=== PATIENT | female | born 1945 | race Caucasian/White ===

== ENCOUNTER 2016-12-01 12:35 | Emergency (ER) | payer MEDICARE, OTHER ==
[~2016-12-01] VITALS: Ht 152.4 cm; Wt 66.8 kg
[~2016-12-01 12:35] MED LIST: BENA20TA48 PO; HYDR-762 PO; OLAN5TAB5 PO; TRAZ50TA18 PO
[2016-12-01 12:39] VITALS: Ht 152.4 cm; Wt 66.8 kg
[2016-12-01] MEDS ORDERED: morphine 4 MG/ML VIAL IV STA (16:21)
[2016-12-01] MEDS ORDERED: SOD CHLORIDE 0.9% 1,000 ML IV STA (16:21)
--- NOTE | 2016-12-01 16:48 | RADRPT ---
PROCEDURE: XR Chest. CLINICAL INDICATION: Abdominal pain. TECHNIQUE: Single frontal view of the chest was obtained COMPARISON: Chest x-ray 02/13/2015. FINDINGS: There are atherosclerotic calcifications in the aortic arch. There are degenerative osteophytes in the thoracic spine. The soft tissues are generous. The heart, pulmonary vasculature, lung hooper an d pleural spaces are normal. Calcifications are noted in the bilateral augmentation mammary implants . No changes noted compared to the prior study. IMPRESSION: 1. Stable chest x-ray with no evidence of active cardiopulmonary disease. RPTAT:AAJJ Physician Boris Date Time Electronically viewed and signed by Physician Boris on 12/01/2016 16:48 SARAHI/
[2016-12-01 17:17] LABS: ADD UMIC YES; URINE BILIRUBIN (Dip) 1+ (NEGATIVE); URINE BLOOD (Dip) 1+ (NEGATIVE); URINE GLUCOSE (Dip) NEGATIVE (NEGATIVE); URINE KETONES (Dip) 40 (NEGATIVE); URINE LEUKOCYTE ESTERASE (Dip) 2+ (NEGATIVE); URINE NITRITE (Dip) NEGATIVE (NEGATIVE); URINE TOTAL PROTEIN (Dip) TRACE (NEGATIVE); URINE UROBILINOGEN (Dip) 1.0 E.U./dL (0.1-1.0)
[2016-12-01 17:19] LABS: BASOPHIL # 0.1 10^3/ul (0.0-0.1); BASOPHILS % 0.6 % (0.0-2.0); EOSINOPHILS % 0.4 % (0.0-7.0); HEMATOCRIT 43.9 % (37.0-47.0); HEMOGLOBIN 14.5 g/dl (12.0-16.0); LYMPHOCYTES # 2.8 10^3/ul (0.8-2.9); LYMPHOCYTES % 24.4 % (15.0-51.0); MEAN CORPUSCULAR HGB CONC 33.1 g/dl (32.0-37.0); MEAN CORPUSCULAR VOLUME 93.7 fl (82.0-101.0); MEAN PLATELET VOLUME 10.8 fl (7.4-10.4); MONOCYTE # 0.7 10^3/ul (0.3-0.9); NEUTROPHIL # 7.7 10^3/ul (1.6-7.5); NEUTROPHILS % 68.6 % (39.0-77.0); PLATELET COUNT 161 10^3/UL (140-440); RED BLOOD COUNT 4.69 10^6/ul (4.20-5.40); RED CELL DISTRIBUTION WIDTH 14.5 % (11.5-14.5); UNCORRECTED WBC 11.3 10^3/ul (4.8-10.8); WHITE BLOOD COUNT 11.3 10^3/ul (4.8-10.8)
[2016-12-01 17:21] LABS: CONDITION 1
[2016-12-01 17:22] LABS: ALBUMIN 4.1 g/dl (3.3-4.9)
[2016-12-01 17:25] LABS: ALBUMIN/GLOBULIN RATIO 1.32; BILIRUBIN,INDIRECT 0.5 mg/dl (0-1.1); BILIRUBIN,TOTAL 0.5 mg/dl (0.2-1.3); CREATININE 0.72 mg/dl (0.44-1.00); TOTAL PROTEIN 7.2 g/dl (6.1-8.1)
[2016-12-01 17:26] LABS: CALCIUM 9.6 mg/dl (8.4-10.2)
[2016-12-01 17:37] LABS: POTASSIUM 4.5 mmol/L (3.5-5.1)
[2016-12-01 17:41] LABS: URINE COLOR YELLOW (YELLOW)
[2016-12-01 17:43] LABS: BACTERIA,URINE MODERATE; SQUAMOUS EPITHELIAL CELL,UR MANY
[2016-12-01 17:45] LABS: ICTOTEST NEGATIVE (NEGATIVE)
--- NOTE | 2016-12-01 18:03 | RADRPT ---
PROCEDURE: CT abdomen and pelvis without contrast. CLINICAL INDICATION: Abdominal pain TECHNIQUE: CT scan of the abdomen and pelvis without contrast was performed. Sagittal and coronal reformatted images were obtained from the axial source images. CTDI = 9.03 mGy; DLP = 412.02 mGy-cm COMPARISON: None. FINDINGS: Visualized lower thorax: The lung bases are clear. There is no evidence for pleural effusion. Prom inent pericardial fat is noted. Liver, gallbladder, pancreas and spleen: The liver is normal and size, contour and attenuation. Th ere is no evidence for a liver mass or ductal dilatation. The gallbladder is unremarkable. No comm on bile duct abnormality is demonstrated. The pancreas is unremarkable. The spleen is normal in si ze. Adrenal glands and genitourinary system: The adrenal glands are normal bilaterally. Some curvilinea r calcifications along the right lateral renal cortex may be vascular or the sequela of prior infect ion with cortical scarring. There is no evidence of renal calculus, mass or hydronephrosis, the lef t kidney is unremarkable. The ureters are unremarkable. The urinary bladder is contracted and diffi cult to evaluate, there is artifact from left hip arthroplasty changes in limits fine evaluation of the pelvis. The uterus is not visualized presumably surgically removed. Gastrointestinal system: The stomach is normal in caliber with no abnormality of significance. The small bowel is normal in caliber with no ileus, obstruction or wall thickening. There is no evidenc e of appendicitis. Moderate diverticular disease of the descending and sigmoid colon is present. T here is no evidence for colitis or diverticulitis. Peritoneum, retroperitoneum, lymph nodes and vessels: The abdominal aorta is normal in caliber. The re is moderate to severe aortic and iliac atherosclerotic calcification. The inferior vena cava is unremarkable. There is no evidence for adenopathy or mass. There is no ascites. Osseous structures and musculoskeletal findings: Left hip arthroplasty changes are present satisfac tory alignment. Generalized demineralization is noted with mild chronic-appearing superior L1 compr ession deformity. There is no acute osseous abnormality, lytic or blastic lesion. No muscular abno rmality or soft tissue pathology is present. RPTAT:HJJR IMPRESSION: 1. Diverticulosis of the distal colon without evidence of diverticulitis or acute intra-abdominal pa thology. 2. Linear calcifications along the lateral cortex of the right kidney may reflect atypical atherosc lerotic disease with the sequela of previous infection with cortical scarring. Postoperative change s are a consideration. No acute genitourinary system abnormality is present. 3. Changes of prior hysterectomy and left hip arthroplasty. 4. Slightly prominent pericardial fat. 5. Aortic atherosclerosis is present. Physician Reggie Date Time Electronically viewed and signed by Adin Ndiaye Physician on 12/01/2016 18:03 JR/
--- NOTE | 2016-12-01 18:22 | ERD ---
ER Documentation Chief Complaint Date/Time DATE: 12/01/16 TIME: 18:21 Chief Complaint diarrhea x 1 week HPI Patient is a 71-year-old female asked medical history of COPD, who presents to emergency department with diarrhea 1 week. Patient states that her stools are green to brown in color. Patient reports 4-5 episodes of loose stools per day. Patient denies any blood in her stools. Patient also states that she has diffuse abdominal cramping and pain. Patient states that her pain is 8/10. She denies any radiation of pain to her back. Patient denies any fever, chills, nausea, vomiting, chest pain, shortness of breath, decreased appetite, pain with urination, hematuria or malodorous urine. Patient denies any cough, rhinorrhea, pain or throat pain. Patient states she does smoke daily. Note, patient states that she was recently hospitalized for a UTI in [place] x 2 days. Patient states that she left AMA because "her home is in [place]. " Patient is not taking PO antibiotics. ROS All systems reviewed and are negative except as per history of present illness. Medications Home Meds Active Scripts Acetaminophen* (Tylophen*) 500 Mg Capsule, 1 CAP PO Q6H Y for PAIN AND OR ELEVATED TEMP, #20 CAP Prov:MANN AU PA-C 12/01/16 Ciprofloxacin Hcl* (Ciprofloxacin Hcl*) 500 Mg Tablet, 500 MG PO BID for 7 Days , TAB Prov:MANN AU PA-C 12/01/16 Reported Medications Hydrocodone Bit-Acetaminophen* ([place]*) 10-325 Mg Tablet, 1 TAB PO Q4H Y for PAIN, TAB 07/28/14 Benazepril Hcl* (Benazepril Hcl*) 20 Mg Tablet, 20 MG PO DAILY, TAB 07/28/14 Olanzapine* (Zyprexa*) 5 Mg Tablet, 5 MG PO HS, TAB 07/28/14 Trazodone Hcl* (Trazodone Hcl*) 50 Mg Tablet, 50 MG PO HS, TAB 07/28/14 Allergies Allergies: Coded Allergies: ibuprofen (Verified Allergy, Unknown, 07/28/14) PMhx/Soc History of Surgery: Yes (hip replacement, appendectomy, hysterectomy) Anesthesia Reaction: No Hx 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 Disorder: No Hx Respiratory Disorders: No (copd) Hx Cardiac Disorders: Yes (HTN) Hx Psychiatric Problems: Yes (BIPOLAR) Hx Miscellaneous Medical Probl: Yes (HTN, bipolar disorder, ) Hx Alcohol Use: No Hx Substance Use: No Hx Tobacco Use: Yes Smoking Status: Current every day smoker FmHx Family History: No diabetes Physical Exam Vitals Vital Signs Date Time Temp Pulse Resp B/P Pulse Ox O2 Delivery O2 Flow Rate FiO2 12/01/16 12:39 100.0 91 18 153/89 99 Physical Exam GENERAL: Well-developed, well-nourished female. Appears in no acute distress. Speaking in full sentences HEAD: Normocephalic, atraumatic. No deformities or ecchymosis. EYE: Pupils equal, round, and reactive to light. EOMs intact. No conjunctival erythema. No scleral icterus. No eye discharge. ENT: External ear without any masses or tenderness. Auditory canals clear bilaterally. TM visualized bilaterally, non-erythematous, non-bulging. Nasal mucosa pink with no discharge. Oropharynx is pink without any tonsillar erythema or exudates. No uvula deviation. No kissing tonsils. NECK: Supple. No meningismus. LUNG: Clear to auscultation bilaterally. No rhonchi, wheezing, rales or coarse breath sounds. HEART: Regular rate and rhythm. No murmurs, rubs or gallops. ABDOMEN: Soft and nondistended. Tender to palpation in the epigastric region and lower left abdominal quadrant. Positive bowel sounds in all four quadrants. No rebound tenderness, no guarding. (-) McBurney's point tenderness. No CVA tenderness. BACK: No midline tenderness. EXTREMITES: Equal pulses bilaterally. No peripheral clubbing, cyanosis or edema. No unilateral leg swelling. NEUROLOGIC: Alert and oriented to person, place and time. Moving all four extremities. 5/5 strength in all extremities. Normal speech. Steady gait. SKIN: Normal color. Warm and dry. No rashes or lesions. Result Diagram: 12/01/16 1658 12/01/16 1658 Results 24 hrs Laboratory Tests Test 12/01/16 16:55 12/01/16 16:58 Urine Bacteria MODERATE Urine Bilirubin 1+ Urine Clarity CLOUDY Urine Color YELLOW Urine Glucose NEGATIVE% Urine Hemoglobin 1+ Urine Ictotest NEGATIVE Urine Ketones 40 Urine Leukocyte Esterase 2+ Urine Microscopic RBC 5-10/HPF Urine Microscopic WBC 10-25/HPF Urine Nitrite NEGATIVE Urine Specific [place] 1.025 Urine Squamous Epithelial Cells MANY Urine Total Protein TRACE Urine Urobilinogen 1.0 E.U./dL Urine pH 6.5 Alanine Aminotransferase (ALT/SGPT) 24IU/L Albumin 4.1g/dl Albumin/Globulin Ratio 1.32 Alkaline Phosphatase 104IU/L Anion Gap 16 Aspartate Amino Transf (AST/SGOT) 20IU/L Basophils # 0.110^3/ul Basophils % 0.6% Blood Morphology Comment Blood Urea Nitrogen 13mg/dl Calcium Level 9.6mg/dl Carbon Dioxide Level 29mmol/L Chloride Level 105mmol/L Creatinine 0.72mg/dl Direct Bilirubin 0.00mg/dl Eosinophils # 0.010^3/ul Eosinophils % 0.4% Globulin 3.10g/dl Glucose Level 88mg/dl Hematocrit 43.9% Hemoglobin 14.5g/dl Indirect Bilirubin 0.5mg/dl Lipase 19U/L Lymphocytes # 2.810^3/ul Lymphocytes % 24.4% Mean Corpuscular Hemoglobin 31.0pg Mean Corpuscular Hemoglobin Concent 33.1g/dl Mean Corpuscular Volume 93.7fl Mean Platelet Volume 10.8fl Monocytes # 0.710^3/ul Monocytes % 6.0% Neutrophils # 7.710^3/ul Neutrophils % 68.6% Nucleated Red Blood Cells # 0.010^3/ul Nucleated Red Blood Cells % 0.0/100WBC Platelet Count 05699^3/UL Potassium Level 4.5mmol/L Red Blood Count 4.6910^6/ul Red Cell Distribution Width 14.5% Sodium Level 145mmol/L Total Bilirubin 0.5mg/dl Total Protein 7.2g/dl White Blood Count 11.310^3/ul Current Medications Medications (Trade) Dose Ordered Sig/Micha Route PRN Reason Start Time Stop Time Status Last Admin Dose Admin Sodium Chloride (NS) 1,000 ml @ 1,000 mls/hr Q1H STAT IV 12/01/16 16:21 12/01/16 17:20 DC 12/01/16 16:52 Morphine Sulfate (morphine) 4 mg ONCE STAT IV 12/01/16 16:21 12/01/16 16:23 DC 12/01/16 16:53 Procedures/MDM ED COURSE: The patient was stable throughout ED course. I kept the patient and/or family informed of laboratory and diagnostic imaging results throughout the ED course. DIAGNOSTIC IMAGING: Read by radiologist. DIAGNOSTIC IMAGING REPORT Patient: TULIO PERALTA : 1945 Age: 71 Sex: F MR #: [id number] DOS: 12/01/16 1621 Ordering MD: MANN AU PA-C Location: [facility] Room/Bed: PROCEDURE: XR Chest. CLINICAL INDICATION: Abdominal pain. TECHNIQUE: Single frontal view of the chest was obtained COMPARISON: Chest x-ray 02/13/2015. FINDINGS: There are atherosclerotic calcifications in the aortic arch. There are degenerative osteophytes in the thoracic spine. The soft tissues are generous. The heart, pulmonary vasculature, lung hooper and pleural spaces are normal. Calcifications are noted in the bilateral augmentation mammary implants. No changes noted compared to the prior study. IMPRESSION: 1. Stable chest x-ray with no evidence of active cardiopulmonary disease. RPTAT:AAJJ Physician Boris Date Time Electronically viewed and signed by Physician Boris on 12/01/2016 16:48 JM/ CC: MANN AU PA-C DIAGNOSTIC IMAGING REPORT Patient: TULIO PERALTA : 1945 Age: 71 Sex: F MR #: [id number] DOS: 12/01/16 1621 Ordering MD: MANN AU PA-C Location: [facility] Room/Bed: PROCEDURE: CT abdomen and pelvis without contrast. CLINICAL INDICATION: Abdominal pain TECHNIQUE: CT scan of the abdomen and pelvis without contrast was performed. Sagittal and coronal reformatted images were obtained from the axial source images. CTDI = 9.03 mGy; DLP = 412.02 mGy-cm COMPARISON: None. FINDINGS: Visualized lower thorax: The lung bases are clear. There is no evidence for pleural effusion. Prominent pericardial fat is noted. Liver, gallbladder, pancreas and spleen: The liver is normal and size, contour and attenuation. There is no evidence for a liver mass or ductal dilatation. The gallbladder is unremarkable. No common bile duct abnormality is demonstrated. The pancreas is unremarkable. The spleen is normal in size. Adrenal glands and genitourinary system: The adrenal glands are normal bilaterally. Some curvilinear calcifications along the right lateral renal cortex may be vascular or the sequela of prior infection with cortical scarring. There is no evidence of renal calculus, mass or hydronephrosis, the left kidney is unremarkable. The ureters are unremarkable. The urinary bladder is contracted and difficult to evaluate, there is artifact from left hip arthroplasty changes in limits fine evaluation of the pelvis. The uterus is not visualized presumably surgically removed. Gastrointestinal system: The stomach is normal in caliber with no abnormality of significance. The small bowel is normal in caliber with no ileus, obstruction or wall thickening. There is no evidence of appendicitis. Moderate diverticular disease of the descending and sigmoid colon is present. There is no evidence for colitis or diverticulitis. Peritoneum, retroperitoneum, lymph nodes and vessels: The abdominal aorta is normal in caliber. There is moderate to severe aortic and iliac atherosclerotic calcification. The inferior vena cava is unremarkable. There is no evidence for adenopathy or mass. There is no ascites. Osseous structures and musculoskeletal findings: Left hip arthroplasty changes are present satisfactory alignment. Generalized demineralization is noted with mild chronic-appearing superior L1 compression deformity. There is no acute osseous abnormality, lytic or blastic lesion. No muscular abnormality or soft tissue pathology is present. RPTAT:HJJR IMPRESSION: 1. Diverticulosis of the distal colon without evidence of diverticulitis or acute intra-abdominal pathology. 2. Linear calcifications along the lateral cortex of the right kidney may reflect atypical atherosclerotic disease with the sequela of previous infection with cortical scarring. Postoperative changes are a consideration. No acute genitourinary system abnormality is present. 3. Changes of prior hysterectomy and left hip arthroplasty. 4. Slightly prominent pericardial fat. 5. Aortic atherosclerosis is present. Physician Reggie Date Time Electronically viewed and signed by Physician Reggie on 12/01/2016 18:03 JR/ CC: MANN AU PA-C MEDICATIONS GIVEN: Morphine, IV fluids Patient tolerated medication well with no adverse reactions. Patient reported improvement in pain. MEDICAL DECISION MAKING: This is a 71-year-old female who presents with diffuse abdominal pain, cramping and diarrhea 1 week. Vital signs were reviewed. Patient is afebrile. CBC showed no evidence of severe anemia. Patient was noted to have WBC count of 11.3. CMP showed no evidence of severe electrolyte abnormalities, severe acidosis, alkalosis, renal failure, or liver disease. Lipase showed no evidence of acute pancreatitis. UA showed 2+ leukocyte esterase, 10-25 WBC, many epithelium squamous cells. Urine may be contaminated sample. CXR was unremarkable. CT abd and pelvis showed Diverticulosis of the distal colon without evidence of diverticulitis or acute intra-abdominal pathology. Linear calcifications along the lateral cortex of the right kidney may reflect atypical atherosclerotic disease with the sequela of previous infection with cortical scarring. Postoperative changes are a consideration. No acute genitourinary system abnormality is present. Changes of prior hysterectomy and left hip arthroplasty. Slightly prominent pericardial fat.. Aortic atherosclerosis is present. At this time, patient's presentation is most consistent with diverticulosis and possible UTI. I have a much lower clinical concern for acute coronary syndrome, COPD exacerbation, DKA, bowel obstruction, bowel perforation, cholecystitis, hepatic abscess, pancreatitis, splenic rupture, diverticulitis, pyelonephritis, nephrolithiasis, appendicitis, constipation, PID, ovarian torsion or tubo- ovarian abscess. Given that patient has had diarrhea for greater than 1 week and is requesting antibiotics, I will prophylactically treatment with antibiotics. This may also help treat possible UTI. I discussed prescribing the patient antibiotics with my supervising physician, Dr. Ortiz, who is in agreement with this treatment plan. PRESCRIPTIONS: Ciprofloxacin, Tylenol DISCHARGE: At this time, patient is stable for discharge and outpatient management. Patient advised to increase fiber intake and drink plenty of foods. I have instructed the patient to follow-up with his/her primary care physician in 1-2 days. I have instructed the patient to promptly return to the ER at any time for any new or worsening symptoms including increased pain, nausea, vomiting, diarrhea, fever, weakness or LOC. The patient and/or family expressed understanding of and agreement with this plan. All questions were answered. Home care instructions were provided. Departure Diagnosis: Primary Impression: Diverticulosis Diverticulosis site: unspecified location Diverticulosis bleeding: diverticulosis without bleeding Qualified Code: K57.90 - Diverticulosis of intestine without bleeding, unspecified intestinal tract location Additional Impressions: UTI (urinary tract infection) Urinary tract infection type: site unspecified Hematuria presence: without hematuria Qualified Code: N39.0 - Urinary tract infection without hematuria, site unspecified Diarrhea Diarrhea type: unspecified type Qualified Code: R19.7 - Diarrhea, unspecified type Condition: Stable Patient Instructions: Diverticulosis Referrals: [facility] Additional Instructions: Hydrate well. Drink plenty of fluids. Increase fiber intake. Patient will need to see a GI specialist for further management of her symptoms. MANN AU PA-C Dec 01, 2016 18:22
[2016-12-01] MEDS ORDERED: CIPR500T4 PO (18:45)
[2016-12-01] MEDS ORDERED: ACET500C5 PO (18:45)
== END 2016-12-01 19:23 | disposition home or self-care (01) ==
LOC: FTE 12:35
DX: K57.90 Diverticulosis of intestine, part unspecified, without perforation or abscess without bleeding (principal); N39.0 Urinary tract infection, site not specified; J44.9 Chronic obstructive pulmonary disease, unspecified; I10 Essential (primary) hypertension; F17.210 Nicotine dependence, cigarettes, uncomplicated; Z96.649 Presence of unspecified artificial hip joint
CPT/HCPCS: 36415; 71010; 74176; 80053; 81001; 83690; 85025; 96374; 99285; J2270; J7030; 81003

== ENCOUNTER 2016-12-04 14:52 | Inpatient (IN) | payer MEDICARE, OTHER ==
[~2016-12-04] VITALS: Ht 157.5 cm; Wt 63.5 kg
[~2016-12-04 14:52] MED LIST changes: +ACET500C5 PO; +CIPR500T4 PO
[2016-12-04 19:35] VITALS: TEMP 98.4
[2016-12-04] MEDS ORDERED: SOD CHLORIDE 0.9% 1,000 ML IV STA (20:14)
[2016-12-04] MEDS ORDERED: ONDANSETRON 4 MG INJ IV STA (20:14)
[2016-12-04] MEDS ORDERED: morphine 4 MG/ML VIAL IV STA (20:14)
[2016-12-04] MEDS ORDERED: SOD CHLORIDE 0.9% 100 ML ONE (20:16)
[2016-12-04] MEDS ORDERED: IOHEXOL 300MG/ML 150 ML BTL ONE (20:16)
[2016-12-04] MEDS ORDERED: OLAN5TAB5 PO (20:23)
[2016-12-04] MEDS ORDERED: CLON-412 PO (20:24)
[2016-12-04] MEDS ORDERED: LOSA50TA6 PO (20:24)
[2016-12-04] MEDS ORDERED: AMLO5TAB4 PO (20:25)
[2016-12-04] MEDS ORDERED: ATOR10TA65 PO (20:25)
[2016-12-04] MEDS ORDERED: GABA300C16 PO (20:28)
[2016-12-04 20:43] LABS: BASOPHILS % 0.2 % (0.0-2.0); EOSINOPHILS # 0.1 10^3/ul (0.0-0.5); EOSINOPHILS % 0.8 % (0.0-7.0); HEMATOCRIT 45.4 % (37.0-47.0); HEMOGLOBIN 14.9 g/dl (12.0-16.0); LYMPHOCYTES # 3.4 10^3/ul (0.8-2.9); LYMPHOCYTES % 27.2 % (15.0-51.0); MEAN CORPUSCULAR HGB CONC 32.9 g/dl (32.0-37.0); MEAN CORPUSCULAR VOLUME 94.3 fl (82.0-101.0); MEAN PLATELET VOLUME 11.3 fl (7.4-10.4); MONOCYTE # 0.8 10^3/ul (0.3-0.9); MONOCYTES % 6.2 % (0.0-11.0); NEUTROPHIL # 8.2 10^3/ul (1.6-7.5); NEUTROPHILS % 65.6 % (39.0-77.0); PLATELET COUNT 168 10^3/UL (140-440); RED BLOOD COUNT 4.82 10^6/ul (4.20-5.40); RED CELL DISTRIBUTION WIDTH 14.6 % (11.5-14.5); UNCORRECTED WBC 12.6 10^3/ul (4.8-10.8); WHITE BLOOD COUNT 12.6 10^3/ul (4.8-10.8)
[2016-12-04 20:51] LABS: ALBUMIN 4.4 g/dl (3.3-4.9); POTASSIUM 3.9 mmol/L (3.5-5.1)
[2016-12-04 20:53] LABS: CREATININE 0.81 mg/dl (0.44-1.00)
[2016-12-04 20:54] LABS: ALBUMIN/GLOBULIN RATIO 1.46; BILIRUBIN,INDIRECT 0.3 mg/dl (0-1.1); BILIRUBIN,TOTAL 0.3 mg/dl (0.2-1.3); CALCIUM 9.5 mg/dl (8.4-10.2); TOTAL PROTEIN 7.4 g/dl (6.1-8.1)
[2016-12-04 21:03] LABS: CONDITION 1; LH ANALYZER COMMENTS 1
--- NOTE | 2016-12-04 21:17 | RADRPT ---
PROCEDURE: CT Abdomen and Pelvis with Contrast CLINICAL INDICATION: Left-sided abdominal pain TECHNIQUE: Transaxial images were obtained through the abdomen and pelvis on a multi-slice scanner following the intravenous administration of iodinated contrast. No oral contrast had previously be en given. Sagittal and coronal re-formations were subsequently reconstructed. One or more of the following dose reduction techniques were used: - Automated exposure control. - Adjustment of the mA and/or kV according to patient size. - Use of iterative reconstruction technique. Radiation dose: CTDIvol = 7.38 mGy; DLP = 380.43 mGy-cm. COMPARISON: 12/01/2016 FINDINGS: Lung bases: The visualized lung bases appear unremarkable. Bilateral breast implants are evident wit h calcific capsulitis. Liver: The liver is normal in size. Several hypodensities on the order of 34 millimeters are eviden t that likely represent cysts but are too small to accurately characterize. The hepatic and portal veins are patent. Gallbladder: The wall is not thickened. No radiopaque stones are identified. Bile ducts: The intra and extrahepatic bile ducts are normal in caliber. Pancreas: Appears normal with no mass or inflammation evident. Spleen: Normal in size with no focal lesion. Adrenals: Normal with no mass identified. Kidneys, ureters and bladder: There is cortical scarring involving the mid pole of the right kidney posterolaterally. There is a hypodense nodule seen at the lateral superior pole of the left kidney. There is no hydronephrosis. The ureters are not dilated and no ureterolith is evident. The bladd er is suboptimally distended giving the wall is slightly thickened appearance. Reproductive organs: The uterus is absent and no adnexal mass is evident. Stomach, bowel, and mesentery: There is diverticulosis of the colon but there is no evidence of glendy l obstruction or inflammation. The stomach appears unremarkable. Appendix: The vermiform appendix is not identified. Peritoneum: No free intraperitoneal fluid or air is identified. Aorta: There is atherosclerotic vascular calcification but no abdominal aortic aneurysm is evident. IVC: Unremarkable. Lymph nodes: No pathologically enlarged nodes are identified. Osseous structures: There is a total left hip replacement resulting in considerable metal artifact d egrading adjacent images. Moderate degenerative spine changes are noted. IMPRESSION: 1. The liver is normal in size with several 3-4 mm hypodensities which likely represent cysts but a re too small to accurately characterize. 2. Cortical scarring involving the posterolateral mid pole right kidney, unchanged. There is an 8 mm hypodense lesion at the lateral superior pole right kidney which could be cystic or solid. Corre lation with sonography may be useful. There is no hydronephrosis or ureterolithiasis. The bladder is suboptimally distended giving the wall is slightly thickened appearance. 3. Diverticulosis of the colon is again evident without evidence of bowel obstruction or inflammati on. The appendix is not visualized. 4. Status post hysterectomy. 5. Atherosclerotic vascular calcification. 6. There is again a total left hip replacement and moderate degenerative spine changes are noted. Physician Bethanie Date Time Electronically viewed and signed by Physician Bethanie on 12/04/2016 21:16 /
[2016-12-04] MEDS ORDERED: SOD CHLORIDE 0.9% 1,000 ML IV SCH (21:37)
[2016-12-04] MEDS ORDERED: ONDANSETRON 4 MG INJ IV PRN (22:00)
[2016-12-04] MEDS ORDERED: ACETAMINOPHEN 325 MG TAB PO PRN (22:00)
[2016-12-04 22:20] VITALS: BP 177/91; PULSE 63; RESP 20; Ht 157.5 cm; Wt 63.5 kg
--- NOTE | 2016-12-04 22:22 | ERA ---
ER Documentation Chief Complaint Date/Time DATE: 12/04/16 TIME: 22:17 Chief Complaint LEFT UPPER QUADRANT PAIN,VOMITING,DIARRHEA,SENT BY PMD HPI 71-year-old female with a history of hypertension and bipolar disorder presenting with left-sided abdominal pain for about 4 days. She has associated nausea, vomiting, and diarrhea. Her vomitus is nonbloody and nonbilious. Her diarrhea is watery, about 3-4 times a day. Her abdominal pain is stabbing, constant, without any associated alleviating or exacerbating factors. She was here 3 days ago and evaluated in the emergency room. She had labs drawn which were unremarkable. She also had a CT scan of her abdomen and pelvis without contrast which showed diverticulosis without evidence of diverticulitis and no other acute intra-abdominal abnormalities. She was diagnosed with a possible UTI and placed on antibiotics. She followed up with her primary care doctor today, , who sent the patient back to the ER today as she is not improving at all and is unable to tolerate anything by mouth. ROS All systems reviewed and are negative except as per history of present illness. Medications Home Meds Reported Medications Gabapentin* (Gabapentin*) 300 Mg Capsule, 300 MG PO QHS, #60 CAP 12/04/16 Amlodipine Besylate* (Norvasc*) 5 Mg Tablet, 5 MG PO QHS, TAB 12/04/16 Atorvastatin Calcium (Atorvastatin Calcium) 10 Mg Tablet, 10 MG PO DAILY, #30 TAB 12/04/16 Losartan Potassium* (Losartan Potassium*) 50 Mg Tablet, 50 MG PO BID, TAB 12/04/16 Clonazepam* (Klonopin*) 1 Mg Tablet, 1 MG PO BID, TAB 12/04/16 Olanzapine* (Zyprexa*) 5 Mg Tablet, 5 MG PO DAILY, #30 TAB 12/04/16 Hydrocodone Bit-Acetaminophen* ([place]*) 10-325 Mg Tablet, 1 TAB PO Q4H Y for PAIN, TAB 07/28/14 Discontinued Reported Medications Benazepril Hcl* (Benazepril Hcl*) 20 Mg Tablet, 20 MG PO DAILY, TAB 07/28/14 Olanzapine* (Zyprexa*) 5 Mg Tablet, 5 MG PO HS, TAB 07/28/14 Trazodone Hcl* (Trazodone Hcl*) 50 Mg Tablet, 50 MG PO HS, TAB 07/28/14 Discontinued Scripts Acetaminophen* (Tylophen*) 500 Mg Capsule, 1 CAP PO Q6H Y for PAIN AND OR ELEVATED TEMP, #20 CAP Prov:ANGELYMANN PA-C 12/01/16 Ciprofloxacin Hcl* (Ciprofloxacin Hcl*) 500 Mg Tablet, 500 MG PO BID for 7 Days , TAB Prov:SHAHID AUCHERELLE SOLIS 12/01/16 Allergies Allergies: Coded Allergies: ibuprofen (Verified Allergy, Unknown, 12/04/16) PMhx/Soc History of Surgery: Yes (hip replacement, appendectomy, hysterectomy) Anesthesia Reaction: No Hx 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 Disorder: No Hx Respiratory Disorders: No (copd) Hx Cardiac Disorders: Yes (HTN) Hx Psychiatric Problems: Yes (BIPOLAR) Hx Miscellaneous Medical Probl: Yes (HTN, bipolar disorder, ) Hx Alcohol Use: No Hx Substance Use: No Hx Tobacco Use: Yes Smoking Status: Current every day smoker FmHx Family History: No diabetes Physical Exam Vitals Vital Signs Date Time Temp Pulse Resp B/P Pulse Ox O2 Delivery O2 Flow Rate FiO2 12/04/16 21:33 67 18 176/96 99 Room Air 12/04/16 19:35 98.4 63 18 183/107 99 Room Air 12/04/16 15:45 98.4 84 18 167/106 98 Physical Exam Const: Mild distress secondary to pain, nontoxic Head: Atraumatic Eyes: Normal Conjunctiva ENT: Normal External Ears, Nose and Mouth. Neck: Full range of motion..~ No meningismus. Resp: Clear to auscultation bilaterally Cardio: Regular rate and rhythm, no murmurs Abd: Soft, tenderness to palpation throughout the left side of the abdomen with voluntary guarding, no rebound, non distended. Hypoactive bowel sounds Skin: No petechiae or rashes Back: No midline or flank tenderness Ext: No cyanosis, or edema Neur: Awake and alert and oriented, moving all extremities Psych: Normal Mood and Affect Result Diagram: 12/04/16 1950 12/04/161949 Results 24 hrs Laboratory Tests Test 12/04/16 19:50 Alanine Aminotransferase (ALT/SGPT) 25IU/L Albumin 4.4g/dl Albumin/Globulin Ratio 1.46 Alkaline Phosphatase 102IU/L Anion Gap 18 Aspartate Amino Transf (AST/SGOT) 22IU/L Basophils # 0.010^3/ul Basophils % 0.2% Blood Morphology Comment Blood Urea Nitrogen 8mg/dl Calcium Level 9.5mg/dl Carbon Dioxide Level 28mmol/L Chloride Level 104mmol/L Creatinine 0.81mg/dl Direct Bilirubin 0.00mg/dl Eosinophils # 0.110^3/ul Eosinophils % 0.8% Globulin 3.00g/dl Glucose Level 147mg/dl Hematocrit 45.4% Hemoglobin 14.9g/dl Indirect Bilirubin 0.3mg/dl Lipase 23U/L Lymphocytes # 3.410^3/ul Lymphocytes % 27.2% Mean Corpuscular Hemoglobin 31.0pg Mean Corpuscular Hemoglobin Concent 32.9g/dl Mean Corpuscular Volume 94.3fl Mean Platelet Volume 11.3fl Monocytes # 0.810^3/ul Monocytes % 6.2% Neutrophils # 8.210^3/ul Neutrophils % 65.6% Nucleated Red Blood Cells # 0.010^3/ul Nucleated Red Blood Cells % 0.0/100WBC Platelet Count 99500^3/UL Potassium Level 3.9mmol/L Red Blood Count 4.8210^6/ul Red Cell Distribution Width 14.6% Sodium Level 146mmol/L Total Bilirubin 0.3mg/dl Total Protein 7.4g/dl White Blood Count 12.610^3/ul Current Medications Medications (Trade) Dose Ordered Sig/Micha Route PRN Reason Start Time Stop Time Status Last Admin Dose Admin Sodium Chloride (NS) 1,000 ml @ 1,000 mls/hr Q1H STAT IV 12/04/16 20:14 12/04/16 21:13 DC 12/04/16 20:56 Morphine Sulfate (morphine) 4 mg ONCE STAT IV 12/04/16 20:14 12/04/16 20:15 DC 12/04/16 20:57 Ondansetron HCl (Zofran Inj) 4 mg ONCE STAT IV 12/04/16 20:14 12/04/16 20:15 DC 12/04/16 20:56 IV Flush 10 ml 10 ml STK-MED ONCE .ROUTE 12/04/16 20:16 12/04/16 20:17 DC 12/04/16 20:42 Sodium Chloride (NS) 100 ml @ ud STK-MED ONCE .ROUTE 2/8/17 20:16 12/04/16 20:17 DC 12/04/16 20:42 Iohexol 150 ml 150 ml STK-MED ONCE .ROUTE 12/04/16 20:16 12/04/16 20:17 DC 12/04/16 20:43 Sodium Chloride (NS) 1,000 ml @ 80 mls/hr [id number] IV 12/04/16 21:37 12/05/16 10:06 Ondansetron HCl (Zofran Inj) 4 mg BRIDGE ORDER PRN IV NAUSEA AND/OR VOMITING 12/04/16 22:00 12/05/16 21:59 Acetaminophen (Tylenol Tab) 650 mg ER BRIDGE PRN PO MILD PAIN/FEVER 12/04/16 22:00 12/05/16 21:59 Procedures/MDM Patient is presenting with intractable abdominal pain with associated vomiting and diarrhea. She is afebrile with stable vital signs other than uncontrolled hypertension. Patient's blood pressure was elevated (>120/80) but appears stable without evidence of hypertension emergency or urgency. IV fluids were started. Pain medications were given. Her urine culture from 2 days ago did not show any infection. A CT scan with IV contrast was done of her abdomen and pelvis to evaluate for any acute infectious or surgical etiology for her pain. CT did not show any acute abnormalities. Her labs were notable for mild leukocytosis. Given the patient is worsening and not improving and unable to tolerate anything by mouth, I believe the patient will need admission for further observation and IV hydration. I will defer any further workup to the inpatient team. Departure Diagnosis: Primary Impression: Left sided abdominal pain of unknown cause Additional Impression: Vomiting and diarrhea Condition: BRIGHT Ruvalcaba MD Dec 04, 2016 22:22
[2016-12-04] MEDS: morphine 4 MG/ML VIAL IV PRN (23:51)
[2016-12-04] MEDS: ATORVASTATIN 10 MG TAB PO SCH (23:54)
[2016-12-04] MEDS: DEXTROSE 5%-0.45% NACL 1,000 ML IV SCH (23:54)
[2016-12-04] MEDS: LOSARTAN 50 MG TAB PO SCH (23:56)
[2016-12-04] MEDS: AMLODIPINE 5 MG TAB PO SCH (23:56)
[2016-12-05 01:48] LABS: ADD UMIC YES; URINE BILIRUBIN (Dip) NEGATIVE (NEGATIVE); URINE BLOOD (Dip) 1+ (NEGATIVE); URINE COLOR LT. YELLOW (YELLOW); URINE GLUCOSE (Dip) NEGATIVE (NEGATIVE); URINE KETONES (Dip) TRACE (NEGATIVE); URINE LEUKOCYTE ESTERASE (Dip) TRACE (NEGATIVE); URINE NITRITE (Dip) NEGATIVE (NEGATIVE); URINE TOTAL PROTEIN (Dip) NEGATIVE (NEGATIVE); URINE UROBILINOGEN (Dip) 0.2 E.U./dL (0.1-1.0)
[2016-12-05 01:59] LABS: BACTERIA,URINE FEW; SQUAMOUS EPITHELIAL CELL,UR FEW
[2016-12-05 02:30] VITALS: BP 164/91; PULSE 61
[2016-12-05] MEDS: morphine 4 MG/ML VIAL IV PRN ×4 (04:31→20:58)
[2016-12-05 05:31] VITALS: BP 149/77; PULSE 64; RESP 18
[2016-12-05 06:24] LABS: ALBUMIN 3.9 g/dl (3.3-4.9)
[2016-12-05 06:25] LABS: POTASSIUM 3.9 mmol/L (3.5-5.1)
[2016-12-05 06:26] LABS: CREATININE 0.75 mg/dl (0.44-1.00)
[2016-12-05 06:27] LABS: ALBUMIN/GLOBULIN RATIO 1.39; BILIRUBIN,INDIRECT 0.4 mg/dl (0-1.1); BILIRUBIN,TOTAL 0.4 mg/dl (0.2-1.3); CALCIUM 8.7 mg/dl (8.4-10.2); PHOSPHORUS 3.6 mg/dl (2.5-4.9); TOTAL PROTEIN 6.7 g/dl (6.1-8.1)
[2016-12-05 06:28] LABS: MAGNESIUM 1.9 mg/dl (1.7-2.5)
[2016-12-05 07:19] LABS: BASOPHIL # 0.1 10^3/ul (0.0-0.1); BASOPHILS % 0.5 % (0.0-2.0); EOSINOPHILS # 0.2 10^3/ul (0.0-0.5); EOSINOPHILS % 1.3 % (0.0-7.0); HEMATOCRIT 41.6 % (37.0-47.0); HEMOGLOBIN 13.9 g/dl (12.0-16.0); LYMPHOCYTES # 3.2 10^3/ul (0.8-2.9); LYMPHOCYTES % 26.8 % (15.0-51.0); MEAN CORPUSCULAR HEMOGLOBIN 31.4 pg (29.0-33.0); MEAN CORPUSCULAR HGB CONC 33.5 g/dl (32.0-37.0); MEAN CORPUSCULAR VOLUME 93.7 fl (82.0-101.0); MEAN PLATELET VOLUME 11.8 fl (7.4-10.4); MONOCYTE # 0.8 10^3/ul (0.3-0.9); MONOCYTES % 6.9 % (0.0-11.0); NEUTROPHIL # 7.8 10^3/ul (1.6-7.5); NEUTROPHILS % 64.5 % (39.0-77.0); RED BLOOD COUNT 4.44 10^6/ul (4.20-5.40); RED CELL DISTRIBUTION WIDTH 14.4 % (11.5-14.5); UNCORRECTED WBC 12.1 10^3/ul (4.8-10.8); WHITE BLOOD COUNT 12.1 10^3/ul (4.8-10.8)
[2016-12-05] MEDS: ONDANSETRON 4 MG INJ IV PRN (07:42)
[2016-12-05 08:00] LABS: CONDITION 1; LH ANALYZER COMMENTS 1; SUSPECT 1
[2016-12-05 08:09] VITALS: BP 172/79; RESP 16
--- NOTE | 2016-12-05 08:15 | HP ---
DATE OF ADMISSION: 12/04/2016 TIME SEEN: 2300. CHIEF COMPLAINT: Abdominal pain. 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 The pain is mainly localized in the left upper quadran t area and is associated with nausea, nonbilious, nonbloody vomiting, as well as diarrhea. The symp toms have been going on for about 4 days. The diarrhea is described as watery. The patient was her e in the ER 3 days ago for diarrhea as well as diffuse abdominal pain. At that time, CT abdomen and pelvis showed diverticulosis, without evidence of diverticulitis. She was diagnosed with diverticu losis as well as a possible UTI, and was discharged with antibiotics. She followed up with her [facility] doctor, who instructed the patient to come to the ER because of ongoing symptoms, as well a s inability to tolerate p.o. because of her vomiting. The patient denied any chest pain, shortness of breath, fever or chills. When she presented to the ER this time blood pressure was 167/106, heart rate 84, respiratory rate 1 8, temperature 98.4, oxygen saturation 98% on room air. Laboratory values show a WBC of 12.6, from 11.3 three days ago. Otherwise CBC and CMP were within normal limits. Her lipase is also not eleva ravi. CT abdomen and pelvis was done with contrast, which showed several hypodensities in the liver, likely representing cysts. Also an 8-mm hypodense lesion in the right kidney was noted, which coul d be cystic or solid. No hydronephrosis or ureterolithiasis. Also noted was diverticulosis, withou t diverticulitis. The patient was given pain medication, IV fluid, and antiemetics and admitted for further management. Of note, urinalysis only shows trace leukocyte esterase. REVIEW OF SYSTEMS: A 12-point review of systems was performed and negative except as mentioned in th e HPI. PAST MEDICAL HISTORY: As per HPI. PAST SURGICAL HISTORY: As per HPI. SOCIAL HISTORY: Denied a history of smoking, alcohol use or illicit drug use. ALLERGIES: IBUPROFEN. HOME MEDICATION: 1. Lipitor. 2. Norvasc. 3. Clonidine. 4. Losartan. 5. Gabapentin. 6. [place]. 7. Olanzapine. PHYSICAL EXAMINATION: VITAL SIGNS: Blood pressure 177/91, heart rate 63, respiratory rate 20, temperature 98.5, oxygen sa turation 98% on room air. GENERAL: Patient in mild distress due to pain. She is, however, answering questions appropriately, able to speak in full sentences. HEENT: No obvious head deformity. Pupils are reactive to light. Extraocular muscles are intact. CARDIOVASCULAR: Regular rate and rhythm. No extra sounds. LUNGS: Clear. ABDOMEN: Soft. There is tenderness diffusely, mainly in the left side of her abdomen. No rigidity . There are positive bowel sounds. EXTREMITIES: No edema. NEUROLOGIC: No focal deficits. LABORATORY DATA: Pertinent positives as mentioned in the HPI. IMPRESSION: 1. Abdominal pain with diarrhea and vomiting, likely gastroenteritis. 2. Leukocytosis, secondary to above. 3. Hypertension, blood pressure not at goal. 4. History of chronic obstructive pulmonary disease. 5. History of bipolar disorder. 6. Diverticulosis. 7. Cystic versus solid left kidney hypodense lesion. PLAN: The patient's symptom is likely secondary to gastroenteritis. We will make n.p.o., with IV f luid. Will send stool for C. difficile and culture. Given symptoms, especially the diarrhea that h as been going on for over a week now, will place her on antibiotics. Will provide pain medication a nd antiemetics as needed. She will be continued with her home medications, with adjustment as neede d, including her antihypertensive for better blood pressure control. Given that the CT scan finding of the left kidney hypodense lesion, which could be cystic or solid, will follow this up with sonog becca and will go from there. Further workup and management will be per clinical course. Dictated By: DORIS PATEL/CHELITA Conf#: [id number] DID#: [id number]
[2016-12-05] MEDS: HEPARIN 5,000 UNIT/0.5 ML SYG SC SCH ×2 (08:18→20:55)
[2016-12-05] MEDS: metroNIDAZOLE 500 MG/NS (PMX) 100 ML IVPB SCH ×3 (08:20→22:25)
[2016-12-05] MEDS: LOSARTAN 50 MG TAB PO SCH ×2 (08:21→20:46)
[2016-12-05] MEDS: clonAZEPAM 0.5 MG TAB PO SCH ×2 (08:21→20:46)
[2016-12-05] MEDS: OLANZAPINE 5 MG TAB PO SCH (08:21)
[2016-12-05] MEDS: DEXTROSE 5%-0.45% NACL 1,000 ML IV SCH ×2 (09:16→19:30)
[2016-12-05] MEDS: CIPROFLOXACIN 400MG/D5W 200 ML IVPB SCH ×2 (09:57→20:47)
[2016-12-05 10:15] LABS: PLATELETS CLUMPS FEW
[2016-12-05 10:17] LABS: PLATELET COUNT 139 10^3/UL (140-440)
[2016-12-05 10:30] VITALS: BP 140/81; PULSE 65
--- NOTE | 2016-12-05 14:38 | RADRPT ---
PROCEDURE: US KIDNEYS AND BLADDER CLINICAL INDICATION: Renal mass TECHNIQUE: Sonographic evaluation of the kidneys and bladder was performed using a curved array tr ansducer. COMPARISON: None. FINDINGS: Right kidney measures 7.7 cm in length. Left kidney measures 10.0 cm in length. Normal cortical thickness and echogenicity. No hydronephrosis bilaterally. The recently demonstrated low density lesions seen on the prior CT i s not obviously visualized on the ultrasound. The incompletely distended bladder is grossly unremarkable. Bilateral ureteral jets are seen. IMPRESSION: Unremarkable renal ultrasound. No hydronephrosis. The recently demonstrated low density lesions seen on the prior CT is not obviously visualized on th e ultrasound. Consider follow up with CT and 6 months. RPTAT:PP .Ankur Holbrook MD, Date Time Electronically viewed and signed by .Ankur Holbrook MD, on 12/05/2016 14:38 .V/
--- NOTE | 2016-12-05 14:47 | PN ---
Date/Time of Note Date/Time of Note DATE: 12/05/16 TIME: 14:28 Assessment/Plan VTE Prophylaxis VTE Prophylaxis Intervention: heparin Lines/Catheters IV Catheter Type (from Nrs): Saline Lock Assessment/Plan Assessment/Plan 1. Acute gastroenteritis, bacterial, on cipro/flagyl, IVF 2. Liver and kidney lesions, ? cyst, ultrasound 3. Hypertension, stable 4. History of chronic obstructive pulmonary disease. stable 5. History of bipolar disorder. stable 6. Diverticulosis. Subjective 24 Hr Interval Summary Free Text/Dictation still nausea with abdominal pain but no vomiting or diarrhea Exam/Review of Systems Vital Signs Vitals Vital Signs Date Time Temp Pulse Resp B/P Pulse Ox O2 Delivery O2 Flow Rate FiO2 12/05/16 10:30 65 140/81 12/05/16 08:09 98.4 16 96 12/05/16 05:31 Room Air Intake and Output 12/04/16 12/04/16 12/05/16 15:00 23:00 07:00 Intake Total 500 ml Output Total 950 ml Balance -450 ml Exam Constitutional: alert, oriented, well developed Psych: nl mood/affect, no complaints Head: atraumatic, normocephalic Eyes: EOMI, PERRL, nl conjunctiva, nl lids ENMT: mucosa pink and moist, nl external ears & nose, nl lips & teeth, nl nasal mucosa & septum Neck: supple Respiratory: clear to auscultation, normal air movement, No congested cough, No crackles/rales, No diminished breath sounds, No intercostal retraction, No labored breathing, No other, No respirations, No tactile fremitus, No wheezing Cardiovascular: nl pulses, regular rate and rhythm, No S3, No S4, No bruits, No diastolic murmur, No edema, No gallop, No irregular rhythm, No jugular venous distention (JVD), No murmurs/extra sounds, No other, No rub, No systolic murmur Gastrointestinal: soft, tender (diffuse) Musculoskeletal: nl extremities to inspection 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, nl mental status, nl speech, nl strength Skin: nl turgor, rash or lesions Lymph: nl lymph nodes Results Result Diagram: 12/05/16 0545 12/05/16 0545 Results 24 hrs Laboratory Tests Test 12/04/16 19:50 12/05/16 01:30 2/9/17 05:45 Alanine Aminotransferase (ALT/SGPT) 25 27 Albumin 4.4 3.9 Albumin/Globulin Ratio 1.46 1.39 Alkaline Phosphatase 102 95 Anion Gap 18 H 16 Aspartate Amino Transf (AST/SGOT) 22 22 Basophils # 0.0 0.1 Basophils % 0.2 0.5 Blood Morphology Comment Blood Urea Nitrogen 8 6 L Calcium Level 9.5 8.7 Carbon Dioxide Level 28 29 Chloride Level 104 102 Creatinine 0.81 0.75 Direct Bilirubin 0.00 0.00 Eosinophils # 0.1 0.2 Eosinophils % 0.8 1.3 Globulin 3.00 2.80 Glucose Level 147 121 Hematocrit 45.4 41.6 Hemoglobin 14.9 13.9 Indirect Bilirubin 0.3 0.4 Lipase 23 11 L Lymphocytes # 3.4 H 3.2 H Lymphocytes % 27.2 26.8 Mean Corpuscular Hemoglobin 31.0 31.4 Mean Corpuscular Hemoglobin Concent 32.9 33.5 Mean Corpuscular Volume 94.3 93.7 Mean Platelet Volume 11.3 H 11.8 H Monocytes # 0.8 0.8 Monocytes % 6.2 6.9 Neutrophils # 8.2 H 7.8 H Neutrophils % 65.6 64.5 Nucleated Red Blood Cells # 0.0 0.0 Nucleated Red Blood Cells % 0.0 0.0 Platelet Count 168 139 L Potassium Level 3.9 3.9 Red Blood Count 4.82 4.44 Red Cell Distribution Width 14.6 H 14.4 Sodium Level 146 H 143 Total Bilirubin 0.3 0.4 Total Protein 7.4 6.7 White Blood Count 12.6 H 12.1 H Urine Bacteria FEW Urine Bilirubin NEGATIVE Urine Clarity CLEAR Urine Color LT. YELLOW Urine Glucose NEGATIVE Urine Hemoglobin 1+ H Urine Ketones TRACE H Urine Leukocyte Esterase TRACE H Urine Microscopic RBC 5-10 Urine Microscopic WBC 2-5 Urine Nitrite NEGATIVE Urine Specific [place] 1.010 Urine Squamous Epithelial Cells FEW Urine Total Protein NEGATIVE Urine Urobilinogen 0.2 E.U./dL Urine pH 6.5 Amylase Level 51 Clumped Platelets FEW Magnesium Level 1.9 Phosphorus Level 3.6 Medications Medications Current Medications Atorvastatin Calcium (Lipitor) 10 mg DAILY@21 PO Last administered on 12/04/16t 23:54; Admin Dose 10 MG; Start 12/04/16 at 23:30 Clonazepam (Klonopin) 1 mg BID PO Last administered on 12/05/16 08:21; Admin Dose 1 MG; Start 12/05/16 at 09:00 Gabapentin (Neurontin) 300 mg QHS PO ; Start 12/05/16 at 21:00 Losartan Potassium (Cozaar) 50 mg BID PO Last administered on 12/05/16 08:21; Admin Dose 50 MG; Start 12/04/16 at 23:30 Olanzapine (Zyprexa) 5 mg DAILY PO Last administered on 12/05/16 08:21; Admin Dose 5 MG; Start 12/05/16 at 09:00 Amlodipine Besylate (Norvasc) 5 mg QHS PO Last administered on 12/04/16 23:56; Admin Dose 5 MG; Start 12/04/16 at 23:30 Acetaminophen/ Hydrocodone Bitart 1 tab 1 tab Q6H PRN PO PAIN; Start 12/04/16 at 23:30 Dextrose/Sodium Chloride (D5-1/2ns) 1,000 ml @ 100 mls/hr Q10H IV Last administered on 12/05/16 09:16; Admin Dose 100 MLS/HR; Start 12/04/16 at 23:30 Morphine Sulfate (morphine) 4 mg Q4H PRN IV PAIN Last administered on 12/05/16 08:17; Admin Dose 4 MG; Start 12/04/16 at 23:30 Ondansetron HCl (Zofran Inj) 4 mg Q6H PRN IV NAUSEA AND/OR VOMITING Last administered on 12/05/16 07:42; Admin Dose 4 MG; Start 12/05/16 at 00:00 Heparin Sodium (Porcine) 5000 unit 5,000 unit BID SC Last administered on 08:18; Admin Dose 5,000 UNIT; Start 12/05/16 at 09:00 Ciprofloxacin/ Dextrose 200 ml @ 200 mls/hr Q12 IVPB Last administered on 09:57; Admin Dose 200 MLS/HR; Start 12/05/16 at 09:00 Metronidazole (Flagyl 500 Mg (Pmx)) 100 ml @ 100 mls/hr Q8 IVPB Last administered on 12/05/16 13:15; Admin Dose 100 MLS/HR; Start 12/05/16 at 07:00 RADHA BROWN MD Dec 05, 2016 14:47
[2016-12-05 19:48] VITALS: BP 133/82; RESP 18
[2016-12-05] MEDS: ATORVASTATIN 10 MG TAB PO SCH (20:46)
[2016-12-05] MEDS: GABAPENTIN 300 MG CAP PO SCH (20:46)
[2016-12-05] MEDS: AMLODIPINE 5 MG TAB PO SCH (20:47)
[2016-12-05] MEDS ORDERED: AMLODIPINE 5 MG TAB PO SCH (21:00)
[2016-12-06] MEDS: DEXTROSE 5%-0.45% NACL 1,000 ML IV SCH ×3 (02:12→14:30)
[2016-12-06] MEDS: metroNIDAZOLE 500 MG/NS (PMX) 100 ML IVPB SCH ×3 (05:10→22:12)
[2016-12-06] MEDS: morphine 4 MG/ML VIAL IV PRN ×5 (05:39→23:09)
[2016-12-06 06:17] LABS: ADD SCAN DIFF NO; BASOPHILS % 0.4 % (0.0-2.0); EOSINOPHILS # 0.1 10^3/ul (0.0-0.5); EOSINOPHILS % 1.4 % (0.0-7.0); HEMATOCRIT 41.3 % (37.0-47.0); HEMOGLOBIN 13.1 g/dl (12.0-16.0); LYMPHOCYTES # 2.8 10^3/ul (0.8-2.9); LYMPHOCYTES % 33.5 % (15.0-51.0); MEAN CORPUSCULAR HEMOGLOBIN 30.8 pg (29.0-33.0); MEAN CORPUSCULAR HGB CONC 31.7 g/dl (32.0-37.0); MEAN CORPUSCULAR VOLUME 96.9 fl (82.0-101.0); MEAN PLATELET VOLUME 12.2 fl (7.4-10.4); MONOCYTE # 0.9 10^3/ul (0.3-0.9); MONOCYTES % 10.2 % (0.0-11.0); NEUTROPHIL # 4.5 10^3/ul (1.6-7.5); NEUTROPHILS % 54.1 % (39.0-77.0); PLATELET COUNT 158 10^3/UL (140-415); RED BLOOD COUNT 4.26 10^6/ul (4.20-5.40); RED CELL DISTRIBUTION WIDTH 13.6 % (11.5-14.5); WHITE BLOOD COUNT 8.4 10^3/ul (4.8-10.8)
[2016-12-06 06:33] LABS: POTASSIUM 3.2 mmol/L (3.5-5.1)
[2016-12-06 06:36] LABS: CREATININE 1.15 mg/dl (0.44-1.00)
[2016-12-06 06:37] LABS: CALCIUM 8.3 mg/dl (8.4-10.2)
[2016-12-06 08:00] VITALS: BP 115/62; PULSE 73; RESP 18
[2016-12-06] MEDS: CIPROFLOXACIN 400MG/D5W 200 ML IVPB SCH ×2 (09:10→20:57)
[2016-12-06] MEDS: OLANZAPINE 5 MG TAB PO SCH (09:17)
[2016-12-06] MEDS: LOSARTAN 50 MG TAB PO SCH ×2 (09:17→20:57)
[2016-12-06] MEDS: clonAZEPAM 0.5 MG TAB PO SCH ×2 (09:17→20:57)
[2016-12-06] MEDS: HEPARIN 5,000 UNIT/0.5 ML SYG SC SCH ×2 (09:30→21:11)
[2016-12-06] MEDS ORDERED: POTASSIUM CHLORIDE (SR) 20 MEQ TAB PO STA (10:10)
--- NOTE | 2016-12-06 14:55 | PN ---
Date/Time of Note Date/Time of Note DATE: 12/06/16 TIME: 14:50 Assessment/Plan VTE Prophylaxis VTE Prophylaxis Intervention: heparin Lines/Catheters IV Catheter Type (from Nrs): Peripheral IV Assessment/Plan Assessment/Plan 1. Acute gastroenteritis, bacterial, on cipro/flagyl, improving 2. Liver and kidney lesions, ? cyst, ultrasound 3. Hypertension, stable 4. History of chronic obstructive pulmonary disease. stable 5. History of bipolar disorder. stable 6. Diverticulosis. Subjective 24 Hr Interval Summary Free Text/Dictation still with abdominal pain, but no nausea or vomiting, no BM. No fever or chills Exam/Review of Systems Vital Signs Vitals Vital Signs Date Time Temp Pulse Resp B/P Pulse Ox O2 Delivery O2 Flow Rate FiO2 12/06/16 08:00 98.1 73 18 115/62 92 Room Air Intake and Output 12/05/16 12/05/16 12/06/16 15:00 23:00 07:00 Intake Total 1300 ml 800 ml 1215 ml Output Total 1000 ml 550 ml Balance 1300 ml -200 ml 665 ml Exam Constitutional: alert, oriented, well developed Psych: nl mood/affect, no complaints Head: atraumatic, normocephalic Eyes: EOMI, PERRL, nl conjunctiva, nl lids ENMT: mucosa pink and moist, nl external ears & nose, nl lips & teeth, nl nasal mucosa & septum Neck: non-tender, supple Respiratory: clear to auscultation, normal air movement, No congested cough, No crackles/rales, No diminished breath sounds, No intercostal retraction, No labored breathing, No other, No respirations, No tactile fremitus, No wheezing Cardiovascular: nl pulses, regular rate and rhythm, No S3, No S4, No bruits, No diastolic murmur, No edema, No gallop, No irregular rhythm, No jugular venous distention (JVD), No murmurs/extra sounds, No other, No rub, No systolic murmur Gastrointestinal: bowel sounds, nl liver, spleen, soft, tender (left side tenderness), No ascites, No distended, No firm, No hepatomegaly, No mass, No other, No rebound or guarding, No splenomegaly, No surgical scars Musculoskeletal: nl extremities to inspection Extremities: normal pulses, No calf tenderness, No clubbing, No cyanosis, No edema, No other, No palpable cord, No pitting pedal edema, No tenderness 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, nl mental status, nl speech, nl strength Skin: nl turgor, rash or lesions Lymph: nl lymph nodes Results Result Diagram: 12/06/16 0520 12/06/16 0522 Results 24 hrs Laboratory Tests Test 12/06/16 05:20 12/06/16 05:22 Basophils # 0.0 Basophils % 0.4 Eosinophils # 0.1 Eosinophils % 1.4 Hematocrit 41.3 Hemoglobin 13.1 Lymphocytes # 2.8 Lymphocytes % 33.5 Mean Corpuscular Hemoglobin 30.8 Mean Corpuscular Hemoglobin Concent 31.7 L Mean Corpuscular Volume 96.9 Mean Platelet Volume 12.2 H Monocytes # 0.9 Monocytes % 10.2 Neutrophils # 4.5 Neutrophils % 54.1 Nucleated Red Blood Cells # 0.0 Nucleated Red Blood Cells % 0.0 Platelet Count 158 Red Blood Count 4.26 Red Cell Distribution Width 13.6 White Blood Count 8.4 # Anion Gap 12 Blood Urea Nitrogen 5 L Calcium Level 8.3 L Carbon Dioxide Level 28 Chloride Level 105 Creatinine 1.15 H Glucose Level 110 Potassium Level 3.2 L Sodium Level 142 Medications Medications Current Medications Atorvastatin Calcium (Lipitor) 10 mg DAILY@21 PO Last administered on 12/05/16 20:46; Admin Dose 10 MG; Start 12/04/16 at 23:30 Clonazepam (Klonopin) 1 mg BID PO Last administered on 12/06/16 09:17; Admin Dose 1 MG; Start 12/05/16 at 09:00 Gabapentin (Neurontin) 300 mg QHS PO Last administered on 12/05/16 20:46; Admin Dose 300 MG; Start 12/05/16 at 21:00 Losartan Potassium (Cozaar) 50 mg BID PO Last administered on 12/06/16 09:17; Admin Dose 50 MG; Start 12/04/16 at 23:30 Olanzapine (Zyprexa) 5 mg DAILY PO Last administered on 12/06/16 09:17; Admin Dose 5 MG; Start 12/05/16 at 09:00 Amlodipine Besylate (Norvasc) 5 mg QHS PO Last administered on 12/05/16 20:47; Admin Dose 5 MG; Start 12/04/16 at 23:30 Acetaminophen/ Hydrocodone Bitart 1 tab 1 tab Q6H PRN PO PAIN; Start 12/04/16 at 23:30 Dextrose/Sodium Chloride (D5-1/2ns) 1,000 ml @ 100 mls/hr Q10H IV Last administered on 12/06/16 14:30; Admin Dose 100 MLS/HR; Start 12/04/16 at 23:30 Morphine Sulfate (morphine) 4 mg Q4H PRN IV PAIN Last administered on 14:27; Admin Dose 4 MG; Start 12/04/16 at 23:30 Ondansetron HCl (Zofran Inj) 4 mg Q6H PRN IV NAUSEA AND/OR VOMITING Last administered on 12/05/16 07:42; Admin Dose 4 MG; Start 12/05/16 at 00:00 Heparin Sodium (Porcine) 5000 unit 5,000 unit BID SC Last administered on 09:30; Admin Dose 5,000 UNIT; Start 12/05/16 at 09:00 Ciprofloxacin/ Dextrose 200 ml @ 200 mls/hr Q12 IVPB Last administered on 12/06 09:10; Admin Dose 200 MLS/HR; Start 12/05/16 at 09:00 Metronidazole (Flagyl 500 Mg (Pmx)) 100 ml @ 100 mls/hr Q8 IVPB Last administered on 12/06/16 14:26; Admin Dose 100 MLS/HR; Start 12/05/16 at 07:00 RADHA BROWN MD Dec 06, 2016 14:55
[2016-12-06 19:36] VITALS: BP 117/67; RESP 20
[2016-12-06] MEDS: GABAPENTIN 300 MG CAP PO SCH (20:57)
[2016-12-06] MEDS: ATORVASTATIN 10 MG TAB PO SCH (20:57)
[2016-12-06] MEDS: HYDROCODONE/APAP (10/325) TAB PO PRN (20:58)
[2016-12-06] MEDS: AMLODIPINE 5 MG TAB PO SCH (20:58)
--- NOTE | 2016-12-06 21:09 | RADRPT ---
PROCEDURE: Right upper quadrant abdominal ultrasound. CLINICAL INDICATION: Abdominal pain, abnormal CT scan of the liver. TECHNIQUE: Lau scale and color doppler ultrasound images of the right upper quadrant. COMPARISON: CT abdomen pelvis 12/04/2016 FINDINGS: Pancreas: Visualized portions appear of normal echogenicity, no focal lesions. Liver: Morphology: Normal in size and contour. Echogenicity: Normal. Focal lesions: None. Main portal vein: Patent with hepatopetal flow. Biliary System: Normal appearing gallbladder wall. No gallstones seen. No intrahepatic biliary dilatation. Common bile duct measures 4.7 mm in maximal dimension. Kidneys: Right 8.6 cm in length. Mid cortical defect appears postoperative. Normal echogenicity. No hydronephrosis. No renal calculi. Echogenic foci correspond to areas of postoperative change. No focal lesions. No free fluid identified. IMPRESSION: Normal sonographic appearance of the liver. Previously identified abnormality within the right kidney on the prior CT scan is not visualized son ographically. Renal MRI may be useful for further evaluation. RPTAT: AADD .Yuri Hardy MD, MD Date Time Electronically viewed and signed by .Yuri Hardy MD, MD on 12/06/2016 21:09 .B/
[2016-12-07] MEDS: DEXTROSE 5%-0.45% NACL 1,000 ML IV SCH ×4 (01:30→18:28)
[2016-12-07] MEDS: morphine 4 MG/ML VIAL IV PRN ×4 (04:26→22:15)
[2016-12-07] MEDS: metroNIDAZOLE 500 MG/NS (PMX) 100 ML IVPB SCH ×3 (05:41→22:15)
[2016-12-07 06:07] LABS: ADD SCAN DIFF NO; BASOPHILS % 0.5 % (0.0-2.0); EOSINOPHILS # 0.1 10^3/ul (0.0-0.5); EOSINOPHILS % 1.8 % (0.0-7.0); HEMATOCRIT 43.6 % (37.0-47.0); HEMOGLOBIN 13.4 g/dl (12.0-16.0); LYMPHOCYTES # 2.3 10^3/ul (0.8-2.9); LYMPHOCYTES % 34.3 % (15.0-51.0); MEAN CORPUSCULAR HEMOGLOBIN 30.4 pg (29.0-33.0); MEAN CORPUSCULAR HGB CONC 30.7 g/dl (32.0-37.0); MEAN CORPUSCULAR VOLUME 98.9 fl (82.0-101.0); MEAN PLATELET VOLUME 12.4 fl (7.4-10.4); MONOCYTE # 0.8 10^3/ul (0.3-0.9); MONOCYTES % 11.4 % (0.0-11.0); NEUTROPHIL # 3.4 10^3/ul (1.6-7.5); NEUTROPHILS % 51.7 % (39.0-77.0); PLATELET COUNT 159 10^3/UL (140-415); RED BLOOD COUNT 4.41 10^6/ul (4.20-5.40); RED CELL DISTRIBUTION WIDTH 13.7 % (11.5-14.5); WHITE BLOOD COUNT 6.7 10^3/ul (4.8-10.8)
[2016-12-07 06:18] LABS: POTASSIUM 3.9 mmol/L (3.5-5.1)
[2016-12-07 06:20] LABS: CREATININE 0.95 mg/dl (0.44-1.00)
[2016-12-07 06:21] LABS: CALCIUM 8.6 mg/dl (8.4-10.2)
[2016-12-07] MEDS: HYDROCODONE/APAP (10/325) TAB PO PRN ×2 (06:38→19:52)
[2016-12-07 08:01] VITALS: BP 133/63; RESP 18
[2016-12-07] MEDS: clonAZEPAM 0.5 MG TAB PO SCH ×2 (08:51→20:39)
[2016-12-07] MEDS: LOSARTAN 50 MG TAB PO SCH ×2 (08:52→20:26)
[2016-12-07] MEDS: OLANZAPINE 5 MG TAB PO SCH (08:53)
[2016-12-07] MEDS: HEPARIN 5,000 UNIT/0.5 ML SYG SC SCH ×2 (08:56→20:33)
[2016-12-07] MEDS: CIPROFLOXACIN 400MG/D5W 200 ML IVPB SCH ×2 (09:02→20:39)
[2016-12-07 19:41] VITALS: BP 130/78; RESP 20
[2016-12-07 20:23] VITALS: BP 136/75; PULSE 113
[2016-12-07] MEDS: GABAPENTIN 300 MG CAP PO SCH (20:25)
[2016-12-07] MEDS: ATORVASTATIN 10 MG TAB PO SCH (20:25)
[2016-12-07] MEDS: AMLODIPINE 5 MG TAB PO SCH (20:26)
[2016-12-07] MEDS ORDERED: ACETAMINOPHEN 325 MG TAB PO PRN (20:30)
[2016-12-07] MEDS: ZOLPIDEM 5 MG TAB PO PRN (23:12)
--- NOTE | 2016-12-08 03:59 | PN ---
DATE: 12/07/2016 INTERNAL MEDICINE FOLLOWUP SUBJECTIVE: Chart reviewed. Events noted. The patient did not have any diarrhea today. Still com plains of mild nausea although did not vomit today. She is feeling thirsty and denies any other spe cific complaints. OBJECTIVE: VITAL SIGNS: Blood pressure 133/63, pulse 93, respiration 18, temperature 98.7. She is on room air saturating 94%. HEENT: Pupils are equal and reactive to light. Dry oral mucosa. NECK: Supple, no JVD noted, no cervical adenopathy noted, no carotid bruits heard. LUNGS: Fair breath sounds bilaterally. CARDIOVASCULAR: S1, S2 normal. ABDOMEN: Soft and nontender, no megaly or masses noted. EXTREMITIES: No clubbing, cyanosis, or edema noted. NEUROLOGICAL: Nonfocal. LABORATORY DATA: Sodium 146, potassium 3.9, chloride 108, CO2 29, BUN 4, creatinine 0.95, glucose 9 2. WBC 6.7, hemoglobin 13.4, hematocrit 43.6, and platelets 159. Abdominal ultrasound did not show any obstruction. Ultrasound of the kidney did not show low density lesion seen on the prior CT. IMPRESSION: 1. Acute gastroenteritis, slowly improving. 2. Hypertension, stable. 3. History of chronic obstructive pulmonary disease, stable. 4. History of bipolar disorder. 5. History of diverticulosis. RECOMMENDATIONS: 1. Continue antibiotics. 2. Start clear liquid diet and advance as tolerated. 3. Continue other meds. 4. Discussed with staff. Dictated By: ANNETTE LUGO MD, MA/CHELITA Conf#: [id number] DID#: [id number]
[2016-12-08] MEDS: metroNIDAZOLE 500 MG/NS (PMX) 100 ML IVPB SCH ×3 (05:30→21:32)
[2016-12-08] MEDS: morphine 4 MG/ML VIAL IV PRN ×4 (05:30→21:34)
[2016-12-08] MEDS: DEXTROSE 5%-0.45% NACL 1,000 ML IV SCH ×3 (07:38→20:52)
[2016-12-08 08:25] VITALS: BP 118/73; PULSE 91; RESP 18
[2016-12-08] MEDS: OLANZAPINE 5 MG TAB PO SCH (08:26)
[2016-12-08] MEDS: CIPROFLOXACIN 400MG/D5W 200 ML IVPB SCH ×2 (08:26→20:49)
[2016-12-08] MEDS: clonAZEPAM 0.5 MG TAB PO SCH ×2 (08:27→20:48)
[2016-12-08] MEDS: LOSARTAN 50 MG TAB PO SCH ×2 (08:27→20:49)
[2016-12-08] MEDS: HEPARIN 5,000 UNIT/0.5 ML SYG SC SCH ×2 (09:08→21:01)
--- NOTE | 2016-12-08 11:10 | PN ---
DATE: 12/08/2016 INTERNAL MEDICINE FOLLOWUP SUBJECTIVE: Chart reviewed. The patient feels better. Last night, however, had a temperature of 9 9.6. Today, there is no diarrhea or vomiting noted. OBJECTIVE: VITAL SIGNS: Blood pressure 118/73, pulse 91, respiration 18, temperature 98.2. Currently on room air saturating 93%. HEENT: Pupils are equal and reactive to light. NECK: Supple, no JVD noted, no cervical adenopathy, no carotid bruits heard. LUNGS: Fair breath sounds bilaterally. CARDIOVASCULAR: S1, S2 normal. ABDOMEN: Soft, nontender. No organomegaly or masses noted. EXTREMITIES: No clubbing, cyanosis, or edema noted. NEUROLOGICAL: Awake and alert. IMPRESSION: 1. Acute gastroenteritis, improving. 2. Hypertension. 3. History of chronic obstructive pulmonary disease, stable. 4. History of bipolar disorder. 5. History of diverticulosis. RECOMMENDATIONS: 1. Continue current antibiotics. 2. Advance diet as tolerated. 3. Follow up labs. 4. Most likely discharge home tomorrow. Dictated By: ANNETTE LUGO MD, MA/CHELITA Conf#: [id number] DID#: [id number]
[2016-12-08] MEDS: HYDROCODONE/APAP (10/325) TAB PO PRN (13:54)
[2016-12-08 20:31] VITALS: BP 131/75; RESP 20
[2016-12-08] MEDS: ATORVASTATIN 10 MG TAB PO SCH (20:48)
[2016-12-08] MEDS: GABAPENTIN 300 MG CAP PO SCH (20:49)
[2016-12-08] MEDS: AMLODIPINE 5 MG TAB PO SCH (20:49)
[2016-12-08] MEDS: ZOLPIDEM 5 MG TAB PO PRN (20:55)
[2016-12-09] MEDS: morphine 4 MG/ML VIAL IV PRN ×3 (01:38→11:15)
[2016-12-09] MEDS: ONDANSETRON 4 MG INJ IV PRN (01:38)
[2016-12-09] MEDS: HYDROCODONE/APAP (10/325) TAB PO PRN ×4 (03:23→20:19)
[2016-12-09] MEDS: DEXTROSE 5%-0.45% NACL 1,000 ML IV SCH ×5 (03:30→23:30)
[2016-12-09] MEDS: metroNIDAZOLE 500 MG/NS (PMX) 100 ML IVPB SCH (05:33)
[2016-12-09 05:54] LABS: ALBUMIN 2.7 g/dl (3.3-4.9); POTASSIUM 3.8 mmol/L (3.5-5.1)
[2016-12-09 05:56] LABS: CREATININE 0.84 mg/dl (0.44-1.00)
[2016-12-09 05:57] LABS: ALBUMIN/GLOBULIN RATIO 1.22; TOTAL PROTEIN 4.9 g/dl (6.1-8.1)
[2016-12-09 05:58] LABS: CALCIUM 8.3 mg/dl (8.4-10.2)
[2016-12-09 06:03] LABS: BASOPHILS % 0.5 % (0.0-2.0); EOSINOPHILS # 0.2 10^3/ul (0.0-0.5); EOSINOPHILS % 2.5 % (0.0-7.0); HEMATOCRIT 35.7 % (37.0-47.0); HEMOGLOBIN 11.9 g/dl (12.0-16.0); LYMPHOCYTES # 1.9 10^3/ul (0.8-2.9); LYMPHOCYTES % 29.2 % (15.0-51.0); MEAN CORPUSCULAR HEMOGLOBIN 31.3 pg (29.0-33.0); MEAN CORPUSCULAR HGB CONC 33.2 g/dl (32.0-37.0); MEAN CORPUSCULAR VOLUME 94.5 fl (82.0-101.0); MEAN PLATELET VOLUME 10.7 fl (7.4-10.4); MONOCYTE # 0.8 10^3/ul (0.3-0.9); MONOCYTES % 11.4 % (0.0-11.0); NEUTROPHIL # 3.8 10^3/ul (1.6-7.5); NEUTROPHILS % 56.4 % (39.0-77.0); PLATELET COUNT 135 10^3/UL (140-440); RED BLOOD COUNT 3.78 10^6/ul (4.20-5.40); RED CELL DISTRIBUTION WIDTH 14.5 % (11.5-14.5); UNCORRECTED WBC 6.7 10^3/ul (4.8-10.8); WHITE BLOOD COUNT 6.7 10^3/ul (4.8-10.8)
[2016-12-09 06:16] LABS: CONDITION 1; LH ANALYZER COMMENTS 1
[2016-12-09 07:36] VITALS: BP 115/64; RESP 16
[2016-12-09] MEDS: LOSARTAN 50 MG TAB PO SCH ×2 (07:56→20:18)
[2016-12-09] MEDS: clonAZEPAM 0.5 MG TAB PO SCH ×2 (07:56→21:47)
[2016-12-09] MEDS: CIPROFLOXACIN 400MG/D5W 200 ML IVPB SCH (07:57)
[2016-12-09] MEDS: OLANZAPINE 5 MG TAB PO SCH (07:57)
[2016-12-09] MEDS: HEPARIN 5,000 UNIT/0.5 ML SYG SC SCH ×2 (08:33→20:21)
--- NOTE | 2016-12-09 11:04 | PN ---
Date/Time of Note Date/Time of Note DATE: 12/09/16 TIME: 11:02 Assessment/Plan VTE Prophylaxis VTE Prophylaxis Intervention: heparin Lines/Catheters IV [facility]from [facility] Peripheral IV Urinary Cath still in place: No Assessment/Plan Chief Complaint/Hosp Course Hospitalist coverage: Subjective: Objective: Vital signs stable. Fever resolved. PE: No pallor adenopathy icterus Regular CTAB Bs +, mild tenderness, nd, no r r g. No CVAT No edema A/P 1. Acute gastroenteritis, bacterial, stable, continue cipro/flagyl 2. Liver and kidney cysts 3. Htn 4. Ho copd 5. Chr bipolar disorder 6. Diverticulosis. Problems: Exam/Review of Systems Vital Signs Vitals Vital Signs Date Time Temp Pulse Resp B/P Pulse Ox O2 Delivery O2 Flow Rate FiO2 12/09/16 07:36 98.3 79 16 115/64 92 12/08/16 08:25 Room Air Intake and Output 12/08/16 12/08/16 12/09/16 15:00 23:00 07:00 Intake Total 450 ml 2740 ml 1100 ml Output Total 1200 ml 1900 ml Balance 450 ml 1540 ml -800 ml Results Result Diagram: 12/09/16 0510 12/09/16 0510 Results 24 hrs Laboratory Tests Test 12/09/16 05:10 Alanine Aminotransferase (ALT/SGPT) 38 Albumin 2.7 L Albumin/Globulin Ratio 1.22 Alkaline Phosphatase 61 Anion Gap 12 Aspartate Amino Transf (AST/SGOT) 35 Basophils # 0.0 Basophils % 0.5 Blood Morphology Comment Blood Urea Nitrogen 6 L Calcium Level 8.3 L Carbon Dioxide Level 27 Chloride Level 109 Creatinine 0.84 Direct Bilirubin 0.00 Eosinophils # 0.2 Eosinophils % 2.5 Globulin 2.20 Glucose Level 117 Hematocrit 35.7 L Hemoglobin 11.9 L Indirect Bilirubin 0.0 Lymphocytes # 1.9 Lymphocytes % 29.2 Mean Corpuscular Hemoglobin 31.3 Mean Corpuscular Hemoglobin Concent 33.2 Mean Corpuscular Volume 94.5 Mean Platelet Volume 10.7 H Monocytes # 0.8 Monocytes % 11.4 H Neutrophils # 3.8 Neutrophils % 56.4 Nucleated Red Blood Cells # 0.0 Nucleated Red Blood Cells % 0.0 Platelet Count 135 L Potassium Level 3.8 Red Blood Count 3.78 L Red Cell Distribution Width 14.5 Sodium Level 144 Total Bilirubin 0.0 L Total Protein 4.9 L White Blood Count 6.7 Medications Medications Current Medications Atorvastatin Calcium (Lipitor) 10 mg DAILY@21 PO Last administered on 20:48; Admin Dose 10 MG; Start 12/04/16 at 23:30 Clonazepam (Klonopin) 1 mg BID PO Last administered on 12/09/16 07:56; Admin Dose 1 MG; Start 12/05/16 at 09:00 Gabapentin (Neurontin) 300 mg QHS PO Last administered on 12/08/16 20:49; Admin Dose 300 MG; Start 12/05/16 at 21:00 Losartan Potassium (Cozaar) 50 mg BID PO Last administered on 12/09/16 07:56; Admin Dose 50 MG; Start 12/04/16 at 23:30 Olanzapine (Zyprexa) 5 mg DAILY PO Last administered on 12/09/16 07:57; Admin Dose 5 MG; Start 12/05/16 at 09:00 Amlodipine Besylate (Norvasc) 5 mg QHS PO Last administered on 12/08/16 20:49 ; Admin Dose 5 MG; Start 12/04/16 at 23:30 Acetaminophen/ Hydrocodone Bitart 1 tab 1 tab Q6H PRN PO PAIN Last administered on 12/09/16 07:56; Admin Dose 1 TAB; Start 12/04/16 at 23:30 Dextrose/Sodium Chloride (D5-1/2ns) 1,000 ml @ 100 mls/hr Q10H IV Last administered on 12/08/16 20:52; Admin Dose 100 MLS/HR; Start 12/04/16 at 23:30 Morphine Sulfate (morphine) 4 mg Q4H PRN IV PAIN Last administered on 05:43; Admin Dose 4 MG; Start 12/04/16 at 23:30 Ondansetron HCl (Zofran Inj) 4 mg Q6H PRN IV NAUSEA AND/OR VOMITING Last administered on 12/09/16 01:38; Admin Dose 4 MG; Start 12/05/16 at 00:00 Heparin Sodium (Porcine) 5000 unit 5,000 unit BID SC Last administered on 08:33; Admin Dose 5,000 UNIT; Start 2/9/17 at 09:00 Ciprofloxacin/ Dextrose 200 ml @ 200 mls/hr Q12 IVPB Last administered on 12/09 07:57; Admin Dose 200 MLS/HR; Start 12/05/16 at 09:00 Metronidazole (Flagyl 500 Mg (Pmx)) 100 ml @ 100 mls/hr Q8 IVPB Last administered on 12/09/16 05:33; Admin Dose 100 MLS/HR; Start 12/05/16 at 07:00 Zolpidem Tartrate (Ambien) 5 mg HS PRN PO INSOMNIA Last administered on 20:55; Admin Dose 5 MG; Start 12/06/16 at 15:00 Acetaminophen (Tylenol Tab) 650 mg Q6H PRN PO PAIN AND TEMP ABOVE 102; Start at 20:30 RAMON KEYES MD Dec 09, 2016 11:04
[2016-12-09] MEDS: FAMOTIDINE 20 MG INJ IV SCH (11:13)
[2016-12-09] MEDS: metroNIDAZOLE 500 MG TAB PO SCH ×2 (14:06→22:03)
--- NOTE | 2016-12-09 14:28 | RADRPT ---
PROCEDURE: XR Chest. CLINICAL INDICATION: Fever. TECHNIQUE: Single frontal view of the chest was obtained COMPARISON: Chest x-ray 12/01/2016 04:30 p.m. FINDINGS: There are atherosclerotic calcifications in the aortic arch. There are degenerative osteophytes in the thoracic spine. The soft tissues are generous. The heart, pulmonary vasculature, lung hooper an d pleural spaces are normal. There are calcifications surrounding bilateral augmentation mammary imp lants. No change is noted compared to 12/01/2016. IMPRESSION: 1. There is no evidence of active cardiopulmonary disease. 2. Calcification of bilateral augmentation mammary implants. 3. Atherosclerosis with ectasia of the thoracic aorta. 4. Stable chest compared to 12/01/2016. RPTAT:AAJJ Physician Boris Date Time Electronically viewed and signed by Delio Jacob Physician on 12/09/2016 14:27 /
[2016-12-09] MEDS: CIPROFLOXACIN 500 MG TAB PO SCH (18:11)
[2016-12-09 19:36] VITALS: BP 110/63; RESP 18
--- NOTE | 2016-12-09 20:08 | CONS ---
Date/Time of Note Date/Time of Note DATE: 12/09/16 TIME: 19:59 Assessment/Plan Assessment/Plan Additional Assessment/Plan Assessment: * Persistent epigastric abdominal pain/nausea and vomiting * Rule out peptic ulcer disease/GERD/gastritis * History of diverticulosis * Bipolar illness * History of hypertension * History of COPD Plan: * EGD tomorrow. Patient informed of procedure, indications, potential risks benefits and alternatives. Agreeable to proceed Consultation Date/Type/Reason Admit Date/Time Dec 05, 2016 at 15:38 Date of Consultation: Dec 09, 2016 Hx of Present Illness 71-year-old female, previous history of hypertension, COPD, bipolar disorder. The patient presented to the emergency room complaining of severe epigastric abdominal pain. The patient is extremely poor historian and is unable to elaborate on her symptoms beyond simple answers. She also complains of nausea and multiple episodes of non-bloody emesis. She also has had episodic diarrhea. She was evaluated with CT of the abdomen that showed diverticulosis but no diverticulitis, there are several hypodense lesions in the liver consistent with cysts. No other significant pathology has been identified. The patient has been receiving IV fluids and continues to complain of severe epigastric and generalized abdominal pain as well as nausea. The patient will be evaluated this point with EGD to address the possibility of upper GI pathology that may account for the patient's symptoms. The procedure was explained to the patient in simple terms including risks, benefits and alternatives, she appears to understand and is agreeable Poor historian Constitutional: improved, no complaints Eyes: no complaints ENT: no complaints Respiratory: no complaints Cardiovascular: no complaints Gastrointestinal: diarrhea (Episodic), nausea, pain (Upper abdominal pain), vomiting, No constipation, No decreased appetite, No passing stool Genitourinary: no complaints Musculoskeletal: no complaints Skin: no complaints Neurologic: no complaints Endocrine: no complaints Lymphatic: no complaints Psychological: nl mood/affect, no complaints Immunologic: no complaints Past Medical History * Hypertension * COPD * Bipolar illness Past Surgical History * Hysterectomy * Appendectomy Family History Significant Family History: no pertinent family hx Social History Alcohol Use: rarely Smoking Status: Current every day smoker Drug Use: none Exam/Review of Systems Vital Signs Vitals Vital Signs Date Time Temp Pulse Resp B/P Pulse Ox O2 Delivery O2 Flow Rate FiO2 12/09/16 19:36 98.3 84 18 110/63 98 12/08/16 08:25 Room Air Intake and Output 12/08/16 12/08/16 12/09/16 15:00 23:00 07:00 Intake Total 450 ml 2740 ml 1100 ml Output Total 1200 ml 1900 ml Balance 450 ml 1540 ml -800 ml Exam Constitutional: alert, oriented, well developed Psych: anxiety Head: atraumatic, normocephalic Eyes: EOMI, PERRL, nl conjunctiva, nl lids, nl sclera ENMT: nl external ears & nose, nl lips & teeth, nl nasal mucosa & septum Neck: non-tender, supple Respiratory: clear to auscultation, normal air movement Cardiovascular: nl pulses, regular rate and rhythm Gastrointestinal: bowel sounds, distended, soft, tender (Upper abdominal area, moderate degree), No ascites, No firm, No hepatomegaly, No mass, No rebound or guarding, No splenomegaly Musculoskeletal: nl extremities to inspection, nl gait and stance Extremities: normal pulses 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: 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, nl mental status, nl speech, nl strength Skin: nl turgor, No rash or lesions Lymph: nl lymph nodes Results Result Diagram: 12/09/16 0510 12/09/16 0510 Results 24 hrs Laboratory Tests Test 12/09/16 05:10 Alanine Aminotransferase (ALT/SGPT) 38 Albumin 2.7 L Albumin/Globulin Ratio 1.22 Alkaline Phosphatase 61 Anion Gap 12 Aspartate Amino Transf (AST/SGOT) 35 Basophils # 0.0 Basophils % 0.5 Blood Morphology Comment Blood Urea Nitrogen 6 L Calcium Level 8.3 L Carbon Dioxide Level 27 Chloride Level 109 Creatinine 0.84 Direct Bilirubin 0.00 Eosinophils # 0.2 Eosinophils % 2.5 Globulin 2.20 Glucose Level 117 Hematocrit 35.7 L Hemoglobin 11.9 L Indirect Bilirubin 0.0 Lymphocytes # 1.9 Lymphocytes % 29.2 Mean Corpuscular Hemoglobin 31.3 Mean Corpuscular Hemoglobin Concent 33.2 Mean Corpuscular Volume 94.5 Mean Platelet Volume 10.7 H Monocytes # 0.8 Monocytes % 11.4 H Neutrophils # 3.8 Neutrophils % 56.4 Nucleated Red Blood Cells # 0.0 Nucleated Red Blood Cells % 0.0 Platelet Count 135 L Potassium Level 3.8 Red Blood Count 3.78 L Red Cell Distribution Width 14.5 Sodium Level 144 Total Bilirubin 0.0 L Total Protein 4.9 L White Blood Count 6.7 Medications Medications Current Medications Atorvastatin Calcium (Lipitor) 10 mg DAILY@21 PO Last administered on 20:48; Admin Dose 10 MG; Start 12/04/16 at 23:30 Clonazepam (Klonopin) 1 mg BID PO Last administered on 12/09/16 07:56; Admin Dose 1 MG; Start 12/05/16 at 09:00 Gabapentin (Neurontin) 300 mg QHS PO Last administered on 12/08/16 20:49; Admin Dose 300 MG; Start 12/05/16 at 21:00 Losartan Potassium (Cozaar) 50 mg BID PO Last administered on 12/09/16 07:56; Admin Dose 50 MG; Start 12/04/16 at 23:30 Olanzapine (Zyprexa) 5 mg DAILY PO Last administered on 12/09/16 07:57; Admin Dose 5 MG; Start 12/05/16 at 09:00 Amlodipine Besylate (Norvasc) 5 mg QHS PO Last administered on 12/08/16 20:49 ; Admin Dose 5 MG; Start 12/04/16 at 23:30 Acetaminophen/ Hydrocodone Bitart 1 tab 1 tab Q6H PRN PO PAIN Last administered on 12/09/16 14:06; Admin Dose 1 TAB; Start 12/04/16 at 23:30 Dextrose/Sodium Chloride (D5-1/2ns) 1,000 ml @ 100 mls/hr Q10H IV Last administered on 12/09/16 11:15; Admin Dose 100 MLS/HR; Start 12/04/16 at 23:30 Morphine Sulfate (morphine) 4 mg Q4H PRN IV PAIN Last administered on 11:15; Admin Dose 4 MG; Start 12/04/16 at 23:30 Ondansetron HCl (Zofran Inj) 4 mg Q6H PRN IV NAUSEA AND/OR VOMITING Last administered on 12/09/16 01:38; Admin Dose 4 MG; Start 12/05/16 at 00:00 Heparin Sodium (Porcine) (Heparin (5000 Units/0.5 ml)) 5,000 unit BID SC Last administered on 12/09/16 08:33; Admin Dose 5,000 UNIT; Start 12/05/16 at 09:00 Zolpidem Tartrate (Ambien) 5 mg HS PRN PO INSOMNIA Last administered on 20:55; Admin Dose 5 MG; Start 12/06/16 at 15:00 Acetaminophen (Tylenol Tab) 650 mg Q6H PRN PO PAIN AND TEMP ABOVE 102; Start at 20:30 Famotidine (Pepcid Iv) 20 mg DAILY IV Last administered on 12/09/16 11:13; Admin Dose 20 MG; Start 12/09/16 at 11:00 Ciprofloxacin (Cipro) 500 mg BID@06,18 PO Last administered on 12/09/16 18:11 ; Admin Dose 500 MG; Start 12/09/16 at 18:00 Metronidazole (Flagyl) 500 mg Q8 PO Last administered on 12/09/16 14:06; Admin Dose 500 MG; Start 12/09/16 at 14:00 VALENTE BALDERAS MD Dec 09, 2016 20:08
[2016-12-09] MEDS: ATORVASTATIN 10 MG TAB PO SCH (20:18)
[2016-12-09] MEDS: GABAPENTIN 300 MG CAP PO SCH (20:18)
[2016-12-09] MEDS: AMLODIPINE 5 MG TAB PO SCH (21:47)
[2016-12-09] MEDS: ZOLPIDEM 5 MG TAB PO PRN (22:51)
[2016-12-10] VITALS (9 sets, daily range): BP systolic 111–135; BP diastolic 59–80; PULSE 77–89; RESP 11–20
[2016-12-10 06:48] LABS: BASOPHILS % 0.6 % (0.0-2.0); EOSINOPHILS # 0.2 10^3/ul (0.0-0.5); HEMATOCRIT 36.3 % (37.0-47.0); HEMOGLOBIN 11.9 g/dl (12.0-16.0); LYMPHOCYTES # 1.5 10^3/ul (0.8-2.9); LYMPHOCYTES % 23.8 % (15.0-51.0); MEAN CORPUSCULAR HEMOGLOBIN 31.3 pg (29.0-33.0); MEAN CORPUSCULAR HGB CONC 32.8 g/dl (32.0-37.0); MEAN CORPUSCULAR VOLUME 95.3 fl (82.0-101.0); MEAN PLATELET VOLUME 11.1 fl (7.4-10.4); MONOCYTE # 0.7 10^3/ul (0.3-0.9); MONOCYTES % 11.7 % (0.0-11.0); NEUTROPHIL # 3.8 10^3/ul (1.6-7.5); NEUTROPHILS % 60.9 % (39.0-77.0); PLATELET COUNT 139 10^3/UL (140-440); RED CELL DISTRIBUTION WIDTH 14.8 % (11.5-14.5); UNCORRECTED WBC 6.3 10^3/ul (4.8-10.8); WHITE BLOOD COUNT 6.3 10^3/ul (4.8-10.8)
[2016-12-10 06:53] LABS: INR 1.09; PROTIME 14.1 Sec (12.2-14.2); PT RATIO 1.1
[2016-12-10] MEDS: metroNIDAZOLE 500 MG TAB PO SCH ×3 (06:53→22:15)
[2016-12-10] MEDS: CIPROFLOXACIN 500 MG TAB PO SCH ×2 (06:53→17:58)
[2016-12-10] MEDS: HYDROCODONE/APAP (10/325) TAB PO PRN ×3 (07:00→23:48)
[2016-12-10 07:13] LABS: CONDITION 1; LH ANALYZER COMMENTS 1
[2016-12-10 07:35] LABS: CHLORIDE 107 mmol/L (97-110)
[2016-12-10 07:36] LABS: ALBUMIN 2.7 g/dl (3.3-4.9); SODIUM 142 mmol/L (135-144)
[2016-12-10 07:38] LABS: ANION GAP 11 (8-16); ASPARTATE AMINO TRANSFERASE 37 IU/L (15-46); CARBON DIOXIDE 28 mmol/L (21-31); CREATININE 0.83 mg/dl (0.44-1.00)
[2016-12-10 07:39] LABS: ALANINE AMINOTRANSFERASE 39 IU/L (13-69); ALBUMIN/GLOBULIN RATIO 1.12; ALKALINE PHOSPHATASE 60 IU/L (42-121); BLOOD UREA NITROGEN 7 mg/dl (7-20); CALCIUM 8.2 mg/dl (8.4-10.2); GLUCOSE 117 mg/dl (70-220); MAGNESIUM 1.7 mg/dl (1.7-2.5); PHOSPHORUS 3.1 mg/dl (2.5-4.9); TOTAL PROTEIN 5.1 g/dl (6.1-8.1)
[2016-12-10 07:52] LABS: TROPONIN-I < 0.012 ng/ml (0.00-0.12)
[2016-12-10] MEDS: DEXTROSE 5%-0.45% NACL 1,000 ML IV SCH ×3 (08:18→20:29)
[2016-12-10] MEDS: clonAZEPAM 0.5 MG TAB PO SCH ×2 (08:54→20:32)
[2016-12-10] MEDS: OLANZAPINE 5 MG TAB PO SCH (08:54)
[2016-12-10] MEDS: FAMOTIDINE 20 MG INJ IV SCH (08:55)
[2016-12-10] MEDS: LOSARTAN 50 MG TAB PO SCH ×2 (08:55→20:32)
[2016-12-10] MEDS: HEPARIN 5,000 UNIT/0.5 ML SYG SC SCH ×2 (09:00→20:35)
--- NOTE | 2016-12-10 14:19 | PN ---
Date/Time of Note Date/Time of Note DATE: 12/10/16 TIME: 14:17 Assessment/Plan VTE Prophylaxis VTE Prophylaxis Intervention: contraindicated (Bleeding risk) Lines/Catheters IV Catheter Type (from Nrs): Peripheral IV Urinary Cath still in place: No Assessment/Plan Chief Complaint/Hosp Course Hospitalist coverage: Subjective: 12/10: Less vomiting. Pain remains. Objective: Vss.. PE: No pallor adenopathy icterus Reg CTAB Bs +, mild tenderness, nd, no r r g. No CVAT No edema A/P 1. Ac gastroenteritis, bacterial, stable, cont cipro/flagyl 2. Liver and kidney cysts 3. Htn 4. Ho copd 5. Chr bipolar disorder 6. Diverticulosis. 7. Peptic ulcer disease? For EGD later today. Problems: Exam/Review of Systems Vital Signs Vitals Vital Signs Date Time Temp Pulse Resp B/P Pulse Ox O2 Delivery O2 Flow Rate FiO2 12/10/16 07:48 98.5 88 20 115/69 96 12/08/16 08:25 Room Air Intake and Output 12/09/16 12/09/16 12/10/16 15:00 23:00 07:00 Intake Total 200 ml 2200 ml 1180 ml Output Total 1100 ml 800 ml Balance 200 ml 1100 ml 380 ml Results Result Diagram: 12/10/1625 12/10/16 0525 Results 24 hrs Laboratory Tests Test 12/10/16 05:25 Alanine Aminotransferase (ALT/SGPT) 39 Albumin 2.7 L Albumin/Globulin Ratio 1.12 Alkaline Phosphatase 60 Anion Gap 11 Aspartate Amino Transf (AST/SGOT) 37 Basophils # 0.0 Basophils % 0.6 Blood Morphology Comment Blood Urea Nitrogen 7 Calcium Level 8.2 L Carbon Dioxide Level 28 Chloride Level 107 Creatinine 0.83 Direct Bilirubin 0.00 Eosinophils # 0.2 Eosinophils % 3.0 Globulin 2.40 Glucose Level 117 Hematocrit 36.3 L Hemoglobin 11.9 L Hemoglobin A1c 5.7 INR International Normalized Ratio 1.09 Indirect Bilirubin 0.0 Lactic Acid Level 0.7 Lymphocytes # 1.5 Lymphocytes % 23.8 Magnesium Level 1.7 Mean Corpuscular Hemoglobin 31.3 Mean Corpuscular Hemoglobin Concent 32.8 Mean Corpuscular Volume 95.3 Mean Platelet Volume 11.1 H Monocytes # 0.7 Monocytes % 11.7 H Neutrophils # 3.8 Neutrophils % 60.9 Nucleated Red Blood Cells # 0.0 Nucleated Red Blood Cells % 0.0 Phosphorus Level 3.1 Platelet Count 139 L Potassium Level 4.0 Prothrombin Time 14.1 Prothrombin Time Ratio 1.1 Red Blood Count 3.80 L Red Cell Distribution Width 14.8 H Sodium Level 142 Thyroid Stimulating Hormone (TSH) 2.400 Total Bilirubin 0.0 L Total Protein 5.1 L Troponin I < 0.012 White Blood Count 6.3 Medications Medications Current Medications Atorvastatin Calcium (Lipitor) 10 mg DAILY@21 PO Last administered on 20:18; Admin Dose 10 MG; Start 12/04/16 at 23:30 Clonazepam (Klonopin) 1 mg BID PO Last administered on 12/10/16 08:54; Admin Dose 1 MG; Start 12/05/16 at 09:00 Gabapentin (Neurontin) 300 mg QHS PO Last administered on 12/09/16 20:18; Admin Dose 300 MG; Start 12/05/16 at 21:00 Losartan Potassium (Cozaar) 50 mg BID PO Last administered on 12/10/16 08:55; Admin Dose 50 MG; Start 12/04/16 at 23:30 Olanzapine (Zyprexa) 5 mg DAILY PO Last administered on 12/10/16 08:54; Admin Dose 5 MG; Start 12/05/16 at 09:00 Amlodipine Besylate (Norvasc) 5 mg QHS PO Last administered on 12/09/16 21:47 ; Admin Dose 5 MG; Start 12/04/16 at 23:30 Acetaminophen/ Hydrocodone Bitart 1 tab 1 tab Q6H PRN PO PAIN Last administered on 12/10/16 07:00; Admin Dose 1 TAB; Start 12/04/16 at 23:30 Dextrose/Sodium Chloride (D5-1/2ns) 1,000 ml @ 100 mls/hr Q10H IV Last administered on 12/10/16 08:18; Admin Dose 100 MLS/HR; Start 12/04/16 at 23:30 Morphine Sulfate (morphine) 4 mg Q4H PRN IV PAIN Last administered on 11:15; Admin Dose 4 MG; Start 12/04/16 at 23:30 Ondansetron HCl (Zofran Inj) 4 mg Q6H PRN IV NAUSEA AND/OR VOMITING Last administered on 12/09/16 01:38; Admin Dose 4 MG; Start 12/05/16 at 00:00 Heparin Sodium (Porcine) (Heparin (5000 Units/0.5 ml)) 5,000 unit BID SC Last administered on 12/09/16 20:21; Admin Dose 5,000 UNIT; Start 12/05/16 at 09:00 Zolpidem Tartrate (Ambien) 5 mg HS PRN PO INSOMNIA Last administered on 22:51; Admin Dose 5 MG; Start 12/06/16 at 15:00 Acetaminophen (Tylenol Tab) 650 mg Q6H PRN PO PAIN AND TEMP ABOVE 102; Start at 20:30 Famotidine (Pepcid Iv) 20 mg DAILY IV Last administered on 12/10/16 08:55; Admin Dose 20 MG; Start 12/09/16 at 11:00 Ciprofloxacin (Cipro) 500 mg BID@06,18 PO Last administered on 12/10/16 06:53 ; Admin Dose 500 MG; Start 12/09/16 at 18:00 Metronidazole (Flagyl) 500 mg Q8 PO Last administered on 12/10/16 06:53; Admin Dose 500 MG; Start 12/09/16 at 14:00 RAMON KEYES MD Dec 10, 2016 14:19
[2016-12-10] MEDS ORDERED: PROPOFOL 20 ML ONE (16:31)
[2016-12-10] MEDS ORDERED: LIDOCAINE 100 MG SYRINGE ONE (16:31)
[2016-12-10] MEDS ORDERED: FENTAnyl 50 MCG/ML VIAL ONE (16:32)
[2016-12-10] MEDS: PANTOPRAZOLE (EC) 40 MG TAB PO SCH (17:58)
--- NOTE | 2016-12-10 18:15 | GILP ---
DATE OF PROCEDURE: 12/10/2016 DATE: 12/10/2016 PROCEDURE PERFORMED: Esophagogastroduodenoscopy with biopsies. BRIEF HISTORY AND INDICATIONS: The patient is being evaluated for persistent epigastric abdominal p ain and nausea. PREMEDICATION: Monitored anesthesia care by anesthesiologist. SURGEON: Valente Chandra MD. INSTRUMENT USED: Olympus panendoscope. TECHNIQUE: After informed consent, with the patient/relatives understanding the procedure, its indic ations, potential risks and complications, including but not limited to: allergic reaction, bleeding , perforation or infection, and after all pertinent questions were answered to the patients satisfac tion, the patient/relatives signed witnessed informed consent. Following this, premedication was ad ministered slowly IV push under careful cardiovascular and respiratory monitoring with pulse oximetr y, automatic blood pressure and hall monitor. Once the sedative effect was achieved the patient was place in the left lateral decubitus, the panen doscope was introduced and advanced under visual control. Careful examination of the upper gastrointestinal tract, both on insertion as well as withdrawal of the instrument disclosed the following findings: ESOPHAGUS: Distal esophagus shows mild erythema of the mucosa at the EG junction. STOMACH: Upon entrance to the stomach air was insufflated, the gastric leigh distended normally. The re is erythema and edema of the mucosa. A 5 mm ulceration in the antrum of the stomach. Benign end oscopic appearance and no stigmata of recent bleeding. Biopsies were obtained to rule out H. pylori infection. PYLORUS: The pylorus appears patent and within normal limits, with no evidence of gastric outlet obs truction. DUODENUM: The duodenal bulb shows an atopic appearance. Biopsies were obtained to rule out celiac d isease. The instrument was then withdrawn, the patient tolerated the procedure well and was transfer out of the endoscopy suite awake, and in good condition to continue recovery under observation IMPRESSION: 1. Mild distal esophagitis. 2. Gastritis with a 5 mm antral gastric ulceration. Rule out H. pylori infection, biopsies were obt ained. No stigmata of recent bleeding, benign endoscopic appearance. 3. Atrophic second portion of duodenum, rule out celiac disease. PLAN: 1. The patient will be treated with PPI double dose. 2. Carafate 1 gram t.i.d. Pathology will be reviewed as soon as available. Further recommendation will depend on the patient's clinical course. Dictated By: VALENTE CHANDRA MS/NTS Conf#: [id number] DID#: [id number]
[2016-12-10] MEDS: ATORVASTATIN 10 MG TAB PO SCH (20:32)
[2016-12-10] MEDS: SUCRALFATE (100 MG/ML) 10ML CUP PO SCH (20:32)
[2016-12-10] MEDS: GABAPENTIN 300 MG CAP PO SCH (20:32)
[2016-12-10] MEDS: AMLODIPINE 5 MG TAB PO SCH (22:15)
[2016-12-11] MEDS: DEXTROSE 5%-0.45% NACL 1,000 ML IV SCH (00:40)
[2016-12-11] MEDS ORDERED: HYDROCODONE/APAP (10/325) TAB PO PRN (05:10)
[2016-12-11] MEDS: metroNIDAZOLE 500 MG TAB PO SCH (05:54)
[2016-12-11] MEDS: CIPROFLOXACIN 500 MG TAB PO SCH (05:54)
[2016-12-11] MEDS: PANTOPRAZOLE (EC) 40 MG TAB PO SCH (05:54)
[2016-12-11] MEDS: morphine 2 MG INJ IV PRN ×2 (05:55→11:21)
[2016-12-11 06:47] LABS: ALBUMIN 2.8 g/dl (3.3-4.9)
[2016-12-11 06:48] LABS: POTASSIUM 3.7 mmol/L (3.5-5.1)
[2016-12-11 06:49] LABS: BASOPHILS % 0.3 % (0.0-2.0); EOSINOPHILS # 0.2 10^3/ul (0.0-0.5); EOSINOPHILS % 2.6 % (0.0-7.0); HEMATOCRIT 36.9 % (37.0-47.0); HEMOGLOBIN 12.2 g/dl (12.0-16.0); LYMPHOCYTES # 1.8 10^3/ul (0.8-2.9); MEAN CORPUSCULAR HEMOGLOBIN 31.5 pg (29.0-33.0); MEAN CORPUSCULAR VOLUME 95.4 fl (82.0-101.0); MONOCYTE # 0.8 10^3/ul (0.3-0.9); MONOCYTES % 11.4 % (0.0-11.0); NEUTROPHIL # 3.8 10^3/ul (1.6-7.5); NEUTROPHILS % 57.7 % (39.0-77.0); PLATELET COUNT 143 10^3/UL (140-440); RED BLOOD COUNT 3.87 10^6/ul (4.20-5.40); RED CELL DISTRIBUTION WIDTH 15.1 % (11.5-14.5); UNCORRECTED WBC 6.6 10^3/ul (4.8-10.8); WHITE BLOOD COUNT 6.6 10^3/ul (4.8-10.8)
[2016-12-11 06:50] LABS: ALBUMIN/GLOBULIN RATIO 1.12; CREATININE 0.75 mg/dl (0.44-1.00); TOTAL PROTEIN 5.3 g/dl (6.1-8.1)
[2016-12-11 06:51] LABS: CALCIUM 8.6 mg/dl (8.4-10.2)
[2016-12-11 07:08] LABS: CONDITION 1; LH ANALYZER COMMENTS 1
[2016-12-11 07:30] VITALS: BP 114/77; RESP 18
[2016-12-11] MEDS: LOSARTAN 50 MG TAB PO SCH (08:33)
[2016-12-11] MEDS: clonAZEPAM 0.5 MG TAB PO SCH (08:33)
[2016-12-11] MEDS: SUCRALFATE (100 MG/ML) 10ML CUP PO SCH ×2 (08:34→12:07)
[2016-12-11] MEDS: OLANZAPINE 5 MG TAB PO SCH (08:34)
[2016-12-11] MEDS: HEPARIN 5,000 UNIT/0.5 ML SYG SC SCH (08:39)
--- NOTE | 2016-12-11 10:30 | PN ---
Date/Time of Note Date/Time of Note DATE: 12/11/16 TIME: 10:27 Assessment/Plan VTE Prophylaxis VTE Prophylaxis Intervention: ambulation, LMWH Lines/Catheters IV Catheter Type (from Nrs): Peripheral IV Urinary Cath still in place: No Assessment/Plan Chief Complaint/Hosp Course Hospitalist coverage: Subjective: 12/10: Less vomiting. Pain remains. 12/11: Events noted. Pain sharp throughout the day left mid quadrant without any radiation. Aggravated with movement. Status post EGD. Objective: Vss EGD: 1. Mild distal esophagitis. 2. Gastritis; 5mm antral gastric ulceration. Ro H pylori. No stigmata of recent bleeding, benign endoscopic appearance. 3. Atrophic second portion of duodenum, ro celiac disease PE: No pallor Reg CTAB Bs +, mild tenderness, nd, no r r g. No cvat No edema A/P 1. Ac gastroenteritis? Doubt. Stable, dc cipro/flagyl 2. Liver and kidney cysts 3. Htn 4. Ho copd 5. Chr bipolar disorder 6. Diverticulosis. 7. Gastritis/antral ulceration. Sp EGD. Cont PPI/Carafate. F/u biopsies as outpt Problems: Exam/Review of Systems Vital Signs Vitals Vital Signs Date Time Temp Pulse Resp B/P Pulse Ox O2 Delivery O2 Flow Rate FiO2 12/11/16 07:30 98.0 82 18 114/77 94 12/10/16 18:00 Room Air Intake and Output 12/10/16 12/10/16 12/11/16 15:00 23:00 07:00 Intake Total 300 ml 1300 ml 425 ml Output Total 300 ml Balance 300 ml 1300 ml 125 ml Results Result Diagram: 12/11/16 0544 12/11/16 0544 Results 24 hrs Laboratory Tests Test 12/11/16 05:44 Alanine Aminotransferase (ALT/SGPT) 48 Albumin 2.8 L Albumin/Globulin Ratio 1.12 Alkaline Phosphatase 63 Anion Gap 13 Aspartate Amino Transf (AST/SGOT) 58 H Basophils # 0.0 Basophils % 0.3 Blood Morphology Comment Blood Urea Nitrogen 7 Calcium Level 8.6 Carbon Dioxide Level 28 Chloride Level 109 Creatinine 0.75 Direct Bilirubin 0.00 Eosinophils # 0.2 Eosinophils % 2.6 Globulin 2.50 Glucose Level 85 Hematocrit 36.9 L Hemoglobin 12.2 Indirect Bilirubin 0.0 Lymphocytes # 1.8 Lymphocytes % 28.0 Mean Corpuscular Hemoglobin 31.5 Mean Corpuscular Hemoglobin Concent 33.0 Mean Corpuscular Volume 95.4 Mean Platelet Volume 11.0 H Monocytes # 0.8 Monocytes % 11.4 H Neutrophils # 3.8 Neutrophils % 57.7 Nucleated Red Blood Cells # 0.0 Nucleated Red Blood Cells % 0.0 Platelet Count 143 Potassium Level 3.7 Red Blood Count 3.87 L Red Cell Distribution Width 15.1 H Sodium Level 146 H Total Bilirubin 0.0 L Total Protein 5.3 L White Blood Count 6.6 Medications Medications Current Medications Atorvastatin Calcium (Lipitor) 10 mg DAILY@21 PO Last administered on 20:32; Admin Dose 10 MG; Start 12/04/16 at 23:30 Clonazepam (Klonopin) 1 mg BID PO Last administered on 12/11/16 08:33; Admin Dose 1 MG; Start 12/05/16 at 09:00 Gabapentin (Neurontin) 300 mg QHS PO Last administered on 12/10/16 20:32; Admin Dose 300 MG; Start 12/05/16 at 21:00 Losartan Potassium (Cozaar) 50 mg BID PO Last administered on 12/11/16 08:33; Admin Dose 50 MG; Start 12/04/16 at 23:30 Olanzapine (Zyprexa) 5 mg DAILY PO Last administered on 12/11/16 08:34; Admin Dose 5 MG; Start 12/05/16 at 09:00 Amlodipine Besylate 5 mg 5 mg QHS PO Last administered on 12/10/16 22:15; Admin Dose 5 MG; Start 12/04/16 at 23:30 Dextrose/Sodium Chloride (D5-1/2ns) 1,000 ml @ 50 mls/hr Q20H IV Last administered on 12/10/16 20:29; Admin Dose 50 MLS/HR; Start 12/04/16 at 23:30 Ondansetron HCl (Zofran Inj) 4 mg Q6H PRN IV NAUSEA AND/OR VOMITING Last administered on 12/09/16 01:38; Admin Dose 4 MG; Start 12/05/16 at 00:00 Heparin Sodium (Porcine) (Heparin (5000 Units/0.5 ml)) 5,000 unit BID SC Last administered on 12/11/16 08:39; Admin Dose 5,000 UNIT; Start 12/05/16 at 09:00 Zolpidem Tartrate (Ambien) 5 mg HS PRN PO INSOMNIA Last administered on 22:51; Admin Dose 5 MG; Start 12/06/16 at 15:00 Acetaminophen (Tylenol Tab) 650 mg Q6H PRN PO PAIN AND TEMP ABOVE 102; Start at 20:30 Ciprofloxacin (Cipro) 500 mg BID@,18 PO Last administered on 12/11/16 05:54 ; Admin Dose 500 MG; Start 12/09/16 at 18:00 Metronidazole (Flagyl) 500 mg Q8 PO Last administered on 12/11/16 05:54; Admin Dose 500 MG; Start 12/09/16 at 14:00 Pantoprazole (Protonix Tab) 40 mg BID@,18 PO Last administered on 12/11/16 05:54; Admin Dose 40 MG; Start 12/10/16 at 18:00 Sucralfate (Carafate Susp) 1 gm TID PO Last administered on 12/11/16 08:34; Admin Dose 1 GM; Start 12/10/16 at 21:00 Acetaminophen/ Hydrocodone Bitart ([place] (10/325)) 1 tab Q4H PRN PO PAIN Last administered on 12/11/16 08:34; Admin Dose 1 TAB; Start 12/11/16 at 05:10 Morphine Sulfate (morphine) 2 mg Q4H PRN IV PAIN Last administered on 05:55; Admin Dose 2 MG; Start 12/11/16 at 05:44 RAMON KEYES MD Dec 11, 2016 10:30
--- NOTE | 2016-12-11 10:42 | PDOCDIS ---
Discharge Instructions DIAGNOSIS Discharge Diagnosis: gastritis CONDITION Patient Condition: Good HOME CARE INSTRUCTIONS: Special Diet: 2gm NA ACTIVITY: Activity Restrictions: Slowly Increase Activity Do not Drive FOLLOW UP/APPOINTMENTS Appointments Dr Chandra 1wk Dr Macrus Townsend 1wk RAMON KEYES MD Dec 11, 2016 10:42
[2016-12-11] MEDS ORDERED: PANT40TA4 PO (10:46)
[2016-12-11] MEDS ORDERED: CARAS PO (10:46)
[2016-12-11] MEDS ORDERED: ACET325T33 PO (10:46)
--- NOTE | 2016-12-11 12:25 | DS ---
DATE OF ADMISSION: 12/05/2016 DATE OF DISCHARGE: 12/11/2016 PRIMARY CARE PHYSICIAN: Codey Sepulveda MD [place] SUPERVISOR: Dr. Malcolm Chandra DIAGNOSIS ON ADMISSION: Possible gastroenteritis. DIAGNOSES ON DISCHARGE: 1. Peptic ulcer disease/gastritis with mild esophagitis. 2. Duodenal atrophy. 3. Diverticulosis. 4. Chronic bipolar disorder. 5. Prediabetes. 6. Hepatic and renal cysts. 7. Hypertension. 8. History of chronic obstructive pulmonary disease. HOSPITAL COURSE: This is a 71-year-old female admitted with abdominal pain, nausea and vomiting. N ot sure if she takes nonsteroidals for any arthritic issues. No alcohol use. The patient is admitted and evaluated with an initial concern for gastroenteritis. Her pain continu ed and therefore we asked for a GI consultation. EGD showed the above findings of gastritis esophag itis which was mild. H. pylori testing appears negative. There was also additionally atrophy of th e second part of the duodenum. She will be ruled out for celiac disease by signs, symptoms, etc. as well. C. diff test was negative. The patient is presently in mild discomfort, but tolerating diet , stable and fit for discharge. She will need to follow up with GI. DISCHARGE PLAN: The patient will be discharged home. Follow up with primary in [address] Chandra in 1 to 2 weeks. DIET: Low salt, bland, no alcohol. ACTIVITY: No heavy lifting, no driving. ALLERGIES: MOTRIN, APPARENTLY. BARRIERS TO DISCHARGE: None. PENDING TESTS: Pathology [phone]. FUNCTIONAL STATUS: The patient is awake, alert and aware of the care plan and options. I do not alanis ve a phone number to contact the daughter. REASON FOR ADMISSION: Abdominal pain. CONDITION: Good. PROCEDURES: 1. An EGD showing mild distal gastritis. Gastritis with a 5 mm antral gastric ulceration. Biopsie s obtained. Otherwise, a benign endoscopic appearance. Atrophy of the second part of duodenum, to rule out celiac disease. 2. Chest x-ray: Calcification of bilateral augmented mammary plans. Atherosclerosis with ectasia of the thoracic aorta. 3. Abdominal ultrasound was essentially normal liver. Right renal cyst seen on CAT scan, not seen on ultrasound. 4. Renal ultrasound was essentially unremarkable. No hydronephrosis. 5. CAT scan abdomen and pelvis with contrast showed the 3 x 4 mm hypodensities, which likely repres ent cysts, but are too small to accurately characterize, an 8 mm hypodense lesion in the lateral sup erior pole of the right kidney which could be cyst or solid. An ultrasound was again unremarkable. Slight thickened urinary bladder appearance. Diverticulosis of colon. Hysterectomy status. Left total hip replacement status with moderate DJD. Preliminary pathology of duodenal and gastric ulcer notes no evidence of duodenitis or malignancy. No parasites. No increased of villous intraepithelial lymphocytes of the duodenal biopsy. Gastric ulcer biopsy showing a foci of loss of gastric glands with myelofibrosis lamina propria, suggesting a healed erosion/ulcer site. No H. pylori organisms identified and Giemsa stain. No evidence of ma lignancy. Clostridium difficile is negative. Blood cultures negative. LABORATORY DATA: Sodium 146, potassium 3.7, chloride 109, bicarbonate 28, BUN of 17, creatinine 0.7 , glucose 85. A1c 5.7. Calcium 8. Bilirubin 0, AST and ALT of 58 and 48, alkaline phosphatase 63. Troponin negative. Protein of 5, albumin of 2.8. TSH of 2.4, lipase negative. Lactic acid negat barbara. INR 1.19. Urine: Trace ketones, leukocyte esterase trace. White cell count of 6.6, hemoglobin and hematocrit of 12 and 36, platelets of 143. DISCHARGE PLAN: Appointment with primary [address] Chandra 1 week. STOPPED MEDICATIONS: None. CONTINUED MEDICATIONS: 1. Norvasc 5 daily. 2. Lipitor 10 daily. 3. Losartan 50 twice daily. 4. Klonopin 1 mg b.i.d. 5. Neurontin 300 at bedtime. 6. [place] 10 one every 4 hours as needed. 7. Zyprexa 5 at bedtime daily. ALTERED MEDICATIONS: None. NEW MEDICATIONS: 1. Tylenol as needed. 2. Protonix 40 twice daily. 3. Carafate 1 gram 4 times daily. Dictated By: RAMON KEYES MD AC/NTS Conf#: [id number] DID#: [id number] CC: MALCOLM CHANDRA; CODEY SEPULVEDA MD;*[facility]*
== END 2016-12-11 16:55 | disposition home or self-care (01) | DRG 384 ==
LOC: E/R 14:52 → MS2 21:38 → E/R 21:48 → UNDOADMOB 22:34 → MS2 22:34 → OBSVTOIN 12-05 15:38
PROVIDERS: ADMIT Internal Medicine; ATTEND Internal Medicine
PROC: 0DB68ZX Excision of Stomach, Via Natural or Artificial Opening Endoscopic, Diagnostic (ICD-10-PCS; principal; 2016-12-10 16:30)
DX: K27.9 Peptic ulcer, site unspecified, unspecified as acute or chronic, without hemorrhage or perforation (principal); K76.89 Other specified diseases of liver; J44.9 Chronic obstructive pulmonary disease, unspecified; F31.89 Other bipolar disorder; K29.70 Gastritis, unspecified, without bleeding; K57.90 Diverticulosis of intestine, part unspecified, without perforation or abscess without bleeding; K20.9 Esophagitis, unspecified; I10 Essential (primary) hypertension; R73.03 Prediabetes; N28.1 Cyst of kidney, acquired; K52.9 Noninfective gastroenteritis and colitis, unspecified
CPT/HCPCS: 36415; 71010; 74177; 76705; 76775; 80048; 80053; 81001; 81003; 82150; 82306; 83036; 83605; 83690; 83735; 84100; 84443; 84484; 85025; 85610; 87040; 87045; 87075; 88305; 88312; 96374; 96375; G0378; J0744; J2001; J2270; J2405; J3010; J7030; J7042; Q9967

== ENCOUNTER 2016-12-12 17:24 | Inpatient (IN) | payer MEDICARE, OTHER ==
[~2016-12-12] VITALS: Ht 152.4 cm; Wt 64.6 kg
[~2016-12-12 17:24] MED LIST changes: +ACET325T33 PO; -ACET500C5 PO; +AMLO5TAB4 PO; +ATOR10TA65 PO; -BENA20TA48 PO; +CARAS PO; -CIPR500T4 PO; +CLON-412 PO; +GABA300C16 PO; +LOSA50TA6 PO; +PANT40TA4 PO; -TRAZ50TA18 PO
[2016-12-12] MEDS ORDERED: PANTOPRAZOLE IV 80 MG in SOD CHLORIDE 0.9% 100 ML IV STA (19:31)
[2016-12-12] MEDS ORDERED: PANTOPRAZOLE IV 80 MG in SOD CHLORIDE 0.9% 100 ML IVPB STA (19:31)
[2016-12-12] MEDS ORDERED: SOD CHLORIDE 0.9% 500 ML IV STA (19:31)
[2016-12-12] MEDS ORDERED: ONDANSETRON 4 MG INJ IV STA (20:18)
[2016-12-12] MEDS ORDERED: morphine 4 MG/ML VIAL IV STA ×2 (20:18→22:32)
--- NOTE | 2016-12-12 20:18 | ERA ---
ER Documentation Chief Complaint Date/Time DATE: 12/12/16 TIME: 20:16 Chief Complaint black stool x2 today HPI 71-year-old female. The patient has a history of peptic ulcer disease. She had recent hospitalization during which time she had endoscopy that showed gastritis and peptic ulcer disease. She presents today because of melanotic stool 2 times. She had a single episode of nonbloody nonbilious emesis. She has mild cramping abdominal pain. She denies any fevers or chills, no chest pain or shortness of breath no lightheadedness or dizziness. ROS All systems reviewed and are negative except as per history of present illness. Medications Home Meds Active Scripts Pantoprazole* (Pantoprazole*) 40 Mg Tablet.dr, 40 MG PO BID@06,18 for 30 Days, # 60 CAP.EC 1 Refill pharmacy may interchange to OTC as needed. Prov:RAMON KEYES MD 12/11/16 Sucralfate* (Carafate*) 1 Gm/10 Ml Susp, 1 GM PO TID for 14 Days, #30 CAP 4 Refills Prov:RAMON KEYES MD 12/11/16 Acetaminophen* (Tylenol*) 325 Mg Tablet, 650 MG PO Q6H Y for PAIN AND TEMP ABOVE 102 for 1 Day, #1 TAB Prov:RAMON KEYES MD 12/11/16 Reported Medications Gabapentin* (Gabapentin*) 300 Mg Capsule, 300 MG PO QHS, #60 CAP 12/04/16 Amlodipine Besylate* (Norvasc*) 5 Mg Tablet, 5 MG PO QHS, TAB 12/04/16 Atorvastatin Calcium (Atorvastatin Calcium) 10 Mg Tablet, 10 MG PO DAILY, #30 TAB 12/04/16 Losartan Potassium* (Losartan Potassium*) 50 Mg Tablet, 50 MG PO BID, TAB 12/04/16 Clonazepam* (Klonopin*) 1 Mg Tablet, 1 MG PO BID, TAB 12/04/16 Olanzapine* (Zyprexa*) 5 Mg Tablet, 5 MG PO DAILY, #30 TAB 12/04/16 Hydrocodone Bit-Acetaminophen* ([place]*) 10-325 Mg Tablet, 1 TAB PO Q4H Y for PAIN, TAB 07/28/14 Allergies Allergies: Coded Allergies: ibuprofen (Verified Allergy, Unknown, 12/12/16) PMhx/Soc History of Surgery: Yes (left hip replacement,appendectomy,hysterectomy,rt kidney sx) Anesthesia Reaction: No Hx 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 Disorder: No Hx Respiratory Disorders: Yes (COPD) Hx Cardiac Disorders: Yes (HTN,high cholesterol) Hx Psychiatric Problems: Yes (bipolar) Hx Miscellaneous Medical Probl: No Hx Alcohol Use: No Hx Substance Use: No Hx Tobacco Use: Yes Smoking Status: Current every day smoker FmHx Family History: No diabetes Physical Exam Vitals Vital Signs Date Time Temp Pulse Resp B/P Pulse Ox O2 Delivery O2 Flow Rate FiO2 12/12/16 17:36 98.8 103 20 158/94 95 Physical Exam General: Well developed, well nourished, no acute distress Head: Normocephalic, atraumatic. Eyes: Pupils equally reactive, EOM intact ENT: Moist mucous membranes Neck: Supple, no lymphadenopathy Respiratory: Lungs clear bilaterally, no distress Cardiovascular: RRR, no murmurs, rubs, or gallops Abdominal: Soft, non-tender, non-distended, no peritoneal signs : Deferred MSK: No edema, no unilateral swelling, 5/5 strength Neurologic: Alert and oriented, moving all extremities, normal speech, no focal weakness, no cerebellar signs Skin: No rash Psych: Normal mood Result Diagram: 12/12/16194412/12/161944 Results 24 hrs Laboratory Tests Test 12/12/16 19:45 Activated Partial Thromboplast Time 28.7Sec Alanine Aminotransferase (ALT/SGPT) 90IU/L Albumin 4.2g/dl Albumin/Globulin Ratio 1.31 Alkaline Phosphatase 96IU/L Anion Gap 18 Aspartate Amino Transf (AST/SGOT) 122IU/L Basophils # 0.010^3/ul Basophils % 0.4% Blood Morphology Comment Blood Urea Nitrogen 7mg/dl Calcium Level 9.7mg/dl Carbon Dioxide Level 31mmol/L Chloride Level 103mmol/L Creatinine 0.68mg/dl Direct Bilirubin 0.00mg/dl Eosinophils # 0.110^3/ul Eosinophils % 1.3% Globulin 3.20g/dl Glucose Level 92mg/dl Hematocrit 43.7% Hemoglobin 14.4g/dl INR International Normalized Ratio 0.95 Indirect Bilirubin 0.2mg/dl Lymphocytes # 2.010^3/ul Lymphocytes % 23.7% Mean Corpuscular Hemoglobin 31.3pg Mean Corpuscular Hemoglobin Concent 33.0g/dl Mean Corpuscular Volume 94.8fl Mean Platelet Volume 11.1fl Monocytes # 0.910^3/ul Monocytes % 10.0% Neutrophils # 5.510^3/ul Neutrophils % 64.6% Nucleated Red Blood Cells # 0.010^3/ul Nucleated Red Blood Cells % 0.0/100WBC Platelet Count 23513^3/UL Potassium Level 3.9mmol/L Prothrombin Time 12.7Sec Prothrombin Time Ratio 1.0 Red Blood Count 4.6110^6/ul Red Cell Distribution Width 14.9% Sodium Level 148mmol/L Total Bilirubin 0.2mg/dl Total Protein 7.4g/dl Troponin I < 0.012ng/ml White Blood Count 8.610^3/ul Current Medications Medications (Trade) Dose Ordered Sig/Micha Route PRN Reason Start Time Stop Time Status Last Admin Dose Admin Sodium Chloride 500 ml @ 500 mls/hr Q1H STAT IV 12/12/16 19:31 12/12/16 20:30 DC Pantoprazole 80 mg/Sodium Chloride 100 ml @ 400 mls/hr ONCE STAT IVPB 12/12/16 19:31 12/12/16 19:45 DC Pantoprazole/ Sodium Chloride (Protonix Iv/NS) 100 ml @ 10 mls/hr ONCE STAT IV 12/12/16 19:31 12/13/16 05:30 Morphine Sulfate (morphine) 4 mg ONCE STAT IV 12/12/16 20:18 12/12/16 20:19 DC Ondansetron HCl (Zofran Inj) 4 mg ONCE STAT IV 12/12/16 20:18 12/12/16 20:19 DC Ondansetron HCl (Zofran Inj) 4 mg BRIDGE ORDER PRN IV NAUSEA AND/OR VOMITING 12/12/16 21:30 12/13/16 21:29 Acetaminophen (Tylenol Tab) 650 mg ER BRIDGE PRN PO MILD PAIN/FEVER 12/12/16 21:30 12/13/16 21:29 Procedures/MDM EKG, MONITORS, & DIAGNOSTIC IMAGING: EKG: I reviewed and interpreted a 12-lead EKG. Rhythm: Normal sinus rhythm Ectopy: None Intervals: No abnormalities ST segments: No elevations or depressions T waves: No contiguous inversions LAB INTERPRETATION: Hemoglobin okay BUN and creatinine ratio does not suggest aggressive upper GI bleed MEDICAL DECISION MAKING: The patient presents with melanotic stool. She recently had endoscopy that showed evidence of gastritis and peptic ulcer disease. Given these constellation of symptoms this is very consistent with likely subacute upper GI bleed. She is hemodynamically stable and otherwise well-appearing no signs of aggressive bleeding at this time. However, the patient does have risk factors for upper GI bleed with recent imaging. For this reason the patient will benefit from serial hemoglobins, PPI bolus and drip and inpatient hospitalization with repeat GI consultation. ER COURSE: The patient is resting comfortably. She is hemodynamically stable. Hemoglobin reassuring. Inpatient hospitalization for serial hemoglobin, GI consultation. I kept the patient and/or family informed of laboratory and diagnostic imaging results throughout the emergency room course. DISPOSITION PLAN: Medical surgical admission CONSULTATION: Accepting care team and consultations: I discussed the current laboratory data, diagnostic imaging and emergency care provided. Admitting team: Dr. Major Admitting team indication: Insurance directed Consulting services: Gastroenterology can be consulted not emergently as an inpatient Departure Diagnosis: Primary Impression: Upper GI bleed Additional Impression: Melena Condition: Stable WHITNEY BLANCHARD MD Dec 12, 2016 20:18
[2016-12-12 20:20] LABS: INR 0.95; PROTIME 12.7 Sec (12.2-14.2)
[2016-12-12 20:21] LABS: PARTIAL THROMBOPLASTIN TIME 28.7 Sec (25.0-35.0)
[2016-12-12 20:24] LABS: ALBUMIN 4.2 g/dl (3.3-4.9); CHLORIDE 103 mmol/L (97-110); POTASSIUM 3.9 mmol/L (3.5-5.1); SODIUM 148 mmol/L (135-144)
[2016-12-12 20:26] LABS: CREATININE 0.68 mg/dl (0.44-1.00)
[2016-12-12 20:27] LABS: ALANINE AMINOTRANSFERASE 90 IU/L (13-69); ALBUMIN/GLOBULIN RATIO 1.31; ALKALINE PHOSPHATASE 96 IU/L (42-121); ANION GAP 18 (8-16); ASPARTATE AMINO TRANSFERASE 122 IU/L (15-46); BILIRUBIN,INDIRECT 0.2 mg/dl (0-1.1); BILIRUBIN,TOTAL 0.2 mg/dl (0.2-1.3); BLOOD UREA NITROGEN 7 mg/dl (7-20); CARBON DIOXIDE 31 mmol/L (21-31); GLUCOSE 92 mg/dl (70-220); TOTAL PROTEIN 7.4 g/dl (6.1-8.1)
[2016-12-12 20:28] LABS: CALCIUM 9.7 mg/dl (8.4-10.2)
[2016-12-12 20:41] LABS: BASOPHILS % 0.4 % (0.0-2.0); EOSINOPHILS # 0.1 10^3/ul (0.0-0.5); EOSINOPHILS % 1.3 % (0.0-7.0); HEMATOCRIT 43.7 % (37.0-47.0); HEMOGLOBIN 14.4 g/dl (12.0-16.0); LYMPHOCYTES % 23.7 % (15.0-51.0); MEAN CORPUSCULAR HEMOGLOBIN 31.3 pg (29.0-33.0); MEAN CORPUSCULAR VOLUME 94.8 fl (82.0-101.0); MEAN PLATELET VOLUME 11.1 fl (7.4-10.4); MONOCYTE # 0.9 10^3/ul (0.3-0.9); NEUTROPHIL # 5.5 10^3/ul (1.6-7.5); NEUTROPHILS % 64.6 % (39.0-77.0); PLATELET COUNT 176 10^3/UL (140-440); RED BLOOD COUNT 4.61 10^6/ul (4.20-5.40); RED CELL DISTRIBUTION WIDTH 14.9 % (11.5-14.5); UNCORRECTED WBC 8.6 10^3/ul (4.8-10.8); WHITE BLOOD COUNT 8.6 10^3/ul (4.8-10.8)
[2016-12-12 20:42] LABS: CONDITION 1; LH ANALYZER COMMENTS 1
[2016-12-12 20:43] LABS: TROPONIN-I < 0.012 ng/ml (0.00-0.12)
[2016-12-12] MEDS ORDERED: ACETAMINOPHEN 325 MG TAB PO PRN (21:30)
[2016-12-12] MEDS ORDERED: ONDANSETRON 4 MG INJ IV PRN (21:30)
[2016-12-12 23:37] VITALS: PULSE 80
[2016-12-13] MEDS ORDERED: ONDANSETRON 4 MG INJ IV PRN (02:00)
[2016-12-13] MEDS ORDERED: ACETAMINOPHEN 325 MG TAB PO PRN (02:00)
[2016-12-13] MEDS: PANTOPRAZOLE IV 80 MG in SOD CHLORIDE 0.9% 100 ML IV SCH ×2 (02:00→12:52)
[2016-12-13] MEDS ORDERED: ZOLPIDEM 5 MG TAB PO PRN (02:00)
[2016-12-13] MEDS: HYDROCODONE/APAP (10/325) TAB PO PRN ×4 (02:28→22:31)
[2016-12-13 06:49] LABS: BASOPHILS % 0.5 % (0.0-2.0); EOSINOPHILS # 0.1 10^3/ul (0.0-0.5); EOSINOPHILS % 1.7 % (0.0-7.0); HEMATOCRIT 37.4 % (37.0-47.0); HEMOGLOBIN 12.5 g/dl (12.0-16.0); LYMPHOCYTES # 2.5 10^3/ul (0.8-2.9); MEAN CORPUSCULAR HEMOGLOBIN 31.4 pg (29.0-33.0); MEAN CORPUSCULAR HGB CONC 33.4 g/dl (32.0-37.0); MEAN CORPUSCULAR VOLUME 94.2 fl (82.0-101.0); MEAN PLATELET VOLUME 10.6 fl (7.4-10.4); MONOCYTE # 0.8 10^3/ul (0.3-0.9); MONOCYTES % 10.3 % (0.0-11.0); NEUTROPHIL # 4.7 10^3/ul (1.6-7.5); NEUTROPHILS % 57.5 % (39.0-77.0); PLATELET COUNT 150 10^3/UL (140-440); RED BLOOD COUNT 3.97 10^6/ul (4.20-5.40); RED CELL DISTRIBUTION WIDTH 15.4 % (11.5-14.5); UNCORRECTED WBC 8.2 10^3/ul (4.8-10.8); WHITE BLOOD COUNT 8.2 10^3/ul (4.8-10.8)
[2016-12-13 06:58] LABS: CONDITION 1; LH ANALYZER COMMENTS 1
[2016-12-13 07:15] LABS: POTASSIUM 3.3 mmol/L (3.5-5.1)
[2016-12-13 07:17] LABS: CREATININE 0.6 mg/dl (0.44-1.00)
[2016-12-13 07:18] LABS: CALCIUM 8.6 mg/dl (8.4-10.2); MAGNESIUM 1.8 mg/dl (1.7-2.5); PHOSPHORUS 3.6 mg/dl (2.5-4.9)
--- NOTE | 2016-12-13 07:29 | HP ---
DATE OF ADMISSION: 12/12/2016 TIME SEEN: 2300 CHIEF COMPLAINT: Dark stool. HISTORY OF PRESENT ILLNESS: The patient is a 71-year-old female with a history of hypertension, pre diabetes, bipolar, peptic ulcer disease/gastritis and esophagitis, COPD and diverticulosis, and "rig ht kidney cancer" status post surgery a year ago who presented to the emergency department with a [facility] complaint of dark stools. The patient was actually just discharged yesterday after she was in iay admitted here a week ago for abdominal pain, nausea, and vomiting. At that time, the patient was seen by GI and had an EGD which showed gastritis and mild esophagitis. Also, noted was atrophy of the second part of the duodenum. The patient was discharged in stable condition. She stated tod ay she noticed "really" dark stool and because of a concern for GI bleed, she presented to the ER. She denied any bright red blood per rectum or hematemesis. She did, however, state that she ate a b anana shortly after having had dark stool, but she ended up vomiting everything that she ate. Again , she denied hematemesis or coffee-ground emesis. She went on to complain of weakness and some ligh theadedness, but denied any chest pain, shortness of breath, palpitation, fever, or chills. The [facility] also complained of ongoing abdominal pain since last admission which improved, but seems to hav e been persistent. When she presented to the ER, blood pressure was 158/94, heart rate 103, respiratory rate 20, temper ature 98.8, oxygen saturation 95% on room air. Laboratory value shows sodium of 148, AST 122, ALT 9 0. Otherwise, CBC and CMP are unremarkable. Her hemoglobin is 14.4. While the patient was in the ER, she was started on a Protonix drip. REVIEW OF SYSTEMS: Negative except as mentioned in the HPI. PAST MEDICAL HISTORY: As per HPI. PAST SURGICAL HISTORY: Right kidney tumor removal, left hip replacement, hysterectomy, appendectomy . 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 She had smoked a pack a day for many years, but now day s she smokes only a few cigarettes per day. She does use marijuana occasionally, last use was 6 mon ths ago. ALLERGIES: IBUPROFEN. HOME MEDICATIONS: 1. Norvasc. 2. Lipitor. 3. Losartan. 4. Tylenol. 5. Klonopin. 6. Gabapentin. 7. [place]. 8. Zyprexa. 9. Protonix. 10. Carafate. PHYSICAL EXAMINATION: VITAL SIGNS: Blood pressure 162/93, heart rate 80, respiratory rate 16, temperature 98.0, oxygen sa turation 100% on room air. GENERAL: The patient lying in bed in no acute distress. She is answering questions appropriately, alert and oriented. HEENT: No obvious head deformity. No scleral icterus. Pupils are reactive to light. Extraocular muscles intact. CARDIOVASCULAR: Regular rate and rhythm with no extra sounds. LUNGS: Clear. ABDOMEN: Soft. There is tenderness diffusely, mainly in the epigastric and periumbilical area. Th ere is no guarding, no rigidity. EXTREMITIES: No edema. NEUROLOGIC: No focal deficits. LABORATORY: Pertinent positive results as mentioned in the HPI. IMPRESSION: 1. Dark stool, evaluate for a gastrointestinal bleed. 2. Hypertension, blood pressure not within goal. 3. Peptic ulcer disease/gastritis and esophagitis. 4. History of diverticulosis 5. History of bipolar disorder. 6. History of chronic obstructive pulmonary disease. 7. Self-reported history of right kidney cancer, status post surgery a year ago. 8. Elevated transaminases. 9. Mild hypernatremia. The patient's presentation is concerning for upper GI bleed. She just had an EGD a few days ago whi ch showed gastritis with mild esophagitis as well as an abnormality in her duodenum. Will reconsult GI. Note, however, that her hemoglobin has been stable. Will keep her n.p.o. except medications f or now. The patient will be continued on Protonix drip. Will send FOBT. We will continue her anti hypertensives with adjustment as needed for better blood pressure control. We will also continue he r psych medications. Will monitor the abnormal liver enzymes for now, and if no improvement or if w orsens, we will do additional workup. Recent right upper quadrant ultrasound was done less than a w [place] ago, was normal. As far as several reports of right kidney cancer is concerned, she said she alanis d surgery a year ago. I believe she said a [facility]. She denied ever having any chemo or radiation, and she stated she has not followed up with anybody about diet, and she stated that she never had any o ncologist. I am suspecting she probably had a benign tumor, but regardless, I have instructed her t o follow up closely with her primary care doctor for periodic imaging and for close followup, especi ally if, in fact, she had cancer. Further workup and management per clinical course. Dictated By: DORIS PATEL/CHELITA Conf#: [id number] DID#: [id number]
[2016-12-13 08:12] VITALS: BP 121/73; RESP 20
[2016-12-13] MEDS ORDERED: OLANZAPINE 5 MG TAB PO SCH (09:00)
[2016-12-13] MEDS: clonAZEPAM 0.5 MG TAB PO SCH ×2 (09:50→20:52)
[2016-12-13] MEDS: AMLODIPINE 5 MG TAB PO SCH (09:51)
[2016-12-13] MEDS: LOSARTAN 50 MG TAB PO SCH ×2 (09:52→20:47)
--- NOTE | 2016-12-13 13:50 | PN ---
Date/Time of Note Date/Time of Note DATE: 12/13/16 TIME: 13:45 Assessment/Plan VTE Prophylaxis VTE Prophylaxis Intervention: contraindicated (GI bleeding) Lines/Catheters IV Catheter Type (from Nrs): Saline Lock Assessment/Plan Chief Complaint/Hosp Course Subjective: Patient admitted with dark stools. Black but no hematochezia. No fever nausea vomiting. Poor appetite. Abdominal pain, diffuse unable to characterize. Wants to eat/has an appetite. Objective: Vital signs stable PE No pallor or icterus Reg Clear Bs + mild tender, nd, no M/R/G No edema A/P 1. GI bleed; stable, PPI/Carafate. Recent EGD-pud/gastritis w mild esophagitis. 2. Duodenal atrophy. 3. Diverticulosis. 4. Chr bipolar disorder. 5. Prediabetes. 6. Hepatic and renal cysts. 7. Htn. 8. Chr copd 9. Ac blood loss anemia. Stable monitor. Transfuse if less than 8. Problems: Exam/Review of Systems Vital Signs Vitals Vital Signs Date Time Temp Pulse Resp B/P Pulse Ox O2 Delivery O2 Flow Rate FiO2 12/13/16 08:12 98.3 71 20 121/73 93 12/12/16 23:37 Room Air Results Result Diagram: 12/13/16 0525 12/13/16 0525 Results 24 hrs Laboratory Tests Test 12/12/16 19:45 12/13/16 05:25 Activated Partial Thromboplast Time 28.7 Alanine Aminotransferase (ALT/SGPT) 90 H Albumin 4.2 # Albumin/Globulin Ratio 1.31 Alkaline Phosphatase 96 # Anion Gap 18 H 12 Aspartate Amino Transf (AST/SGOT) 122 H Basophils # 0.0 0.0 Basophils % 0.4 0.5 Blood Morphology Comment Blood Urea Nitrogen 7 7 Calcium Level 9.7 8.6 Carbon Dioxide Level 31 31 Chloride Level 103 103 Creatinine 0.68 0.60 Direct Bilirubin 0.00 Eosinophils # 0.1 0.1 Eosinophils % 1.3 1.7 Globulin 3.20 Glucose Level 92 81 Hematocrit 43.7 37.4 Hemoglobin 14.4 12.5 INR International Normalized Ratio 0.95 Indirect Bilirubin 0.2 Lymphocytes # 2.0 2.5 Lymphocytes % 23.7 30.0 Mean Corpuscular Hemoglobin 31.3 31.4 Mean Corpuscular Hemoglobin Concent 33.0 33.4 Mean Corpuscular Volume 94.8 94.2 Mean Platelet Volume 11.1 H 10.6 H Monocytes # 0.9 0.8 Monocytes % 10.0 10.3 Neutrophils # 5.5 4.7 Neutrophils % 64.6 57.5 Nucleated Red Blood Cells # 0.0 0.0 Nucleated Red Blood Cells % 0.0 0.0 Platelet Count 176 # 150 Potassium Level 3.9 3.3 L Prothrombin Time 12.7 Prothrombin Time Ratio 1.0 Red Blood Count 4.61 3.97 L Red Cell Distribution Width 14.9 H 15.4 H Sodium Level 148 H 143 Total Bilirubin 0.2 Total Protein 7.4 # Troponin I < 0.012 White Blood Count 8.6 # 8.2 Magnesium Level 1.8 Phosphorus Level 3.6 Medications Medications Current Medications Losartan Potassium (Cozaar) 50 mg BID PO Last administered on 12/13/16 09:52; Admin Dose 50 MG; Start 12/13/16 at 09:00 Olanzapine (Zyprexa) 5 mg DAILY PO Last administered on 12/13/16 09:50; Admin Dose 5 MG; Start 12/13/16 at 09:00 Acetaminophen/ Hydrocodone Bitart ([place] (10/325)) 1 tab Q6H PRN PO PAIN Last administered on 12/13/16 10:12; Admin Dose 1 TAB; Start 12/13/16 at 02:00 Ondansetron HCl (Zofran Inj) 4 mg Q6H PRN IV NAUSEA AND/OR VOMITING; Start at 02:00 Acetaminophen (Tylenol Tab) 650 mg Q6H PRN PO PAIN AND OR ELEVATED TEMP; Start 12/13/16 at 02:00 Amlodipine Besylate (Norvasc) 5 mg DAILY PO Last administered on 12/13/16 09: 51; Admin Dose 5 MG; Start 12/13/16 at 09:00 Atorvastatin Calcium (Lipitor) 10 mg HS PO ; Start 12/13/16 at 21:00 Clonazepam (Klonopin) 1 mg BID PO Last administered on 12/13/16 09:50; Admin Dose 1 MG; Start 12/13/16 at 09:00 Gabapentin 300 mg 300 mg QHS PO ; Start 12/13/16 at 21:00 Pantoprazole/ Sodium Chloride (Protonix Iv/NS) 100 ml @ 10 mls/hr Q10H IV Last administered on 12/13/16t 12:52; Admin Dose 10 MLS/HR; Start 12/13/16 at 02 :00 RAMON KEYES MD Dec 13, 2016 13:50
[2016-12-13] MEDS: SUCRALFATE (100 MG/ML) 10ML CUP NGT SCH ×2 (16:14→20:47)
[2016-12-13 20:28] VITALS: BP 130/72; RESP 16
[2016-12-13] MEDS: GABAPENTIN 300 MG CAP PO SCH (20:47)
[2016-12-13] MEDS: ATORVASTATIN 10 MG TAB PO SCH (20:47)
[2016-12-13] MEDS: OLANZAPINE 5 MG TAB PO SCH (20:52)
[2016-12-14] MEDS: PANTOPRAZOLE IV 80 MG in SOD CHLORIDE 0.9% 100 ML IV SCH ×2 (03:36→08:00)
[2016-12-14 05:53] LABS: BASOPHILS % 0.3 % (0.0-2.0); EOSINOPHILS # 0.1 10^3/ul (0.0-0.5); HEMATOCRIT 36.1 % (37.0-47.0); HEMOGLOBIN 12.1 g/dl (12.0-16.0); LYMPHOCYTES # 2.3 10^3/ul (0.8-2.9); LYMPHOCYTES % 34.1 % (15.0-51.0); MEAN CORPUSCULAR HEMOGLOBIN 31.5 pg (29.0-33.0); MEAN CORPUSCULAR HGB CONC 33.5 g/dl (32.0-37.0); MEAN CORPUSCULAR VOLUME 94.1 fl (82.0-101.0); MEAN PLATELET VOLUME 10.1 fl (7.4-10.4); MONOCYTE # 0.7 10^3/ul (0.3-0.9); MONOCYTES % 9.6 % (0.0-11.0); NEUTROPHIL # 3.7 10^3/ul (1.6-7.5); PLATELET COUNT 152 10^3/UL (140-440); RED BLOOD COUNT 3.84 10^6/ul (4.20-5.40); RED CELL DISTRIBUTION WIDTH 14.8 % (11.5-14.5); UNCORRECTED WBC 6.8 10^3/ul (4.8-10.8); WHITE BLOOD COUNT 6.8 10^3/ul (4.8-10.8)
[2016-12-14 06:10] LABS: POTASSIUM 3.7 mmol/L (3.5-5.1)
[2016-12-14 06:13] LABS: CREATININE 0.73 mg/dl (0.44-1.00)
[2016-12-14 06:14] LABS: CALCIUM 8.4 mg/dl (8.4-10.2); MAGNESIUM 1.9 mg/dl (1.7-2.5); PHOSPHORUS 3.9 mg/dl (2.5-4.9)
[2016-12-14 06:17] LABS: CONDITION 1; LH ANALYZER COMMENTS 1
[2016-12-14 07:27] VITALS: BP 113/63; RESP 20
[2016-12-14] MEDS: SUCRALFATE (100 MG/ML) 10ML CUP NGT SCH ×4 (09:15→21:03)
[2016-12-14] MEDS: OLANZAPINE 5 MG TAB PO SCH (09:15)
[2016-12-14] MEDS: LOSARTAN 50 MG TAB PO SCH ×2 (09:16→21:03)
[2016-12-14] MEDS: AMLODIPINE 5 MG TAB PO SCH (09:16)
[2016-12-14] MEDS: clonAZEPAM 0.5 MG TAB PO SCH ×2 (09:17→21:03)
[2016-12-14] MEDS: HYDROCODONE/APAP (10/325) TAB PO PRN ×2 (10:05→18:47)
--- NOTE | 2016-12-14 12:52 | PN ---
Date/Time of Note Date/Time of Note DATE: 12/14/16 TIME: 12:50 Assessment/Plan VTE Prophylaxis VTE Prophylaxis Intervention: contraindicated (Possible bleeding) Lines/Catheters IV Catheter Type (from Nrs): Saline Lock Assessment/Plan Chief Complaint/Hosp Course Subjective: 12/13 admitted w dark stools. Black, no hematochezia, fever nausea, or vomiting. Poor appetite. Abd pain, diffuse unable to characterize. Wants to eat/has an appetite. 12/14: Better. No BM or bleeding. Objective: Vital signs stable PE No pallor Reg Clear Bs + min tender, nd, no M/R/G No edema A/P 1. GI bleed; stable, PPI/Carafate. Recent EGD-pud/gastritis w mild esophagitis. Stable monitor BMs. 2. Duodenal atrophy. 3. Diverticulosis. 4. Chr bipolar disorder. 5. Prediabetes. 6. Hepatic and renal cysts. 7. Htn. 8. Chr copd 9. Ac blood loss anemia. Stable monitor. Transfuse if less than 8. Problems: Exam/Review of Systems Vital Signs Vitals Vital Signs Date Time Temp Pulse Resp B/P Pulse Ox O2 Delivery O2 Flow Rate FiO2 12/14/16 07:27 98.8 66 20 113/63 97 12/12/16 23:37 Room Air Intake and Output 12/13/16 12/13/16 12/14/16 15:00 23:00 07:00 Intake Total 115 ml Output Total 600 ml Balance -600 ml 115 ml Results Result Diagram: 12/14/16 0530 12/14/16 0530 Results 24 hrs Laboratory Tests Test 12/14/16 05:30 Anion Gap 12 Basophils # 0.0 Basophils % 0.3 Blood Morphology Comment Blood Urea Nitrogen 10 Calcium Level 8.4 Carbon Dioxide Level 30 Chloride Level 105 Creatinine 0.73 Eosinophils # 0.1 Eosinophils % 2.0 Glucose Level 77 Hematocrit 36.1 L Hemoglobin 12.1 Lymphocytes # 2.3 Lymphocytes % 34.1 Magnesium Level 1.9 Mean Corpuscular Hemoglobin 31.5 Mean Corpuscular Hemoglobin Concent 33.5 Mean Corpuscular Volume 94.1 Mean Platelet Volume 10.1 Monocytes # 0.7 Monocytes % 9.6 Neutrophils # 3.7 Neutrophils % 54.0 Nucleated Red Blood Cells # 0.0 Nucleated Red Blood Cells % 0.0 Phosphorus Level 3.9 Platelet Count 152 Potassium Level 3.7 Red Blood Count 3.84 L Red Cell Distribution Width 14.8 H Sodium Level 143 White Blood Count 6.8 Medications Medications Current Medications Losartan Potassium (Cozaar) 50 mg BID PO Last administered on 12/14/16 09:16; Admin Dose 50 MG; Start 12/13/16 at 09:00 Acetaminophen/ Hydrocodone Bitart ([place] (10/325)) 1 tab Q6H PRN PO PAIN Last administered on 12/14/16 10:05; Admin Dose 1 TAB; Start 12/13/16 at 02:00 Ondansetron HCl (Zofran Inj) 4 mg Q6H PRN IV NAUSEA AND/OR VOMITING; Start at 02:00 Acetaminophen (Tylenol Tab) 650 mg Q6H PRN PO PAIN AND OR ELEVATED TEMP; Start 12/13/16 at 02:00 Amlodipine Besylate (Norvasc) 5 mg DAILY PO Last administered on 12/14/16 09: 16; Admin Dose 5 MG; Start 12/13/16 at 09:00 Atorvastatin Calcium (Lipitor) 10 mg HS PO Last administered on 12/13/16 20:47 ; Admin Dose 10 MG; Start 12/13/16 at 21:00 Clonazepam (Klonopin) 1 mg BID PO Last administered on 12/14/16 09:17; Admin Dose 1 MG; Start 12/13/16 at 09:00 Gabapentin (Neurontin) 300 mg QHS PO Last administered on 12/13/16 20:47; Admin Dose 300 MG; Start 12/13/16 at 21:00 Olanzapine (Zyprexa) 5 mg DAILY PO Last administered on 12/14/16 09:15; Admin Dose 5 MG; Start 12/13/16 at 21:00 Sucralfate (Carafate Susp) 1 gm QID NGT Last administered on 12/14/16 09:15; Admin Dose 1 GM; Start 12/13/16 at 17:00 Cholecalciferol (Vitamin D) 1,000 unit DAILY PO ; Start 12/23/16 at 09:00 Pantoprazole (Protonix Iv) 40 mg BID@ IV ; Start 12/14/16 at 18:00 RAMON KEYES MD Dec 14, 2016 12:52
[2016-12-14] MEDS: SENNA/DOCUSATE NA (8.6MG/50MG) TAB PO SCH (14:21)
[2016-12-14] MEDS: PANTOPRAZOLE 40 MG INJ IV SCH (18:46)
[2016-12-14 20:57] VITALS: BP 117/70; RESP 16
[2016-12-14] MEDS: ATORVASTATIN 10 MG TAB PO SCH (21:03)
[2016-12-14] MEDS: GABAPENTIN 300 MG CAP PO SCH (21:03)
[2016-12-15] MEDS ORDERED: ZOLPIDEM 5 MG TAB PO PRN (01:00)
[2016-12-15] MEDS: PANTOPRAZOLE 40 MG INJ IV SCH (05:32)
[2016-12-15] MEDS: HYDROCODONE/APAP (10/325) TAB PO PRN ×2 (05:39→14:10)
[2016-12-15 06:04] LABS: ALBUMIN 3.2 g/dl (3.3-4.9); POTASSIUM 3.7 mmol/L (3.5-5.1)
[2016-12-15 06:07] LABS: ALBUMIN/GLOBULIN RATIO 1.28; CALCIUM 8.6 mg/dl (8.4-10.2); CREATININE 0.71 mg/dl (0.44-1.00); TOTAL PROTEIN 5.7 g/dl (6.1-8.1)
[2016-12-15 06:50] LABS: BASOPHILS % 0.4 % (0.0-2.0); EOSINOPHILS # 0.1 10^3/ul (0.0-0.5); HEMATOCRIT 35.8 % (37.0-47.0); HEMOGLOBIN 11.9 g/dl (12.0-16.0); LYMPHOCYTES # 2.1 10^3/ul (0.8-2.9); LYMPHOCYTES % 30.1 % (15.0-51.0); MEAN CORPUSCULAR HEMOGLOBIN 31.3 pg (29.0-33.0); MEAN CORPUSCULAR HGB CONC 33.4 g/dl (32.0-37.0); MEAN CORPUSCULAR VOLUME 93.9 fl (82.0-101.0); MEAN PLATELET VOLUME 10.3 fl (7.4-10.4); MONOCYTE # 0.7 10^3/ul (0.3-0.9); MONOCYTES % 9.9 % (0.0-11.0); NEUTROPHIL # 4.1 10^3/ul (1.6-7.5); NEUTROPHILS % 57.6 % (39.0-77.0); PLATELET COUNT 163 10^3/UL (140-440); RED BLOOD COUNT 3.81 10^6/ul (4.20-5.40); RED CELL DISTRIBUTION WIDTH 14.5 % (11.5-14.5); UNCORRECTED WBC 7.1 10^3/ul (4.8-10.8); WHITE BLOOD COUNT 7.1 10^3/ul (4.8-10.8)
[2016-12-15 07:13] LABS: CONDITION 1; LH ANALYZER COMMENTS 1
[2016-12-15 08:28] VITALS: BP 131/81; RESP 16
[2016-12-15] MEDS: OLANZAPINE 5 MG TAB PO SCH (08:45)
[2016-12-15] MEDS: SUCRALFATE (100 MG/ML) 10ML CUP NGT SCH ×2 (08:45→14:07)
[2016-12-15] MEDS: AMLODIPINE 5 MG TAB PO SCH (08:46)
[2016-12-15] MEDS: clonAZEPAM 0.5 MG TAB PO SCH (08:47)
[2016-12-15] MEDS: SENNA/DOCUSATE NA (8.6MG/50MG) TAB PO SCH (08:47)
[2016-12-15] MEDS: LOSARTAN 50 MG TAB PO SCH (08:47)
--- NOTE | 2016-12-15 10:42 | PDOCDIS ---
Discharge Instructions DIAGNOSIS Discharge Diagnosis: anemia CONDITION Patient Condition: Good HOME CARE INSTRUCTIONS: Diet Instructions: Reduced SodiumSpecial Diet: stay hydrated - 6-8 glasses of fluids/day ACTIVITY: Activity Restrictions: Slowly Increase Activity Do not Drive FOLLOW UP/APPOINTMENTS Appointments Appt Dr Chandra 1-2wks PCP -1wk Behavioral Health -1wk RAMON KEYES MD Dec 15, 2016 10:42
[2016-12-15] MEDS ORDERED: SENN-88 PO (10:43)
[2016-12-15] MEDS ORDERED: ANUHCSUP PR (10:43)
[2016-12-15] MEDS ORDERED: HYDROCORTISONE 25 MG SUPP PR PRN (11:00)
[2016-12-15] MEDS ORDERED: PANTOPRAZOLE (EC) 40 MG TAB PO SCH (18:00)
--- NOTE | 2016-12-15 18:02 | DS ---
DATE OF ADMISSION: 12/14/2016 DATE OF DISCHARGE: 12/15/2016 PRIMARY CARE PHYSICIAN: Unknown. DIAGNOSIS ON ADMISSION: Gastrointestinal bleed. DIAGNOSES ON DISCHARGE: 1. Resolving gastrointestinal bleed. 2. Hemorrhoids, possibly internal. 3. Recent peptic ulcer disease/gastritis mild esophagitis. 4. Chronic bipolar disorder. 5. Chronic diverticulosis. 6. Chronic duodenal atrophy. 7. Prediabetes. 8. Hepatic renal cysts. 9. Hypertension. 10. Chronic obstructive pulmonary disease. 11. Chronic benzodiazepine dependence. 12. Anxiety disorder. 13. Dyslipidemia. 14. Hypertension. 15. Metabolic syndrome. HOSPITAL COURSE: A 71-year-old female admitted earlier last week with abdominal pain, nausea, vomit ing and/or gastroenteritis, but after seen by GI, underwent EGD showing peptic ulcer disease, gastri tis with mild esophagitis. Patient was placed on Carafate, PPI and discharged. H. pylori was negat barbara. The patient returned 2 days later with possible bleeding. No active bleeding by subjective and obje ctive findings. The patient denies any recent Pepto Bismol. I am not sure if she takes iron. She was monitored in the hospital for another 3 days. Hemoglobin stable, did not show any active bleed, did not require transfusion. Vital signs remained stable. She states of having dark colored stool s and additionally when she wipes noted to have bright bleeding. I did reinforce that this is possi zach hemorrhoids. She does state of having issues with straining and was prescribed Colace in the [facility]. She is 71 years old and I am not sure if she has had a colonoscopy. She will need to follow up with GI. She is aware of the need for followup. At this time, there is no weight loss, no warning signs. She is stable and fit for discharge. Additionally, wants the behavioral health to assist in medication and behavioral health therapy in t he detention. Initially she states she is running out of Klonopin and I will refill this for about 15 days' supply. DISCHARGE PLAN: Home. FOLLOWUP: 1. With primary. 2. Behavioral health [address] Chandra 2 weeks. DIET: Low salt, cholesterol. ACTIVITY: No driving. DURABLE MEDICAL EQUIPMENT: None. CODE STATUS: FULL. CONDITION: Stable. BARRIERS TO DISCHARGE: None. PENDING TESTS: None. FUNCTIONAL STATUS: The patient is awake, alert, agrees to the plan of care. REASON FOR ADMISSION: Possible gastrointestinal bleed. CONDITION: Good. ALLERGIES: APPARENTLY MOTRIN UNKNOWN REACTION. STOPPED MEDICATIONS: None. CONTINUED MEDICATIONS: 1. Norvasc 5. 2. Lipitor 10. 3. Losartan 50 twice daily. 4. Klonopin 1 mg twice daily. 5. Neurontin 300 at bedtime. 6. [place] 10 one every 4 hours as needed. 7. Zyprexa 5 at bedtime. 8. Tylenol as needed. 9. Protonix 40 twice daily. 10. Carafate 1 gram 4 times daily. 11. Senna-S 2 tablets daily. 12. Anusol-HC twice daily 25 mg as needed. LABORATORY DATA: White cell count of 7, hemoglobin and hematocrit of 11.9 and 35, MCV of 93, platel ets of 163. INR 0.9. Stool occult negative. LABORATORY DATA: Sodium 144, potassium 3.7, chloride 104, bicarbonate 30, BUN of 10, creatinine 0.7 , glucose of 115. Bilirubin 0, AST and ALT of 49 and 62, a little high on admission at 122 and 90, alkaline phosphatase of 86. Troponin negative. Protein of 5.7, albumin of 3.2. MRSA nares negativ e. Abdominal ultrasound on 12/06/2016 showed no acute process. CT on 12/04/2016 did not show any a cute process. This was done with contrast. Dictated By: RAMON KEYES MD AC/NTS Conf#: [id number] DID#: [id number] CC: VALENTE CHANDRA;*End*
[2016-12-23] MEDS ORDERED: CHOLECALCIFEROL 1,000 UNIT TAB PO SCH (09:00)
== END 2016-12-15 18:27 | disposition home or self-care (01) | DRG 378 ==
LOC: E/R 17:24 → INTOOBSV 21:05 → MS2 21:05 → OBSVTOIN 12-14 17:07
PROVIDERS: ADMIT Internal Medicine; ATTEND Internal Medicine
DX: K92.1 Melena (principal); E87.0 Hyperosmolality and hypernatremia; D62 Acute posthemorrhagic anemia; J44.9 Chronic obstructive pulmonary disease, unspecified; Z72.0 Tobacco use; I10 Essential (primary) hypertension; K27.9 Peptic ulcer, site unspecified, unspecified as acute or chronic, without hemorrhage or perforation; F31.9 Bipolar disorder, unspecified; R73.03 Prediabetes
CPT/HCPCS: 36415; 80048; 80053; 82270; 83735; 84100; 84484; 85025; 85610; 85730; 86850; 86900; 86901; 87081; 93005; 96374; 96375; 96376; 99217; C9113; G0378; J2270; J2405; J7040

== ENCOUNTER 2016-12-24 11:51 | Emergency (ER) | payer MEDICARE, OTHER ==
[~2016-12-24] VITALS: Ht 152.4 cm; Wt 63.1 kg
[~2016-12-24 11:51] MED LIST changes: +ANUHCSUP PR; +SENN-88 PO
[2016-12-24 11:54] VITALS: Ht 152.4 cm; Wt 63.1 kg
--- NOTE | 2016-12-24 12:28 | ERA ---
ER Documentation Chief Complaint Date/Time DATE: 12/24/16 TIME: 12:27 Chief Complaint Abdominal pain HPI The patient is a 71-year-old female, presenting to the ER because of epigastric abdominal pain intermittently, was for the last 2 days. She was admitted recently and had EGD did not show peptic ulcer disease, gastritis, esophagitis. She also history of hemorrhoids and complains of blood-tinged stool. The abdominal pain is 8/10, worse with eating, denies fever, chills, neck pain, chest pain, abdominal pain, vomiting, dysuria, diarrhea. She smokes half a pack a day, denies drinking Past medical history: History of GI bleed, hemorrhoids, peptic ulcer disease, gastritis, esophagitis, bipolar, hypertension, COPD, benzodiazepine dependence, anxiety, dyslipidemia, hypertension Past surgical history: Right nephrectomy due to cancer, left hip replacement ROS All systems reviewed and are negative except as per history of present illness. Medications Home Meds Active Scripts Hydrocodone/Acetaminophen ([place] 5-325 Tablet) 1 Each Tablet, 1 TAB PO Q6H Y for PAIN, #7 TAB Prov:IRENA CORRIGAN MD 12/24/16 Sulfamethoxazole-Trimethoprim* (Bactrim* DS) 800-160 Mg Tab, 1 TAB PO BID for 10 Days, TAB Prov:IRENA CORRIGAN MD 12/24/16 Sennosides/Docusate Sodium (Senna Plus Tablet) 1 Each Tablet, 2 TAB PO DAILY for 10 Days, #20 TAB 3 Refills Prov:RAMON KEYES MD 12/15/16 Hydrocortisone* Rectal (Anucort-HC* Supp) 25 Mg Supp, 25 MG NV Q12H Y for HEMORROID PAIN/ITCHING for 10 Days, SUPP 3 Refills Prov:RAMON KEYES MD 12/15/16 Pantoprazole* (Pantoprazole*) 40 Mg Tablet.dr, 40 MG PO BID@06,18 for 30 Days, # 60 CAP.EC 1 Refill pharmacy may interchange to OTC as needed. Prov:RAMON KEYES MD 12/11/16 Sucralfate* (Carafate*) 1 Gm/10 Ml Susp, 1 GM PO TID for 14 Days, #30 CAP 4 Refills Prov:RAMON KEYES MD 12/11/16 Acetaminophen* (Tylenol*) 325 Mg Tablet, 650 MG PO Q6H Y for PAIN AND TEMP ABOVE 102 for 1 Day, #1 TAB Prov:RAMON KEYES MD 12/11/16 Reported Medications Gabapentin* (Gabapentin*) 300 Mg Capsule, 300 MG PO QHS, #60 CAP 12/04/16 Amlodipine Besylate* (Norvasc*) 5 Mg Tablet, 5 MG PO QHS, TAB 12/04/16 Atorvastatin Calcium (Atorvastatin Calcium) 10 Mg Tablet, 10 MG PO DAILY, #30 TAB 12/04/16 Losartan Potassium* (Losartan Potassium*) 50 Mg Tablet, 50 MG PO BID, TAB 12/04/16 Clonazepam* (Klonopin*) 1 Mg Tablet, 1 MG PO BID, TAB 12/04/16 Olanzapine* (Zyprexa*) 5 Mg Tablet, 5 MG PO DAILY, #30 TAB 12/04/16 Hydrocodone Bit-Acetaminophen* ([place]*) 10-325 Mg Tablet, 1 TAB PO Q4H Y for PAIN, TAB 07/28/14 Allergies Allergies: Coded Allergies: ibuprofen (Verified Allergy, Unknown, 12/12/16) PMhx/Soc History of Surgery: Yes (left hip replacement 2015, kidney surgery 2015, hysterectomy 1982, appendec) Anesthesia Reaction: No Hx 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 Disorder: No Hx Respiratory Disorders: No Hx Cardiac Disorders: No Hx Psychiatric Problems: Yes (bipolar) Hx Miscellaneous Medical Probl: No Hx Alcohol Use: No Hx Substance Use: No Hx Tobacco Use: Yes Physical Exam Vitals Vital Signs Date Time Temp Pulse Resp B/P Pulse Ox O2 Delivery O2 Flow Rate FiO2 12/24/16 14:47 72 18 142/76 98 Room Air 12/24/16 11:54 97.2 102 21 140/93 98 Physical Exam Const: No acute distress. Head: Atraumatic. Eyes: Normal Conjunctiva. ENT: Normal External Ears, Nose and Mouth. Neck: Full range of motion. No meningismus. Resp: Clear to auscultation bilaterally. Cardio: Regular rate and rhythm, no murmurs. Abd: Soft, non distended, normal bowel sounds, minimal epigastric abdominal discomfort, no right lower quadrant, right upper quadrant, CVA tenderness Skin: No petechiae or rashes. Back: No midline or flank tenderness. Ext: No cyanosis, or edema. Neur: Awake and alert. No focal deficit Psych: Normal Mood and Affect. Result Diagram: 12/24/16 1435 12/24/16 1435 Results 24 hrs Laboratory Tests Test 12/24/16 13:00 12/24/16 13:47 12/24/16 14:35 Stool Occult Blood NEGATIVE Bedside Urine Blood 1+ Bedside Urine Glucose (UA) Negative Bedside Urine Ketones (LAB) Negative Bedside Urine Leukocyte Esterase (L 1+ Bedside Urine Nitrite (LAB) Negative Bedside Urine Protein (LAB) Negative Bedside Urine pH (LAB) 6.0 Alanine Aminotransferase (ALT/SGPT) 54IU/L Albumin 4.3g/dl Albumin/Globulin Ratio 1.07 Alkaline Phosphatase 86IU/L Anion Gap 18 Aspartate Amino Transf (AST/SGOT) 41IU/L Basophils # 0.010^3/ul Basophils % 0.4% Blood Urea Nitrogen 15mg/dl Calcium Level 9.7mg/dl Carbon Dioxide Level 25mmol/L Chloride Level 108mmol/L Creatinine 0.87mg/dl Direct Bilirubin 0.00mg/dl Eosinophils # 0.110^3/ul Eosinophils % 0.7% Globulin 4.00g/dl Glucose Level 85mg/dl Hematocrit 43.6% Hemoglobin 13.7g/dl Indirect Bilirubin 0.1mg/dl Lipase 50U/L Lymphocytes # 1.810^3/ul Lymphocytes % 19.4% Mean Corpuscular Hemoglobin 30.8pg Mean Corpuscular Hemoglobin Concent 31.4g/dl Mean Corpuscular Volume 98.0fl Mean Platelet Volume 12.2fl Monocytes # 0.610^3/ul Monocytes % 6.1% Neutrophils # 6.710^3/ul Neutrophils % 73.1% Nucleated Red Blood Cells # 0.010^3/ul Nucleated Red Blood Cells % 0.0/100WBC Platelet Count 22116^3/UL Potassium Level 4.4mmol/L Red Blood Count 4.4510^6/ul Red Cell Distribution Width 13.4% Sodium Level 147mmol/L Total Bilirubin 0.1mg/dl Total Protein 8.3g/dl White Blood Count 9.110^3/ul Current Medications Medications (Trade) Dose Ordered Sig/Micha Route PRN Reason Start Time Stop Time Status Last Admin Dose Admin Morphine Sulfate (morphine) 2 mg ONCE ONCE IV 12/24/16 13:00 12/24/16 13:01 DC 12/24/16 12:48 Ondansetron HCl (Zofran Inj) 4 mg ONCE STAT IV 12/24/16 12:43 12/24/16 12:44 DC 12/24/16 13:33 Procedures/MDM MEDICAL MAKING DECISION: The patient is a 71-year-old female, presenting with chronic epigastric abdominal pain, most likely due to peptic ulcer disease, esophagitis, gastritis,, acute cystitis. She was treated with morphine 2 IV for pain, Zofran 4 IV for now some good response. The differential diagnoses considered include but are not limited to cholelithiasis, cholecystitis, cystitis, pancreatitis, hepatitis, gastritis, peptic ulcer disease, gastric ulcer, appendicitis, diverticulitis, cholangitis, choledocholithiasis, partial small bowel obstruction. Departure Diagnosis: Primary Impression: Abdominal pain Additional Impression: UTI (urinary tract infection) Condition: Good Comments She was discharged with [place], Bactrim DS and advised to continue Carafate, Protonix I discussed the findings with the patient. I advised the patient to follow-up with the primary physician in about 1-2 days, sooner if needed and return if any concern. IRENA CORRIGAN MD Dec 24, 2016 12:28
[2016-12-24] MEDS ORDERED: ONDANSETRON 4 MG INJ IV STA (12:43)
[2016-12-24] MEDS ORDERED: morphine 2 MG INJ IV ONE (13:00)
[2016-12-24 13:45] LABS: URINE BLOOD (Dip) POC 1+ (NEGATIVE)
[2016-12-24 14:47] VITALS: BP 142/76; PULSE 72; RESP 18
[2016-12-24 14:50] LABS: ADD SCAN DIFF NO
[2016-12-24 15:17] LABS: ALBUMIN 4.3 g/dl (3.3-4.9)
[2016-12-24 15:18] LABS: BASOPHILS % 0.4 % (0.0-2.0); EOSINOPHILS # 0.1 10^3/ul (0.0-0.5); EOSINOPHILS % 0.7 % (0.0-7.0); HEMATOCRIT 43.6 % (37.0-47.0); HEMOGLOBIN 13.7 g/dl (12.0-16.0); LYMPHOCYTES # 1.8 10^3/ul (0.8-2.9); LYMPHOCYTES % 19.4 % (15.0-51.0); MEAN CORPUSCULAR HEMOGLOBIN 30.8 pg (29.0-33.0); MEAN CORPUSCULAR HGB CONC 31.4 g/dl (32.0-37.0); MEAN PLATELET VOLUME 12.2 fl (7.4-10.4); MONOCYTE # 0.6 10^3/ul (0.3-0.9); MONOCYTES % 6.1 % (0.0-11.0); NEUTROPHIL # 6.7 10^3/ul (1.6-7.5); NEUTROPHILS % 73.1 % (39.0-77.0); PLATELET COUNT 224 10^3/UL (140-415); POTASSIUM 4.4 mmol/L (3.5-5.1); RED BLOOD COUNT 4.45 10^6/ul (4.20-5.40); RED CELL DISTRIBUTION WIDTH 13.4 % (11.5-14.5); WHITE BLOOD COUNT 9.1 10^3/ul (4.8-10.8)
[2016-12-24 15:20] LABS: ALBUMIN/GLOBULIN RATIO 1.07; BILIRUBIN,INDIRECT 0.1 mg/dl (0-1.1); BILIRUBIN,TOTAL 0.1 mg/dl (0.2-1.3); CREATININE 0.87 mg/dl (0.44-1.00); TOTAL PROTEIN 8.3 g/dl (6.1-8.1)
[2016-12-24 15:21] LABS: CALCIUM 9.7 mg/dl (8.4-10.2)
[2016-12-24] MEDS ORDERED: HYDR-906 PO (15:54)
[2016-12-24] MEDS ORDERED: BACTDS PO (15:54)
== END 2016-12-24 16:07 | disposition home or self-care (01) ==
LOC: E/R 11:51
DX: R10.13 Epigastric pain (principal); N39.0 Urinary tract infection, site not specified; I10 Essential (primary) hypertension; J44.9 Chronic obstructive pulmonary disease, unspecified; F17.210 Nicotine dependence, cigarettes, uncomplicated; Z85.528 Personal history of other malignant neoplasm of kidney; Z96.642 Presence of left artificial hip joint
CPT/HCPCS: 36415; 80053; 81003; 82270; 83690; 85025; 96374; 96375; 99284; J2270; J2405

== ENCOUNTER 2017-01-15 00:11 | Emergency (ER) | payer MEDICARE, OTHER ==
[~2017-01-15] VITALS: Ht 154.9 cm; Wt 65.5 kg
[~2017-01-15 00:11] MED LIST changes: +BACTDS PO; +HYDR-906 PO
[2017-01-15 02:15] VITALS: Ht 154.9 cm; Wt 65.5 kg
[2017-01-15] MEDS ORDERED: SOD CHLORIDE 0.9% 500 ML IV STA (02:20)
[2017-01-15 03:00] LABS: ADD SCAN DIFF NO
[2017-01-15 03:03] LABS: BASOPHILS % 0.3 % (0.0-2.0); EOSINOPHILS # 0.1 10^3/ul (0.0-0.5); EOSINOPHILS % 1.7 % (0.0-7.0); HEMATOCRIT 40.5 % (37.0-47.0); LYMPHOCYTES # 2.1 10^3/ul (0.8-2.9); LYMPHOCYTES % 27.2 % (15.0-51.0); MEAN CORPUSCULAR HEMOGLOBIN 31.4 pg (29.0-33.0); MEAN CORPUSCULAR HGB CONC 32.1 g/dl (32.0-37.0); MEAN CORPUSCULAR VOLUME 97.8 fl (82.0-101.0); MONOCYTE # 0.7 10^3/ul (0.3-0.9); MONOCYTES % 9.1 % (0.0-11.0); NEUTROPHIL # 4.8 10^3/ul (1.6-7.5); NEUTROPHILS % 61.6 % (39.0-77.0); PLATELET COUNT 180 10^3/UL (140-415); RED BLOOD COUNT 4.14 10^6/ul (4.20-5.40); RED CELL DISTRIBUTION WIDTH 13.8 % (11.5-14.5); WHITE BLOOD COUNT 7.8 10^3/ul (4.8-10.8)
[2017-01-15 03:11] LABS: INR 0.91; PROTIME 12.3 Sec (12.2-14.2)
[2017-01-15 03:12] LABS: PARTIAL THROMBOPLASTIN TIME 27.6 Sec (25.0-35.0)
[2017-01-15 03:13] LABS: POTASSIUM 4.6 mmol/L (3.5-5.1)
[2017-01-15 03:15] LABS: CREATININE 0.73 mg/dl (0.44-1.00)
[2017-01-15 03:16] LABS: ALBUMIN/GLOBULIN RATIO 1.33; CALCIUM 9.3 mg/dl (8.4-10.2)
[2017-01-15] MEDS ORDERED: HYDROCODONE/APAP (10/325) TAB PO ONE (03:30)
--- NOTE | 2017-01-15 03:46 | RADRPT ---
PROCEDURE: CT Abdomen and Pelvis without contrast. CLINICAL INDICATION: Abdominal pain TECHNIQUE: CT scan of the abdomen and pelvis without contrast was performed on a multidetector hig h-resolution CT scanner. The patient was scanned without intravenous contrast. No oral contrast was administered. Coronal and sagittal reformatted images were obtained from the axial source images. Im ages were reviewed on a high-resolution PACS workstation. The total exam CTDI equals 10.5 mGy and t he total exam DLP equals 549.09 mGy-cm. One or more of the following dose reduction techniques were used: - Automated exposure control. - Adjustment of the mA and/or kV according to patient size. - Use of iterative reconstruction technique. COMPARISON: CT abdomen and pelvis with contrast of 12/04/2016 FINDINGS: Lower chest: Minimal dependent atelectasis is seen in the posterior lower lungs. Linear atelectasis /fibrosis is seen at the lung bases. Bilateral breast implants with capsular calcification. Calcifi cation in thoracic aorta. Coronary artery calcification. Small calcified granuloma at base of right middle lung lobe. Liver: No abnormality seen. Gallbladder: No abnormality seen. Spleen: No abnormality seen. Stomach: Food material/debris, fluid and air in the stomach. Pancreas: Pancreatic atrophic changes. Adrenals: No abnormality seen. Kidneys: Likely postoperative changes in mid to lower right kidney again seen. No abnormality is s een in the left kidney. Abdominal aorta: No aneurysm seen. Atherosclerotic calcification is seen. Calcification in celiac, right renal, left renal and bilateral iliac arteries. Lymph nodes: No enlarged lymph nodes are seen. Small bowel: No dilated small bowel loops are seen. Colon: Diverticula in sigmoid and descending colon. There is no specific evidence of acute divertic ulitis seen. There is an approximate 2 cm long area of the distal ascending colon which is collapse d and an annular constricting lesion is possible. There is not seen on the study performed 7. Appendix: Not seen. Bladder: No abnormality seen Pelvic organs: The patient appears to be status post hysterectomy. Ascites: None seen. Osseous structures: Lumbar spondylosis. Degenerative changes at sacroiliac joints. Left hip arthro plasty. Mild osteoarthrosis at right hip. Small likely bone island in the right femoral head. Oste itis pubis. Diffuse osteopenia. Compression fracture apparent L1 vertebral body with loss of approx imate 1/3 height of the mid aspect of the vertebral body again seen. IMPRESSION: Diverticula in sigmoid and descending colon. There is no specific evidence of acute diverticulitis seen. There is an approximate 2 cm long area of the distal ascending colon which is collapsed and a n annular constricting lesion is possible. There is not seen on the study performed 12/04/2016. Dire ct visualization would be useful. Atherosclerosis. Please see above. RPTAT: HJES .Chucky Wood MD, MD Date Time Electronically viewed and signed by .Chucky Wood MD, MD on 01/15/2017 03:46 .S/
[2017-01-15] MEDS ORDERED: ONDA4TAB14 PO (03:50)
[2017-01-15] MEDS ORDERED: HYDR-902 PO (03:50)
--- NOTE | 2017-01-15 03:52 | ERD ---
ER Documentation Chief Complaint Date/Time DATE: 01/15/17 TIME: 03:51 Chief Complaint ABD PAIN/ RECTAL BLEEDING HPI This is a 71-year-old female abdominal pain and rectal bleeding. Patient has history of known diverticulosis. She said she had 2-3 bloody episodes of stool. No fevers no chills. Generalized abdominal pain. Mild to moderate intensity. Noncolicky. No other current complaints. ROS All systems reviewed and are negative except as per history of present illness. Medications Home Meds Active Scripts Ondansetron (Ondansetron Odt) 4 Mg Tab.rapdis, 4 MG PO Q6H Y for NAUSEA AND/OR VOMITING, #10 TAB Prov:MOGHADAMCOLTONDORIS S. 01/15/17 Hydrocodone/Acetaminophen ([place] 10-325 Tablet) 1 Each Tablet, 1 TAB PO Q6H Y for PAIN, #20 TAB Prov:ABHIHADAM,DORIS S. 01/15/17 Hydrocodone/Acetaminophen ([place] 5-325 Tablet) 1 Each Tablet, 1 TAB PO Q6H Y for PAIN, #7 TAB Prov:IRENA CORRIGAN MD 12/24/16 Sulfamethoxazole-Trimethoprim* (Bactrim* DS) 800-160 Mg Tab, 1 TAB PO BID for 10 Days, TAB Prov:IRENA CORRIGAN MD 12/24/16 Sennosides/Docusate Sodium (Senna Plus Tablet) 1 Each Tablet, 2 TAB PO DAILY for 10 Days, #20 TAB 3 Refills Prov:RAMON KEYES MD 12/15/16 Hydrocortisone* Rectal (Anucort-HC* Supp) 25 Mg Supp, 25 MG [place] Q12H Y for HEMORROID PAIN/ITCHING for 10 Days, SUPP 3 Refills Prov:RAMON KEYES MD 12/15/16 Pantoprazole* (Pantoprazole*) 40 Mg Tablet.dr, 40 MG PO BID@06,18 for 30 Days, # 60 CAP.EC 1 Refill pharmacy may interchange to OTC as needed. Prov:RAMON KEYES MD 12/11/16 Sucralfate* (Carafate*) 1 Gm/10 Ml Susp, 1 GM PO TID for 14 Days, #30 CAP 4 Refills Prov:RAMON KEYES MD 12/11/16 Acetaminophen* (Tylenol*) 325 Mg Tablet, 650 MG PO Q6H Y for PAIN AND TEMP ABOVE 102 for 1 Day, #1 TAB Prov:RAMON KEYES MD 12/11/16 Reported Medications Gabapentin* (Gabapentin*) 300 Mg Capsule, 300 MG PO QHS, #60 CAP 12/04/16 Amlodipine Besylate* (Norvasc*) 5 Mg Tablet, 5 MG PO QHS, TAB 12/04/16 Atorvastatin Calcium (Atorvastatin Calcium) 10 Mg Tablet, 10 MG PO DAILY, #30 TAB 12/04/16 Losartan Potassium* (Losartan Potassium*) 50 Mg Tablet, 50 MG PO BID, TAB 12/04/16 Clonazepam* (Klonopin*) 1 Mg Tablet, 1 MG PO BID, TAB 12/04/16 Olanzapine* (Zyprexa*) 5 Mg Tablet, 5 MG PO DAILY, #30 TAB 12/04/16 Hydrocodone Bit-Acetaminophen* ([place]*) 10-325 Mg Tablet, 1 TAB PO Q4H Y for PAIN, TAB 07/28/14 Allergies Allergies: Coded Allergies: ibuprofen (Verified Allergy, Unknown, 12/12/16) PMhx/Soc History of Surgery: Yes (left hip replacement 2015, kidney surgery 2015, hysterectomy 1982, appendec) Anesthesia Reaction: No Hx 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 Disorder: No Hx Respiratory Disorders: No Hx Cardiac Disorders: No Hx Psychiatric Problems: Yes (bipolar) Hx Miscellaneous Medical Probl: No Hx Alcohol Use: No Hx Substance Use: No Hx Tobacco Use: Yes (5-6 cigs) Smoking Status: Light tobacco smoker Physical Exam Vitals Vital Signs Date Time Temp Pulse Resp B/P Pulse Ox O2 Delivery O2 Flow Rate FiO2 01/15/17 02:15 97.9 81 20 140/88 97 01/15/17 02:15 97.9 81 20 140/88 97 Room Air Physical Exam Const: [] Head: Atraumatic Eyes: Normal Conjunctiva ENT: Normal External Ears, Nose and Mouth. Neck: Full range of motion..~ No meningismus. Resp: Clear to auscultation bilaterally Cardio: Regular rate and rhythm, no murmurs Abd: Soft, non tender, non distended. Normal bowel sounds Skin: No petechiae or rashes Back: No midline or flank tenderness Ext: No cyanosis, or edema Neur: Awake and alert Psych: Normal Mood and Affect Result Diagram: 01/15/17 0240 Results 24 hrs Laboratory Tests Test 01/15/17 02:40 Activated Partial Thromboplast Time 27.6Sec Basophils # 0.010^3/ul Basophils % 0.3% Eosinophils # 0.110^3/ul Eosinophils % 1.7% Hematocrit 40.5% Hemoglobin 13.0g/dl INR International Normalized Ratio 0.91 Lymphocytes # 2.110^3/ul Lymphocytes % 27.2% Mean Corpuscular Hemoglobin 31.4pg Mean Corpuscular Hemoglobin Concent 32.1g/dl Mean Corpuscular Volume 97.8fl Mean Platelet Volume 11.0fl Monocytes # 0.710^3/ul Monocytes % 9.1% Neutrophils # 4.810^3/ul Neutrophils % 61.6% Nucleated Red Blood Cells # 0.010^3/ul Nucleated Red Blood Cells % 0.0/100WBC Platelet Count 39105^3/UL Prothrombin Time 12.3Sec Prothrombin Time Ratio 1.0 Red Blood Count 4.1410^6/ul Red Cell Distribution Width 13.8% White Blood Count 7.810^3/ul Current Medications Medications (Trade) Dose Ordered Sig/Micha Route PRN Reason Start Time Stop Time Status Last Admin Dose Admin Sodium Chloride (NS) 500 ml @ 500 mls/hr Q1H STAT IV 01/15/17 02:20 01/15/17 03:18 DC Acetaminophen/ Hydrocodone Bitart ([place] (10/325)) 1 tab ONCE ONCE PO 01/15/17 03:30 01/15/17 03:31 DC 01/15/17 03:26 Departure Diagnosis: Primary Impression: Abdominal pain Abdominal location: generalized Qualified Code: R10.84 - Generalized abdominal pain Additional Impression: Diverticulosis Diverticulosis site: unspecified location Diverticulosis bleeding: diverticulosis with bleeding Qualified Code: K57.91 - Diverticulosis of intestine with bleeding, unspecified intestinal tract location Condition: Stable Patient Instructions: Diverticulosis DORIS MCKEON Jan 15, 2017 03:52
[2017-01-15 04:37] VITALS: BP 150/83; PULSE 74; RESP 20; TEMP 97.9
== END 2017-01-15 04:39 | disposition home or self-care (01) ==
LOC: E/R 00:11
DX: R10.84 Generalized abdominal pain (principal); F17.210 Nicotine dependence, cigarettes, uncomplicated; K57.91 Diverticulosis of intestine, part unspecified, without perforation or abscess with bleeding; Z96.642 Presence of left artificial hip joint
CPT/HCPCS: 36415; 74176; 80053; 83690; 85025; 85610; 85730; J7040

== ENCOUNTER 2017-02-04 12:17 | Emergency (ER) | payer MEDICARE, OTHER ==
[~2017-02-04] VITALS: Ht 160 cm; Wt 65.0 kg
[~2017-02-04 12:17] MED LIST changes: +HYDR-902 PO; +ONDA4TAB14 PO
[2017-02-04 12:19] VITALS: Ht 160 cm; Wt 65.0 kg
--- NOTE | 2017-02-04 13:14 | ERA ---
ER Documentation Chief Complaint Date/Time DATE: 02/04/17 TIME: 13:12 Chief Complaint SENT BY PMD FOR EVAL , NECK PAIN S/P FALL YESTERDAY , ASLO C/O ABD PAIN HPI Patient is a 71-year-old female who reports intermittent rectal bleeding for a long period of time. She also reports having a fall yesterday after her left leg gave out. She had surgery on her left hip, and states that her left leg gives out on her at times. She states that she fell and hit her forehead. She has headache, neck pain, left shoulder pain. She reports brief loss of consciousness and 2 episodes of vomiting. She denies numbness or paresthesia of the arms. She also reports having dysuria and left lower quadrant pain for the last 3 days. Denies fever. States that she was recently treated for UTI, but symptoms did not resolve. Denies dark stool, dizziness, shortness of breath. She was sent to the ER for admission by her PMD. ROS All systems reviewed and are negative except as per history of present illness. Medications Home Meds Active Scripts Ondansetron (Ondansetron Odt) 4 Mg Tab.rapdis, 4 MG PO Q6H Y for NAUSEA AND/OR VOMITING, #10 TAB Prov:DORIS MCKEON 01/15/17 Sennosides/Docusate Sodium (Senna Plus Tablet) 1 Each Tablet, 2 TAB PO DAILY for 10 Days, #20 TAB 3 Refills Prov:RAMON KEYES MD 12/15/16 Hydrocortisone* Rectal (Anucort-HC* Supp) 25 Mg Supp, 25 MG [place] Q12H Y for HEMORROID PAIN/ITCHING for 10 Days, SUPP 3 Refills Prov:RAMON KEYES MD 12/15/16 Pantoprazole* (Pantoprazole*) 40 Mg Tablet., 40 MG PO BID@06,18 for 30 Days, # 60 CAP.EC 1 Refill pharmacy may interchange to OTC as needed. Prov:RAMON KEYES MD 12/11/16 Sucralfate* (Carafate*) 1 Gm/10 Ml Susp, 1 GM PO TID for 14 Days, #30 CAP 4 Refills Prov:RAMON KEYES MD 12/11/16 Acetaminophen* (Tylenol*) 325 Mg Tablet, 650 MG PO Q6H Y for PAIN AND TEMP ABOVE 102 for 1 Day, #1 TAB Prov:RAMON KEYES MD 12/11/16 Reported Medications Gabapentin* (Gabapentin*) 300 Mg Capsule, 300 MG PO QHS, #60 CAP 12/04/16 Amlodipine Besylate* (Norvasc*) 5 Mg Tablet, 5 MG PO QHS, TAB 12/04/16 Atorvastatin Calcium (Atorvastatin Calcium) 10 Mg Tablet, 10 MG PO DAILY, #30 TAB 12/04/16 Clonazepam* (Klonopin*) 1 Mg Tablet, 1 MG PO BID, TAB 12/04/16 Olanzapine* (Zyprexa*) 5 Mg Tablet, 5 MG PO DAILY, #30 TAB 12/04/16 Discontinued Reported Medications Losartan Potassium* (Losartan Potassium*) 50 Mg Tablet, 50 MG PO BID, TAB 12/04/16 Hydrocodone Bit-Acetaminophen* ([place]*) 10-325 Mg Tablet, 1 TAB PO Q4H Y for PAIN, TAB 07/28/14 Discontinued Scripts Hydrocodone/Acetaminophen ([place] 10-325 Tablet) 1 Each Tablet, 1 TAB PO Q6H Y for PAIN, #20 TAB Prov:DORIS MCKEON 01/15/17 Hydrocodone/Acetaminophen ([place] 5-325 Tablet) 1 Each Tablet, 1 TAB PO Q6H Y for PAIN, #7 TAB Prov:IRENA CORRIGAN MD 12/24/16 Sulfamethoxazole-Trimethoprim* (Bactrim* DS) 800-160 Mg Tab, 1 TAB PO BID for 10 Days, TAB Prov:IRENA CORRIGAN MD 12/24/16 Allergies Allergies: Coded Allergies: ibuprofen (Verified Allergy, Unknown, 12/12/16) PMhx/Soc Past medical history: Diverticulosis, bipolar disorder Past surgical history: Left hip replacement 2016, kidney surgery 2016, hysterectomy 1982, appendectomy Social history: Smokes tobacco, denies alcohol History of Surgery: Yes (left hip replacement 2016, kidney surgery 2015, hysterectomy 1982, appendec) Anesthesia Reaction: No Hx 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 Disorder: No Hx Respiratory Disorders: No Hx Cardiac Disorders: No Hx Psychiatric Problems: Yes (bipolar) Hx Miscellaneous Medical Probl: No Hx Alcohol Use: No Hx Substance Use: No Hx Tobacco Use: Yes (5-6 cigs) FmHx Family History: No coronary disease, No diabetes Physical Exam Vitals Vital Signs Date Time Temp Pulse Resp B/P Pulse Ox O2 Delivery O2 Flow Rate FiO2 02/04/17 12:19 98.0 89 18 133/77 98 Physical Exam Const: Alert, appears slightly anxious Head: No visible or palpable trauma Eyes: Normal Conjunctiva, no pallor or icterus ENT: Normal External Ears, Nose and Mouth. Moist mucous membranes Neck: Full range of motion. Mild low cervical midline tenderness. Left paraspinal muscle tenderness Resp: Clear to auscultation bilaterally, no wheezes, no rales Cardio: Regular rate and rhythm, no murmurs Abd: Soft, mild suprapubic and left lower quadrant tenderness, no guarding, no rebound non distended. Skin: No petechiae or rashes Back: No midline or flank tenderness Ext: No cyanosis, or edema, left shoulder tenderness, no deformity Neur: Awake and alert, cranial nerves II through XII intact bilaterally, strength and sensation intact in 4 extremities. Psych: Normal Mood and Affect Result Diagram: 02/04/17 1315 02/04/17 1410 Results 24 hrs Laboratory Tests Test 02/04/17 13:15 02/04/17 14:10 02/04/17 15:25 White Blood Count 10.410^3/ul Red Blood Count 4.5610^6/ul Hemoglobin 14.1g/dl Hematocrit 45.5% Mean Corpuscular Volume 99.8fl Mean Corpuscular Hemoglobin 30.9pg Mean Corpuscular Hemoglobin Concent 31.0g/dl Red Cell Distribution Width 14.1% Platelet Count 30968^3/UL Mean Platelet Volume 11.6fl Neutrophils % 59.7% Lymphocytes % 30.5% Monocytes % 7.6% Eosinophils % 1.3% Basophils % 0.6% Nucleated Red Blood Cells % 0.0/100WBC Neutrophils # 6.210^3/ul Lymphocytes # 3.210^3/ul Monocytes # 0.810^3/ul Eosinophils # 0.110^3/ul Basophils # 0.110^3/ul Nucleated Red Blood Cells # 0.010^3/ul Prothrombin Time 11.9Sec Prothrombin Time Ratio 0.9 INR International Normalized Ratio 0.88 Activated Partial Thromboplast Time 26.5Sec Sodium Level 141mmol/L Potassium Level 4.2mmol/L Chloride Level 109mmol/L Carbon Dioxide Level 25mmol/L Anion Gap 11 Blood Urea Nitrogen 16mg/dl Creatinine 0.84mg/dl Glucose Level 79mg/dl Calcium Level 9.0mg/dl Total Bilirubin 0.2mg/dl Direct Bilirubin 0.00mg/dl Indirect Bilirubin 0.2mg/dl Aspartate Amino Transf (AST/SGOT) 21IU/L Alanine Aminotransferase (ALT/SGPT) 28IU/L Alkaline Phosphatase 95IU/L Total Protein 6.6g/dl Albumin 3.8g/dl Globulin 2.80g/dl Albumin/Globulin Ratio 1.35 Lipase 106U/L Urine Color LT. YELLOW Urine Clarity CLEAR Urine pH 5.5 Urine Specific [place] 1.015 Urine Ketones NEGATIVE Urine Nitrite NEGATIVE Urine Bilirubin NEGATIVE Urine Urobilinogen 0.2 E.U./dL Urine Leukocyte Esterase TRACE Urine Microscopic RBC 0-2/HPF Urine Microscopic WBC 2-5/HPF Urine Squamous Epithelial Cells FEW Urine Bacteria OCCASIONAL Urine Hemoglobin TRACE Urine Glucose NEGATIVE% Urine Total Protein NEGATIVE Current Medications Medications (Trade) Dose Ordered Sig/Micha Route PRN Reason Start Time Stop Time Status Last Admin Dose Admin Morphine Sulfate (morphine) 4 mg ONCE STAT IV 02/04/17 13:15 02/04/17 13:18 DC 02/04/17 13:27 Ondansetron HCl (Zofran Inj) 4 mg ONCE STAT IV 02/04/17 13:15 02/04/17 13:18 DC 02/04/17 13:28 Procedures/MDM EKG read by me: Time 1440, rate 75 Rhythm: Normal sinus [place]: Normal Intervals: Normal ST-T waves: no ischemic changes Ectopy: No Q-waves: No Impression: No evidence of ischemia or arrhythmia MDM: Patient is a 71-year-old female who reports a mechanical ground-level fall 2 days ago due to her left leg giving out, which it has done since her hip replacement surgery. There is no sign of hip dislocation. Patient states that she hit her head and had a brief loss of consciousness. Head and C-spine CT are unremarkable for traumatic injury. The patient is not on blood thinners. Chest x-ray and x-ray of left shoulder are unremarkable. Patient has multiple complaints in addition to these acute issues, including left lower quadrant and suprapubic pain which has been present for an unspecified period of time. Review of the patient's chart shows that she has had [address] scans at this hospital in the last month and a half for abdominal pain, and the patient states that this is the same abdominal pain. She has a relatively benign exam, no leukocytosis, and no evidence of UTI. I will defer repeating a CT scan at this time. I do recognize that the patient has diverticulosis, and is at risk for diverticulitis, but there is no evidence that her symptoms now are worse then during previous ER visits. The patient was complaining of multiple pain complaints, and when I told her that her imaging was negative she shifted to focusing on her abdominal pain. She made multiple requests for pain medication. Review of cures shows that she has had 4 opiate prescriptions in the last 2 months. I had extensive discussion with her about the need to find a single doctor to manage her chronic pain, and the need to follow-up with religious activities director for further investigation of the cause of her abdominal pain and rectal bleeding. I did speak with Dr. Bautista prior to all results being back, and indicated that I would do a workup for traumatic injury and ensure that the patient was not anemic. Advised the patient that she should call Dr. Bautista tomorrow morning to discuss the need for GI referral, and to discuss chronic pain control. I have advised the patient to the need to return to the ER for worsening pain, fever, vomiting, or other concerns. I do not believe that the patient requires hospitalization for her rectal bleeding, given the fact that she has had this for 1-2 months and has stable hemoglobin. Departure Diagnosis: Primary Impression: Minor head injury Qualified Code: S00.90XA - Minor head injury, initial encounter Additional Impressions: Chronic abdominal pain Rectal bleeding Condition: Stable JAYNA SWENSON MD Feb 04, 2017 13:14
[2017-02-04] MEDS ORDERED: morphine 4 MG/ML VIAL IV STA (13:15)
[2017-02-04] MEDS ORDERED: ONDANSETRON 4 MG INJ IV STA (13:15)
[2017-02-04 13:29] LABS: ADD SCAN DIFF NO
--- NOTE | 2017-02-04 13:35 | RADRPT ---
PROCEDURE: XR Chest. CLINICAL INDICATION: Abdominal pain TECHNIQUE: AP view of the chest was obtained. COMPARISON: 12/09/2016 FINDINGS: There are atherosclerotic calcifications of the thoracic aorta. The cardiomediastinal silhouette i s within normal limits. The lungs are clear. No pleural effusion or pneumothorax is seen. Noted a re bilateral calcified breast implants and bilateral shoulder degenerative changes IMPRESSION: No evidence of active cardiopulmonary disease. RPTAT: VV .Samuel Trujillo MD, MD Date Time Electronically viewed and signed by .Samuel Trujillo MD, on 02/04/2017 13:35 .O/
--- NOTE | 2017-02-04 13:35 | RADRPT ---
PROCEDURE: XR shoulder. CLINICAL INDICATION: Shoulder trauma/injury TECHNIQUE: 2 views of the left shoulder were obtained COMPARISON: None available. FINDINGS: No fracture or dislocation is identified. There is generalized osteopenia. There are mild degenera tive changes at the acromioclavicular joint. Soft tissues appear unremarkable. IMPRESSION: No evidence of fracture or dislocation. Mild AC joint degenerative changes. RPTAT: VV .Samuel Trujillo MD, MD Date Time Electronically viewed and signed by .Samuel Trujillo MD, MD on 02/04/2017 13:34 .O/
[2017-02-04 13:38] LABS: BASOPHIL # 0.1 10^3/ul (0.0-0.1); BASOPHILS % 0.6 % (0.0-2.0); EOSINOPHILS # 0.1 10^3/ul (0.0-0.5); EOSINOPHILS % 1.3 % (0.0-7.0); HEMATOCRIT 45.5 % (37.0-47.0); HEMOGLOBIN 14.1 g/dl (12.0-16.0); LYMPHOCYTES # 3.2 10^3/ul (0.8-2.9); LYMPHOCYTES % 30.5 % (15.0-51.0); MEAN CORPUSCULAR HEMOGLOBIN 30.9 pg (29.0-33.0); MEAN CORPUSCULAR VOLUME 99.8 fl (82.0-101.0); MEAN PLATELET VOLUME 11.6 fl (7.4-10.4); MONOCYTE # 0.8 10^3/ul (0.3-0.9); MONOCYTES % 7.6 % (0.0-11.0); NEUTROPHIL # 6.2 10^3/ul (1.6-7.5); NEUTROPHILS % 59.7 % (39.0-77.0); PLATELET COUNT 197 10^3/UL (140-415); RED BLOOD COUNT 4.56 10^6/ul (4.20-5.40); RED CELL DISTRIBUTION WIDTH 14.1 % (11.5-14.5); WHITE BLOOD COUNT 10.4 10^3/ul (4.8-10.8)
[2017-02-04 13:47] LABS: INR 0.88; PARTIAL THROMBOPLASTIN TIME 26.5 Sec (25.0-35.0); PROTIME 11.9 Sec (12.2-14.2); PT RATIO 0.9
--- NOTE | 2017-02-04 13:54 | RADRPT ---
PROCEDURE: CT Brain without. CLINICAL INDICATION: Headache, status post fall. TECHNIQUE: A CT of the brain was performed on multidetector high-resolution CT scanner utilizing a xial sections from the skull base through the vertex without contrast. The scan was reviewed in sof t tissue brain and high frequency resolution bone algorithm windows. Images were reviewed on a high -resolution PACS workstation. One or more the following does reduction techniques were utilized: Aut omated exposure control, adjustment of the mA/ or kV according to patient's size, or use of iterativ e reconstruction technique. The exam CTDI = 41.74, 22.23 mGy and the DLP = 1121.89 mGy-cm. COMPARISON: Brain CT . FINDINGS: The ventricles and sulci are mildly prominent indicative of volume loss. There is no intracranial h emorrhage, mass effect or midline shift. No abnormal intra-axial or extra-axial fluid collections a re seen. The barr[place]/white matter differentiation is preserved. There are mild scattered foci of hypoattenuation in the white matter, which are nonspecific in etiol ogy but likely reflect chronic small vessel ischemic changes. There are mild intracranial vascular calcifications consistent with atherosclerosis. The visualized paranasal sinuses are essentially magda ar. Mild frontal scalp swelling is noted without underlying skull fracture. IMPRESSION: 1. No acute intracranial hemorrhage, transcortical infarction or mass effect. 2. Mild intracranial atherosclerosis and chronic small vessel ischemic changes. 3. Mild generalized cerebral volume loss. 4. Mild frontal scalp swelling without underlying skull fracture. RPTAT: EE .Abundio Fan MD, MD Date Time Electronically viewed and signed by .Abundio Fan MD, MD on 02/04/2017 13:53 .N/
--- NOTE | 2017-02-04 14:01 | RADRPT ---
PROCEDURE: CT cervical spine without contrast CLINICAL INDICATION: Trauma. Neck pain. TECHNIQUE: CT scan of the cervical spine was performed on [facility] No IV contrast was administered. Coronal and sagittal reformatted images were obtained from th e axial source images. Images were reviewed on a high-resolution PACS workstation. One or more the f ollowing does reduction techniques were utilized: Automated exposure control, adjustment of the mA/ or kV according to patient's size, or use of iterative reconstruction technique. Exam CTDI = 41.74, 22.23 mGy and the DLP = 11 21.89 mGy-cm. COMPARISON: None available. FINDINGS: There is straightening of the alignment of the cervical spine with loss of the normal cervical lordo sis. There is 2 mm anterolisthesis of C4 on C5. No acute fracture or dislocation is seen. There i s age indeterminate mild compression deformity of superior endplate of T2 vertebral body which is li vince chronic. The cervical spine vertebral body heights are preserved. No mass, hematoma, or other soft tissue abnormality is seen. There are multilevel mild degenerative changes of the cervical spine, manifested by osteophytosis an d disc height narrowing, most prominent at C4-C5, C5-C6 and C6-C7. Uncovertebral osteophytes and fac et arthropathy result in multilevel foraminal stenosis: at C3-C4 mild bilaterally, at C4-C5 mild to moderate bilaterally, and at C5-C6 mild on the right and mild on the left. Posterior disk osteophyte complexes contribute to mild spinal canal narrowing at C3-C4 through C6-C7. Moderate left and mild right carotid bulb atherosclerotic vascular calcifications are identified. IMPRESSION: 1. Straightening of normal cervical lordosis. There is 2 mm anterolisthesis of C4 on C5. 2. No acute fracture or traumatic subluxation. 3. Multilevel mild degenerative changes of the cervical spine, most prominent at C4-C5, C5-C6 and C 6-C7. 4. Multilevel foraminal stenosis as outlined in details in findings. 5. Posterior disk osteophyte complexes contribute to mild spinal canal narrowing at C3-C4 through C 6-C7. RPTAT: EE .Abundio Fan MD, MD Date Time Electronically viewed and signed by .Abundio Fan MD, MD on 02/04/2017 14:00 .N/
[2017-02-04 14:39] LABS: ALBUMIN 3.8 g/dl (3.3-4.9); ALBUMIN/GLOBULIN RATIO 1.35; BILIRUBIN,INDIRECT 0.2 mg/dl (0-1.1); BILIRUBIN,TOTAL 0.2 mg/dl (0.2-1.3); CREATININE 0.84 mg/dl (0.44-1.00); POTASSIUM 4.2 mmol/L (3.5-5.1); TOTAL PROTEIN 6.6 g/dl (6.1-8.1)
[2017-02-04 15:43] LABS: ADD UMIC YES; URINE BILIRUBIN (Dip) NEGATIVE (NEGATIVE); URINE BLOOD (Dip) TRACE (NEGATIVE); URINE COLOR LT. YELLOW (YELLOW); URINE GLUCOSE (Dip) NEGATIVE (NEGATIVE); URINE KETONES (Dip) NEGATIVE (NEGATIVE); URINE LEUKOCYTE ESTERASE (Dip) TRACE (NEGATIVE); URINE NITRITE (Dip) NEGATIVE (NEGATIVE); URINE TOTAL PROTEIN (Dip) NEGATIVE (NEGATIVE); URINE UROBILINOGEN (Dip) 0.2 E.U./dL (0.1-1.0)
[2017-02-04 16:04] LABS: SQUAMOUS EPITHELIAL CELL,UR FEW; URINE RBCS 0-2 /HPF (0)
[2017-02-04 16:14] LABS: BACTERIA,URINE OCCASIONAL
[2017-02-04 16:46] VITALS: BP 133/77; PULSE 65; RESP 18; TEMP 98
== END 2017-02-04 16:47 | disposition home or self-care (01) ==
LOC: E/R 12:17
DX: S09.90XA Unspecified injury of head, initial encounter (principal); K62.5 Hemorrhage of anus and rectum; R10.30 Lower abdominal pain, unspecified; R10.32 Left lower quadrant pain; F17.210 Nicotine dependence, cigarettes, uncomplicated; R40.2142 Coma scale, eyes open, spontaneous, at arrival to emergency department; R40.2252 Coma scale, best verbal response, oriented, at arrival to emergency department; R40.2362 Coma scale, best motor response, obeys commands, at arrival to emergency department; R51 Headache; W01.198A Fall on same level from slipping, tripping and stumbling with subsequent striking against other object, initial encounter; Z96.642 Presence of left artificial hip joint
CPT/HCPCS: 36415; 70450; 71010; 72125; 73030; 80053; 81001; 81003; 83690; 85025; 85610; 85730; 87086; 93005; 96374; 96375; 99285; J2270; J2405

== ENCOUNTER 2017-02-08 14:37 | Emergency (ER) | payer MEDICARE, OTHER ==
[~2017-02-08] VITALS: Ht 152.4 cm; Wt 66.0 kg
[~2017-02-08 14:37] MED LIST changes: -BACTDS PO; -HYDR-762 PO; -HYDR-902 PO; -HYDR-906 PO; -LOSA50TA6 PO
[2017-02-08 14:39] VITALS: Ht 152.4 cm; Wt 66.0 kg
[2017-02-08] MEDS ORDERED: ONDANSETRON 4 MG INJ IV STA ×2 (15:11→19:55)
[2017-02-08] MEDS ORDERED: HYDROmorphONE 1 MG/ML SYG IV STA ×2 (15:11→19:55)
[2017-02-08] MEDS ORDERED: SOD CHLORIDE 0.9% 1,000 ML IV STA (15:11)
[2017-02-08] MEDS ORDERED: ALPR0.5T6 GTB (15:30)
[2017-02-08] MEDS ORDERED: ASPI81TA3 GTB (15:30)
[2017-02-08] MEDS ORDERED: CLON-429 GTB (15:32)
[2017-02-08] MEDS ORDERED: CRAN400T4 GTB (15:33)
[2017-02-08] MEDS ORDERED: IPRA3AMP INHALATION (15:34)
[2017-02-08] MEDS ORDERED: DOCU-159 GTB (15:34)
[2017-02-08] MEDS ORDERED: METO-448 GTB (15:37)
[2017-02-08] MEDS ORDERED: AMIN30LI GTB (15:38)
[2017-02-08] MEDS ORDERED: TRAZ50TA18 GTB (15:39)
[2017-02-08] MEDS ORDERED: RANI150T5 GTB (15:39)
[2017-02-08] MEDS ORDERED: VLP250480 GTB (15:40)
[2017-02-08] MEDS ORDERED: AMLO-145 PO (15:42)
[2017-02-08] MEDS ORDERED: CLON1TAB3 PO (15:42)
[2017-02-08] MEDS ORDERED: ATOR10TA65 PO (15:42)
[2017-02-08] MEDS ORDERED: GABA300C16 PO (15:43)
[2017-02-08] MEDS ORDERED: OLAN10TA7 PO (15:43)
[2017-02-08] MEDS ORDERED: OLAN5TAB5 PO (15:44)
[2017-02-08] MEDS ORDERED: IOHEXOL 300MG/ML 150 ML BTL ONE (15:53)
[2017-02-08] MEDS ORDERED: SOD CHLORIDE 0.9% 100 ML ONE (15:53)
[2017-02-08 15:55] LABS: ADD SCAN DIFF NO
[2017-02-08 15:57] LABS: BASOPHILS % 0.2 % (0.0-2.0); EOSINOPHILS # 0.1 10^3/ul (0.0-0.5); EOSINOPHILS % 1.1 % (0.0-7.0); HEMATOCRIT 43.1 % (37.0-47.0); HEMOGLOBIN 13.7 g/dl (12.0-16.0); LYMPHOCYTES # 2.8 10^3/ul (0.8-2.9); LYMPHOCYTES % 27.9 % (15.0-51.0); MEAN CORPUSCULAR HEMOGLOBIN 31.6 pg (29.0-33.0); MEAN CORPUSCULAR HGB CONC 31.8 g/dl (32.0-37.0); MEAN CORPUSCULAR VOLUME 99.5 fl (82.0-101.0); MEAN PLATELET VOLUME 11.2 fl (7.4-10.4); MONOCYTE # 0.9 10^3/ul (0.3-0.9); MONOCYTES % 9.3 % (0.0-11.0); NEUTROPHIL # 6.1 10^3/ul (1.6-7.5); NEUTROPHILS % 61.3 % (39.0-77.0); PLATELET COUNT 191 10^3/UL (140-415); RED BLOOD COUNT 4.33 10^6/ul (4.20-5.40); RED CELL DISTRIBUTION WIDTH 13.2 % (11.5-14.5)
[2017-02-08 16:09] LABS: ALBUMIN 4.3 g/dl (3.3-4.9)
[2017-02-08 16:10] LABS: POTASSIUM 3.9 mmol/L (3.5-5.1)
[2017-02-08 16:12] LABS: CREATININE 0.73 mg/dl (0.44-1.00)
[2017-02-08 16:13] LABS: ALBUMIN/GLOBULIN RATIO 1.48; CALCIUM 9.4 mg/dl (8.4-10.2); TOTAL PROTEIN 7.2 g/dl (6.1-8.1)
--- NOTE | 2017-02-08 17:36 | RADRPT ---
PROCEDURE: CT abdomen and pelvis with intravenous contrast. CLINICAL INDICATION: Abdominal Pain TECHNIQUE: Following intravenous contrast, spiral CT of the abdomen pelvis was performed and is re constructed at 2.5 mm contiguous axial intervals from the dome of the diaphragm to the inferior pubi c rami. Computer reformatted coronal and sagittal images are included. CT D I 10 millicurie Dose 541 millicurie per centimeter COMPARISON: None. FINDINGS: Lung bases are clear of any infiltrate or mass. There is no effusion. Patient is status post augmen tation mammoplasty. There are coronary artery calcifications. The liver is of normal size, contour and attenuation with no mass or intrahepatic ductal dilatation. No gallstones are present. No splenic, adrenal or pancreatic abnormalities present. Kidneys enhance contrast symmetrically. Cortical scar is seen in the right kidney. There is a 5 mm left renal cyst. No hydronephrosis, calculus or solid masses present. Ureters are of normal course and caliber with no stone. No bladder mass or stone is present. Uterus is been removed. There is no adnexal mass. No bowel mass or obstruction is seen. There is diverticulosis. There is no phlegmon, ascites or pneu moperitoneum. No aneurysm is detected. Vascular calcifications are seen. There is no adenopathy. Patient is status post left hip replacement. IMPRESSION: No evidence of urolithiasis, obstructive uropathy, diverticulitis or appendicitis. Vascular calcifications. Cortical scar right kidney. Small left renal cyst. Post hysterectomy. Status post left hip replacement. .Trace Tristan MD, Date Time Electronically viewed and signed by .Trace Tristan MD, MD on 02/08/2017 17:36 .A/
[2017-02-08] MEDS ORDERED: ACETAMINOPHEN 325 MG TAB PO ONE (18:30)
--- NOTE | 2017-02-08 19:58 | ERD ---
ER Documentation Chief Complaint Date/Time DATE: 02/08/17 TIME: 19:57 Chief Complaint LEFT LOWER QUADRANT PAIN 8/10.NAUSEA.WEAKNESS HPI This is 71-year-old female complains of left lower quadrant pain she has had for a week now. She states she was seen here a few days ago and she is here for the same pain again. Patient has been in the ER multiple times has 3 visits in the past year for the same complaints of left lower quadrant pain and rectal bleeding with 3 CAT scans. The patient was here for a few days ago but did not have a CT abdomen. Patient states she had a bowel movement today that had some bleeding when she was wiping afterwards. She said that she had bright red blood that was painless. She describes the pain left lower quadrant is chronic and she is describes it as sharp tends to come and go no radiation. No vomiting no fever no dysuria hematuria ROS All systems reviewed and are negative except as per history of present illness. Medications Home Meds Reported Medications Olanzapine* (Zyprexa*) 5 Mg Tablet, 5 MG PO DAILY, #30 TAB 02/08/17 Gabapentin* (Gabapentin*) 300 Mg Capsule, 300 MG PO QHS, #60 CAP 02/08/17 Clonazepam* (Clonazepam*) 1 Mg Tablet, 1 MG PO BID Y for ANXIETY, TAB 02/08/17 Atorvastatin Calcium (Atorvastatin Calcium) 10 Mg Tablet, 10 MG PO QHS, #30 TAB 02/08/17 Amlodipine Besylate* (Amlodipine Besylate*) 5 Mg Tablet, 5 MG PO DAILY, #30 TAB 02/08/17 Discontinued Reported Medications Olanzapine* (Zyprexa*) 10 Mg Tablet, 10 MG PO DAILY, #30 TAB 02/08/17 Valproic Acid* (Valproic Acid* Liq) 250 Mg/5 Ml Syrup, 250 MG GTB Q8, ML 02/08/17 Trazodone Hcl* (Trazodone Hcl*) 50 Mg Tablet, 25 MG GTB QHS, #30 TAB 02/08/17 Ranitidine Hcl* (Ranitidine Hcl*) 150 Mg Tablet, 150 MG GTB Q12, #30 TAB 02/08/17 Amino Acids/Protein Hydrolys (PRO-STAT LIQUID) 30 Ml Liquid.pkt, 30 ML GTB BID 02/08/17 Metoprolol Tartrate* (Lopressor*) 25 Mg Tab, 25 MG GTB TID, #60 TAB HOLD IF SBP LESS THAN 110 OR HR LESS THAN 60 02/08/17 Ipratropium-Albuterol (Ipratropium-Albuterol) 0.5-3 Mg/3 Ml Ampul.neb, 3 ML INHALATION Q6 Y for WHEEZING AND SOB, #30 VIAL 02/08/17 Docusate Sodium* (Docusate Sodium*) 100 Mg Capsule, 100 MG GTB BID, #60 CAP 02/08/17 Cranberry Fruit (Cranberry) 400 Mg Tablet, 400 MG GTB DAILY, TAB 02/08/17 Clonazepam* (Klonopin*) 0.5 Mg Tab, 0.25 MG GTB QHS Y for ANXIETY, TAB 02/08/17 Aspirin* (Aspirin* Chew) 81 Mg Tab.chew, 81 MG GTB DAILY, TAB.CHEW 02/08/17 Alprazolam* (Alprazolam*) 0.5 Mg Tablet, 0.5 MG GTB Q6 Y for ANXIETY, TAB 02/08/17 Gabapentin* (Gabapentin*) 300 Mg Capsule, 300 MG PO QHS, #60 CAP 12/04/16 Amlodipine Besylate* (Norvasc*) 5 Mg Tablet, 5 MG PO QHS, TAB 12/04/16 Atorvastatin Calcium (Atorvastatin Calcium) 10 Mg Tablet, 10 MG PO DAILY, #30 TAB 12/04/16 Clonazepam* (Klonopin*) 1 Mg Tablet, 1 MG PO BID, TAB 12/04/16 Olanzapine* (Zyprexa*) 5 Mg Tablet, 5 MG PO DAILY, #30 TAB 12/04/16 Losartan Potassium* (Losartan Potassium*) 50 Mg Tablet, 50 MG PO BID, TAB 12/04/16 Hydrocodone Bit-Acetaminophen* ([place]*) 10-325 Mg Tablet, 1 TAB PO Q4H Y for PAIN, TAB 07/28/14 Discontinued Scripts Ondansetron (Ondansetron Odt) 4 Mg Tab.rapdis, 4 MG PO Q6H Y for NAUSEA AND/OR VOMITING, #10 TAB Prov:DORIS MCKEON 01/15/17 Sennosides/Docusate Sodium (Senna Plus Tablet) 1 Each Tablet, 2 TAB PO DAILY for 10 Days, #20 TAB 3 Refills Prov:CHIKYARAJESSICAA,RAMON K MD 12/15/16 Hydrocortisone* Rectal (Anucort-HC* Supp) 25 Mg Supp, 25 MG MD Q12H Y for HEMORROID PAIN/ITCHING for 10 Days, SUPP 3 Refills Prov:RAMON KEYES MD 12/15/16 Pantoprazole* (Pantoprazole*) 40 Mg Tablet.dr, 40 MG PO BID@06,18 for 30 Days, # 60 CAP.EC 1 Refill pharmacy may interchange to OTC as needed. Prov:RAMON KEYES MD 12/11/16 Sucralfate* (Carafate*) 1 Gm/10 Ml Susp, 1 GM PO TID for 14 Days, #30 CAP 4 Refills Prov:RAMON KEYES MD 12/11/16 Acetaminophen* (Tylenol*) 325 Mg Tablet, 650 MG PO Q6H Y for PAIN AND TEMP ABOVE 102 for 1 Day, #1 TAB Prov:RAMON KEYES MD 12/11/16 Hydrocodone/Acetaminophen ([place] 10-325 Tablet) 1 Each Tablet, 1 TAB PO Q6H Y for PAIN, #20 TAB Prov:DORIS MCKEON 01/15/17 Hydrocodone/Acetaminophen ([place] 5-325 Tablet) 1 Each Tablet, 1 TAB PO Q6H Y for PAIN, #7 TAB Prov:IRENA CORRIGAN MD 12/24/16 Sulfamethoxazole-Trimethoprim* (Bactrim* DS) 800-160 Mg Tab, 1 TAB PO BID for 10 Days, TAB Prov:IRENA CORRIGAN MD 12/24/16 Allergies Allergies: Coded Allergies: ibuprofen (Verified Allergy, Unknown, 12/12/16) PMhx/Soc History of Surgery: Yes (left hip replacement 2015, kidney surgery 2015, hysterectomy 1982, appendec) Anesthesia Reaction: No Hx 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 Disorder: No Hx Respiratory Disorders: No Hx Cardiac Disorders: No Hx Psychiatric Problems: Yes (bipolar) Hx Miscellaneous Medical Probl: Yes (kidney cancer) Hx Alcohol Use: No Hx Substance Use: No Hx Tobacco Use: Yes (5-6 cigs) Smoking Status: Current every day smoker FmHx Family History: No coronary disease Physical Exam Vitals Vital Signs Date Time Temp Pulse Resp B/P Pulse Ox O2 Delivery O2 Flow Rate FiO2 02/08/17 14:56 104 18 138/93 95 Room Air 02/08/17 14:39 98.0 113 18 163/102 98 Physical Exam Const: Well-developed, well-nourished Head: Atraumatic, normocephalic Eyes: Normal Conjunctiva, PERRLA, EOMI, normal sclera, no nystagmus ENT: Normal External Ears, Nose and Mouth, moist mucus membranes. Neck: Full range of motion. No meningismus, no lymphadenopathy. Resp: Clear to auscultation bilaterally, no wheezing, rhonchi, rales Cardio: Regular rate and rhythm, no murmurs, S1 S2 present Abd: Soft, left lower quadrant tenderness moderate in nature, non distended. Normal bowel sounds, no guarding or rebound, no pulsitile abdominal masses or bruits Skin: No petechiae or rashes, no ecchymosis , no maculopapular rash Back: No midline or flank tenderness Ext: No cyanosis, or edema, FROM x 4, normal inspection, neurovascularly intact x 4 Neur: Awake and alert, STR 5/5 x 4, sensation intact x 4, no focal findings, cerebellum intact Psych: Normal Mood and Affect Result Diagram: 02/08/17 1540 02/08/17 1540 Results 24 hrs Laboratory Tests Test 02/08/17 15:40 White Blood Count 10.010^3/ul Red Blood Count 4.3310^6/ul Hemoglobin 13.7g/dl Hematocrit 43.1% Mean Corpuscular Volume 99.5fl Mean Corpuscular Hemoglobin 31.6pg Mean Corpuscular Hemoglobin Concent 31.8g/dl Red Cell Distribution Width 13.2% Platelet Count 04803^3/UL Mean Platelet Volume 11.2fl Neutrophils % 61.3% Lymphocytes % 27.9% Monocytes % 9.3% Eosinophils % 1.1% Basophils % 0.2% Nucleated Red Blood Cells % 0.0/100WBC Neutrophils # 6.110^3/ul Lymphocytes # 2.810^3/ul Monocytes # 0.910^3/ul Eosinophils # 0.110^3/ul Basophils # 0.010^3/ul Nucleated Red Blood Cells # 0.010^3/ul Sodium Level 141mmol/L Potassium Level 3.9mmol/L Chloride Level 101mmol/L Carbon Dioxide Level 26mmol/L Anion Gap 18 Blood Urea Nitrogen 16mg/dl Creatinine 0.73mg/dl Glucose Level 103mg/dl Calcium Level 9.4mg/dl Total Bilirubin 0.0mg/dl Direct Bilirubin 0.00mg/dl Indirect Bilirubin 0.0mg/dl Aspartate Amino Transf (AST/SGOT) 22IU/L Alanine Aminotransferase (ALT/SGPT) 25IU/L Alkaline Phosphatase 95IU/L Total Protein 7.2g/dl Albumin 4.3g/dl Globulin 2.90g/dl Albumin/Globulin Ratio 1.48 Current Medications Medications (Trade) Dose Ordered Sig/Micha Route PRN Reason Start Time Stop Time Status Last Admin Dose Admin Sodium Chloride (NS) 1,000 ml @ 1,000 mls/hr Q1H STAT IV 02/08/17 15:11 02/08/17 16:10 DC 02/08/17 15:45 Hydromorphone HCl (Dilaudid) 1 mg ONCE STAT IV 02/08/17 15:11 02/08/17 15:12 DC 02/08/17 15:45 Ondansetron HCl (Zofran Inj) 4 mg ONCE STAT IV 02/08/17 15:11 02/08/17 15:12 DC 02/08/17 15:45 IV Flush 10 ml 10 ml STK-MED ONCE .ROUTE 02/08/17 15:53 02/08/17 15:54 DC 02/08/17 16:35 Sodium Chloride (NS) 100 ml @ ud STK-MED ONCE .ROUTE 02/08/17 15:53 02/08/17 15:54 DC 02/08/17 16:35 Iohexol (Omnipaque 300mg/ ml) 150 ml STK-MED ONCE .ROUTE 02/08/17 15:53 02/08/17 15:54 DC 02/08/17 16:35 Acetaminophen (Tylenol Tab) 650 mg ONCE ONCE PO 02/08/17 18:30 02/08/17 18:31 DC 02/08/17 18:29 Hydromorphone HCl (Dilaudid) 1 mg ONCE STAT IV 02/08/17 19:55 02/08/17 19:57 DC Ondansetron HCl (Zofran Inj) 4 mg ONCE STAT IV 02/08/17 19:55 02/08/17 19:57 DC Procedures/MDM PROCEDURE: CT abdomen and pelvis with intravenous contrast. CLINICAL INDICATION: Abdominal Pain TECHNIQUE: Following intravenous contrast, spiral CT of the abdomen pelvis was performed and is reconstructed at 2.5 mm contiguous axial intervals from the dome of the diaphragm to the inferior pubic rami. Computer reformatted coronal and sagittal images are included. CT D I 10 millicurie Dose 541 millicurie per centimeter COMPARISON: None. FINDINGS: Lung bases are clear of any infiltrate or mass. There is no effusion. Patient is status post augmentation mammoplasty. There are coronary artery calcifications. The liver is of normal size, contour and attenuation with no mass or intrahepatic ductal dilatation. No gallstones are present. No splenic, adrenal or pancreatic abnormalities present. Kidneys enhance contrast symmetrically. Cortical scar is seen in the right kidney. There is a 5 mm left renal cyst. No hydronephrosis, calculus or solid masses present. Ureters are of normal course and caliber with no stone. No bladder mass or stone is present. Uterus is been removed. There is no adnexal mass. No bowel mass or obstruction is seen. There is diverticulosis. There is no phlegmon, ascites or pneumoperitoneum. No aneurysm is detected. Vascular calcifications are seen. There is no adenopathy. Patient is status post left hip replacement. IMPRESSION: No evidence of urolithiasis, obstructive uropathy, diverticulitis or appendicitis. Vascular calcifications. Cortical scar right kidney. Small left renal cyst. Post hysterectomy. Status post left hip replacement. .Trace Tristan MD, Date Time Electronically viewed and signed by .Trace Tristan MD, MD on 02/08/2017 17: 36 .A/ CC: EMERALD LOPEZ DO Patient has no acute process on her CAT scan. Blood work is relatively unremarkable. Unsure of the the issue of the left lower quadrant [place] I did told her that she needs to get a colonoscopy the patient has a history of renal cancer and she deserves a colonoscopy to rule out any type of mass Patient could have microscopic diverticulitis and was treated with some Cipro and Flagyl with [place]. Patient's been here many times for rectal bleeding the patient is not anemic do not feel this is an acute process. She may have internal hemorrhoid Departure Diagnosis: Primary Impression: Left lower quadrant pain Additional Impression: Rectal bleeding Condition: Stable EMERALD LOPEZ DO Feb 08, 2017 19:58
[2017-02-08] MEDS ORDERED: CIPR500T4 PO (20:03)
[2017-02-08] MEDS ORDERED: METR500T PO (20:03)
[2017-02-08] MEDS ORDERED: HYDR-902 PO (20:03)
[2017-02-08 20:18] VITALS: BP 147/90; PULSE 88; RESP 17
== END 2017-02-08 20:35 | disposition home or self-care (01) ==
LOC: E/R 14:37
DX: R10.32 Left lower quadrant pain (principal); R40.2252 Coma scale, best verbal response, oriented, at arrival to emergency department; K62.5 Hemorrhage of anus and rectum; F17.210 Nicotine dependence, cigarettes, uncomplicated; R11.0 Nausea; R40.2142 Coma scale, eyes open, spontaneous, at arrival to emergency department; R40.2362 Coma scale, best motor response, obeys commands, at arrival to emergency department; Z79.82 Long term (current) use of aspirin; Z96.642 Presence of left artificial hip joint; Z85.528 Personal history of other malignant neoplasm of kidney
CPT/HCPCS: 74177; 80053; 85025; 96374; 96375; 96376; 99285; J1170; J2405; J7030; Q9967

== ENCOUNTER 2017-02-10 19:44 | Observation (INO) | payer MEDICARE, OTHER ==
[~2017-02-10] VITALS: Ht 152.4 cm; Wt 66.0 kg
[~2017-02-10 19:44] MED LIST changes: -ACET325T33 PO; +AMLO-145 PO; -AMLO5TAB4 PO; -ANUHCSUP PR; -CARAS PO; +CIPR500T4 PO; -CLON-412 PO; +CLON1TAB3 PO; +HYDR-902 PO; +METR500T PO; -ONDA4TAB14 PO; -PANT40TA4 PO; -SENN-88 PO
[2017-02-10] MEDS ORDERED: morphine 2 MG INJ IV STA (22:08)
[2017-02-10] MEDS ORDERED: SOD CHLORIDE 0.9% 500 ML IV STA (22:08)
[2017-02-10] MEDS ORDERED: ONDANSETRON 4 MG INJ IV STA (22:08)
[2017-02-10 22:26] LABS: ADD SCAN DIFF NO
[2017-02-10 22:29] LABS: BASOPHILS % 0.3 % (0.0-2.0); EOSINOPHILS # 0.1 10^3/ul (0.0-0.5); EOSINOPHILS % 1.4 % (0.0-7.0); HEMATOCRIT 43.5 % (37.0-47.0); LYMPHOCYTES # 2.6 10^3/ul (0.8-2.9); LYMPHOCYTES % 27.2 % (15.0-51.0); MEAN CORPUSCULAR HEMOGLOBIN 31.5 pg (29.0-33.0); MEAN CORPUSCULAR HGB CONC 32.2 g/dl (32.0-37.0); MEAN CORPUSCULAR VOLUME 97.8 fl (82.0-101.0); MEAN PLATELET VOLUME 11.6 fl (7.4-10.4); MONOCYTE # 0.8 10^3/ul (0.3-0.9); MONOCYTES % 8.4 % (0.0-11.0); NEUTROPHIL # 6.1 10^3/ul (1.6-7.5); NEUTROPHILS % 62.5 % (39.0-77.0); PLATELET COUNT 212 10^3/UL (140-415); RED BLOOD COUNT 4.45 10^6/ul (4.20-5.40); RED CELL DISTRIBUTION WIDTH 13.1 % (11.5-14.5); WHITE BLOOD COUNT 9.7 10^3/ul (4.8-10.8)
[2017-02-10 22:39] LABS: INR 0.9; PROTIME 12.1 Sec (12.2-14.2); PT RATIO 0.9
[2017-02-10 22:40] LABS: ALBUMIN 4.5 g/dl (3.3-4.9); PARTIAL THROMBOPLASTIN TIME 27.8 Sec (25.0-35.0)
[2017-02-10 22:41] LABS: POTASSIUM 4.2 mmol/L (3.5-5.1)
[2017-02-10 22:43] LABS: ALBUMIN/GLOBULIN RATIO 1.45; BILIRUBIN,INDIRECT 0.1 mg/dl (0-1.1); BILIRUBIN,TOTAL 0.1 mg/dl (0.2-1.3); CREATININE 0.69 mg/dl (0.44-1.00); TOTAL PROTEIN 7.6 g/dl (6.1-8.1)
[2017-02-10 22:44] LABS: CALCIUM 9.5 mg/dl (8.4-10.2)
[2017-02-10 22:56] LABS: ADD UMIC YES; URINE BILIRUBIN (Dip) NEGATIVE (NEGATIVE); URINE BLOOD (Dip) 2+ (NEGATIVE); URINE COLOR LT. YELLOW (YELLOW); URINE GLUCOSE (Dip) NEGATIVE (NEGATIVE); URINE KETONES (Dip) NEGATIVE (NEGATIVE); URINE LEUKOCYTE ESTERASE (Dip) 2+ (NEGATIVE); URINE NITRITE (Dip) NEGATIVE (NEGATIVE); URINE TOTAL PROTEIN (Dip) 1+ (NEGATIVE); URINE UROBILINOGEN (Dip) 1.0 E.U./dL (0.1-1.0)
[2017-02-10 23:11] LABS: SQUAMOUS EPITHELIAL CELL,UR MODERATE
[2017-02-10 23:13] LABS: BACTERIA,URINE FEW
[2017-02-10 23:14] LABS: MUCUS,URINE FEW
[2017-02-10] MEDS ORDERED: morphine 4 MG/ML VIAL IV STA (23:53)
[2017-02-10] MEDS ORDERED: morphine 4 MG/ML VIAL ONE (23:55)
[2017-02-11 00:13] VITALS: TEMP 98.4
--- NOTE | 2017-02-11 00:26 | ERA ---
ER Documentation Chief Complaint Date/Time DATE: 02/11/17 TIME: 00:20 Chief Complaint abd pain/rectal bleeding x 2 days. was here 2 days ago for same HPI This is a 71-year-old female who abdominal pain and rectal bleeding for 2 days. She is here for the same. Abdominal pain is diffuse in location moderate intensity no exacerbating or alleviating factors. He had 2 episodes of rectal bleeding with stool. No nausea no vomiting no fevers no chills. No other current complaints. Blood was bright red per the patient ROS All systems reviewed and are negative except as per history of present illness. Medications Home Meds Active Scripts Hydrocodone/Acetaminophen ([place] 10-325 Tablet) 1 Each Tablet, 1 TAB PO Q6H Y for PAIN, #20 TAB Prov:EMERALD LOPEZ. DO 02/08/17 Metronidazole* (Flagyl*) 500 Mg Tablet, 500 MG PO TID for 10 Days, TAB Prov:DAVID LOPEZS A. DO 02/08/17 Ciprofloxacin Hcl* (Ciprofloxacin Hcl*) 500 Mg Tablet, 500 MG PO BID for 10 Days , TAB Prov:DAVID LOPEZS A. DO 02/08/17 Reported Medications Olanzapine* (Zyprexa*) 5 Mg Tablet, 5 MG PO DAILY, #30 TAB 02/08/17 Gabapentin* (Gabapentin*) 300 Mg Capsule, 300 MG PO QHS, #60 CAP 02/08/17 Clonazepam* (Clonazepam*) 1 Mg Tablet, 1 MG PO BID Y for ANXIETY, TAB 02/08/17 Atorvastatin Calcium (Atorvastatin Calcium) 10 Mg Tablet, 10 MG PO QHS, #30 TAB 02/08/17 Amlodipine Besylate* (Amlodipine Besylate*) 5 Mg Tablet, 5 MG PO DAILY, #30 TAB 02/08/17 Discontinued Reported Medications Olanzapine* (Zyprexa*) 10 Mg Tablet, 10 MG PO DAILY, #30 TAB 02/08/17 Valproic Acid* (Valproic Acid* Liq) 250 Mg/5 Ml Syrup, 250 MG GTB Q8, ML 02/08/17 Trazodone Hcl* (Trazodone Hcl*) 50 Mg Tablet, 25 MG GTB QHS, #30 TAB 02/08/17 Ranitidine Hcl* (Ranitidine Hcl*) 150 Mg Tablet, 150 MG GTB Q12, #30 TAB 02/08/17 Amino Acids/Protein Hydrolys (PRO-STAT LIQUID) 30 Ml Liquid.pkt, 30 ML GTB BID 02/08/17 Metoprolol Tartrate* (Lopressor*) 25 Mg Tab, 25 MG GTB TID, #60 TAB HOLD IF SBP LESS THAN 110 OR HR LESS THAN 60 02/08/17 Ipratropium-Albuterol (Ipratropium-Albuterol) 0.5-3 Mg/3 Ml Ampul.neb, 3 ML INHALATION Q6 Y for WHEEZING AND SOB, #30 VIAL 02/08/17 Docusate Sodium* (Docusate Sodium*) 100 Mg Capsule, 100 MG GTB BID, #60 CAP 02/08/17 Cranberry Fruit (Cranberry) 400 Mg Tablet, 400 MG GTB DAILY, TAB 02/08/17 Clonazepam* (Klonopin*) 0.5 Mg Tab, 0.25 MG GTB QHS Y for ANXIETY, TAB 02/08/17 Aspirin* (Aspirin* Chew) 81 Mg Tab.chew, 81 MG GTB DAILY, TAB.CHEW 02/08/17 Alprazolam* (Alprazolam*) 0.5 Mg Tablet, 0.5 MG GTB Q6 Y for ANXIETY, TAB 02/08/17 Gabapentin* (Gabapentin*) 300 Mg Capsule, 300 MG PO QHS, #60 CAP 12/04/16 Amlodipine Besylate* (Norvasc*) 5 Mg Tablet, 5 MG PO QHS, TAB 12/04/16 Atorvastatin Calcium (Atorvastatin Calcium) 10 Mg Tablet, 10 MG PO DAILY, #30 TAB 12/04/16 Clonazepam* (Klonopin*) 1 Mg Tablet, 1 MG PO BID, TAB 12/04/16 Olanzapine* (Zyprexa*) 5 Mg Tablet, 5 MG PO DAILY, #30 TAB 12/04/16 Losartan Potassium* (Losartan Potassium*) 50 Mg Tablet, 50 MG PO BID, TAB 12/04/16 Hydrocodone Bit-Acetaminophen* ([place]*) 10-325 Mg Tablet, 1 TAB PO Q4H Y for PAIN, TAB 07/28/14 Discontinued Scripts Ondansetron (Ondansetron Odt) 4 Mg Tab.rapdis, 4 MG PO Q6H Y for NAUSEA AND/OR VOMITING, #10 TAB Prov:DORIS MCKEON 01/15/17 Sennosides/Docusate Sodium (Senna Plus Tablet) 1 Each Tablet, 2 TAB PO DAILY for 10 Days, #20 TAB 3 Refills Prov:RAMON KEYES MD 12/15/16 Hydrocortisone* Rectal (Anucort-HC* Supp) 25 Mg Supp, 25 MG NE Q12H Y for HEMORROID PAIN/ITCHING for 10 Days, SUPP 3 Refills Prov:RAMON KEYES MD 12/15/16 Pantoprazole* (Pantoprazole*) 40 Mg Tablet.dr, 40 MG PO BID@06,18 for 30 Days, # 60 CAP.EC 1 Refill pharmacy may interchange to OTC as needed. Prov:RAMON KEYES MD 12/11/16 Sucralfate* (Carafate*) 1 Gm/10 Ml Susp, 1 GM PO TID for 14 Days, #30 CAP 4 Refills Prov:RAMON KEYES MD 12/11/16 Acetaminophen* (Tylenol*) 325 Mg Tablet, 650 MG PO Q6H Y for PAIN AND TEMP ABOVE 102 for 1 Day, #1 TAB Prov:RAMON KEYES MD 12/11/16 Hydrocodone/Acetaminophen ([place] 10-325 Tablet) 1 Each Tablet, 1 TAB PO Q6H Y for PAIN, #20 TAB Prov:DORIS MCKEON 01/15/17 Hydrocodone/Acetaminophen ([place] 5-325 Tablet) 1 Each Tablet, 1 TAB PO Q6H Y for PAIN, #7 TAB Prov:IRENA CORRIGAN MD 12/24/16 Sulfamethoxazole-Trimethoprim* (Bactrim* DS) 800-160 Mg Tab, 1 TAB PO BID for 10 Days, TAB Prov:IRENA CORRIGAN MD 12/24/16 Allergies Allergies: Coded Allergies: ibuprofen (Verified Allergy, Unknown, 02/10/17) PMhx/Soc History of Surgery: Yes (left hip replacement 2015, kidney surgery 2015, hysterectomy 1982, appendec) Anesthesia Reaction: No Hx 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 Disorder: No Hx Respiratory Disorders: No Hx Cardiac Disorders: No Hx Psychiatric Problems: Yes (bipolar) Hx Miscellaneous Medical Probl: Yes (kidney cancer) Hx Substance Use: Yes (marijuana use) Hx Tobacco Use: Yes Smoking Status: Current every day smoker Physical Exam Vitals Vital Signs Date Time Temp Pulse Resp B/P Pulse Ox O2 Delivery O2 Flow Rate FiO2 02/10/17 19:55 99.1 87 20 188/94 9 Physical Exam Const: [] Head: Atraumatic Eyes: Normal Conjunctiva ENT: Normal External Ears, Nose and Mouth. Neck: Full range of motion..~ No meningismus. Resp: Clear to auscultation bilaterally Cardio: Regular rate and rhythm, no murmurs Abd: Soft, non tender, non distended. Normal bowel sounds Skin: No petechiae or rashes Back: No midline or flank tenderness Ext: No cyanosis, or edema Neur: Awake and alert Psych: Normal Mood and Affect Result Diagram: 02/10/17221802/10/172218 Results 24 hrs Laboratory Tests Test 02/10/17 22:19 02/10/17 22:26 White Blood Count 9.710^3/ul Red Blood Count 4.4510^6/ul Hemoglobin 14.0g/dl Hematocrit 43.5% Mean Corpuscular Volume 97.8fl Mean Corpuscular Hemoglobin 31.5pg Mean Corpuscular Hemoglobin Concent 32.2g/dl Red Cell Distribution Width 13.1% Platelet Count 63787^3/UL Mean Platelet Volume 11.6fl Neutrophils % 62.5% Lymphocytes % 27.2% Monocytes % 8.4% Eosinophils % 1.4% Basophils % 0.3% Nucleated Red Blood Cells % 0.0/100WBC Neutrophils # 6.110^3/ul Lymphocytes # 2.610^3/ul Monocytes # 0.810^3/ul Eosinophils # 0.110^3/ul Basophils # 0.010^3/ul Nucleated Red Blood Cells # 0.010^3/ul Prothrombin Time 12.1Sec Prothrombin Time Ratio 0.9 INR International Normalized Ratio 0.90 Activated Partial Thromboplast Time 27.8Sec Sodium Level 140mmol/L Potassium Level 4.2mmol/L Chloride Level 102mmol/L Carbon Dioxide Level 28mmol/L Anion Gap 14 Blood Urea Nitrogen 14mg/dl Creatinine 0.69mg/dl Glucose Level 102mg/dl Calcium Level 9.5mg/dl Total Bilirubin 0.1mg/dl Direct Bilirubin 0.00mg/dl Indirect Bilirubin 0.1mg/dl Aspartate Amino Transf (AST/SGOT) 25IU/L Alanine Aminotransferase (ALT/SGPT) 32IU/L Alkaline Phosphatase 91IU/L Total Protein 7.6g/dl Albumin 4.5g/dl Globulin 3.10g/dl Albumin/Globulin Ratio 1.45 Lipase 15U/L Urine Color LT. YELLOW Urine Clarity CLEAR Urine pH 6.0 Urine Specific [place] 1.010 Urine Ketones NEGATIVE Urine Nitrite NEGATIVE Urine Bilirubin NEGATIVE Urine Urobilinogen 1.0 E.U./dL Urine Leukocyte Esterase 2+ Urine Microscopic RBC 5-10/HPF Urine Microscopic WBC 25-50/HPF Urine Squamous Epithelial Cells MODERATE Urine Bacteria FEW Urine Mucus FEW Urine Hemoglobin 2+ Urine Glucose NEGATIVE% Urine Total Protein 1+ Current Medications Medications (Trade) Dose Ordered Sig/Micha Route PRN Reason Start Time Stop Time Status Last Admin Dose Admin Sodium Chloride (NS) 500 ml @ 500 mls/hr Q1H STAT IV 02/10/17 22:08 02/10/17 23:07 DC 02/10/17 22:25 Morphine Sulfate (morphine) 2 mg ONCE STAT IV 02/10/17 22:08 02/10/17 22:09 DC 02/10/17 22:26 Ondansetron HCl (Zofran Inj) 4 mg ONCE STAT IV 02/10/17 22:08 02/10/17 22:09 DC 02/10/17 22:25 Morphine Sulfate (morphine) 4 mg ONCE STAT IV 02/10/17 23:53 02/10/17 23:55 DC 02/10/17 23:57 Morphine Sulfate (morphine) 4 mg STK-MED ONCE .ROUTE 02/10/17 23:55 02/10/17 23:56 DC Procedures/MDM Medical decision-making: This is a very pleasant 8 year female lower GI bleed. This eventually be evaluated given her multiple visits to the ER. Patient will be admitted to hospitalist. Departure Diagnosis: Primary Impression: Abdominal pain Qualified Code: R10.9 - Abdominal pain, unspecified location Condition: Serious DORIS MCKEON Feb 11, 2017 00:25
[2017-02-11 00:30] VITALS: BP 196/81; PULSE 64; RESP 19
[2017-02-11 00:59] VITALS: Ht 152.4 cm; Wt 66.0 kg
[2017-02-11] MEDS ORDERED: PANTOPRAZOLE 40 MG INJ IV STA (01:21)
[2017-02-11] MEDS ORDERED: hydrALAzine 20 MG INJ IV PRN (01:30)
[2017-02-11] MEDS ORDERED: SOD CHLORIDE 0.9% 1,000 ML IV ONE (01:30)
[2017-02-11] MEDS ORDERED: AMLODIPINE 10 MG TAB PO ONE (01:30)
[2017-02-11] MEDS ORDERED: GABAPENTIN 300 MG CAP PO ONE (01:30)
[2017-02-11] MEDS ORDERED: clonAZEPAM 0.5 MG TAB PO ONE (01:30)
[2017-02-11] MEDS ORDERED: morphine 2 MG INJ IV PRN (01:30)
[2017-02-11 01:40] VITALS: BP 184/94; PULSE 66
[2017-02-11 02:40] VITALS: BP 149/85; PULSE 65
--- NOTE | 2017-02-11 03:10 | HP ---
Date/Time of Note Date/Time of Note DATE: 02/11/17 TIME: 03:02 Assessment/Plan VTE Prophylaxis VTE Prophylaxis Intervention: anti-embolic stocking, contraindicated VTE Contraindication Reason: bleeding Lines/Catheters IV Catheter Type (from Nrsg): Peripheral IV Urinary Cath still in place: No Assessment/Plan Assessment/Plan 1) Abdominal pain with lower GI Bleed - Admit to Med Surg - NPO - IV Hydration - Pain Control - General Surgery, Dr. Winter, already consulted by ER - CONSULT: GI - Dr. Chandra - GI protection with Protonix HPI/ROS Admit Date/Time Admit Date/Time Feb 10, 2017 at 23:53 Hx of Present Illness This is a 71-year-old female with abdominal pain and rectal bleeding for 2 days who was here 2 days ago for the same thing. However, review of the records shows that she presented for left lower abdominal pain x 1 week and mentioned some blood when she wiped. The records from that visit indicated that patent was seen a few days prior to that for the abdominal pain, and that she had been seen 3 times in the previous year for LLQ pain and rectal bleeding, with 3 CTs. She describes the pain left lower quadrant as chronic, sharp, intermittent with no radiation. No vomiting no fever no dysuria hematuria. No nausea no vomiting no fevers no chills. No other current complaints. Blood was bright red per the patient ROS General: Admits: Denies: Fever, Chills, Poor Appetite, Generalized Body Aches Eyes: Admits: Denies: Blurry Vision, Double Vision HENT: Admits: Denies: Ear Pain/Pressure, Runny/Stuffy Nose, Sore Throat Cardiovascular: Admits: Denies: Chest Pain, Palpitations, Leg Swelling Pulmonary: Admits: Denies: Cough, Wheeze, Shortness of Breath Gastrointestinal: Admits: Abdominal Pain, Blood in Stool Denies: Nausea, Vomiting, Diarrhea, Black-Colored Stool Urogenital: Admits: Denies: Burning with Urination, Urinary Frequency, Blood in Urine Musculoskeletal: Admits: Denies: Joint Pain, Joint Swelling, Muscle Pain 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: Admits: Denies: Headache, Dizziness, Numbness, Tingling, Shooting Pains Integumentary: Admits: Denies: Rash, Itch PMH/Family/Social Past Medical History Kidney Cancer; Bipolar Past Surgical History Left Hip Replacement 2016; Kidney Surgery 2016; Hysterectomy 1982; Appendectomy Social History Smoking Status: Current every day smoker Drug Use: marijuana Exam/Review of Systems Vital Signs Vitals Vital Signs Date Time Temp Pulse Resp B/P Pulse Ox O2 Delivery O2 Flow Rate FiO2 02/11/17 02:40 65 149/85 02/11/17 02:11 Nasal Cannula 2.0 02/11/17 00:30 97.6 19 100 Exam Exam General: Elderly female alert and oriented, in no acute distress, Eyes: Sclera White, EOMI HENT: Normocephalic/Atraumatic, External Ears/Nose Normal, Moist Mucus Membranes Neck: Supple, Trachea Midline Cardiovascular: Normal Rate, Regular Rhythm, Normal S1 and S2, No Murmur, No Extra Sounds. Radial pulse +2/4. No pedal Edema. Pulmonary: Clear to Auscultation Bilaterally, Normal Respiratory Effort, No Rales, Rhonchi or Wheezes Gastrointestinal: Normoactive Bowel Sounds, Soft, Mild, diffuse tenderness, no grardfing or rebound. Non-Distended, No Hepatosplenomegaly Appreciated, No Pulsatile Masses Urogenital: Deferred Musculoskeletal: Normal Muscle Bulk and Tone 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: CN II - XII Grossly Intact, Non-Focal, Speech Normal Integumentary: Normal Moisture and Temperature, Good Turgor, No Jaundice, No Rash Lymphatic: No Cervical Lymphadenopathy Psychiatric: Appropriate Mood and Affect, Good Eye Contact Labs Result Diagram: 02/10/17 2219 02/10/17 2219 Medications Medications Home Meds Active Scripts Hydrocodone/Acetaminophen ([place] 10-325 Tablet) 1 Each Tablet, 1 TAB PO Q6H Y for PAIN, #20 TAB Prov:DAVID LOPEZS A. DO 02/08/17 Metronidazole* (Flagyl*) 500 Mg Tablet, 500 MG PO TID for 10 Days, TAB Prov:EARLOSSUSYSTBALTAS A. DO 02/08/17 Ciprofloxacin Hcl* (Ciprofloxacin Hcl*) 500 Mg Tablet, 500 MG PO BID for 10 Days , TAB Prov:SUSY LOPEZSTOLOS A. DO 02/08/17 Reported Medications Olanzapine* (Zyprexa*) 5 Mg Tablet, 5 MG PO DAILY, #30 TAB 02/08/17 Gabapentin* (Gabapentin*) 300 Mg Capsule, 300 MG PO QHS, #60 CAP 02/08/17 Clonazepam* (Clonazepam*) 1 Mg Tablet, 1 MG PO BID Y for ANXIETY, TAB 02/08/17 Atorvastatin Calcium (Atorvastatin Calcium) 10 Mg Tablet, 10 MG PO QHS, #30 TAB 02/08/17 Amlodipine Besylate* (Amlodipine Besylate*) 5 Mg Tablet, 5 MG PO DAILY, #30 TAB 02/08/17 Discontinued Reported Medications Olanzapine* (Zyprexa*) 10 Mg Tablet, 10 MG PO DAILY, #30 TAB 02/08/17 Valproic Acid* (Valproic Acid* Liq) 250 Mg/5 Ml Syrup, 250 MG GTB Q8, ML 02/08/17 Trazodone Hcl* (Trazodone Hcl*) 50 Mg Tablet, 25 MG GTB QHS, #30 TAB 02/08/17 Ranitidine Hcl* (Ranitidine Hcl*) 150 Mg Tablet, 150 MG GTB Q12, #30 TAB 02/08/17 Amino Acids/Protein Hydrolys (PRO-STAT LIQUID) 30 Ml Liquid.pkt, 30 ML GTB BID 02/08/17 Metoprolol Tartrate* (Lopressor*) 25 Mg Tab, 25 MG GTB TID, #60 TAB HOLD IF SBP LESS THAN 110 OR HR LESS THAN 60 02/08/17 Ipratropium-Albuterol (Ipratropium-Albuterol) 0.5-3 Mg/3 Ml Ampul.neb, 3 ML INHALATION Q6 Y for WHEEZING AND SOB, #30 VIAL 02/08/17 Docusate Sodium* (Docusate Sodium*) 100 Mg Capsule, 100 MG GTB BID, #60 CAP 02/08/17 Cranberry Fruit (Cranberry) 400 Mg Tablet, 400 MG GTB DAILY, TAB 02/08/17 Clonazepam* (Klonopin*) 0.5 Mg Tab, 0.25 MG GTB QHS Y for ANXIETY, TAB 02/08/17 Aspirin* (Aspirin* Chew) 81 Mg Tab.chew, 81 MG GTB DAILY, TAB.CHEW 02/08/17 Alprazolam* (Alprazolam*) 0.5 Mg Tablet, 0.5 MG GTB Q6 Y for ANXIETY, TAB 02/08/17 Gabapentin* (Gabapentin*) 300 Mg Capsule, 300 MG PO QHS, #60 CAP 12/04/16 Amlodipine Besylate* (Norvasc*) 5 Mg Tablet, 5 MG PO QHS, TAB 12/04/16 Atorvastatin Calcium (Atorvastatin Calcium) 10 Mg Tablet, 10 MG PO DAILY, #30 TAB 12/04/16 Clonazepam* (Klonopin*) 1 Mg Tablet, 1 MG PO BID, TAB 12/04/16 Olanzapine* (Zyprexa*) 5 Mg Tablet, 5 MG PO DAILY, #30 TAB 12/04/16 Losartan Potassium* (Losartan Potassium*) 50 Mg Tablet, 50 MG PO BID, TAB 12/04/16 Hydrocodone Bit-Acetaminophen* ([place]*) 10-325 Mg Tablet, 1 TAB PO Q4H Y for PAIN, TAB 07/28/14 Current Medications Medications (Trade) Dose Ordered Sig/Micha Route PRN Reason Start Time Stop Time Status Last Admin Dose Admin Sodium Chloride (NS) 500 ml @ 500 mls/hr Q1H STAT IV 02/10/17 22:08 02/10/17 23:07 DC 02/10/17 22:25 Morphine Sulfate (morphine) 2 mg ONCE STAT IV 02/10/17 22:08 02/10/17 22:09 DC 02/10/17 22:26 Ondansetron HCl (Zofran Inj) 4 mg ONCE STAT IV 02/10/17 22:08 02/10/17 22:09 DC 02/10/17 22:25 Morphine Sulfate (morphine) 4 mg ONCE STAT IV 02/10/17 23:53 02/10/17 23:55 DC 02/10/17 23:57 Morphine Sulfate (morphine) 4 mg STK-MED ONCE .ROUTE 02/10/17 23:55 02/10/17 23:56 DC Procedures Procedures Laboratory Tests Test 02/10/17 22:19 02/10/17 22:26 White Blood Count 9.710^3/ul Red Blood Count 4.4510^6/ul Hemoglobin 14.0g/dl Hematocrit 43.5% Mean Corpuscular Volume 97.8fl Mean Corpuscular Hemoglobin 31.5pg Mean Corpuscular Hemoglobin Concent 32.2g/dl Red Cell Distribution Width 13.1% Platelet Count 52850^3/UL Mean Platelet Volume 11.6fl Neutrophils % 62.5% Lymphocytes % 27.2% Monocytes % 8.4% Eosinophils % 1.4% Basophils % 0.3% Nucleated Red Blood Cells % 0.0/100WBC Neutrophils # 6.110^3/ul Lymphocytes # 2.610^3/ul Monocytes # 0.810^3/ul Eosinophils # 0.110^3/ul Basophils # 0.010^3/ul Nucleated Red Blood Cells # 0.010^3/ul Prothrombin Time 12.1Sec Prothrombin Time Ratio 0.9 INR International Normalized Ratio 0.90 Activated Partial Thromboplast Time 27.8Sec Sodium Level 140mmol/L Potassium Level 4.2mmol/L Chloride Level 102mmol/L Carbon Dioxide Level 28mmol/L Anion Gap 14 Blood Urea Nitrogen 14mg/dl Creatinine 0.69mg/dl Glucose Level 102mg/dl Calcium Level 9.5mg/dl Total Bilirubin 0.1mg/dl Direct Bilirubin 0.00mg/dl Indirect Bilirubin 0.1mg/dl Aspartate Amino Transf (AST/SGOT) 25IU/L Alanine Aminotransferase (ALT/SGPT) 32IU/L Alkaline Phosphatase 91IU/L Total Protein 7.6g/dl Albumin 4.5g/dl Globulin 3.10g/dl Albumin/Globulin Ratio 1.45 Lipase 15U/L Urine Color LT. YELLOW Urine Clarity CLEAR Urine pH 6.0 Urine Specific [place] 1.010 Urine Ketones NEGATIVE Urine Nitrite NEGATIVE Urine Bilirubin NEGATIVE Urine Urobilinogen 1.0 E.U./dL Urine Leukocyte Esterase 2+ Urine Microscopic RBC 5-10/HPF Urine Microscopic WBC 25-50/HPF Urine Squamous Epithelial Cells MODERATE Urine Bacteria FEW Urine Mucus FEW Urine Hemoglobin 2+ Urine Glucose NEGATIVE% Urine Total Protein 1+ OPAL HINES DO Feb 11, 2017 03:10
[2017-02-11 07:48] VITALS: BP 136/91; RESP 18
[2017-02-11] MEDS: morphine 4 MG/ML VIAL IV PRN ×4 (09:17→21:37)
[2017-02-11] MEDS: SOD CHLORIDE 0.9% 1,000 ML IV SCH ×2 (11:44→23:30)
--- NOTE | 2017-02-11 12:24 | PN ---
Date/Time of Note Date/Time of Note DATE: 02/11/17 TIME: 12:13 Assessment/Plan VTE Prophylaxis VTE Prophylaxis Intervention: SCD's Lines/Catheters IV Catheter Type (from Nrsg): Peripheral IV Urinary Cath still in place: No Assessment/Plan Assessment/Plan 1. LLQ abdominal pain, diverticulosis, pain management 2. Rectal bleeding, likely hemorrhoid 3. HTN, resume norvasc 4. Dyslipidemia, on lipitor 5. tobacco use, on patch Subjective 24 Hr Interval Summary Free Text/Dictation still has LLQ abdominal pain. No nausea or vomiting. No diarrhea. No fever or chills Exam/Review of Systems Vital Signs Vitals Vital Signs Date Time Temp Pulse Resp B/P Pulse Ox O2 Delivery O2 Flow Rate FiO2 02/11/17 07:48 98.2 72 18 136/91 96 02/11/17 02:11 Nasal Cannula 2.0 Intake and Output 02/10/17 02/10/17 02/11/17 15:00 23:00 07:00 Intake Total 460 ml Balance 460 ml Exam Constitutional: alert, obese, oriented, well developed Head: atraumatic, normocephalic Eyes: EOMI, PERRL, nl conjunctiva, nl lids ENMT: nl external ears & nose, nl lips & teeth, nl nasal mucosa & septum Neck: non-tender, supple Respiratory: clear to auscultation, normal air movement, No congested cough, No crackles/rales, No diminished breath sounds, No intercostal retraction, No labored breathing, No other, No respirations, No tactile fremitus, No wheezing Cardiovascular: nl pulses, regular rate and rhythm, No S3, No S4, No bruits, No diastolic murmur, No edema, No gallop, No irregular rhythm, No jugular venous distention (JVD), No murmurs/extra sounds, No other, No rub, No systolic murmur Gastrointestinal: nl liver, spleen, soft, tender (LLQ tenderness), No ascites, No bowel sounds, No distended, No firm, No hepatomegaly, No mass , No other, No rebound or guarding, No splenomegaly, No surgical scars Musculoskeletal: nl extremities to inspection Extremities: normal pulses, No calf tenderness, No clubbing, No cyanosis, No edema, No other, No palpable cord, No pitting pedal edema, No tenderness 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: ROLLER PNEUMATIC II-XII intact, nl mental status, nl speech, nl strength Skin: nl turgor Lymph: nl lymph nodes Results Result Diagram: 02/10/17221802/10/172218 Results 24 hrs Laboratory Tests Test 02/10/17 22:19 02/10/17 22:26 White Blood Count 9.7 Red Blood Count 4.45 Hemoglobin 14.0 Hematocrit 43.5 Mean Corpuscular Volume 97.8 Mean Corpuscular Hemoglobin 31.5 Mean Corpuscular Hemoglobin Concent 32.2 Red Cell Distribution Width 13.1 Platelet Count 212 Mean Platelet Volume 11.6 H Neutrophils % 62.5 Lymphocytes % 27.2 Monocytes % 8.4 Eosinophils % 1.4 Basophils % 0.3 Nucleated Red Blood Cells % 0.0 Neutrophils # 6.1 Lymphocytes # 2.6 Monocytes # 0.8 Eosinophils # 0.1 Basophils # 0.0 Nucleated Red Blood Cells # 0.0 Prothrombin Time 12.1 L Prothrombin Time Ratio 0.9 INR International Normalized Ratio 0.90 Activated Partial Thromboplast Time 27.8 Sodium Level 140 Potassium Level 4.2 Chloride Level 102 Carbon Dioxide Level 28 Anion Gap 14 Blood Urea Nitrogen 14 Creatinine 0.69 Glucose Level 102 Calcium Level 9.5 Total Bilirubin 0.1 L Direct Bilirubin 0.00 Indirect Bilirubin 0.1 Aspartate Amino Transf (AST/SGOT) 25 Alanine Aminotransferase (ALT/SGPT) 32 Alkaline Phosphatase 91 Total Protein 7.6 Albumin 4.5 Globulin 3.10 Albumin/Globulin Ratio 1.45 Lipase 15 L Urine Color LT. YELLOW Urine Clarity CLEAR Urine pH 6.0 Urine Specific [place] 1.010 Urine Ketones NEGATIVE Urine Nitrite NEGATIVE Urine Bilirubin NEGATIVE Urine Urobilinogen 1.0 E.U./dL Urine Leukocyte Esterase 2+ H Urine Microscopic RBC 5-10 Urine Microscopic WBC 25-50 Urine Squamous Epithelial Cells MODERATE Urine Bacteria FEW Urine Mucus FEW Urine Hemoglobin 2+ H Urine Glucose NEGATIVE Urine Total Protein 1+ H Medications Medications Current Medications Sodium Chloride (NS) 1,000 ml @ 80 mls/hr [id number] IV Last administered on 02/11t 11:44; Admin Dose 80 MLS/HR; Start 02/11/17 at 11:00 Pantoprazole (Protonix Iv) 40 mg DAILY@06 IV ; Start 02/12/17 at 06:00 Morphine Sulfate (morphine) 4 mg Q4H PRN IV SEVERE PAIN LEVEL 7-10 Last administered on 02/11/17t 09:17; Admin Dose 4 MG; Start 02/11/17 at 01:30 Morphine Sulfate (morphine) 2 mg Q4H PRN IV MODERATE PAIN LEVEL 4-6; Start at 01:30 Hydralazine HCl (Apresoline) 10 mg Q4H PRN IV SBP >160; Start 02/11/17 at 01:30 RADHA BROWN MD Feb 11, 2017 12:24
[2017-02-11] MEDS ORDERED: clonAZEPAM 0.5 MG TAB PO PRN (12:30)
[2017-02-11] MEDS: AMLODIPINE 5 MG TAB PO SCH (13:08)
[2017-02-11] MEDS: NICOTINE (7 MG/24 HR) PATCH TRANSDERM SCH (14:21)
[2017-02-11] MEDS: OLANZAPINE 2.5 MG TAB PO SCH (15:16)
--- NOTE | 2017-02-11 15:26 | CONS ---
Date/Time of Note Date/Time of Note DATE: 02/11/17 TIME: 15:20 Assessment/Plan Assessment/Plan Additional Assessment/Plan Assessment * Hematochezia * r/o colonic vs hemorrhoidal * S/P EGD 11/2016 * 1. Mild distal esophagitis. 2. Gastritis with a 5 mm antral gastric ulceration. Rule out H. pylori infection, biopsies were obtained. No stigmata of recent bleeding, benign endoscopic appearance. 3. Atrophic second portion of duodenum, rule out celiac disease. * Hypertension * Plan * colonoscopy 02/12/2017 risks and benefit explained to the patient agreed with planned procedure * monitor H/H Tx PRN * continue present management Consultation Date/Type/Reason Admit Date/Time Feb 10, 2017 at 23:53 Date of Consultation: Feb 11, 2017 Type of Consultation: Gastroenterology Reason for Consultation Hematochezia Referring Provider: HIMANSHU BATRES Hx of Present Illness 71 y/o female brought to emergency room with chief complaint of abdominal pain and hematochezia for the past 2 days.Patient claims to have on and off hematochezia described as bright red during defecation,with associated left lower quadrant pain.Past medical history includes Renal surgery sec to renal ca, EGD 12/10/2016 1. Mild distal esophagitis.2. Gastritis with a 5 mm antral gastric ulceration. Rule out H. pylori infection, biopsies were obtained. No stigmata of recent bleeding, benign endoscopic appearance. 3. Atrophic second portion of duodenum, rule out celiac disease.,Hip surgery. CT abdomen/pelvis 02/11/2017 No evidence of urolithiasis, obstructive uropathy, diverticulitis or appendicitis. Vascular calcifications. Cortical scar right kidney. Small left renal cyst. Post hysterectomy. Status post left hip replacement. Presently,patient still have episodes of hematochezia minimal in amount and left lower quadrant abdominal pain.I have spoke to patient regarding the planned procedure and agreed with the plan Constitutional: improved, no complaints Eyes: no complaints ENT: no complaints Respiratory: no complaints Cardiovascular: no complaints Gastrointestinal: blood (hematocheizia), flatus, pain Genitourinary: no complaints Musculoskeletal: no complaints Skin: no complaints Neurologic: no complaints Endocrine: no complaints Lymphatic: no complaints Psychological: nl mood/affect, no complaints Immunologic: no complaints Past Medical History Medical History: cancer, GI bleed, other (renal ca) Past Surgical History Past Surgical Hx: appendectomy, other (renal surgery) Family History Significant Family History: no pertinent family hx Social History Alcohol Use: none Smoking Status: Current every day smoker Drug Use: marijuana Exam/Review of Systems Vital Signs Vitals Vital Signs Date Time Temp Pulse Resp B/P Pulse Ox O2 Delivery O2 Flow Rate FiO2 02/11/17 08:00 Nasal Cannula 2.0 02/11/17 07:48 98.2 72 18 136/91 96 Intake and Output 02/10/17 02/10/17 02/11/17 15:00 23:00 07:00 Intake Total 460 ml Balance 460 ml Exam Constitutional: alert, oriented Psych: nl mood/affect Head: atraumatic, normocephalic Eyes: PERRL, nl conjunctiva, nl sclera ENMT: nl external ears & nose Neck: non-tender, supple Respiratory: clear to auscultation, normal air movement Cardiovascular: nl pulses, regular rate and rhythm Gastrointestinal: bowel sounds, nl liver, spleen, soft, tender (mild tender left lower quadrant), No rebound or guarding Musculoskeletal: nl extremities to inspection, nl gait and stance Extremities: normal pulses 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: nl strength Skin: nl turgor, No rash or lesions Lymph: nl lymph nodes Results Result Diagram: 02/10/17221802/10/17 221 Results 24 hrs Laboratory Tests Test 02/10/17 22:19 02/10/17 22:26 White Blood Count 9.7 Red Blood Count 4.45 Hemoglobin 14.0 Hematocrit 43.5 Mean Corpuscular Volume 97.8 Mean Corpuscular Hemoglobin 31.5 Mean Corpuscular Hemoglobin Concent 32.2 Red Cell Distribution Width 13.1 Platelet Count 212 Mean Platelet Volume 11.6 H Neutrophils % 62.5 Lymphocytes % 27.2 Monocytes % 8.4 Eosinophils % 1.4 Basophils % 0.3 Nucleated Red Blood Cells % 0.0 Neutrophils # 6.1 Lymphocytes # 2.6 Monocytes # 0.8 Eosinophils # 0.1 Basophils # 0.0 Nucleated Red Blood Cells # 0.0 Prothrombin Time 12.1 L Prothrombin Time Ratio 0.9 INR International Normalized Ratio 0.90 Activated Partial Thromboplast Time 27.8 Sodium Level 140 Potassium Level 4.2 Chloride Level 102 Carbon Dioxide Level 28 Anion Gap 14 Blood Urea Nitrogen 14 Creatinine 0.69 Glucose Level 102 Calcium Level 9.5 Total Bilirubin 0.1 L Direct Bilirubin 0.00 Indirect Bilirubin 0.1 Aspartate Amino Transf (AST/SGOT) 25 Alanine Aminotransferase (ALT/SGPT) 32 Alkaline Phosphatase 91 Total Protein 7.6 Albumin 4.5 Globulin 3.10 Albumin/Globulin Ratio 1.45 Lipase 15 L Urine Color LT. YELLOW Urine Clarity CLEAR Urine pH 6.0 Urine Specific [place] 1.010 Urine Ketones NEGATIVE Urine Nitrite NEGATIVE Urine Bilirubin NEGATIVE Urine Urobilinogen 1.0 E.U./dL Urine Leukocyte Esterase 2+ H Urine Microscopic RBC 5-10 Urine Microscopic WBC 25-50 Urine Squamous Epithelial Cells MODERATE Urine Bacteria FEW Urine Mucus FEW Urine Hemoglobin 2+ H Urine Glucose NEGATIVE Urine Total Protein 1+ H Medications Medications Current Medications Sodium Chloride (NS) 1,000 ml @ 80 mls/hr [id number] IV Last administered on 02/11 11:44; Admin Dose 80 MLS/HR; Start 02/11/17 at 11:00 Pantoprazole (Protonix Iv) 40 mg DAILY@06 IV ; Start 02/12/17 at 06:00 Morphine Sulfate (morphine) 4 mg Q4H PRN IV SEVERE PAIN LEVEL 7-10 Last administered on 02/11/17 13:28; Admin Dose 4 MG; Start 02/11/17 at 01:30 Morphine Sulfate (morphine) 2 mg Q4H PRN IV MODERATE PAIN LEVEL 4-6; Start at 01:30 Hydralazine HCl (Apresoline) 10 mg Q4H PRN IV SBP >160; Start 02/11/17 at 01:30 Amlodipine Besylate (Norvasc) 5 mg DAILY PO Last administered on 02/11/17 13: 08; Admin Dose 5 MG; Start 02/11/17 at 12:30 Olanzapine (Zyprexa) 2.5 mg DAILY PO Last administered on 02/11/17 15:16; Admin Dose 2.5 MG; Start 02/11/17 at 13:00 Clonazepam (Klonopin) 1 mg Q8H PRN PO ANXIETY; Start 02/11/17 at 12:30 Gabapentin (Neurontin) 300 mg HS PO ; Start 02/11/17 at 21:00 Atorvastatin Calcium (Lipitor) 20 mg HS PO ; Start 02/11/17 at 21:00 Nicotine (Nicoderm 7 Mg/ 24 Hr) 1 patch DAILY@14 TRANSDERM Last administered on 02/11/17t 14:21; Admin Dose 1 PATCH; Start 02/11/17 at 14:00 Bisacodyl (Dulcolax) 10 mg ONCE ONCE PO ; Start 02/11/17 at 15:30; Stop at 15:31 Magnesium Citrate (Citroma) 300 ml ONCE ONCE PO ; Start 02/11/17 at 17:30; Stop 02/11/17 at 17:31 Polyethylene Glycol (Miralax) 119 gm ONCE ONCE PO ; Start 02/11/17 at 18:30; Stop 02/11/17 at 18:31 VALENTE BALDERAS MD Feb 11, 2017 15:25
[2017-02-11] MEDS ORDERED: BISACODYL (EC) 5 MG TAB PO ONE (15:30)
[2017-02-11] MEDS ORDERED: MAGNESIUM CITRATE 300 ML BTL PO ONE (17:30)
[2017-02-11] MEDS ORDERED: POLYETHYLENE GLYCOL 3350 119 GM POWDER PO ONE (18:30)
[2017-02-11] MEDS: ATORVASTATIN 20 MG TAB PO SCH (20:12)
[2017-02-11] MEDS: GABAPENTIN 300 MG CAP PO SCH (20:12)
[2017-02-11 23:10] VITALS: BP 144/86; RESP 16
[2017-02-12] VITALS (15 sets, daily range): BP systolic 125–159; BP diastolic 75–97; PULSE 84–91; RESP 15–25
[2017-02-12] MEDS: SOD CHLORIDE 0.9% 1,000 ML IV SCH ×2 (00:26→13:11)
[2017-02-12] MEDS: morphine 4 MG/ML VIAL IV PRN ×5 (02:02→21:58)
--- NOTE | 2017-02-12 04:05 | RADRPT ---
PROCEDURE: XR Chest. CLINICAL INDICATION: Preoperative evaluation. TECHNIQUE: Single frontal view of the chest. COMPARISON: 12/09/2016. FINDINGS: Cardiomegaly and atherosclerotic calcifications in the thoracic aorta. Likely degree of centrolobul ar emphysema. Lung inflation is decreased over interval, and pulmonary vascular markings are accent uated by patient body habitus, portable technique and hypoinflated lungs. The lungs are otherwise abdalla bstantially clear. No signs of pleural fluid or pneumothorax are seen. The osseous structures and soft tissues are unre markable. IMPRESSION: No evidence for active cardiopulmonary disease. RPTAT: [facility] Physician Tiffany Date Time Electronically viewed and signed by Physician Tiffany on 02/12/2017 04:04 RS/
[2017-02-12] MEDS: PANTOPRAZOLE 40 MG INJ IV SCH (05:40)
[2017-02-12 05:42] LABS: ADD SCAN DIFF NO
[2017-02-12 05:50] LABS: BASOPHILS % 0.4 % (0.0-2.0); EOSINOPHILS # 0.2 10^3/ul (0.0-0.5); EOSINOPHILS % 2.5 % (0.0-7.0); HEMATOCRIT 40.3 % (37.0-47.0); HEMOGLOBIN 12.6 g/dl (12.0-16.0); LYMPHOCYTES # 2.3 10^3/ul (0.8-2.9); LYMPHOCYTES % 30.7 % (15.0-51.0); MEAN CORPUSCULAR HEMOGLOBIN 31.5 pg (29.0-33.0); MEAN CORPUSCULAR HGB CONC 31.3 g/dl (32.0-37.0); MEAN CORPUSCULAR VOLUME 100.8 fl (82.0-101.0); MEAN PLATELET VOLUME 10.9 fl (7.4-10.4); MONOCYTE # 0.7 10^3/ul (0.3-0.9); MONOCYTES % 8.8 % (0.0-11.0); NEUTROPHIL # 4.3 10^3/ul (1.6-7.5); NEUTROPHILS % 57.3 % (39.0-77.0); PLATELET COUNT 164 10^3/UL (140-415); RED CELL DISTRIBUTION WIDTH 13.1 % (11.5-14.5); WHITE BLOOD COUNT 7.5 10^3/ul (4.8-10.8)
[2017-02-12 06:00] LABS: CALCIUM 8.4 mg/dl (8.4-10.2); CREATININE 0.64 mg/dl (0.44-1.00); POTASSIUM 4.3 mmol/L (3.5-5.1)
[2017-02-12] MEDS ORDERED: POLYETHYLENE GLYCOL 3350 119 GM POWDER PO ONE (06:00)
[2017-02-12] MEDS ORDERED: BISACODYL (EC) 5 MG TAB PO ONE (08:00)
--- NOTE | 2017-02-12 09:06 | RADRPT ---
Vent Rate: 74 bpm RR Interval: 0 msec ID Interval: 154 msec QRS Duration: 88 msec QT Interval: 400 msec QTC Interval: 444 msec P-R-T [place]: 60 - 41 - 55 degrees Normal sinus rhythm Normal ECG Electronically Signed By: Marc Shaikh [id number]
[2017-02-12] MEDS: AMLODIPINE 5 MG TAB PO SCH (09:20)
[2017-02-12] MEDS: OLANZAPINE 2.5 MG TAB PO SCH (09:22)
--- NOTE | 2017-02-12 11:15 | PN ---
Date/Time of Note Date/Time of Note DATE: 02/12/17 TIME: 11:12 Assessment/Plan VTE Prophylaxis VTE Prophylaxis Intervention: SCD's Lines/Catheters IV Catheter Type (from Nrsg): Peripheral IV Urinary Cath still in place: No Assessment/Plan Assessment/Plan 1. 2. Rectal bleeding, likely hemorrhoid, colonoscopy today 2. LLQ abdominal pain, diverticulosis, pain management 3. HTN, resume norvasc 4. Dyslipidemia, on lipitor 5. tobacco use, on patch Subjective 24 Hr Interval Summary Free Text/Dictation still with LLQ abdominal pain. No nausea or vomiting Exam/Review of Systems Vital Signs Vitals Vital Signs Date Time Temp Pulse Resp B/P Pulse Ox O2 Delivery O2 Flow Rate FiO2 02/12/17 07:30 98.8 64 18 159/85 96 02/11/17 08:00 Nasal Cannula 2.0 Intake and Output 02/11/17 02/11/17 02/12/17 15:00 23:00 07:00 Intake Total 1200 ml 2960 ml Balance 1200 ml 2960 ml Exam Constitutional: alert, oriented, well developed Psych: nl mood/affect, no complaints Head: atraumatic, normocephalic Eyes: EOMI, PERRL, nl conjunctiva, nl lids, nl sclera ENMT: nl external ears & nose, nl lips & teeth, nl nasal mucosa & septum Neck: non-tender, supple Respiratory: clear to auscultation, normal air movement, No congested cough, No crackles/rales, No diminished breath sounds, No intercostal retraction, No labored breathing, No other, No respirations, No tactile fremitus, No wheezing Cardiovascular: nl pulses, regular rate and rhythm, No S3, No S4, No bruits, No diastolic murmur, No edema, No gallop, No irregular rhythm, No jugular venous distention (JVD), No murmurs/extra sounds, No other, No rub, No systolic murmur Gastrointestinal: nl liver, spleen, soft, tender (LLQ), No ascites, No bowel sounds, No distended, No firm, No hepatomegaly, No mass , No other, No rebound or guarding, No splenomegaly, No surgical scars Musculoskeletal: nl extremities to inspection Extremities: normal pulses, No calf tenderness, No clubbing, No cyanosis, No edema, No other, No palpable cord, No pitting pedal edema, No tenderness 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: CHIEF DEPUTY CLERK/BAILIFF II-XII intact, nl mental status, nl speech, nl strength Skin: nl turgor Lymph: nl lymph nodes Results Result Diagram: 02/12/1751902/12/17 0520 Results 24 hrs Laboratory Tests Test 02/12/17 05:20 White Blood Count 7.5 # Red Blood Count 4.00 L Hemoglobin 12.6 Hematocrit 40.3 Mean Corpuscular Volume 100.8 Mean Corpuscular Hemoglobin 31.5 Mean Corpuscular Hemoglobin Concent 31.3 L Red Cell Distribution Width 13.1 Platelet Count 164 # Mean Platelet Volume 10.9 H Neutrophils % 57.3 Lymphocytes % 30.7 Monocytes % 8.8 Eosinophils % 2.5 Basophils % 0.4 Nucleated Red Blood Cells % 0.0 Neutrophils # 4.3 Lymphocytes # 2.3 Monocytes # 0.7 Eosinophils # 0.2 Basophils # 0.0 Nucleated Red Blood Cells # 0.0 Sodium Level 139 Potassium Level 4.3 Chloride Level 107 Carbon Dioxide Level 28 Anion Gap 8 Blood Urea Nitrogen 7 Creatinine 0.64 Glucose Level 81 Calcium Level 8.4 Medications Medications Current Medications Sodium Chloride (NS) 1,000 ml @ 80 mls/hr [id number] IV Last administered on 02/12 00:26; Admin Dose 80 MLS/HR; Start 02/11/17 at 11:00 Pantoprazole (Protonix Iv) 40 mg DAILY@06 IV Last administered on 02/12/17 05: 40; Admin Dose 40 MG; Start 02/12/17 at 06:00 Morphine Sulfate (morphine) 4 mg Q4H PRN IV SEVERE PAIN LEVEL 7-10 Last administered on 02/12/17 10:10; Admin Dose 4 MG; Start 02/11/17 at 01:30 Morphine Sulfate (morphine) 2 mg Q4H PRN IV MODERATE PAIN LEVEL 4-6; Start at 01:30 Hydralazine HCl (Apresoline) 10 mg Q4H PRN IV SBP >160; Start 02/11/17 at 01:30 Amlodipine Besylate (Norvasc) 5 mg DAILY PO Last administered on 02/12/17 09: 20; Admin Dose 5 MG; Start 02/11/17 at 12:30 Olanzapine (Zyprexa) 2.5 mg DAILY PO Last administered on 02/12/17 09:22; Admin Dose 2.5 MG; Start 02/11/17 at 13:00 Clonazepam (Klonopin) 1 mg Q8H PRN PO ANXIETY Last administered on 02/11/17 23 :04; Admin Dose 1 MG; Start 02/11/17 at 12:30 Gabapentin (Neurontin) 300 mg HS PO Last administered on 02/11/17 20:12; Admin Dose 300 MG; Start 02/11/17 at 21:00 Atorvastatin Calcium (Lipitor) 20 mg HS PO Last administered on 02/11/17 20:12 ; Admin Dose 20 MG; Start 02/11/17 at 21:00 Nicotine (Nicoderm 7 Mg/ 24 Hr) 1 patch DAILY@14 TRANSDERM Last administered on 02/11/17 14:21; Admin Dose 1 PATCH; Start 02/11/17 at 14:00 RADHA BROWN MD Feb 12, 2017 11:15
[2017-02-12] MEDS: NICOTINE (7 MG/24 HR) PATCH TRANSDERM SCH (14:15)
[2017-02-12] MEDS ORDERED: ALBUTEROL/IPRATROPIUM (NEB) 3 ML AMP HHN PRN (15:30)
[2017-02-12] MEDS ORDERED: PROPOFOL 20 ML ONE (18:11)
[2017-02-12] MEDS ORDERED: MIDAZOLAM 1 MG/ML 2 ML INJ IV PRN (19:00)
[2017-02-12] MEDS ORDERED: MEPERIDINE 25 MG INJ IV PRN (19:00)
[2017-02-12] MEDS ORDERED: METOCLOPRAMIDE 10 MG INJ IV PRN (19:00)
[2017-02-12] MEDS ORDERED: ONDANSETRON 4 MG INJ IV PRN (19:00)
[2017-02-12] MEDS ORDERED: FENTAnyl 50 MCG/ML VIAL IV PRN (19:00)
[2017-02-12] MEDS ORDERED: DIPHENHYDRAMINE 50 MG INJ IV PRN (19:00)
--- NOTE | 2017-02-12 19:32 | GILP ---
DATE OF PROCEDURE: 02/12/2017 PROCEDURE: Colonoscopy with polyp ablation. BRIEF HISTORY AND INDICATIONS: The patient with recurrent small amount of hematochezia. PREMEDICATION: Monitored anesthesia care by anesthesiologist. SURGEON: Malcolm Chandra MD. INSTRUMENT USED: Olympus colonoscope. PREPARATION: Adequate. TECHNIQUE: After informed consent, with the patient/relatives understanding the procedure, its anushka cations potential risks and complications, including but not limited to: allergic reaction, bleeding , perforation, infection, missed lesions and after all pertinent questions were answered to the alayna ent's satisfaction, the patient/relatives signed the witnessed informed consent. Following this, premedication was administered slowly IV push by under careful cardiovascular and re spiratory monitoring with pulse oximetry, automatic blood pressure and fabrication engineer. Once the sedativ e effect was achieved, the patient was placed in the left lateral decubitus position, digital rectal examination was performed. The colonoscope was then introduced and advanced under visual control th roughout all segments of the colon including: the rectum, sigmoid, descending colon, splenic flexure , transverse colon, hepatic flexure, ascending colon and finally reaching the cecum which was clearl y identified by transillumination, finger indentation and the ileocecal valve. Careful examination o f the mucosa of the lower gastrointestinal tract both on insertion as well as withdrawal of the inst rument disclosed the following findings: Rectal Examination: Small external hemorrhoids are noted. Colonic Mucosa: There is diverticulosis in the left side of the colon. Moderate to severe degree. A 5 mm sessile polyp was noted in the sigmoid colon and was completely ablated with jumbo biopsy for ceps. The remainder of colonic mucosa unremarkable. The ileocecal valve was clearly identified and appears unremarkable. The instrument was withdrawn reexamining the mucosa in detail. No additiona l abnormalities are noted with exception of large internal hemorrhoids, likely representing the sour ce of hematochezia. The instrument was then withdrawn, the patient tolerated the procedure well and was transferred out of the Endoscopy Suite awake and in good condition to continue recovery under observation. IMPRESSION 1. Left-sided diverticulosis, moderate to severe. 2. A 5 mm polyp in sigmoid colon ablated. 3. Large internal and moderate sized external hemorrhoids. PLAN: Pathology will be reviewed as soon as available. Colonoscopy in 5 years is recommended. [facility] Hemoccult stool testing is also recommended. If bleeding persists despite conservative manageme nt of hemorrhoidal disease, outpatient hemorrhoidal banding may be considered. Dictated By: MALCOLM CHANDRA MS/CHELITA Conf#: [id number] DID#: [id number]
[2017-02-12] MEDS: GABAPENTIN 300 MG CAP PO SCH (20:32)
[2017-02-12] MEDS: ATORVASTATIN 20 MG TAB PO SCH (20:32)
[2017-02-12] MEDS: HYDROCORTISONE 25 MG SUPP PR SCH (21:57)
[2017-02-13] MEDS: SOD CHLORIDE 0.9% 1,000 ML IV SCH ×2 (02:36→12:09)
[2017-02-13] MEDS: PANTOPRAZOLE 40 MG INJ IV SCH (05:52)
[2017-02-13] MEDS: morphine 4 MG/ML VIAL IV PRN ×3 (06:57→14:47)
[2017-02-13 07:50] VITALS: BP 170/89; RESP 18
[2017-02-13] MEDS: OLANZAPINE 2.5 MG TAB PO SCH (08:32)
[2017-02-13] MEDS: HYDROCORTISONE 25 MG SUPP PR SCH (08:32)
[2017-02-13] MEDS: AMLODIPINE 5 MG TAB PO SCH (08:32)
[2017-02-13 12:11] VITALS: BP 133/72
[2017-02-13] MEDS ORDERED: PANT40TA3 PO (14:11)
--- NOTE | 2017-02-13 14:17 | DS ---
Date/Time of Note Date/Time of Note DATE: 02/13/17 TIME: 14:12 Discharge Summary Admission/Discharge Info Admit Date/Time Feb 10, 2017 at 23:54 Discharge Date/Time Final Diagnosis 1. Rectal bleeding, likely hemorrhoid, colonoscopy on 02/12/2017 2. LLQ abdominal pain, probably diverticulosis, pain management 3. HTN, stable 4. Dyslipidemia, on lipitor 5. tobacco use, quit Hx of Present Illness This is a 71-year-old female who abdominal pain and rectal bleeding for 2 days. She is here for the same. Abdominal pain is diffuse in location moderate intensity no exacerbating or alleviating factors. He had 2 episodes of rectal bleeding with stool. No nausea no vomiting no fevers no chills. No other current complaints. Blood was bright red per the patient Hospital Course 71 y/o female brought to emergency room with chief complaint of abdominal pain and hematochezia for the past 2 days.Patient claims to have on and off hematochezia described as bright red during defecation,with associated left lower quadrant pain.Past medical history includes Renal surgery sec to renal ca, EGD 12/10/2016 1. Mild distal esophagitis.2. Gastritis with a 5 mm antral gastric ulceration. Rule out H. pylori infection, biopsies were obtained. No stigmata of recent bleeding, benign endoscopic appearance. 3. Atrophic second portion of duodenum, rule out celiac disease. CT abdomen/pelvis 02/11/2017 No evidence of urolithiasis, obstructive uropathy, diverticulitis or appendicitis. Vascular calcifications. Cortical scar right kidney. Small left renal cyst. Post hysterectomy. Status post left hip replacement. Colonoscopy was done on 02/12/2017 revealed colonic diverticulosis, polyps, and internal/external hemorrhoids. The rectal bleeding is believed hemorrhoid related. The abdominal pain is probably diverticulosis related. Home Meds Active Scripts Pantoprazole* (Protonix*) 40 Mg Tablet., 40 MG PO DAILY, #30 TAB Prov:RADHA BROWN MD 02/13/17 Reported Medications Olanzapine* (Zyprexa*) 5 Mg Tablet, 5 MG PO DAILY, #30 TAB 02/08/17 Gabapentin* (Gabapentin*) 300 Mg Capsule, 300 MG PO QHS, #60 CAP 02/08/17 Clonazepam* (Clonazepam*) 1 Mg Tablet, 1 MG PO BID Y for ANXIETY, TAB 02/08/17 Atorvastatin Calcium (Atorvastatin Calcium) 10 Mg Tablet, 10 MG PO QHS, #30 TAB 02/08/17 Amlodipine Besylate* (Amlodipine Besylate*) 5 Mg Tablet, 5 MG PO DAILY, #30 TAB 02/08/17 Discontinued Reported Medications Olanzapine* (Zyprexa*) 10 Mg Tablet, 10 MG PO DAILY, #30 TAB 02/08/17 Valproic Acid* (Valproic Acid* Liq) 250 Mg/5 Ml Syrup, 250 MG GTB Q8, ML 02/08/17 Trazodone Hcl* (Trazodone Hcl*) 50 Mg Tablet, 25 MG GTB QHS, #30 TAB 02/08/17 Ranitidine Hcl* (Ranitidine Hcl*) 150 Mg Tablet, 150 MG GTB Q12, #30 TAB 02/08/17 Amino Acids/Protein Hydrolys (PRO-STAT LIQUID) 30 Ml Liquid.pkt, 30 ML GTB BID 02/08/17 Metoprolol Tartrate* (Lopressor*) 25 Mg Tab, 25 MG GTB TID, #60 TAB HOLD IF SBP LESS THAN 110 OR HR LESS THAN 60 02/08/17 Ipratropium-Albuterol (Ipratropium-Albuterol) 0.5-3 Mg/3 Ml Ampul.neb, 3 ML INHALATION Q6 Y for WHEEZING AND SOB, #30 VIAL 02/08/17 Docusate Sodium* (Docusate Sodium*) 100 Mg Capsule, 100 MG GTB BID, #60 CAP 02/08/17 Cranberry Fruit (Cranberry) 400 Mg Tablet, 400 MG GTB DAILY, TAB 02/08/17 Clonazepam* (Klonopin*) 0.5 Mg Tab, 0.25 MG GTB QHS Y for ANXIETY, TAB 02/08/17 Aspirin* (Aspirin* Chew) 81 Mg Tab.chew, 81 MG GTB DAILY, TAB.CHEW 02/08/17 Alprazolam* (Alprazolam*) 0.5 Mg Tablet, 0.5 MG GTB Q6 Y for ANXIETY, TAB 02/08/17 Gabapentin* (Gabapentin*) 300 Mg Capsule, 300 MG PO QHS, #60 CAP 12/04/16 Amlodipine Besylate* (Norvasc*) 5 Mg Tablet, 5 MG PO QHS, TAB 2/8/17 Atorvastatin Calcium (Atorvastatin Calcium) 10 Mg Tablet, 10 MG PO DAILY, #30 TAB 12/04/16 Clonazepam* (Klonopin*) 1 Mg Tablet, 1 MG PO BID, TAB 12/04/16 Olanzapine* (Zyprexa*) 5 Mg Tablet, 5 MG PO DAILY, #30 TAB 12/04/16 Discontinued Scripts Hydrocodone/Acetaminophen ([place] 10-325 Tablet) 1 Each Tablet, 1 TAB PO Q6H Y for PAIN, #20 TAB Prov:EMERALD LOPEZ DO 02/08/17 Metronidazole* (Flagyl*) 500 Mg Tablet, 500 MG PO TID for 10 Days, TAB Prov:EMEARLD LOPEZ AGianluca DO 02/08/17 Ciprofloxacin Hcl* (Ciprofloxacin Hcl*) 500 Mg Tablet, 500 MG PO BID for 10 Days , TAB Prov:EMERALD LOPEZ DO 02/08/17 Ondansetron (Ondansetron Odt) 4 Mg Tab.rapdis, 4 MG PO Q6H Y for NAUSEA AND/OR VOMITING, #10 TAB Prov:DORIS MCKEON 01/15/17 Sennosides/Docusate Sodium (Senna Plus Tablet) 1 Each Tablet, 2 TAB PO DAILY for 10 Days, #20 TAB 3 Refills Prov:RAMON KEYES MD 12/15/16 Hydrocortisone* Rectal (Anucort-HC* Supp) 25 Mg Supp, 25 MG [place] Q12H Y for HEMORROID PAIN/ITCHING for 10 Days, SUPP 3 Refills Prov:RAMON KEYES MD 12/15/16 Pantoprazole* (Pantoprazole*) 40 Mg Tablet.dr, 40 MG PO BID@06,18 for 30 Days, # 60 CAP.EC 1 Refill pharmacy may interchange to OTC as needed. Prov:RAMON KEYES MD 12/11/16 Sucralfate* (Carafate*) 1 Gm/10 Ml Susp, 1 GM PO TID for 14 Days, #30 CAP 4 Refills Prov:RAMON KEYES MD 12/11/16 Acetaminophen* (Tylenol*) 325 Mg Tablet, 650 MG PO Q6H Y for PAIN AND TEMP ABOVE 102 for 1 Day, #1 TAB Prov:RAMON KEYES MD 12/11/16 Follow-up Plan PCP in one week Dr. Chandra in 1-2 weeks RADHA BROWN MD Feb 13, 2017 14:17
--- NOTE | 2017-02-13 14:30 | PN ---
Date/Time of Note Date/Time of Note DATE: 02/13/17 TIME: 14:22 Assessment/Plan VTE Prophylaxis VTE Prophylaxis Intervention: SCD's Lines/Catheters IV C[facility] ([facility] Peripheral IV Urinary Cath still in place: No Assessment/Plan Assessment/Plan * Assessment * Hematochezia asymptomatic * Hemorrhoids * Colonoscopy 02/12/2017 * 1. Left-sided diverticulosis, moderate to severe. 2. A 5 mm polyp in sigmoid colon ablated. 3. Large internal and moderate sized external hemorrhoids * * S/P EGD 11/2016 * 1. Mild distal esophagitis. 2. Gastritis with a 5 mm antral gastric ulceration. Rule out H. pylori infection, biopsies were obtained. No stigmata of recent bleeding, benign endoscopic appearance. 3. Atrophic second portion of duodenum, rule out celiac disease. * Hypertension * Plan * stable for outpatient management * follow up with biopsy results in 2-3 weeks in our clinic Subjective 24 Hr Interval Summary Free Text/Dictation * Course reviewed with RN * patient seen and examined * mild left lower quadrant pain * Colonoscopy 02/12/2017 * 1. Left-sided diverticulosis, moderate to severe. 2. A 5 mm polyp in sigmoid colon ablated. 3. Large internal and moderate sized external hemorrhoids. Exam/Review of Systems Vital Signs Vitals Vital Signs Date Time Temp Pulse Resp B/P Pulse Ox O2 Delivery O2 Flow Rate FiO2 02/13/17 12:11 133/72 02/13/17 07:50 98.6 91 18 96 02/12/17 20:00 2.0 02/12/17 19:28 Room Air Intake and Output 02/12/17 02/12/17 02/13/17 15:00 23:00 07:00 Intake Total 520 ml 0 ml 600 ml Balance 520 ml 0 ml 600 ml Exam Constitutional: alert, oriented Neck: non-tender, supple Respiratory: clear to auscultation, normal air movement Cardiovascular: nl pulses, regular rate and rhythm Gastrointestinal: bowel sounds, non-tender, soft, No rebound or guarding Musculoskeletal: nl extremities to inspection Extremities: normal pulses 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: nl speech Results Result Diagram: 02/12/1751902/12/17519 Medications Medications Current Medications Sodium Chloride (NS) 1,000 ml @ 80 mls/hr [id number] IV Last administered on 02/13t 02:36; Admin Dose 80 MLS/HR; Start 02/11/17 at 11:00 Pantoprazole (Protonix Iv) 40 mg DAILY@06 IV Last administered on 02/13/17 05: 52; Admin Dose 40 MG; Start 02/12/17 at 06:00 Morphine Sulfate (morphine) 4 mg Q4H PRN IV SEVERE PAIN LEVEL 7-10 Last administered on 02/13/17 10:44; Admin Dose 4 MG; Start 02/11/17 at 01:30 Morphine Sulfate (morphine) 2 mg Q4H PRN IV MODERATE PAIN LEVEL 4-6; Start at 01:30 Hydralazine HCl (Apresoline) 10 mg Q4H PRN IV SBP >160; Start 02/11/17 at 01:30 Amlodipine Besylate (Norvasc) 5 mg DAILY PO Last administered on 02/13/17 08: 32; Admin Dose 5 MG; Start 02/11/17 at 12:30 Olanzapine (Zyprexa) 2.5 mg DAILY PO Last administered on 02/13/17 08:32; Admin Dose 2.5 MG; Start 02/11/17 at 13:00 Clonazepam (Klonopin) 1 mg Q8H PRN PO ANXIETY Last administered on 02/11/17 23 :04; Admin Dose 1 MG; Start 02/11/17 at 12:30 Gabapentin (Neurontin) 300 mg HS PO Last administered on 02/12/17 20:32; Admin Dose 300 MG; Start 02/11/17 at 21:00 Atorvastatin Calcium (Lipitor) 20 mg HS PO Last administered on 02/12/17 20:32 ; Admin Dose 20 MG; Start 02/11/17 at 21:00 Nicotine (Nicoderm 7 Mg/ 24 Hr) 1 patch DAILY@14 TRANSDERM Last administered on 02/12/17 14:15; Admin Dose 1 PATCH; Start 02/11/17 at 14:00 Hydrocortisone (Anusol-Hc Supp) 25 mg BID [place] Last administered on 02/13/17 08: 32; Admin Dose 25 MG; Start 02/12/17 at 21:00 VALENTE BALDERAS MD Feb 13, 2017 14:30 32; Admin Dose 5 MG; Start 02/11/17 at 12:30 Olanzapine (Zyprexa) 2.5 mg DAILY PO Last administered on 02/13/17 08:32; Admin Dose 2.5 MG; Start 02/11/17 at 13:00 Clonazepam (Klonopin) 1 mg Q8H PRN PO ANXIETY Last administered on 02/11/17 23 :04; Admin Dose 1 MG; Start 02/11/17 at 12:30 Gabapentin (Neurontin) 300 mg HS PO Last administered on 02/12/17 20:32; Admin Dose 300 MG; Start 02/11/17 at 21:00 Atorvastatin Calcium (Lipitor) 20 mg HS PO Last administered on 02/12/17 20:32 ; Admin Dose 20 MG; Start 02/11/17 at 21:00 Nicotine (Nicoderm 7 Mg/ 24 Hr) 1 patch DAILY@14 TRANSDERM Last administered on 02/12/17 14:15; Admin Dose 1 PATCH; Start 02/11/17 at 14:00 Hydrocortisone (Anusol-Hc Supp) 25 mg BID [place] Last administered on 02/13/17 08: 32; Admin Dose 25 MG; Start 02/12/17 at 21:00 VALENTE BALDERAS MD Feb 13, 2017 14:30
[2017-02-13] MEDS: NICOTINE (7 MG/24 HR) PATCH TRANSDERM SCH (15:56)
== END 2017-02-13 19:33 | disposition home or self-care (01) ==
LOC: E/R 19:44 → PP2 23:53 → UNDOADMOB 23:53 → PP2 23:54
PROVIDERS: ADMIT Family Medicine; ATTEND Family Medicine
DX: K62.5 Hemorrhage of anus and rectum (principal); R10.32 Left lower quadrant pain; I10 Essential (primary) hypertension; E78.5 Hyperlipidemia, unspecified; F17.210 Nicotine dependence, cigarettes, uncomplicated; D12.5 Benign neoplasm of sigmoid colon; K57.30 Diverticulosis of large intestine without perforation or abscess without bleeding; K64.4 Residual hemorrhoidal skin tags; K64.8 Other hemorrhoids; F31.9 Bipolar disorder, unspecified; J44.9 Chronic obstructive pulmonary disease, unspecified; E66.9 Obesity, unspecified; Z68.28 Body mass index [BMI] 28.0-28.9, adult; G47.00 Insomnia, unspecified; Z85.528 Personal history of other malignant neoplasm of kidney; Z79.82 Long term (current) use of aspirin; Z96.642 Presence of left artificial hip joint; Z88.6 Allergy status to analgesic agent; Z90.49 Acquired absence of other specified parts of digestive tract
CPT/HCPCS: 36415; 45380; 71010; 80048; 80053; 81001; 83690; 85025; 85610; 85730; 88305; 93005; 96361; 96374; 96375; 96376; 99285; C9113; G0378; J2270; J2405; J3010; J7030; J7040; 81003

== ENCOUNTER 2017-02-24 13:10 | Emergency (ER) | payer MEDICARE, OTHER ==
[~2017-02-24] VITALS: Ht 157.5 cm; Wt 62.0 kg
[~2017-02-24 13:10] MED LIST changes: -CIPR500T4 PO; -HYDR-902 PO; -METR500T PO; +PANT40TA3 PO
[2017-02-24 13:14] VITALS: Ht 157.5 cm; Wt 62.0 kg
[2017-02-24] MEDS ORDERED: HYDROmorphONE 1 MG/ML SYG IV STA (18:03)
[2017-02-24] MEDS ORDERED: SOD CHLORIDE 0.9% 1,000 ML IV STA (18:03)
[2017-02-24] MEDS ORDERED: ONDANSETRON 4 MG INJ IV STA (18:03)
[2017-02-24 18:23] LABS: ADD SCAN DIFF NO
[2017-02-24 18:25] LABS: BASOPHILS % 0.4 % (0.0-2.0); EOSINOPHILS % 0.3 % (0.0-7.0); HEMATOCRIT 45.1 % (37.0-47.0); HEMOGLOBIN 15.1 g/dl (12.0-16.0); LYMPHOCYTES # 1.8 10^3/ul (0.8-2.9); LYMPHOCYTES % 16.5 % (15.0-51.0); MEAN CORPUSCULAR HEMOGLOBIN 32.1 pg (29.0-33.0); MEAN CORPUSCULAR HGB CONC 33.5 g/dl (32.0-37.0); MEAN CORPUSCULAR VOLUME 95.8 fl (82.0-101.0); MEAN PLATELET VOLUME 11.1 fl (7.4-10.4); MONOCYTE # 0.6 10^3/ul (0.3-0.9); MONOCYTES % 5.2 % (0.0-11.0); NEUTROPHIL # 8.4 10^3/ul (1.6-7.5); NEUTROPHILS % 77.2 % (39.0-77.0); PLATELET COUNT 234 10^3/UL (140-415); RED BLOOD COUNT 4.71 10^6/ul (4.20-5.40); RED CELL DISTRIBUTION WIDTH 12.8 % (11.5-14.5); WHITE BLOOD COUNT 10.8 10^3/ul (4.8-10.8)
[2017-02-24 18:36] LABS: ALBUMIN 4.9 g/dl (3.3-4.9)
[2017-02-24 18:37] LABS: POTASSIUM 3.4 mmol/L (3.5-5.1)
[2017-02-24 18:38] LABS: PT RATIO 1.1
[2017-02-24 18:39] LABS: BILIRUBIN,INDIRECT 0.4 mg/dl (0-1.1); BILIRUBIN,TOTAL 0.4 mg/dl (0.2-1.3); CREATININE 0.74 mg/dl (0.44-1.00)
[2017-02-24 18:40] LABS: ALBUMIN/GLOBULIN RATIO 1.58
[2017-02-24] MEDS ORDERED: HYDR-902 PO (19:21)
--- NOTE | 2017-02-24 19:21 | ERD ---
ER Documentation Chief Complaint Date/Time DATE: 02/24/17 TIME: 19:19 Chief Complaint Patient complains of rectal bleed x since yesterday HPI 71-year-old female who presents with multiple complaints. Her main complaint is left lower quadrant abdominal pain that has been present for approximately 24 hours. She states that she has some bleeding around the rectum when she wipes with the tissue. She describes mild nausea but no vomiting no hematemesis. The pain is moderate and constant. The patient also states that she may have fallen 2-3 days ago. She brought this up in passing. She thinks she may have hit her head. She denies any neck pain. She denied any chest pain , no pleuritic pain. The patient is asking for Dilaudid by name. ROS All systems reviewed and are negative except as per history of present illness. Medications Home Meds Active Scripts Acetaminophen* (Tylophen*) 500 Mg Capsule, 2 CAP PO Q8H Y for PAIN AND OR ELEVATED TEMP, #20 CAP Prov:WHITNEY BLANCHARD MD 02/24/17 Pantoprazole* (Protonix*) 40 Mg Tablet.dr, 40 MG PO DAILY, #30 TAB Prov:RADHA BROWN MD 02/13/17 Reported Medications Hydrocodone/Acetaminophen ([place] 10-325 Tablet) 1 Each Tablet, 1 EACH PO Q4H Y for PRN, TAB 02/24/17 Olanzapine* (Zyprexa*) 5 Mg Tablet, 5 MG PO DAILY, #30 TAB 02/08/17 Gabapentin* (Gabapentin*) 300 Mg Capsule, 300 MG PO QHS, #60 CAP 02/08/17 Clonazepam* (Clonazepam*) 1 Mg Tablet, 1 MG PO BID Y for ANXIETY, TAB 02/08/17 Atorvastatin Calcium (Atorvastatin Calcium) 10 Mg Tablet, 10 MG PO QHS, #30 TAB 02/08/17 Amlodipine Besylate* (Amlodipine Besylate*) 5 Mg Tablet, 5 MG PO DAILY, #30 TAB 02/08/17 Allergies Allergies: Coded Allergies: ibuprofen (Verified Allergy, Unknown, 02/24/17) PMhx/Soc History of Surgery: Yes Anesthesia Reaction: No Hx 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 Disorder: No Hx Respiratory Disorders: No Hx Cardiac Disorders: Yes (HTN) Hx Psychiatric Problems: Yes (Bipolar) Hx Miscellaneous Medical Probl: No (RENAL CA) Hx Alcohol Use: No Hx Substance Use: Yes (marijuana use) Hx Tobacco Use: Yes Smoking Status: Current every day smoker FmHx Family History: No diabetes Physical Exam Vitals Vital Signs Date Time Temp Pulse Resp B/P Pulse Ox O2 Delivery O2 Flow Rate FiO2 02/24/17 18:43 84 14 136/89 98 Room Air 02/24/17 13:14 98.3 121 20 152/84 97 Physical Exam General: Well developed, well nourished, no acute distress Head: Normocephalic, atraumatic. Eyes: Pupils equally reactive, EOM intact ENT: Moist mucous membranes Neck: Supple, no lymphadenopathy, No midline tenderness, deformities, step-offs to the cervical spine, full active and passive range of motion without midline pain. Respiratory: Lungs clear bilaterally, no distress Cardiovascular: RRR, no murmurs, rubs, or gallops Abdominal: Soft, tenderness to left lower quadrant without rebound or guarding : Deferred MSK: No edema, no unilateral swelling, 5/5 strength Neurologic: Alert and oriented, moving all extremities, normal speech, no focal weakness, no cerebellar signs Skin: No rash Psych: Normal mood Result Diagram: 02/24/17181402/24/171814 Results 24 hrs Laboratory Tests Test 02/24/17 18:15 White Blood Count 10.810^3/ul Red Blood Count 4.7110^6/ul Hemoglobin 15.1g/dl Hematocrit 45.1% Mean Corpuscular Volume 95.8fl Mean Corpuscular Hemoglobin 32.1pg Mean Corpuscular Hemoglobin Concent 33.5g/dl Red Cell Distribution Width 12.8% Platelet Count 28076^3/UL Mean Platelet Volume 11.1fl Neutrophils % 77.2% Lymphocytes % 16.5% Monocytes % 5.2% Eosinophils % 0.3% Basophils % 0.4% Nucleated Red Blood Cells % 0.0/100WBC Neutrophils # 8.410^3/ul Lymphocytes # 1.810^3/ul Monocytes # 0.610^3/ul Eosinophils # 0.010^3/ul Basophils # 0.010^3/ul Nucleated Red Blood Cells # 0.010^3/ul Prothrombin Time 13.5Sec Prothrombin Time Ratio 1.1 INR International Normalized Ratio 1.03 Activated Partial Thromboplast Time 27.7Sec Sodium Level 144mmol/L Potassium Level 3.4mmol/L Chloride Level 105mmol/L Carbon Dioxide Level 26mmol/L Anion Gap 16 Blood Urea Nitrogen 13mg/dl Creatinine 0.74mg/dl Glucose Level 117mg/dl Calcium Level 10.0mg/dl Total Bilirubin 0.4mg/dl Direct Bilirubin 0.00mg/dl Indirect Bilirubin 0.4mg/dl Aspartate Amino Transf (AST/SGOT) 25IU/L Alanine Aminotransferase (ALT/SGPT) 33IU/L Alkaline Phosphatase 76IU/L Total Protein 8.0g/dl Albumin 4.9g/dl Globulin 3.10g/dl Albumin/Globulin Ratio 1.58 Lipase 20U/L Current Medications Medications (Trade) Dose Ordered Sig/Micha Route PRN Reason Start Time Stop Time Status Last Admin Dose Admin Sodium Chloride (NS) 1,000 ml @ 1,000 mls/hr Q1H STAT IV 02/24/17 18:03 02/24/17 19:02 DC 02/24/17 18:36 Hydromorphone HCl (Dilaudid) 0.5 mg ONCE STAT IV 02/24/17 18:03 02/24/17 18:05 DC 02/24/17 18:40 Ondansetron HCl (Zofran Inj) 4 mg ONCE STAT IV 02/24/17 18:03 02/24/17 18:05 DC 02/24/17 18:37 Procedures/MDM EKG, MONITORS, & DIAGNOSTIC IMAGING: CT brain: No acute process CT abdomen and pelvis: IMPRESSION: 1. No acute abdominal process is identified. No evidence of an acute bony fracture. No evidence of pneumoperitoneum, hemoperitoneum, ruptured viscus or lacerated intra-abdominal organ. 2. Diverticulosis of the descending and sigmoid colon. No evidence of diverticulitis. The vermiform appendix is not visualized. 3. Partially visualized right augmentation mammary implant with calcification in the capsule of the implant. 4. Hepatomegaly. 5. Status post partial right nephrectomy with suture material and noted along the capsule of the upper right kidney. 6. Status post hysterectomy and salpingo-oophorectomy. 7. Status post total left hip arthroplasty. 8. Osteoarthritis of the thoracic and lumbosacral spine. LAB INTERPRETATION: No leukocytosis and no evidence of hepatobiliary obstruction MEDICAL DECISION MAKING: The patient presents with 2 complaints. One is a fall 3 days ago with head injury. No loss of consciousness. The patient will benefit from CT imaging of her brain given the patient's age. The patient's main complaint is left lower quadrant abdominal pain. Given her age this is most likely consistent with diverticulitis, consider alternative process such as urinary tract infection, kidney stone, bowel obstruction. Given the patient's age CT imaging of the abdomen and pelvis would be most appropriate. Rectal bleeding is scant and not consistent with aggressive upper or lower GI hemorrhage. ER COURSE: The patient's pain is improved. Her laboratory testing and diagnostic imaging is unrevealing. Reviewing the patient's electronic medical record it appears the patient frequents the emergency room for abdominal pain related issues or pain related issues. Consider chronic pain issue. Outpatient primary care follow-up would be strongly recommended, outpatient GI referral also recommended. The patient has no acute medical condition warrants inpatient hospitalization. Repeat abdominal exam is improved. I kept the patient and/or family informed of laboratory and diagnostic imaging results throughout the emergency room course. DISPOSITION PLAN: We discussed follow up with the patient's primary care doctor within 24 to 48 hours as needed. We also discussed return to the emergency room for worsening symptoms or worsening condition. Outpatient referral: [None required] Discharge Medications: Tylenol Departure Diagnosis: Primary Impression: Closed head injury Encounter type: initial encounter Qualified Code: S09.90XA - Closed head injury, initial encounter Additional Impression: LLQ abdominal pain Condition: Stable WHITNEY BLANCHARD MD February 24, 2017 19:21
[2017-02-24 19:31] LABS: INR 1.03; PARTIAL THROMBOPLASTIN TIME 27.7 Sec (25.0-35.0); PROTIME 13.5 Sec (12.2-14.2)
--- NOTE | 2017-02-24 19:35 | RADRPT ---
PROCEDURE: CT Brain without contrast. CLINICAL INDICATION: Head injury after a fall from bed 3 days ago. TECHNIQUE: A CT of the brain was performed on a high-resolution CT scanner utilizing a low dose te chnique with axial imaging from the skull base through the vertex without IV contrast. Multiplanar reformatted images were made. Images were reviewed on a PACS workstation. The CTDIvol is 45 mGy an d the DLP is 720 mGycm. One or more of the following dose reduction techniques were used: - Automated exposure control. - Adjustment of the mA and/or kV according to patient size. Use of iterative reconstruction technique. COMPARISON: None FINDINGS: The fourth, third lateral ventricles are normal in size configuration. No intracranial mass or hemo rrhage is identified. There is an idiopathic calcification in the left basal ganglia. The brain par enchyma is normal. The visible portions of the paranasal sinuses mastoid air cells are clear bilater ally. The bony calvarium is intact. No intracranial mass or hemorrhage is identified. There is no evidence of a skull fracture. IMPRESSION: 1. Negative CT scan of the brain performed without contrast. RPTAT:AAJJ Physician Boris Date Time Electronically viewed and signed by Physician Boris on 02/24/2017 19:35 SARAHI/
--- NOTE | 2017-02-24 19:50 | RADRPT ---
PROCEDURE: CT scan of the abdomen and pelvis without IV contrast. CLINICAL INDICATION: Fall from bed 3 days ago with head injury. TECHNIQUE: Thin section axial, coronal and sagittal images were performed through the abdomen and pelvis without contrast. Radiation Dose: CTDI: 8.5 and DLP: 434 One or more of the following dose reduction techniques were used: - Automated exposure control. - Adjustment of the mA and/or kV according to patient size. Use of iterative reconstruction technique. COMPARISON: Chest x-ray 11/29/2016 06:18 a.m. FINDINGS: Soft tissues: There is a partially visualized right breast implant. The capsule of the implant is c alcified. . Lungs and pleural spaces: Lungs are mildly hyperinflated which might reflect an excellent is between effort. No pulmonary nodule or infiltrates identified. There is no evidence of a pleural effusion . Heart: Normal. The liver, common bile duct and gallbladder: The liver is enlarged measuring 16.2 cm AP. No hepatic mass or intrahepatic biliary ductal dilatation is identified. The gallbladder and gallbladder wall are normal. Gastrointestinal: There is no hiatal hernia. The stomach and small bowel loops are unremarkable. T here are diverticula in the descending colon. There is a midline incision from prior surgery. Ther e are diverticula in the sigmoid colon. The appendix is not visualized. Pancreas: Normal. Kidneys, bladder and adrenal glands : There is suture material along the capsular margin of the righ t kidney with partial resection of the dorsal upper third of the cortex of the right kidney. There is no evidence of a solid mass or hydronephrosis involving either kidney. The adrenal glands and ur inary bladder are normal. Spleen: Normal. Lymph nodes: Normal. Reproductive system and pelvis : The uterus and ovaries are not identified. No abnormal adnexal mas s or free fluid is noted in the pelvis. Bony elements: There are streak artifacts from a total left hip arthroplasty. There are degenerativ e osteophytes in the thoracic and lumbar spine. Vasculature: There are atherosclerotic vascular calcifications in the thoracic and abdominal aorta. There is no evidence of an aneurysm. No vascular stenosis is identified. IMPRESSION: 1. No acute abdominal process is identified. No evidence of an acute bony fracture. No evidence of pneumoperitoneum, hemoperitoneum, ruptured viscus or lacerated intra-abdominal organ. 2. Diverticulosis of the descending and sigmoid colon. No evidence of diverticulitis. The vermifor m appendix is not visualized. 3. Partially visualized right augmentation mammary implant with calcification in the capsule of the implant. 4. Hepatomegaly. 5. Status post partial right nephrectomy with suture material and noted along the capsule of the up per right kidney. 6. Status post hysterectomy and salpingo-oophorectomy. 7. Status post total left hip arthroplasty. 8. Osteoarthritis of the thoracic and lumbosacral spine. RPTAT:AAJJ Physician Boris Date Time Electronically viewed and signed by Delio Jacob Physician on 02/24/2017 19:50 JM/
[2017-02-24 20:15] LABS: ADD UMIC YES; URINE BILIRUBIN (Dip) 2+ (NEGATIVE); URINE BLOOD (Dip) 2+ (NEGATIVE); URINE COLOR YELLOW (YELLOW); URINE GLUCOSE (Dip) NEGATIVE (NEGATIVE); URINE KETONES (Dip) 40 (NEGATIVE); URINE LEUKOCYTE ESTERASE (Dip) TRACE (NEGATIVE); URINE NITRITE (Dip) NEGATIVE (NEGATIVE); URINE TOTAL PROTEIN (Dip) 1+ (NEGATIVE); URINE UROBILINOGEN (Dip) 1.0 E.U./dL (0.1-1.0)
[2017-02-24] MEDS ORDERED: ACET500C5 PO (20:21)
[2017-02-24 20:36] VITALS: BP 151/88; PULSE 94; RESP 16; TEMP 98.2
[2017-02-24 20:40] LABS: MUCUS,URINE FEW; SQUAMOUS EPITHELIAL CELL,UR FEW
[2017-02-24 20:41] LABS: ICTOTEST NEGATIVE (NEGATIVE)
== END 2017-02-24 20:37 | disposition home or self-care (01) ==
LOC: E/R 13:10
DX: S09.90XA Unspecified injury of head, initial encounter (principal); R10.32 Left lower quadrant pain; R11.0 Nausea; I10 Essential (primary) hypertension; F17.210 Nicotine dependence, cigarettes, uncomplicated; W18.39XA Other fall on same level, initial encounter; Y92.9 Unspecified place or not applicable; Z85.528 Personal history of other malignant neoplasm of kidney
CPT/HCPCS: 70450; 74176; 80053; 81001; 83690; 85025; 85610; 85730; 96374; 96375; 99285; J1170; J2405; J7030; 81003

== ENCOUNTER 2017-03-14 11:58 | Inpatient (IN) | payer MEDICARE, OTHER ==
[~2017-03-14] VITALS: Ht 152.4 cm; Wt 65.5 kg
[~2017-03-14 11:58] MED LIST changes: +ACET500C5 PO; +HYDR-902 PO
[2017-03-14] MEDS ORDERED: SOD CHLORIDE 0.9% 1,000 ML IV STA (12:06)
--- NOTE | 2017-03-14 12:33 | RADRPT ---
PROCEDURE: XR Chest. CLINICAL INDICATION: Infiltrates TECHNIQUE: Chest AP portable. COMPARISON: 12/09/2016 FINDINGS: Bilateral breast implants. The mediastinal structures are unremarkable. There is calcification of the thoracic aorta (consiste nt with atherosclerosis). There is mild cardiomegaly. The pulmonary vascularity is normal. The herberth ng hooper are unremarkable. No consolidation is identified. The pleural spaces are unremarkable. The osseous structures are unremarkable. IMPRESSION: Calcification of the thoracic aorta (consistent with atherosclerosis) Mild cardiomegaly No active intrathoracic disease RPTAT: HGDB .Steven Jay MD, Date Time Electronically viewed and signed by .Steven Jay MD, on 03/14/2017 12:33 .B/
[2017-03-14] MEDS ORDERED: BACL10TA PO (12:42)
[2017-03-14 13:01] LABS: ADD SCAN DIFF NO
[2017-03-14 13:02] LABS: BASOPHILS % 0.3 % (0.0-2.0); EOSINOPHILS # 0.1 10^3/ul (0.0-0.5); HEMATOCRIT 44.2 % (37.0-47.0); HEMOGLOBIN 14.1 g/dl (12.0-16.0); LYMPHOCYTES # 2.2 10^3/ul (0.8-2.9); LYMPHOCYTES % 34.4 % (15.0-51.0); MEAN CORPUSCULAR HEMOGLOBIN 31.4 pg (29.0-33.0); MEAN CORPUSCULAR HGB CONC 31.9 g/dl (32.0-37.0); MEAN CORPUSCULAR VOLUME 98.4 fl (82.0-101.0); MEAN PLATELET VOLUME 11.7 fl (7.4-10.4); MONOCYTE # 0.4 10^3/ul (0.3-0.9); MONOCYTES % 6.7 % (0.0-11.0); NEUTROPHIL # 3.6 10^3/ul (1.6-7.5); NEUTROPHILS % 56.4 % (39.0-77.0); PLATELET COUNT 149 10^3/UL (140-415); RED BLOOD COUNT 4.49 10^6/ul (4.20-5.40); RED CELL DISTRIBUTION WIDTH 12.6 % (11.5-14.5); WHITE BLOOD COUNT 6.4 10^3/ul (4.8-10.8)
[2017-03-14 13:09] LABS: ADD UMIC YES; URINE BILIRUBIN (Dip) NEGATIVE (NEGATIVE); URINE BLOOD (Dip) 1+ (NEGATIVE); URINE COLOR LT. YELLOW (YELLOW); URINE GLUCOSE (Dip) NEGATIVE (NEGATIVE); URINE KETONES (Dip) NEGATIVE (NEGATIVE); URINE LEUKOCYTE ESTERASE (Dip) NEGATIVE (NEGATIVE); URINE NITRITE (Dip) NEGATIVE (NEGATIVE); URINE TOTAL PROTEIN (Dip) NEGATIVE (NEGATIVE); URINE UROBILINOGEN (Dip) 0.2 E.U./dL (0.1-1.0)
[2017-03-14 13:25] LABS: BACTERIA,URINE RARE; URINE RBCS 0-2 /HPF (0)
[2017-03-14] MEDS ORDERED: SOD CHLORIDE 0.9% 1,000 ML IV ONE (13:30)
--- NOTE | 2017-03-14 13:30 | ERA ---
ER Documentation Chief Complaint Date/Time DATE: 03/14/17 TIME: 13:25 Chief Complaint weakness and fatigue for the past 2 wks. no neuro def. intermittent vomitin HPI 71-year-old woman brought in by EMS for syncopal episode earlier today, but she states she has had multiple syncopal episodes over the last few days. She has a long history of benzodiazepine dependence and regularly overdoses. She denies suicidal homicidal ideation, no chest pain or shortness of breath, no diarrhea. She has had a few episodes of clear nonbloody nonbilious emesis. Patient denies headache or blurry vision, no neck pain, no headache or blurry vision. ROS All systems reviewed and are negative except as per history of present illness. Medications Home Meds Active Scripts Pantoprazole* (Protonix*) 40 Mg Tablet.dr, 40 MG PO DAILY, #30 TAB Prov:RADHA BROWN MD 02/13/17 Reported Medications Baclofen* (Baclofen*) 10 Mg Tablet, 10 MG PO DAILY Y for MUSCLE SPASMS, TAB 03/14/17 Hydrocodone/Acetaminophen ([place] 10-325 Tablet) 1 Each Tablet, 1 EACH PO Q4H Y for PRN, TAB 02/24/17 Olanzapine* (Zyprexa*) 5 Mg Tablet, 5 MG PO DAILY, #30 TAB 02/08/17 Gabapentin* (Gabapentin*) 300 Mg Capsule, 300 MG PO QHS, #60 CAP 02/08/17 Clonazepam* (Clonazepam*) 1 Mg Tablet, 1 MG PO BID Y for ANXIETY, TAB 02/08/17 Atorvastatin Calcium (Atorvastatin Calcium) 10 Mg Tablet, 10 MG PO QHS, #30 TAB 02/08/17 Amlodipine Besylate* (Amlodipine Besylate*) 5 Mg Tablet, 5 MG PO DAILY, #30 TAB 02/08/17 Discontinued Scripts Acetaminophen* (Tylophen*) 500 Mg Capsule, 2 CAP PO Q8H Y for PAIN AND OR ELEVATED TEMP, #20 CAP Prov:WHITNEY BLANCHARD MD 02/24/17 Allergies Allergies: Coded Allergies: ibuprofen (Verified Allergy, Unknown, 03/14/17) PMhx/Soc Previous gastrointestinal bleeding secondary to esophagitis, gastritis. Diverticulosis, bipolar disorder, anxiety, chronic benzodiazepine dependence, hypertension, chronic obstructive pulmonary disease, dyslipidemia History of Surgery: Yes (left hip replacement) Anesthesia Reaction: No Hx 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 Disorder: No Hx Respiratory Disorders: No Hx Cardiac Disorders: Yes (HTN) Hx Psychiatric Problems: Yes (Bipolar) Hx Miscellaneous Medical Probl: No (RENAL CA) Hx Alcohol Use: No Hx Substance Use: Yes (marijuana use) Hx Tobacco Use: Yes Smoking Status: Current every day smoker FmHx Family History: No diabetes Physical Exam Vitals Vital Signs Date Time Temp Pulse Resp B/P Pulse Ox O2 Delivery O2 Flow Rate FiO2 03/14/17 14:36 73 15 132/88 99 Room Air 03/14/17 13:35 70 14 141/96 95 Room Air 03/14/17 12:03 98.9 83 20 130/91 100 Physical Exam GENERAL: Well-developed, well-nourished, appears intoxicated, dehydrated, afebrile HEENT: Dry mucous membranes, pink conjunctiva, no cervical spine tenderness or step-off deformities, no goiter, no jaundice or icterus, extraocular movements intact without pain. Positive superficial contusion to the bridge of the nose. NEURO: Alert and oriented 3, cranial nerves II through XII intact bilaterally, lethargic, pupils equal round reactive to light, no focal deficits or facial asymmetry, sensation intact distally CARDIAC: Regular rate and rhythm, no murmurs rubs or gallops LUNGS: Clear bilaterally no wheezing crackles or stridor ABDOMEN: Soft nontender, no guarding, no rigidity, no rebound, no psoas sign no obturator sign. Normoactive bowel sounds SKIN: Warm and dry to touch, no abrasions, contusions, or hematomas, no lacerations, no ecchymosis, no target lesions, and without ulcers EXTREMITIES: No clubbing cyanosis or edema, calves are bilaterally symmetrical, no Homans sign, no popliteal cord sign. Distal pulses equal and bilateral PSYCH: Lethargic, calm Result Diagram: 03/14/17 1250 03/14/17 1348 Results 24 hrs Laboratory Tests Test 03/14/17 12:26 03/14/17 12:50 03/14/17 13:48 Urine Color LT. YELLOW Urine Clarity CLEAR Urine pH 5.5 Urine Specific [place] 1.020 Urine Ketones NEGATIVE Urine Nitrite NEGATIVE Urine Bilirubin NEGATIVE Urine Urobilinogen 0.2 E.U./dL Urine Leukocyte Esterase NEGATIVE Urine Microscopic RBC 0-2/HPF Urine Microscopic WBC 0-2/HPF Urine Epithelial Cells RARE Urine Bacteria RARE Urine Hemoglobin 1+ Urine Glucose NEGATIVE% Urine Total Protein NEGATIVE White Blood Count 6.410^3/ul Red Blood Count 4.4910^6/ul Hemoglobin 14.1g/dl Hematocrit 44.2% Mean Corpuscular Volume 98.4fl Mean Corpuscular Hemoglobin 31.4pg Mean Corpuscular Hemoglobin Concent 31.9g/dl Red Cell Distribution Width 12.6% Platelet Count 23530^3/UL Mean Platelet Volume 11.7fl Neutrophils % 56.4% Lymphocytes % 34.4% Monocytes % 6.7% Eosinophils % 2.0% Basophils % 0.3% Nucleated Red Blood Cells % 0.0/100WBC Neutrophils # 3.610^3/ul Lymphocytes # 2.210^3/ul Monocytes # 0.410^3/ul Eosinophils # 0.110^3/ul Basophils # 0.010^3/ul Nucleated Red Blood Cells # 0.010^3/ul Sodium Level 141mmol/L Potassium Level 3.8mmol/L Chloride Level 105mmol/L Carbon Dioxide Level 29mmol/L Anion Gap 11 Blood Urea Nitrogen 9mg/dl Creatinine 0.64mg/dl Glucose Level 87mg/dl Calcium Level 9.2mg/dl Total Bilirubin 0.0mg/dl Direct Bilirubin 0.00mg/dl Indirect Bilirubin 0.0mg/dl Aspartate Amino Transf (AST/SGOT) 18IU/L Alanine Aminotransferase (ALT/SGPT) 32IU/L Alkaline Phosphatase 67IU/L Troponin I < 0.012ng/ml Total Protein 6.2g/dl Albumin 3.6g/dl Globulin 2.60g/dl Albumin/Globulin Ratio 1.38 Lipase < 10U/L Current Medications Medications (Trade) Dose Ordered Sig/Micha Route PRN Reason Start Time Stop Time Status Last Admin Dose Admin Sodium Chloride 1,000 ml @ 1,000 mls/hr Q1H STAT IV 03/14/17 12:06 03/14/17 13:05 DC 03/14/17 12:06 Sodium Chloride (NS) 1,000 ml @ 1,000 mls/hr Q1H ONCE IV 03/14/17 13:30 03/14/17 14:29 DC Procedures/MDM IV line was established patient was placed on forms designer rhythm strip revealed a sinus rhythm at about 80 bpm with upright P and T waves. Patient was afebrile. I administered 2 L normal saline intravenously for dehydration EKG performed, read by me revealed a normal sinus rhythm 86 bpm, normal axis, narrow QRS complex, no concerning ST elevations or depressions noted. Chest X-ray 1V Interpreted by me: Soft Tissue: No acute abnormalities Bones: No acute abnormalities Mediastinum/Cardiac Silhouette/Lungs: No acute abnormalities CT scan of the brain was performed is negative for acute bleed mass or shift. CBC and electrolytes were unremarkable, liver function tests are normal, troponin was negative, urine analysis was negative for infection. EKG #2 performed about an hour and a half later reveals a normal sinus rhythm at 71 bpm, normal axis, narrow QRS complex, no concerning ST elevations or depressions. Unchanged EKG. Patient is without complaints of pain. Patient suffered a syncopal episode today and was found dehydrated, I do suspect acute benzodiazepine intoxication and overdose. She will be admitted to telemetry setting for continued medical management and detoxification. Patient is requesting opioid analgesics, I will defer opioid management to admitting team, I offered her only NSAIDs because she is being admitted for benzodiazepine intoxication and opioids will definitely exacerbate her symptoms depress mental status even further. Departure Diagnosis: Primary Impression: Syncope Qualified Code: R55 - Syncope, unspecified syncope type Additional Impressions: Benzodiazepine intoxication Dehydration Acute encephalopathy Condition: JOHANNA Huddleston MD March 14, 2017 13:30
--- NOTE | 2017-03-14 13:33 | RADRPT ---
PROCEDURE: CT Brain without. CLINICAL INDICATION: Fall, weak. TECHNIQUE: A CT of the brain was performed on multidetector high-resolution CT scanner utilizing a xial sections from the skull base through the vertex without contrast. The scan was reviewed in sof t tissue brain and high frequency resolution bone algorithm windows. Images were reviewed on a high -resolution PACS workstation. One or more the following does reduction techniques were utilized: Aut omated exposure control, adjustment of the mA/ or kV according to patient's size, or use of iterativ e reconstruction technique. The exam CTDI = 43.60 mGy and the DLP = 630.2 mGy-cm. COMPARISON: Brain CT 02/24/2017. FINDINGS: The ventricles and sulci are mildly prominent indicative of volume loss. There is no intracranial he morrhage, mass effect or midline shift. No abnormal intra-axial or extra-axial fluid collections ar e seen. The barragan/white matter differentiation is preserved. There are mild scattered foci of hypoattenuation in the white matter, which are nonspecific in etiol ogy but likely reflect chronic small vessel ischemic changes. There are mild intracranial vascular calcifications consistent with atherosclerosis. The visualized paranasal sinuses demonstrate trace s cattered mucosal thickening mainly in ethmoid air cells. The mastoid air cells are essentially roby r. IMPRESSION: 1. No acute intracranial hemorrhage, transcortical infarction or mass effect. 2. Mild intracranial atherosclerosis and chronic small vessel ischemic changes. 3. Mild generalized cerebral volume loss. RPTAT: HFN .Abundio Fan MD, Date Time Electronically viewed and signed by .Abundio Fan MD, MD on 03/14/2017 13:33 .N/
[2017-03-14 14:17] LABS: ALANINE AMINOTRANSFERASE 32 IU/L (13-69); ALBUMIN 3.6 g/dl (3.3-4.9); ALBUMIN/GLOBULIN RATIO 1.38; ALKALINE PHOSPHATASE 67 IU/L (42-121); ANION GAP 11 (8-16); ASPARTATE AMINO TRANSFERASE 18 IU/L (15-46); BLOOD UREA NITROGEN 9 mg/dl (7-20); CALCIUM 9.2 mg/dl (8.4-10.2); CARBON DIOXIDE 29 mmol/L (21-31); CHLORIDE 105 mmol/L (97-110); CREATININE 0.64 mg/dl (0.44-1.00); GLUCOSE 87 mg/dl (70-220); POTASSIUM 3.8 mmol/L (3.5-5.1); SODIUM 141 mmol/L (135-144); TOTAL PROTEIN 6.2 g/dl (6.1-8.1)
[2017-03-14 14:29] LABS: TROPONIN-I < 0.012 ng/ml (0.00-0.12)
[2017-03-14] MEDS ORDERED: ACETAMINOPHEN 325 MG TAB PO ONE (15:30)
[2017-03-14] MEDS ORDERED: KETOROLAC 15 MG INJ IV STA (17:33)
--- NOTE | 2017-03-14 18:16 | HP ---
Date/Time of Note Date/Time of Note DATE: 03/14/17 TIME: 18:03 Assessment/Plan VTE Prophylaxis VTE Prophylaxis Intervention: heparin Lines/Catheters Urinary Cath still in place: No Assessment/Plan Assessment/Plan 1. Status post fall, likely medication related 2. History of benzodiazepine dependence and previous overdoses 3. Bipolar disorder with severe anxiety 4. Dyslipidemia 5. High blood pressure 6. Tobacco and marijuana abuse 7. Previous GI bleed secondary to esophagitis and gastritis 8. COPD Plan: * Admit /rule out an acute coronary syndrome * Perform syncope workup with CT brain, carotid ultrasound, and 2D echo * Wean down benzodiazepine therapy to the minimum * Physical therapy evaluation /fall precautions * Smoking Cessation Therapy: Pt. was lectured for greater than 3 minutes on the health risks of continued smoking and the benefits of cessation and this will continue to be reinforced throughout hospitalization. * Resume home medication /bronchodilator therapy as needed * Further interventions per clinical course HPI/ROS Admit Date/Time Admit Date/Time March 14, 2017 Hx of Present Illness PRESENTING COMPLAINT: Syncope HISTORY OF PRESENTING COMPLAINT: This is a 71-year-old female with a medical history of high blood pressure, bipolar disorder, renal cancer who presents today because of weakness and fall. Per report the patient lost her balance, fell and hit her nose and hit her head on the pavement. Patient also reported flulike symptoms for the last 3-4 days with cough, abdominal pain, back pain. She also endorses chest pain. Patient is a poor historian and seems to hurt all over. Patient is said to have a history of benzodiazepine dependence and has had overdoses in the past. She also smokes daily and uses marijuana daily ROS 12 point review if systems was done and pertinent findings are as noted. PMH/Family/Social Past Medical History 1. Kidney cancer 2. Bipolar disorder Past Surgical History 1. Left hip replacement 2015 2. Kidney surgery 2015 3. Hysterectomy 1982 4. Appendectomy Past Surgical Hx: appendectomy, other Family History Significant Family History: other (Not pertinent) Social History Alcohol Use: occasionally Smoking Status: Current every day smoker Drug Use: marijuana Exam/Review of Systems Vital Signs Vitals Vital Signs Date Time Temp Pulse Resp B/P Pulse Ox O2 Delivery O2 Flow Rate FiO2 03/14/17 17:12 76 18 138/90 98 Nasal Cannula 03/14/17 15:53 2.0 03/14/17 12:03 98.9 Exam Exam GENERAL: Patient is alert, oriented x 3, in no apparent distress; does not appear acutely or chronically ill. Patient is able to sit up unassisted.Patient makes good eye contact, is conversant, interactive, coherent. Patient appears calm and comfortable and is able to follow commands. HEENT: Oropharynx is clear. There is no carotid bruit, no masses. Patient's pupils are equal, round and reactive to light bilaterally. Extraocular motions are intact. There is no scleral icterus. There is no facial asymmetry. Abrasion noted on nose NECK: Supple. LUNGS: Clear to auscultation bilaterally with good air entry. No Wheezes or crackles. HEART: S1, S2. No murmur, gallops or rubs. Regular rate and rhythm. ABDOMEN: Soft, nontender. Normoactive bowel sounds. There are no stigmata of chronic liver disease. BACK: no costovertebral angle tenderness. GENITOURINARY: Deferred. EXTREMITIES: No edema. There is no cyanosis, clubbing. There are 2+ pulses bilaterally distally. NEUROLOGIC: The patient has no lateralizing signs. Cranial nerves II-XII are intact. SKIN: Otherwise, unremarkable. Labs Result Diagram: 03/14/17 1250 03/14/17 1348 Procedures Procedures Laboratory Tests Test 03/14/17 12:26 03/14/17 12:50 03/14/17 13:48 Urine Color LT. YELLOW Urine Clarity CLEAR Urine pH 5.5 Urine Specific [place] 1.020 Urine Ketones NEGATIVE Urine Nitrite NEGATIVE Urine Bilirubin NEGATIVE Urine Urobilinogen 0.2 E.U./dL Urine Leukocyte Esterase NEGATIVE Urine Microscopic RBC 0-2/HPF Urine Microscopic WBC 0-2/HPF Urine Epithelial Cells RARE Urine Bacteria RARE Urine Hemoglobin 1+ Urine Glucose NEGATIVE% Urine Total Protein NEGATIVE White Blood Count 6.410^3/ul Red Blood Count 4.4910^6/ul Hemoglobin 14.1g/dl Hematocrit 44.2% Mean Corpuscular Volume 98.4fl Mean Corpuscular Hemoglobin 31.4pg Mean Corpuscular Hemoglobin Concent 31.9g/dl Red Cell Distribution Width 12.6% Platelet Count 58615^3/UL Mean Platelet Volume 11.7fl Neutrophils % 56.4% Lymphocytes % 34.4% Monocytes % 6.7% Eosinophils % 2.0% Basophils % 0.3% Nucleated Red Blood Cells % 0.0/100WBC Neutrophils # 3.610^3/ul Lymphocytes # 2.210^3/ul Monocytes # 0.410^3/ul Eosinophils # 0.110^3/ul Basophils # 0.010^3/ul Nucleated Red Blood Cells # 0.010^3/ul Sodium Level 141mmol/L Potassium Level 3.8mmol/L Chloride Level 105mmol/L Carbon Dioxide Level 29mmol/L Anion Gap 11 Blood Urea Nitrogen 9mg/dl Creatinine 0.64mg/dl Glucose Level 87mg/dl Calcium Level 9.2mg/dl Total Bilirubin 0.0mg/dl Direct Bilirubin 0.00mg/dl Indirect Bilirubin 0.0mg/dl Aspartate Amino Transf (AST/SGOT) 18IU/L Alanine Aminotransferase (ALT/SGPT) 32IU/L Alkaline Phosphatase 67IU/L Troponin I < 0.012ng/ml Total Protein 6.2g/dl Albumin 3.6g/dl Globulin 2.60g/dl Albumin/Globulin Ratio 1.38 Lipase < 10U/L Emergency room interventions Medications (Trade) Dose Ordered Sig/Micha Route PRN Reason Start Time Stop Time Status Last Admin Dose Admin Sodium Chloride 1,000 ml @ 1,000 mls/hr Q1H STAT IV 03/14/17 12:06 03/14/17 13:05 DC 03/14/17 12:06 1,000 MLS/HR Sodium Chloride (NS) 1,000 ml @ 1,000 mls/hr Q1H ONCE IV 03/14/17 13:30 03/14/17 14:29 DC 03/14/17 15:43 1,000 MLS/HR Acetaminophen (Tylenol Tab) 650 mg ONCE ONCE PO 03/14/17 15:30 03/14/17 15:31 DC 03/14/17 15:30 650 MG Ketorolac Tromethamine (Toradol) 15 mg ONCE STAT IV 03/14/17 17:33 03/14/17 17:34 DC 03/14/17 17:39 15 MG PROCEDURE: CT Brain without. CLINICAL INDICATION: Fall, weak. TECHNIQUE: A CT of the brain was performed on multidetector high-resolution CT scanner utilizing axial sections from the skull base through the vertex without contrast. The scan was reviewed in soft tissue brain and high frequency resolution bone algorithm windows. Images were reviewed on a high- resolution PACS workstation. One or more the following does reduction techniques were utilized: Automated exposure control, adjustment of the mA/ or kV according to patient's size, or use of iterative reconstruction technique. The exam CTDI = 43.60 mGy and the DLP = 630.2 mGy-cm. COMPARISON: Brain CT 02/24/2017. FINDINGS: The ventricles and sulci are mildly prominent indicative of volume loss. There is no intracranial hemorrhage, mass effect or midline shift. No abnormal intra- axial or extra-axial fluid collections are seen. The barragan/white matter differentiation is preserved. There are mild scattered foci of hypoattenuation in the white matter, which are nonspecific in etiology but likely reflect chronic small vessel ischemic changes. There are mild intracranial vascular calcifications consistent with atherosclerosis. The visualized paranasal sinuses demonstrate trace scattered mucosal thickening mainly in ethmoid air cells. The mastoid air cells are essentially clear. IMPRESSION: 1. No acute intracranial hemorrhage, transcortical infarction or mass effect. 2. Mild intracranial atherosclerosis and chronic small vessel ischemic changes. 3. Mild generalized cerebral volume loss. RPTAT: HFN .Abundio Fan MD, MD Date Time Electronically viewed and signed by .Abundio Fan MD, MD on 03/14/2017 13: 33 .N/ CC: JOHANNA BERNARD MD PROCEDURE: XR Chest. CLINICAL INDICATION: Infiltrates TECHNIQUE: Chest AP portable. COMPARISON: 12/09/2016 FINDINGS: Bilateral breast implants. The mediastinal structures are unremarkable. There is calcification of the thoracic aorta (consistent with atherosclerosis). There is mild cardiomegaly. The pulmonary vascularity is normal. The lung hooper are unremarkable. No consolidation is identified. The pleural spaces are unremarkable. The osseous structures are unremarkable. IMPRESSION: Calcification of the thoracic aorta (consistent with atherosclerosis) Mild cardiomegaly No active intrathoracic disease RPTAT: HGDB .Steven Jay MD, MD Date Time Electronically viewed and signed by .Steven Jay MD, MD on 03/14/2017 12:33 .B/ CC: JOHANNA BERNARD MD I reviewed EKG Rate: Within normal limits Rhythm: sinus Note: No ST elevation or depressions noted concerning for acute ischemic event. HIMANSHU BATRES March 14, 2017 18:14
[2017-03-14 20:00] VITALS: BP 144/84; PULSE 70; RESP 17
[2017-03-14] MEDS ORDERED: NACL 0.9% 3 ML SYG IV SCH (21:00)
[2017-03-14] MEDS ORDERED: ACETAMINOPHEN 325 MG TAB PO PRN (21:00)
[2017-03-14] MEDS ORDERED: LORAZEPAM 0.5 MG TAB PO PRN (21:00)
[2017-03-14] MEDS ORDERED: SOD CHLORIDE 0.9% 500 ML IV ONE (21:30)
[2017-03-14] MEDS: ATORVASTATIN 10 MG TAB PO SCH (22:41)
[2017-03-14] MEDS: OLANZAPINE 5 MG TAB PO SCH (22:41)
[2017-03-14] MEDS: ENOXAPARIN 40 MG/0.4 ML SYG SC SCH (22:42)
[2017-03-14] MEDS: AMLODIPINE 5 MG TAB PO SCH (22:42)
[2017-03-14 23:20] VITALS: BP 143/83; RESP 15
[2017-03-15] VITALS (13 sets, daily range): BP systolic 94–134; BP diastolic 55–80; PULSE 66–80; RESP 15–20
[2017-03-15] MEDS: PANTOPRAZOLE (EC) 40 MG TAB PO SCH (05:43)
[2017-03-15 06:54] LABS: ADD SCAN DIFF NO
[2017-03-15 06:58] LABS: BASOPHILS % 0.6 % (0.0-2.0); EOSINOPHILS # 0.1 10^3/ul (0.0-0.5); EOSINOPHILS % 2.1 % (0.0-7.0); HEMOGLOBIN 13.1 g/dl (12.0-16.0); LYMPHOCYTES # 2.8 10^3/ul (0.8-2.9); LYMPHOCYTES % 44.2 % (15.0-51.0); MEAN CORPUSCULAR HEMOGLOBIN 31.3 pg (29.0-33.0); MEAN CORPUSCULAR VOLUME 97.9 fl (82.0-101.0); MEAN PLATELET VOLUME 12.1 fl (7.4-10.4); MONOCYTE # 0.4 10^3/ul (0.3-0.9); MONOCYTES % 6.7 % (0.0-11.0); NEUTROPHIL # 2.9 10^3/ul (1.6-7.5); NEUTROPHILS % 46.1 % (39.0-77.0); PLATELET COUNT 158 10^3/UL (140-415); RED BLOOD COUNT 4.19 10^6/ul (4.20-5.40); RED CELL DISTRIBUTION WIDTH 12.5 % (11.5-14.5); WHITE BLOOD COUNT 6.3 10^3/ul (4.8-10.8)
[2017-03-15 07:12] LABS: ALBUMIN 3.3 g/dl (3.3-4.9)
[2017-03-15 07:13] LABS: POTASSIUM 3.7 mmol/L (3.5-5.1)
[2017-03-15 07:15] LABS: ALBUMIN/GLOBULIN RATIO 1.26; BILIRUBIN,INDIRECT 0.1 mg/dl (0-1.1); BILIRUBIN,TOTAL 0.1 mg/dl (0.2-1.3); CREATININE 0.61 mg/dl (0.44-1.00); TOTAL PROTEIN 5.9 g/dl (6.1-8.1)
[2017-03-15 07:16] LABS: CALCIUM 8.8 mg/dl (8.4-10.2)
[2017-03-15 08:52] LABS: BARBITURATES NEGATIVE (NEGATIVE); BENZODIAZEPINES NEGATIVE (NEGATIVE); CANNABINOIDS NEGATIVE (NEGATIVE); COCAINE NEGATIVE (NEGATIVE); OPIATES POSITIVE (NEGATIVE)
[2017-03-15] MEDS: OLANZAPINE 5 MG TAB PO SCH (09:15)
[2017-03-15] MEDS: AMLODIPINE 5 MG TAB PO SCH (09:15)
[2017-03-15] MEDS: ENOXAPARIN 40 MG/0.4 ML SYG SC SCH (09:17)
--- NOTE | 2017-03-15 13:58 | PN ---
Date/Time of Note Date/Time of Note DATE: 03/15/17 TIME: 13:57 Assessment/Plan VTE Prophylaxis VTE Prophylaxis Intervention: SCD's Lines/Catheters IV Catheter Type (from Nrs): Saline Lock Urinary Cath still in place: Yes Reason Cath still needed: urinary retention Assessment/Plan Assessment/Plan 1. Status post fall, likely medication related 2. History of benzodiazepine dependence and previous overdoses 3. Bipolar disorder with severe anxiety 4. Dyslipidemia 5. High blood pressure 6. Tobacco and marijuana abuse 7. Previous GI bleed secondary to esophagitis and gastritis 8. COPD Plan: Continue current care BP stable afebrile Exam/Review of Systems Vital Signs Vitals Vital Signs Date Time Temp Pulse Resp B/P Pulse Ox O2 Delivery O2 Flow Rate FiO2 03/15/17 12:16 98.0 85 18 125/80 98 03/15/17 02:04 Nasal Cannula 2.0 Intake and Output 03/14/17 03/14/17 03/15/17 15:00 23:00 07:00 Intake Total 1000 ml 1300 ml Balance 1000 ml 1300 ml Exam GENERAL: awake, alert HEENT: Oropharynx is clear. There is no carotid bruit, no masses. Patient's pupils are equal, round and reactive to light bilaterally. Extraocular motions are intact. There is no scleral icterus. There is no facial asymmetry. Abrasion noted on nose LUNGS: Clear to auscultation bilaterally with good air entry. No Wheezes or crackles. HEART: S1, S2. No murmur, gallops or rubs. Regular rate and rhythm. ABDOMEN: Soft, nontender. Normoactive bowel sounds. There are no stigmata of chronic liver disease. EXTREMITIES: No edema. There is no cyanosis, clubbing. There are 2+ pulses bilaterally distally. NEUROLOGIC: The patient has no lateralizing signs. Cranial nerves II-XII are intact. Results Result Diagram: 03/15/17 0603/15/17 06 Results 24 hrs Laboratory Tests Test 03/14/17 20:00 03/15/17 06:05 Urine Opiates Screen POSITIVE Urine Barbiturates NEGATIVE Urine Amphetamines Screen NEGATIVE Urine Benzodiazepines Screen NEGATIVE Urine Cocaine Screen NEGATIVE Urine Cannabinoids NEGATIVE White Blood Count 6.3 Red Blood Count 4.19 L Hemoglobin 13.1 Hematocrit 41.0 Mean Corpuscular Volume 97.9 Mean Corpuscular Hemoglobin 31.3 Mean Corpuscular Hemoglobin Concent 32.0 Red Cell Distribution Width 12.5 Platelet Count 158 Mean Platelet Volume 12.1 H Neutrophils % 46.1 Lymphocytes % 44.2 Monocytes % 6.7 Eosinophils % 2.1 Basophils % 0.6 Nucleated Red Blood Cells % 0.0 Neutrophils # 2.9 Lymphocytes # 2.8 Monocytes # 0.4 Eosinophils # 0.1 Basophils # 0.0 Nucleated Red Blood Cells # 0.0 Sodium Level 144 Potassium Level 3.7 Chloride Level 106 Carbon Dioxide Level 27 Anion Gap 15 Blood Urea Nitrogen 8 Creatinine 0.61 Glucose Level 80 Calcium Level 8.8 Total Bilirubin 0.1 L Direct Bilirubin 0.00 Indirect Bilirubin 0.1 Aspartate Amino Transf (AST/SGOT) 20 Alanine Aminotransferase (ALT/SGPT) 34 Alkaline Phosphatase 65 Total Protein 5.9 L Albumin 3.3 Globulin 2.60 Albumin/Globulin Ratio 1.26 Medications Medications Current Medications Amlodipine Besylate (Norvasc) 5 mg DAILY PO Last administered on 03/15/17 09: 15; Admin Dose 5 MG; Start 03/14/17 at 21:00 Atorvastatin Calcium (Lipitor) 10 mg QHS PO Last administered on 03/14/17 22: 41; Admin Dose 10 MG; Start 03/14/17 at 21:00 Olanzapine (Zyprexa) 5 mg DAILY PO Last administered on 03/15/17 09:15; Admin Dose 5 MG; Start 03/14/17 at 21:00 Pantoprazole (Protonix Tab) 40 mg DAILY@06 PO Last administered on 03/15/17 05 :43; Admin Dose 40 MG; Start 03/15/17 at 06:00 Lorazepam (Ativan) 0.5 mg Q8H PRN PO ANXIETY; Start 03/14/17 at 21:00 Acetaminophen (Tylenol Tab) 650 mg Q6H PRN PO PAIN LEVEL 1-3 OR FEVER; Start at 21:00 Acetaminophen/ Hydrocodone Bitart ([place] (5/325)) 1 tab Q6H PRN PO PAIN LEVEL 4 -6; Start 03/14/17 at 21:00 Zolpidem Tartrate (Ambien) 5 mg QHS PRN PO INSOMNIA; Start 03/14/17 at 21:00 Enoxaparin Sodium (Lovenox) 40 mg DAILY SC Last administered on 03/15/17 09:17 ; Admin Dose 40 MG; Start 03/14/17 at 21:00 GURU DUMONT MD March 15, 2017 13:58
[2017-03-15] MEDS: ATORVASTATIN 10 MG TAB PO SCH (20:54)
[2017-03-15] MEDS: ZOLPIDEM 5 MG TAB PO PRN (21:54)
[2017-03-16] VITALS (11 sets, daily range): BP systolic 116–134; BP diastolic 68–86; PULSE 60–79; RESP 16–20
[2017-03-16] MEDS: PANTOPRAZOLE (EC) 40 MG TAB PO SCH (06:33)
[2017-03-16] MEDS: OLANZAPINE 5 MG TAB PO SCH (08:19)
[2017-03-16] MEDS: AMLODIPINE 5 MG TAB PO SCH (08:19)
[2017-03-16] MEDS: ENOXAPARIN 40 MG/0.4 ML SYG SC SCH (08:23)
[2017-03-16] MEDS: HYDROCODONE/APAP (5/325) TAB PO PRN ×2 (11:43→19:53)
[2017-03-16] MEDS: clonAZEPAM 0.5 MG TAB PO SCH ×2 (11:44→21:10)
--- NOTE | 2017-03-16 14:22 | PN ---
Date/Time of Note Date/Time of Note DATE: 03/16/17 TIME: 14:21 Assessment/Plan VTE Prophylaxis VTE Prophylaxis Intervention: SCD's Lines/Catheters IV [facility] Saline Lock Urinary Cath still in place: No Assessment/Plan Assessment/Plan 1. Status post fall, likely medication related 2. History of benzodiazepine dependence and previous overdoses 3. Bipolar disorder with severe anxiety 4. Dyslipidemia 5. High blood pressure 6. Tobacco and marijuana abuse 7. Previous GI bleed secondary to esophagitis and gastritis 8. COPD Plan: Continue current care BP stable afebrile PT evaluation Transfer to med/surge floor Subjective 24 Hr Interval Summary Free Text/Dictation pt still litter confused, BP stable Exam/Review of Systems Vital Signs Vitals Vital Signs Date Time Temp Pulse Resp B/P Pulse Ox O2 Delivery O2 Flow Rate FiO2 03/16/17 12:34 71 03/16/17 12:22 98.0 18 121/70 98 03/15/17 02:04 Nasal Cannula 2.0 Intake and Output 03/15/17 03/15/17 03/16/17 15:00 23:00 07:00 Intake Total 750 ml Output Total 1500 ml Balance -750 ml Exam GENERAL: awake, alert HEENT: SHERLEY, EOMI LUNGS: Clear to auscultation bilaterally with good air entry. No Wheezes or crackles. HEART: S1, S2. No murmur, gallops or rubs. Regular rate and rhythm. ABDOMEN: Soft, nontender. Normoactive bowel sounds. There are no stigmata of chronic liver disease. EXTREMITIES: No edema. There is no cyanosis, clubbing. There are 2+ pulses bilaterally distally. NEUROLOGIC: The patient has no lateralizing signs. Cranial nerves II-XII are intact. Results Result Diagram: 03/15/1760403/15/17604 Medications Medications Current Medications Amlodipine Besylate (Norvasc) 5 mg DAILY PO Last administered on 03/16/17 08: 19; Admin Dose 5 MG; Start 03/14/17 at 21:00 Atorvastatin Calcium (Lipitor) 10 mg QHS PO Last administered on 03/15/17 20: 54; Admin Dose 10 MG; Start 03/14/17 at 21:00 Olanzapine (Zyprexa) 5 mg DAILY PO Last administered on 03/16/17 08:19; Admin Dose 5 MG; Start 03/14/17 at 21:00 Pantoprazole (Protonix Tab) 40 mg DAILY@06 PO Last administered on 03/16/17 06 :33; Admin Dose 40 MG; Start 03/15/17 at 06:00 Lorazepam (Ativan) 0.5 mg Q8H PRN PO ANXIETY; Start 03/14/17 at 21:00 Acetaminophen (Tylenol Tab) 650 mg Q6H PRN PO PAIN LEVEL 1-3 OR FEVER; Start at 21:00 Acetaminophen/ Hydrocodone Bitart ([place] (5/325)) 1 tab Q6H PRN PO PAIN LEVEL 4 -6 Last administered on 03/16/17 11:43; Admin Dose 1 TAB; Start 03/14/17 at 21: 00 Zolpidem Tartrate (Ambien) 5 mg QHS PRN PO INSOMNIA Last administered on 21:54; Admin Dose 5 MG; Start 03/14/17 at 21:00 Enoxaparin Sodium (Lovenox) 40 mg DAILY SC Last administered on 03/16/17 08:23 ; Admin Dose 40 MG; Start 03/14/17 at 21:00 Clonazepam (Klonopin) 1 mg BID PO Last administered on 03/16/17 11:44; Admin Dose 1 MG; Start 03/16/17 at 11:30 Gabapentin (Neurontin) 100 mg BID PO ; Start 03/16/17 at 14:30 GURU DUMONT MD March 16, 2017 14:22
[2017-03-16] MEDS: GABAPENTIN 100 MG CAP PO SCH ×2 (15:06→21:10)
[2017-03-16] MEDS: morphine 2 MG INJ IV PRN ×2 (16:11→22:19)
[2017-03-16] MEDS: ATORVASTATIN 10 MG TAB PO SCH (21:10)
[2017-03-16] MEDS: ZOLPIDEM 5 MG TAB PO PRN (23:39)
[2017-03-17] MEDS: morphine 2 MG INJ IV PRN ×5 (04:23→21:55)
[2017-03-17 06:15] LABS: ADD SCAN DIFF NO
[2017-03-17 06:24] LABS: BASOPHILS % 0.3 % (0.0-2.0); EOSINOPHILS # 0.2 10^3/ul (0.0-0.5); EOSINOPHILS % 2.6 % (0.0-7.0); HEMATOCRIT 39.6 % (37.0-47.0); HEMOGLOBIN 12.7 g/dl (12.0-16.0); LYMPHOCYTES # 2.3 10^3/ul (0.8-2.9); LYMPHOCYTES % 40.6 % (15.0-51.0); MEAN CORPUSCULAR HEMOGLOBIN 31.4 pg (29.0-33.0); MEAN CORPUSCULAR HGB CONC 32.1 g/dl (32.0-37.0); MEAN PLATELET VOLUME 11.7 fl (7.4-10.4); MONOCYTE # 0.6 10^3/ul (0.3-0.9); MONOCYTES % 9.7 % (0.0-11.0); NEUTROPHIL # 2.7 10^3/ul (1.6-7.5); NEUTROPHILS % 46.6 % (39.0-77.0); PLATELET COUNT 147 10^3/UL (140-415); RED BLOOD COUNT 4.04 10^6/ul (4.20-5.40); RED CELL DISTRIBUTION WIDTH 12.7 % (11.5-14.5); WHITE BLOOD COUNT 5.8 10^3/ul (4.8-10.8)
[2017-03-17 06:51] LABS: CREATININE 0.76 mg/dl (0.44-1.00); POTASSIUM 4.1 mmol/L (3.5-5.1)
[2017-03-17] MEDS: PANTOPRAZOLE (EC) 40 MG TAB PO SCH (06:53)
[2017-03-17 07:02] LABS: INR 0.94; PROTIME 12.6 Sec (12.2-14.2)
[2017-03-17 07:05] LABS: PARTIAL THROMBOPLASTIN TIME 27.5 Sec (25.0-35.0)
[2017-03-17 07:20] VITALS: BP 126/74; RESP 18
[2017-03-17] MEDS: OLANZAPINE 5 MG TAB PO SCH (08:24)
[2017-03-17] MEDS: GABAPENTIN 100 MG CAP PO SCH ×2 (08:25→20:26)
[2017-03-17] MEDS: AMLODIPINE 5 MG TAB PO SCH (08:25)
[2017-03-17] MEDS: clonAZEPAM 0.5 MG TAB PO SCH ×2 (08:25→20:26)
[2017-03-17] MEDS: ENOXAPARIN 40 MG/0.4 ML SYG SC SCH (08:26)
--- NOTE | 2017-03-17 16:08 | PN ---
Date/Time of Note Date/Time of Note DATE: 03/17/17 TIME: 16:05 Assessment/Plan VTE Prophylaxis VTE Prophylaxis Intervention: LMWH Lines/Catheters IV [facility]from [facility] Saline Lock Urinary Cath still in place: No Assessment/Plan Assessment/Plan 1. Status post fall, poor balance, follow up with [facility] 2. History of benzodiazepine dependence and previous overdoses 3. Bipolar disorder with severe anxiety 4. Dyslipidemia 5. High blood pressure 6. Tobacco and marijuana abuse 7. Previous GI bleed secondary to esophagitis and gastritis 8. COPD, stable 9. DVT prophylaxis: lovenox Subjective 24 Hr Interval Summary Free Text/Dictation generalized weakness Exam/Review of Systems Vital Signs Vitals Vital Signs Date Time Temp Pulse Resp B/P Pulse Ox O2 Delivery O2 Flow Rate FiO2 03/17/17 07:20 98.8 65 18 126/74 93 03/16/17 18:36 Room Air 03/15/17 02:04 2.0 Intake and Output 03/16/17 03/16/17 03/17/17 15:00 23:00 07:00 Intake Total 300 ml 900 ml 500 ml Output Total 1300 ml Balance 300 ml -400 ml 500 ml Exam Constitutional: alert, oriented, well developed Psych: nl mood/affect, no complaints Head: atraumatic, normocephalic Eyes: EOMI, PERRL, nl conjunctiva, nl lids, nl sclera ENMT: nl external ears & nose, nl lips & teeth, nl nasal mucosa & septum Neck: non-tender, supple Respiratory: clear to auscultation, normal air movement, No congested cough, No crackles/rales, No diminished breath sounds, No intercostal retraction, No labored breathing, No other, No respirations, No tactile fremitus, No wheezing Cardiovascular: nl pulses, regular rate and rhythm, No S3, No S4, No bruits, No diastolic murmur, No edema, No gallop, No irregular rhythm, No jugular venous distention (JVD), No murmurs/extra sounds, No other, No rub, No systolic murmur Gastrointestinal: nl liver, spleen, non-tender, soft, No ascites, No bowel sounds, No distended, No firm, No hepatomegaly, No mass , No other, No rebound or guarding, No splenomegaly, No surgical scars, No tender Musculoskeletal: nl extremities to inspection Extremities: normal pulses, No calf tenderness, No clubbing, No cyanosis, No edema, No other, No palpable cord, No pitting pedal edema, No tenderness 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: MATHEMATICIAN II-XII intact, nl mental status, nl speech, nl strength Skin: nl turgor Results Result Diagram: 03/17/17 0530 03/17/17 0530 Results 24 hrs Laboratory Tests Test 03/17/17 05:30 White Blood Count 5.8 Red Blood Count 4.04 L Hemoglobin 12.7 Hematocrit 39.6 Mean Corpuscular Volume 98.0 Mean Corpuscular Hemoglobin 31.4 Mean Corpuscular Hemoglobin Concent 32.1 Red Cell Distribution Width 12.7 Platelet Count 147 Mean Platelet Volume 11.7 H Neutrophils % 46.6 Lymphocytes % 40.6 Monocytes % 9.7 Eosinophils % 2.6 Basophils % 0.3 Nucleated Red Blood Cells % 0.0 Neutrophils # 2.7 Lymphocytes # 2.3 Monocytes # 0.6 Eosinophils # 0.2 Basophils # 0.0 Nucleated Red Blood Cells # 0.0 Prothrombin Time 12.6 Prothrombin Time Ratio 1.0 INR International Normalized Ratio 0.94 Activated Partial Thromboplast Time 27.5 Sodium Level 141 Potassium Level 4.1 Chloride Level 105 Carbon Dioxide Level 31 Anion Gap 9 # Blood Urea Nitrogen 16 Creatinine 0.76 Glucose Level 96 Calcium Level 9.0 Medications Medications Current Medications Amlodipine Besylate (Norvasc) 5 mg DAILY PO Last administered on 03/17/17 08: 25; Admin Dose 5 MG; Start 03/14/17 at 21:00 Atorvastatin Calcium (Lipitor) 10 mg QHS PO Last administered on 03/16/17 21: 10; Admin Dose 10 MG; Start 03/14/17 at 21:00 Olanzapine (Zyprexa) 5 mg DAILY PO Last administered on 03/17/17 08:24; Admin Dose 5 MG; Start 03/14/17 at 21:00 Pantoprazole (Protonix Tab) 40 mg DAILY@06 PO Last administered on 03/17/17 06 :53; Admin Dose 40 MG; Start 03/15/17 at 06:00 Lorazepam (Ativan) 0.5 mg Q8H PRN PO ANXIETY; Start 03/14/17 at 21:00 Acetaminophen (Tylenol Tab) 650 mg Q6H PRN PO PAIN LEVEL 1-3 OR FEVER; Start at 21:00 Acetaminophen/ Hydrocodone Bitart ([place] (5/325)) 1 tab Q6H PRN PO PAIN LEVEL 4 -6 Last administered on 03/16/17 19:53; Admin Dose 1 TAB; Start 03/14/17 at 21: 00 Zolpidem Tartrate (Ambien) 5 mg QHS PRN PO INSOMNIA Last administered on 23:39; Admin Dose 5 MG; Start 03/14/17 at 21:00 Enoxaparin Sodium (Lovenox) 40 mg DAILY SC Last administered on 03/17/17 08:26 ; Admin Dose 40 MG; Start 03/14/17 at 21:00 Clonazepam (Klonopin) 1 mg BID PO Last administered on 03/17/17 08:25; Admin Dose 1 MG; Start 03/16/17 at 11:30 Gabapentin (Neurontin) 100 mg BID PO Last administered on 03/17/17 08:25; Admin Dose 100 MG; Start 03/16/17 at 14:30 Morphine Sulfate (morphine) 2 mg Q4H PRN IV PAIN LEVEL 6-10 Last administered on 03/17/17 14:31; Admin Dose 2 MG; Start 03/16/17 at 16:00 RADHA BROWN MD March 17, 2017 16:08
--- NOTE | 2017-03-17 18:20 | RADRPT ---
AMENDMENT: 03/17/2017 6:38:05 PM Qiana Cortez M.D Addendum: The following statements should supersede the respective paragraph noted below: T5-6: A 2mm central disk protrusion is present. RPTAT: HDC PROCEDURE: MRI thoracic spine without contrast CLINICAL INDICATION: Intractable back pain with lower extremity neuropathy TECHNIQUE: An MRI of the thoracic spine was performed on a 3.0 [employer] GE MRI scanner utilizing the following sequences: Sagittal T1 weighted, sagittal and axial T2 weighted, axial T2 GRE, and sagitta l T2 fat saturation. COMPARISON: No relevant priors FINDINGS: There is a normal kyphosis of the thoracic spine. Vertebral body compression fracture with approxima tely cc 6 vertebral body height loss is noted at the T7 level. T1 hypo to intermediate signal intens ity anteriorly and T2 fat saturation hyperintensity is noted compatible with an acute vertebral body compression fracture. No definite retropulsion into the spinal canal is present. This is most com patible with an osteoporotic compression fracture. The remainder of the vertebral body heights and s ignal correspond of Modic type 2 degenerative endplate changes at the T5-6, T6-7 and T7-8 levels. T he intervertebral discs demonstrate normal signal intensity and height. The visualized portions of t he cervical and the thoracic cord are normal with normal conus termination at the T12-L1 level. At all axial levels imaged, no evidence for significant protrusions or extrusions or stenosis is not ed with exception of the following levels: T5-6: An 8 2 mm central disk protrusion is present. AP canal dimension is 9 mm. This results in a mild central canal stenosis without subarticular rece ss or neural foraminal stenosis. The visualized bilateral paravertebral soft tissues are remarkable for subsegmental bibasilar discoi d atelectasis. IMPRESSION: 1. Acute T7 vertebral body compression fracture with approximately 66% vertebral body height loss a nd no retropulsion into the spinal canal. Recommend interventional radiology consultation for evalu ation for potential kyphoplasty or vertebral plasty. 2. Normal cord and conus termination. 3. 2 mm central disk protrusion at T5-6 with mild central canal stenosis. RPTAT: HDC .Qiana Cortez MD, Date Time Electronically viewed and signed by .Qiana Cortez MD, on 03/17/2017 18:38 .C/
--- NOTE | 2017-03-17 18:33 | RADRPT ---
PROCEDURE: MRI lumbar spine CLINICAL INDICATION: Intractable back pain and lower extremity neuropathy TECHNIQUE: An MRI of the lumbar spine was performed on a 3.0 [employer] high resolution high definit ion, MRI scanner utilizing the following sequences: Sagittal T1 weighted, sagittal and dual echo axi al T2 weighted, and sagittal T2 weighted with fat saturation. COMPARISON: Thoracic spine MRI on same date FINDINGS: There is a normal lordosis of the lumbar spine. Preservation of vertebral body heights and signal are noted. The intervertebral discs demonstrate a early disk desiccation at the L1-2 through L4-5 l evels. The conus terminates normally at the T12 level. The bilateral paravertebral soft tissues are normal. The specific axial levels are as follows: T12 - L1: The disk is normal in appearance. The central canal, subarticular recess, and neural fo ramen are patent. Mild bilateral facet arthropathy is present. L1 - L2: Early disk desiccation is present with a mild annular bulge. Mild bilateral facet arthrop athy is present. The central canal, subarticular recess and neural foramen are patent . L2 - L3: Early disk desiccation is present. Mild bilateral facet arthropathy and ligamentum hypertr ophy is present. The central canal, subarticular recess, and neural foramen are patent. L3 - L4: Disk desiccation is present with a mild 2 mm annular bulge. Mild bilateral facet arthropa thy and ligamentum hypertrophy is present. The central canal, subarticular recess, and the bilatera l neural foramen are patent. L4 - L5: Early disk desiccation is present. A mild broad-based bulge is present with a central 3 m m disk protrusion. Moderate bilateral facet arthropathy is present with ligamentum hypertrophy. T he central canal, subarticular recess and neural foramen are patent. L5 - S1: The intervertebral disc is normal. A mild broad-based bulge is present with a small left subarticular recess 2 mm disk protrusion and annular tear. The central canal, subarticular recess a nd neural foramen are patent. IMPRESSION: 1. No evidence for acute fractures, traumatic subluxations, or spondylolisthesis or lysis. 2. Multilevel disk desiccation at the L1-2 through L4-5 levels with mild broad-based bulges at the L3-4 through L5-S1 levels. 3. Central 3 mm disk protrusion at L4-5 4. Small 2 mm central and left subarticular recess disk protrusion and annular tear. RPTAT: HDC .Qiana Cortez MD, MD Date Time Electronically viewed and signed by .Qiana Cortez MD, MD on 03/17/2017 18:32 .C/
[2017-03-17] MEDS: ZOLPIDEM 5 MG TAB PO PRN (20:26)
[2017-03-17] MEDS: ATORVASTATIN 10 MG TAB PO SCH (20:26)
[2017-03-17 22:02] VITALS: BP 116/71; RESP 18
[2017-03-18] MEDS: morphine 2 MG INJ IV PRN ×7 (00:57→22:27)
[2017-03-18] MEDS: PANTOPRAZOLE (EC) 40 MG TAB PO SCH (05:52)
[2017-03-18 07:43] VITALS: BP 94/54; RESP 18
[2017-03-18] MEDS: OLANZAPINE 5 MG TAB PO SCH (08:25)
[2017-03-18] MEDS: clonAZEPAM 0.5 MG TAB PO SCH ×2 (08:25→20:49)
[2017-03-18] MEDS: GABAPENTIN 100 MG CAP PO SCH ×2 (08:25→20:49)
[2017-03-18] MEDS: ENOXAPARIN 40 MG/0.4 ML SYG SC SCH (08:25)
[2017-03-18] MEDS: AMLODIPINE 5 MG TAB PO SCH (08:26)
--- NOTE | 2017-03-18 13:40 | PN ---
Date/Time of Note Date/Time of Note DATE: 03/18/17 TIME: 13:32 Assessment/Plan VTE Prophylaxis VTE Prophylaxis Intervention: LMWH Lines/Catheters IV [facility] Saline Lock Urinary Cath still in place: No Assessment/Plan Assessment/Plan 1. Status post fall, T7 compression fracture, neurosurgery consult 2. History of benzodiazepine dependence and previous overdoses 3. Bipolar disorder with severe anxiety 4. Dyslipidemia 5. High blood pressure 6. Tobacco and marijuana abuse 7. Previous GI bleed secondary to esophagitis and gastritis 8. COPD, stable 9. DVT prophylaxis: lovenox Subjective 24 Hr Interval Summary Free Text/Dictation back pain Exam/Review of Systems Vital Signs Vitals Vital Signs Date Time Temp Pulse Resp B/P Pulse Ox O2 Delivery O2 Flow Rate FiO2 03/18/17 07:43 98.1 66 18 94/54 93 03/16/17 18:36 Room Air 03/15/17 02:04 2.0 Intake and Output 03/17/17 03/17/17 03/18/17 15:00 23:00 07:00 Intake Total 790 ml 240 ml Balance 790 ml 240 ml Exam Constitutional: alert, oriented, well developed Psych: nl mood/affect, no complaints Head: atraumatic, normocephalic Eyes: EOMI, nl conjunctiva, nl lids ENMT: nl external ears & nose, nl lips & teeth, nl nasal mucosa & septum Neck: non-tender, supple Respiratory: clear to auscultation, normal air movement, No congested cough, No crackles/rales, No diminished breath sounds, No intercostal retraction, No labored breathing, No other, No respirations, No tactile fremitus, No wheezing Cardiovascular: nl pulses, regular rate and rhythm, No S3, No S4, No bruits, No diastolic murmur, No edema, No gallop, No irregular rhythm, No jugular venous distention (JVD), No murmurs/extra sounds, No other, No rub, No systolic murmur Gastrointestinal: nl liver, spleen, non-tender, soft, No ascites, No bowel sounds, No distended, No firm, No hepatomegaly, No mass , No other, No rebound or guarding, No splenomegaly, No surgical scars, No tender Musculoskeletal: nl extremities to inspection Extremities: normal pulses, No calf tenderness, No clubbing, No cyanosis, No edema, No other, No palpable cord, No pitting pedal edema, No tenderness 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: [employer] II-XII intact, nl mental status, nl speech, nl strength Skin: nl turgor Lymph: nl lymph nodes Results Result Diagram: 03/17/1752903/17/17529 Medications Medications Current Medications Amlodipine Besylate (Norvasc) 5 mg DAILY PO Last administered on 03/17/17 08: 25; Admin Dose 5 MG; Start 03/14/17 at 21:00 Atorvastatin Calcium (Lipitor) 10 mg QHS PO Last administered on 03/17/17 20: 26; Admin Dose 10 MG; Start 03/14/17 at 21:00 Olanzapine (Zyprexa) 5 mg DAILY PO Last administered on 03/18/17 08:25; Admin Dose 5 MG; Start 03/14/17 at 21:00 Pantoprazole (Protonix Tab) 40 mg DAILY@06 PO Last administered on 03/18/17 05 :52; Admin Dose 40 MG; Start 03/15/17 at 06:00 Lorazepam (Ativan) 0.5 mg Q8H PRN PO ANXIETY; Start 03/14/17 at 21:00 Acetaminophen (Tylenol Tab) 650 mg Q6H PRN PO PAIN LEVEL 1-3 OR FEVER; Start at 21:00 Acetaminophen/ Hydrocodone Bitart ([place] (5/325)) 1 tab Q6H PRN PO PAIN LEVEL 4 -6 Last administered on 03/16/17 19:53; Admin Dose 1 TAB; Start 03/14/17 at 21: 00 Zolpidem Tartrate (Ambien) 5 mg QHS PRN PO INSOMNIA Last administered on 20:26; Admin Dose 5 MG; Start 03/14/17 at 21:00 Enoxaparin Sodium (Lovenox) 40 mg DAILY SC Last administered on 03/18/17 08:25 ; Admin Dose 40 MG; Start 03/14/17 at 21:00 Clonazepam (Klonopin) 1 mg BID PO Last administered on 03/18/17 08:25; Admin Dose 1 MG; Start 03/16/17 at 11:30 Gabapentin (Neurontin) 100 mg BID PO Last administered on 03/18/17 08:25; Admin Dose 100 MG; Start 03/16/17 at 14:30 Morphine Sulfate (morphine) 2 mg Q3 PRN IV PAIN LEVEL 6-10 Last administered on 03/18/17 12:30; Admin Dose 2 MG; Start 03/17/17 at 19:30 RADHA BROWN MD March 18, 2017 13:40
[2017-03-18 19:50] VITALS: BP 112/65; RESP 16
[2017-03-18] MEDS: ATORVASTATIN 10 MG TAB PO SCH (20:49)
[2017-03-18] MEDS: ZOLPIDEM 5 MG TAB PO PRN (23:38)
--- NOTE | 2017-03-18 23:54 | CONS ---
DATE OF ADMISSION: 03/15/2017 DATE OF CONSULTATION: 03/18/2017 TYPE OF CONSULTATION: Neurosurgical. REQUESTING PHYSICIAN: Dr. Rogers. INDICATION FOR CONSULTATION: Thoracic compression fracture. HISTORY OF PRESENT ILLNESS: The patient is a 71-year-old female with a history of multiple falls and chronic low back pain who apparently came to the ER complaining of generalized weakness and fall. The patient states she has fallen 5 times in the last month but has fallen many times before this. She states that she has back pain but does not state that this occurred after this recent fall, and she is not clear when the pain actually began. She states that she has pain in her knees, especially her left knee, and also had hip replacement 2 years ago. She also states that she feels she has neuropathy, at least this was her diagnosis she states that she came to. She states she has difficulty walking because her legs give out. She denies any loss of fine motor coordination or difficulty buttoning buttons, opening cans or changes in her writing. She denies any neck pain. She denies any headaches. PAST MEDICAL HISTORY: Significant for bipolar and anxiety disorder, dyslipidemia, hypertension, esophagitis, gastritis, COPD, also history of kidney cancer. PAST SURGICAL HISTORY: Significant for left hip replacement 2015, kidney surgery 2015, hysterectomy 1982 and appendectomy. FAMILY HISTORY: Denies any history of easy bruising or bleeding. SOCIAL HISTORY: The patient occasionally drinks alcohol. She is a smoker and occasionally uses marijuana. ALLERGIES: NO KNOWN DRUG ALLERGIES. REVIEW OF SYSTEMS: A 12-point review of systems performed. Pertinent positives , negatives listed in history of present illness and below. CONSTITUTIONAL: Denies any fevers or chills. HEMATOLOGIC: Denies any history of easy bruising or bleeding. PHYSICAL EXAMINATION: VITAL SIGNS: Temperature 98.1, pulse 68, respirations 16, blood pressure 94/54 , saturating 93% on room air. GENERAL: The patient is a mildly obese elderly female sitting in hospital bed eating her dinner. HEAD AND NECK: Normocephalic, atraumatic. Neck is supple, nontender with no Spurling or Lhermitte sign. MUSCULOSKELETAL: The patient has some pain to palpation in her midthoracic spine and some mild tenderness. She has no obvious deformity. She has normal tone and bulk. She has no atrophy. She does have some tenderness in her left knee. Her motor exam is grossly 5/5 bilaterally in upper and lower extremities. She is able to lift her legs off the bed and flex and extend, though she does not appear to give great effort. NEUROLOGIC: The patient is awake, alert and oriented x3. Fluent speech. Follows commands readily and appropriately. She has normal attention and concentration. She has intact remote, immediate and recent memory. Cranial nerves II through XII are serially tested and are intact. The motor exam is 5/ 5 as mentioned in the musculoskeletal. No pronator drift. Sensation is grossly intact to light touch and pinprick, and she has no obvious ataxia or dysmetria. The patient deferred ambulation. LABORATORY DATA: White count 5.8, hemoglobin 12.7, platelets 147. Her coagulation profile within normal limits. Sodium 141, BUN and creatinine 16 and 0.76 with glucose of 96. Tox screen was positive for opiates. Negative UA. IMAGING: I reviewed the patient's CT of the brain which is negative for fracture or subluxation. There is some generalized volume loss and chronic small-vessel ischemic disease. The patient's thoracic spine MRI showed an acute C7 vertebral body compression fracture with 60% mid vertebral body height loss, but this is more of a concavity, but the actual loss of height is probably less than 30% overall. There is no angulation or retropulsion. There is no evidence of foraminal compromise. There is also a C5-C6 disk protrusion with minimal canal stenosis and no cord compression. There is no cord signal change. Lumbar spine shows no significant spondylosis or disk bulging and no evidence of fracture or subluxation. There is no significant stenosis. ASSESSMENT AND PLAN: A 71-year-old female status post fall with thoracic compression fracture. I discussed patient's signs, symptoms, physical exam, radiographic findings with the patient. This appears to be a compression fracture from trauma. The patient has likely underlying osteoporosis. I discussed natural history of this fracture. This compression fracture will generally heal with time, though this may take a few months. Bracing is recommended to help this heal. The patient does not appear to be in severe pain from this, but generally I stated that I would not recommend a kyphoplasty or vertebroplasty as it is unclear how long the patient has actually had this fracture, though it is acute on MRI. Given that time cannot be established, I believe that nonoperative and conservative treatment is most reasonable. Should the patient wish for such treatment, then a surgeon who performs this procedure can be consulted. Otherwise, the patient should simply wear bracing for 6 to 8 weeks. She has no neurologic deficits or evidence of compression referable to this lesion and is unlikely to progress to cause compression as it appears to be osteoporotic compression fracture. As far as the patient's underlying reasons for her falls, I see no evidence of thoracic or lumbar compression. The patient has no signs of myelopathy on examination. Therefore , I do not believe cervical MRI is indicated. Thank you for allowing me to participate in the care of this patient. Dictated By: OSWALDO FUENTES MD, LG/CHELITA Conf#: [id number] DID#: [id number]
[2017-03-19] MEDS: HYDROCODONE/APAP (5/325) TAB PO PRN (00:52)
[2017-03-19] MEDS: morphine 2 MG INJ IV PRN ×6 (01:46→18:51)
[2017-03-19] MEDS: PANTOPRAZOLE (EC) 40 MG TAB PO SCH (05:27)
[2017-03-19 07:45] VITALS: BP 120/67; RESP 18
[2017-03-19] MEDS: OLANZAPINE 5 MG TAB PO SCH (08:19)
[2017-03-19] MEDS: ENOXAPARIN 40 MG/0.4 ML SYG SC SCH (08:19)
[2017-03-19] MEDS: AMLODIPINE 5 MG TAB PO SCH (08:20)
[2017-03-19] MEDS: GABAPENTIN 100 MG CAP PO SCH (08:20)
[2017-03-19] MEDS: clonAZEPAM 0.5 MG TAB PO SCH (08:20)
--- NOTE | 2017-03-19 16:32 | DS ---
Date/Time of Note Date/Time of Note DATE: 03/19/17 TIME: 16:28 Discharge Summary Admission/Discharge Info Admit Date/Time March 15, 2017 at 13:58 Discharge Date/Time Final Diagnosis 1. Status post fall, T7 compression fracture, pain management and physical therapy 2. History of benzodiazepine dependence and previous overdoses 3. Bipolar disorder with severe anxiety, stable 4. Dyslipidemia, stable 5. Hypertension, stable 6. Tobacco and marijuana abuse, advise to quit 7. Previous GI bleed secondary to esophagitis and gastritis 8. COPD, stable Patient Condition: Stable Hx of Present Illness This is a 71-year-old female with a medical history of high blood pressure, bipolar disorder, renal cancer who presents today because of weakness and fall. Per report the patient lost her balance, fell and hit her nose and hit her head on the pavement. Patient also reported flulike symptoms for the last 3-4 days with cough, abdominal pain, back pain. She also endorses chest pain. Patient is a poor historian and seems to hurt all over. Patient is said to have a history of benzodiazepine dependence and has had overdoses in the past. She also smokes daily and uses marijuana daily Hospital Course MRI of spine indicates acute T7 compression fracture that she will get nonsurgical treatment with physical therapy, brace and pain management. Home Meds Active Scripts Pantoprazole* (Protonix*) 40 Mg Tablet., 40 MG PO DAILY, #30 TAB Prov:RADHA BROWN MD 02/13/17 Reported Medications Baclofen* (Baclofen*) 10 Mg Tablet, 10 MG PO DAILY Y for MUSCLE SPASMS, TAB 03/14/17 Hydrocodone/Acetaminophen ([place] 10-325 Tablet) 1 Each Tablet, 1 EACH PO Q4H Y for PRN, TAB 02/24/17 Olanzapine* (Zyprexa*) 5 Mg Tablet, 5 MG PO DAILY, #30 TAB 02/08/17 Gabapentin* (Gabapentin*) 300 Mg Capsule, 300 MG PO QHS, #60 CAP 02/08/17 Clonazepam* (Clonazepam*) 1 Mg Tablet, 1 MG PO BID Y for ANXIETY, TAB 02/08/17 Atorvastatin Calcium (Atorvastatin Calcium) 10 Mg Tablet, 10 MG PO QHS, #30 TAB 02/08/17 Amlodipine Besylate* (Amlodipine Besylate*) 5 Mg Tablet, 5 MG PO DAILY, #30 TAB 4/15/17 Discontinued Scripts Acetaminophen* (Tylophen*) 500 Mg Capsule, 2 CAP PO Q8H Y for PAIN AND OR ELEVATED TEMP, #20 CAP Prov:WHITNEY BLANCHARD MD 02/24/17 Follow-up Plan PCP in one week Primary Care Provider MD KEVIN Coburn MAOGANG MD March 19, 2017 16:31
== END 2017-03-19 19:00 | DRG 918 ==
LOC: E/R 11:58 → UNDOADMOB 14:37 → TEL 14:37 → INTOOBSV 14:37 → TEL 14:37 → OBSVTOIN 03-15 13:58 → PP2 03-16 18:20
PROVIDERS: ADMIT Family Medicine; ATTEND Family Medicine
DX: T40.2X1A Poisoning by other opioids, accidental (unintentional), initial encounter (principal); S22.069A Unspecified fracture of T7-T8 vertebra, initial encounter for closed fracture; J44.9 Chronic obstructive pulmonary disease, unspecified; F31.9 Bipolar disorder, unspecified; I10 Essential (primary) hypertension; F17.200 Nicotine dependence, unspecified, uncomplicated; F12.10 Cannabis abuse, uncomplicated; F41.9 Anxiety disorder, unspecified; E78.5 Hyperlipidemia, unspecified; M81.0 Age-related osteoporosis without current pathological fracture; R26.89 Other abnormalities of gait and mobility; Y92.9 Unspecified place or not applicable; W19.XXXA Unspecified fall, initial encounter; Z85.53 Personal history of malignant neoplasm of renal pelvis
CPT/HCPCS: 70450; 71010; 72146; 72148; 80048; 80053; 80307; 81001; 81003; 83690; 84443; 84484; 85025; 85610; 85730; 93005; 96361; 96374; 97163; G0378; J1650; J1885; J2270; J7030; J7040; L0464

== ENCOUNTER 2017-05-12 18:19 | Emergency (ER) | payer MEDICARE, OTHER ==
[~2017-05-12] VITALS: Ht 162.6 cm; Wt 61.5 kg
[~2017-05-12 18:19] MED LIST changes: -ACET500C5 PO; +BACL10TA PO
[2017-05-12 18:29] VITALS: Ht 162.6 cm; Wt 61.5 kg
[2017-05-12] MEDS ORDERED: SOD CHLORIDE 0.9% 1,000 ML IV STA (19:49)
[2017-05-12] MEDS ORDERED: ASPIRIN 325 MG TAB PO STA (19:49)
[2017-05-12] MEDS ORDERED: morphine 4 MG/ML VIAL IV STA ×2 (19:49→23:28)
[2017-05-12] MEDS ORDERED: ONDANSETRON 4 MG INJ IV STA (19:49)
[2017-05-12] MEDS ORDERED: SOD CHLORIDE 0.9% 1,000 ML IV ONE (20:00)
[2017-05-12] MEDS ORDERED: MECLIZINE 12.5 MG TAB PO ONE (20:00)
--- NOTE | 2017-05-12 20:20 | ERD ---
ER Documentation Chief Complaint Date/Time DATE: 05/12/17 TIME: 20:18 Chief Complaint dizziness since this morning and back pain (fell 2 months ago) HPI 71-year-old female complains of the day of some vertigo as well as back pain the patient has had for some time now exacerbated. Also has nausea without vomiting. Patient asks for strong pain medicine for her chronic back pain. No focal weaknesses. Does complain of bilateral lower extremity tingling on and off for some time. No fevers. No specific chest pain ROS All systems reviewed and are negative except as per history of present illness. Medications Home Meds Active Scripts Meclizine Hcl* (Meclizine Hcl*) 25 Mg Tablet, 25 MG PO Q8H Y for DIZZINESS, #14 TAB Prov:LALYEDGAR DO 05/12/17 Methocarbamol* (Robaxin*) 750 Mg Tablet, 750 MG PO TID, #14 TAB Prov:EDGAR RUFFIN DO 05/12/17 Oxycodone HCl/Acetaminophen (Percocet 5-325 mg Tablet) 1 Each Tablet, 1 EACH PO Q6, #20 TAB Prov:LALYMARINEEDGAR DO 05/12/17 Reported Medications Lorazepam* (Lorazepam*) 0.5 Mg Tablet, 0.5 MG PO Q8 Y for ANXIETY, TAB 05/12/17 Olanzapine* (Zyprexa*) 2.5 Mg Tablet, 2.5 MG PO QHS, #30 TAB 05/12/17 Hydrocodone/Acetaminophen ([place] 5-325 Tablet) 1 Each Tablet, 1 EACH PO Q6H Y for PRN, TAB 05/12/17 Gabapentin* (Gabapentin*) 100 Mg Capsule, 100 MG PO TID, #90 CAP 05/12/17 Baclofen* (Baclofen*) 10 Mg Tablet, 10 MG PO DAILY, TAB 05/12/17 Amlodipine Besylate* (Norvasc*) 5 Mg Tablet, 5 MG PO DAILY, TAB HOLD IF SBP<110 OR HR<60 05/12/17 Discontinued Reported Medications Amlodipine Besylate* (Norvasc*) 10 Mg Tablet, 10 MG PO DAILY, TAB 05/12/17 Baclofen* (Baclofen*) 10 Mg Tablet, 10 MG PO DAILY Y for MUSCLE SPASMS, TAB 03/14/17 Hydrocodone/Acetaminophen ([place] 10-325 Tablet) 1 Each Tablet, 1 EACH PO Q4H Y for PRN, TAB 02/24/17 Olanzapine* (Zyprexa*) 5 Mg Tablet, 5 MG PO DAILY, #30 TAB 02/08/17 Gabapentin* (Gabapentin*) 300 Mg Capsule, 300 MG PO QHS, #60 CAP 02/08/17 Clonazepam* (Clonazepam*) 1 Mg Tablet, 1 MG PO BID Y for ANXIETY, TAB 02/08/17 Atorvastatin Calcium (Atorvastatin Calcium) 10 Mg Tablet, 10 MG PO QHS, #30 TAB 02/08/17 Amlodipine Besylate* (Amlodipine Besylate*) 5 Mg Tablet, 5 MG PO DAILY, #30 TAB 02/08/17 Discontinued Scripts Pantoprazole* (Protonix*) 40 Mg Tablet.dr, 40 MG PO DAILY, #30 TAB Prov:RADHA BROWN MD 02/13/17 Allergies Allergies: Coded Allergies: ibuprofen (Verified Allergy, Unknown, 05/12/17) PMhx/Soc History of Surgery: Yes (HIP SX) Anesthesia Reaction: No Hx 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 Disorder: No Hx Respiratory Disorders: No Hx Miscellaneous Medical Probl: Yes (fall, bipolar d/o, severe anxiety, tobacco use, marijuana use,benzodiazepin) Hx Alcohol Use: No Hx Substance Use: No Hx Tobacco Use: No Physical Exam Vitals Vital Signs Date Time Temp Pulse Resp B/P Pulse Ox O2 Delivery O2 Flow Rate FiO2 05/12/17 21:09 69 20 164/99 99 Room Air 05/12/17 19:30 Nasal Cannula 2 05/12/17 18:29 98.6 92 20 164/116 95 Physical Exam Const: [] No distress Head: Atraumatic Eyes: Normal Conjunctiva, EOMI, BRICE ENT: Normal External Ears, Nose and Mouth. Tympanic membranes within normal limits bilaterally Neck: Full range of motion..~ No meningismus. Resp: Clear to auscultation bilaterally Cardio: Regular rate and rhythm, no murmurs Abd: Soft, non tender, non distended. Normal bowel sounds Skin: No petechiae or rashes Back: No midline or flank tenderness, bilateral paraspinal muscular tenderness of lumbar area. No deformities Ext: No cyanosis, or edema Neur: Awake and alert and oriented 3, cranial nerves II through XII intact, no cerebellar finger to nose deficits Psych: Normal Mood and Affect Result Diagram: 05/12/17213105/12/172131 Results 24 hrs Laboratory Tests Test 05/12/17 21:32 White Blood Count 9.210^3/ul Red Blood Count 4.1910^6/ul Hemoglobin 13.2g/dl Hematocrit 40.9% Mean Corpuscular Volume 97.6fl Mean Corpuscular Hemoglobin 31.5pg Mean Corpuscular Hemoglobin Concent 32.3g/dl Red Cell Distribution Width 12.6% Platelet Count 77418^3/UL Mean Platelet Volume 11.8fl Neutrophils % 54.0% Lymphocytes % 36.5% Monocytes % 7.6% Eosinophils % 1.3% Basophils % 0.4% Nucleated Red Blood Cells % 0.0/100WBC Neutrophils # 5.010^3/ul Lymphocytes # 3.410^3/ul Monocytes # 0.710^3/ul Eosinophils # 0.110^3/ul Basophils # 0.010^3/ul Nucleated Red Blood Cells # 0.010^3/ul Prothrombin Time 13.5Sec Prothrombin Time Ratio 1.1 INR International Normalized Ratio 1.03 Activated Partial Thromboplast Time 27.8Sec Sodium Level 147mmol/L Potassium Level 3.8mmol/L Chloride Level 106mmol/L Carbon Dioxide Level 27mmol/L Anion Gap 18 Blood Urea Nitrogen 14mg/dl Creatinine 0.68mg/dl Glucose Level 80mg/dl Calcium Level 9.1mg/dl Total Bilirubin 0.3mg/dl Direct Bilirubin 0.00mg/dl Indirect Bilirubin 0.3mg/dl Aspartate Amino Transf (AST/SGOT) 17IU/L Alanine Aminotransferase (ALT/SGPT) 29IU/L Alkaline Phosphatase 62IU/L Troponin I < 0.012ng/ml Total Protein 7.1g/dl Albumin 4.3g/dl Globulin 2.80g/dl Albumin/Globulin Ratio 1.53 Current Medications Medications (Trade) Dose Ordered Sig/Micha Route PRN Reason Start Time Stop Time Status Last Admin Dose Admin Sodium Chloride (NS) 1,000 ml @ 1,000 mls/hr Q1H STAT IV 05/12/17 19:49 05/12/17 20:48 DC 05/12/17 20:36 Aspirin (Aspirin) 325 mg ONCE STAT PO 05/12/17 19:49 7/17/17 19:50 DC 05/12/17 20:35 Morphine Sulfate (morphine) 4 mg ONCE STAT IV 05/12/17 19:49 05/12/17 19:50 DC 05/12/17 20:36 Ondansetron HCl (Zofran Inj) 4 mg ONCE STAT IV 05/12/17 19:49 05/12/17 19:50 DC 05/12/17 20:36 Meclizine HCl 25 mg 25 mg ONCE ONCE PO 05/12/17 20:00 05/12/17 20:01 DC 05/12/17 20:36 Sodium Chloride (NS) 1,000 ml @ 1,000 mls/hr Q1H ONCE IV 05/12/17 20:00 05/12/17 20:59 DC 05/12/17 21:29 Procedures/MDM Patient with vertigo and exacerbation of chronic back pain with no new trauma. She was given morphine and Antivert. This helped with both symptoms resolved her vertigo. Also given Zofran which resolved her nausea. No signs of infection or cardiac ischemia. No other neurological deficits to the worry for acute stroke. Patient is virtually asymptomatic in ER after given morphine. Stable vital signs. I am going to discharge with primary care follow-up in the next 1-2 days as well as return precautions to the ER for any returning symptoms. Discharging with Antivert, Robaxin, low-dose Percocet. EKG interpretation: Normal sinus rhythm rate of 58, sinus bradycardia, normal axis, no ST or T-wave changes concerning for acute ischemia. Normal intervals Departure Diagnosis: Primary Impression: Back muscle spasm Additional Impressions: Acute exacerbation of chronic low back pain Peripheral vertigo Condition: Stable EDGAR RUFFIN DO May 12, 2017 20:20
[2017-05-12 21:09] VITALS: BP 164/99; PULSE 69; RESP 20
--- NOTE | 2017-05-12 21:26 | RADRPT ---
PROCEDURE: XR Chest. CLINICAL INDICATION: Chest pain. TECHNIQUE: Portable AP view of the chest was obtained. COMPARISON: 03/14/2017 FINDINGS: The cardiomediastinal silhouette is within upper normal limits. The lungs are clear. There is no e vidence for pleural effusion, pneumothorax or pulmonary vascular congestion. The osseous structures are intact with no evidence for acute abnormality. Calcification of the aortic arch is again demons trated. Bilateral calcified breast implants are again noted RPTAT:HJJR IMPRESSION: 1.No evidence for acute intrathoracic pathology. 2. Aortic atherosclerosis is present. 3. Stable calcified bilateral breast implants. Physician Reggie Date Time Electronically viewed and signed by Physician Reggie on 05/12/2017 21:26 JR/
[2017-05-12] MEDS ORDERED: AMLO5TAB4 PO (21:45)
[2017-05-12] MEDS ORDERED: AMLO-218 PO (21:45)
[2017-05-12] MEDS ORDERED: BACL10TA PO (21:46)
[2017-05-12] MEDS ORDERED: GABA100C14 PO (21:46)
[2017-05-12] MEDS ORDERED: HYDR-906 PO (21:47)
[2017-05-12] MEDS ORDERED: OLAN2.5T4 PO (21:48)
[2017-05-12] MEDS ORDERED: LORA0.5T PO (21:49)
[2017-05-12 22:01] LABS: ADD SCAN DIFF NO
[2017-05-12 22:07] LABS: BASOPHILS % 0.4 % (0.0-2.0); EOSINOPHILS # 0.1 10^3/ul (0.0-0.5); EOSINOPHILS % 1.3 % (0.0-7.0); HEMATOCRIT 40.9 % (37.0-47.0); HEMOGLOBIN 13.2 g/dl (12.0-16.0); LYMPHOCYTES # 3.4 10^3/ul (0.8-2.9); LYMPHOCYTES % 36.5 % (15.0-51.0); MEAN CORPUSCULAR HEMOGLOBIN 31.5 pg (29.0-33.0); MEAN CORPUSCULAR HGB CONC 32.3 g/dl (32.0-37.0); MEAN CORPUSCULAR VOLUME 97.6 fl (82.0-101.0); MEAN PLATELET VOLUME 11.8 fl (7.4-10.4); MONOCYTE # 0.7 10^3/ul (0.3-0.9); MONOCYTES % 7.6 % (0.0-11.0); PLATELET COUNT 155 10^3/UL (140-415); RED BLOOD COUNT 4.19 10^6/ul (4.20-5.40); RED CELL DISTRIBUTION WIDTH 12.6 % (11.5-14.5); WHITE BLOOD COUNT 9.2 10^3/ul (4.8-10.8)
[2017-05-12 22:19] LABS: INR 1.03; PROTIME 13.5 Sec (12.2-14.2); PT RATIO 1.1
[2017-05-12 22:20] LABS: PARTIAL THROMBOPLASTIN TIME 27.8 Sec (25.0-35.0)
[2017-05-12 22:26] LABS: ALANINE AMINOTRANSFERASE 29 IU/L (13-69); ALBUMIN 4.3 g/dl (3.3-4.9); ALBUMIN/GLOBULIN RATIO 1.53; ALKALINE PHOSPHATASE 62 IU/L (42-121); ANION GAP 18 (8-16); ASPARTATE AMINO TRANSFERASE 17 IU/L (15-46); BILIRUBIN,INDIRECT 0.3 mg/dl (0-1.1); BILIRUBIN,TOTAL 0.3 mg/dl (0.2-1.3); BLOOD UREA NITROGEN 14 mg/dl (7-20); CALCIUM 9.1 mg/dl (8.4-10.2); CARBON DIOXIDE 27 mmol/L (21-31); CHLORIDE 106 mmol/L (97-110); CREATININE 0.68 mg/dl (0.44-1.00); GLUCOSE 80 mg/dl (70-220); POTASSIUM 3.8 mmol/L (3.5-5.1); SODIUM 147 mmol/L (135-144); TOTAL PROTEIN 7.1 g/dl (6.1-8.1)
[2017-05-12 22:43] LABS: TROPONIN-I < 0.012 ng/ml (0.00-0.12)
[2017-05-12] MEDS ORDERED: OXYC-279 PO (23:23)
[2017-05-12] MEDS ORDERED: METH750T93 PO (23:23)
[2017-05-12] MEDS ORDERED: MECL-77 PO (23:26)
[2017-05-12] MEDS ORDERED: LIDOCAINE/MYLANTA 40 ML BTL PO ONE (23:30)
== END 2017-05-12 23:46 | disposition home or self-care (01) ==
LOC: E/R 18:19
DX: M62.830 Muscle spasm of back (principal); M54.5 Low back pain; H81.399 Other peripheral vertigo, unspecified ear; R11.0 Nausea; R40.2142 Coma scale, eyes open, spontaneous, at arrival to emergency department; R40.2252 Coma scale, best verbal response, oriented, at arrival to emergency department; R40.2362 Coma scale, best motor response, obeys commands, at arrival to emergency department; R07.9 Chest pain, unspecified; Z87.891 Personal history of nicotine dependence
CPT/HCPCS: 71010; 80053; 84484; 85025; 85610; 85730; 93005; 96374; 96375; 96376; 99285; J2270; J2405; J7030

== ENCOUNTER 2017-05-30 17:28 | Emergency (ER) | payer MEDICARE, OTHER ==
[~2017-05-30] VITALS: Ht 152.4 cm; Wt 60.0 kg
[~2017-05-30 17:28] MED LIST changes: -AMLO-145 PO; +AMLO5TAB4 PO; -ATOR10TA65 PO; -CLON1TAB3 PO; +GABA100C14 PO; -GABA300C16 PO; -HYDR-902 PO; +HYDR-906 PO; +LORA0.5T PO; +MECL-77 PO; +METH750T93 PO; +OLAN2.5T4 PO; -OLAN5TAB5 PO; +OXYC-279 PO; -PANT40TA3 PO
[2017-05-30 17:36] VITALS: Ht 152.4 cm; Wt 60.0 kg
[2017-05-30] MEDS ORDERED: morphine 2 MG INJ IV STA (19:42)
[2017-05-30] MEDS ORDERED: SOD CHLORIDE 0.9% 500 ML IV STA (19:42)
[2017-05-30] MEDS ORDERED: DIAZEPAM 5 MG/ML SYG IV ONE (20:00)
[2017-05-30 20:19] LABS: BASOPHILS % 0.3 % (0.0-2.0); EOSINOPHILS # 0.1 10^3/ul (0.0-0.5); EOSINOPHILS % 0.5 % (0.0-7.0); HEMATOCRIT 44.6 % (37.0-47.0); HEMOGLOBIN 15.2 g/dl (12.0-16.0); LYMPHOCYTES # 2.2 10^3/ul (0.8-2.9); LYMPHOCYTES % 19.9 % (15.0-51.0); MEAN CORPUSCULAR HEMOGLOBIN 31.9 pg (29.0-33.0); MEAN CORPUSCULAR HGB CONC 34.1 g/dl (32.0-37.0); MEAN CORPUSCULAR VOLUME 93.5 fl (82.0-101.0); MEAN PLATELET VOLUME 11.7 fl (7.4-10.4); MONOCYTE # 0.6 10^3/ul (0.3-0.9); MONOCYTES % 5.7 % (0.0-11.0); NEUTROPHILS % 73.4 % (39.0-77.0); PLATELET COUNT 189 10^3/UL (140-415); RED BLOOD COUNT 4.77 10^6/ul (4.20-5.40); RED CELL DISTRIBUTION WIDTH 12.8 % (11.5-14.5); WHITE BLOOD COUNT 10.9 10^3/ul (4.8-10.8)
[2017-05-30 20:46] LABS: ADD UMIC YES; UR ASCORBIC ACID NEGATIVE (NEGATIVE); UR BACTERIA FEW /HPF (NONE SEEN); UR BILIRUBIN (Dip) NEGATIVE (NEGATIVE); UR BLOOD (Dip) 2+ mg/dL (NEGATIVE); UR CLARITY CLEAR (CLEAR); UR COLOR YELLOW (YELLOW); UR GLUCOSE (Dip) NEGATIVE (NEGATIVE); UR KETONES (Dip) 1+ mg/dL (NEGATIVE); UR LEUKOCYTE ESTERASE (Dip) 3+ Leu/ul (NEGATIVE); UR NITRITE (Dip) NEGATIVE (NEGATIVE); UR RBC 11 /HPF (0-5); UR SPECIFIC GRAVITY (Dip) 1.013 (1.003-1.030); UR TOTAL PROTEIN (Dip) 1+ mg/dl (NEGATIVE); UR UROBILINOGEN (Dip) NEGATIVE (NEGATIVE)
[2017-05-30] MEDS ORDERED: AMLO-147 PO (21:00)
[2017-05-30] MEDS ORDERED: HYD25 PO (21:00)
[2017-05-30] MEDS ORDERED: CEFTRIAXONE 1 GM/50 ML (PMX) 50 ML IVPB ONE (21:00)
[2017-05-30] MEDS ORDERED: LEVO50TA74 PO (21:00)
[2017-05-30] MEDS ORDERED: ALPR0.5T6 PO (21:01)
[2017-05-30] MEDS ORDERED: ZOLP5TAB7 PO (21:01)
--- NOTE | 2017-05-30 21:06 | RADRPT ---
PROCEDURE: CT thoracic spine without contrast. CLINICAL INDICATION: 71-year-old female with thoracic spine pain. History of fracture. TECHNIQUE: The study was performed utilizing a multislice multidetector CT scanner. Direct spiral 1 mm axial sections were obtained through the thoracic spine without contrast. 1 or more of the fol lowing dose reduction techniques were utilized: Automated exposure control, adjustment of the mA an d/or kV according to patient's size, iterative reconstruction technique. Coronal and sagittal refor mations were obtained. The images were reviewed on a PACS workstation. RADIATION DOSE: CTDIvol: 14.6 mGyDLP: 496.6 mGy-cm COMPARISON: MRI thoracic spine 03/17/2017 FINDINGS: There is stable appearance of 30% anterior compression deformity of the T7 vertebral body, without r etropulsion of fracture fragment. There is subchondral sclerosis in the superior and inferior endpl ates at T7, without evidence of acute fracture at this time. There is stable diffuse mild osteopeni a. The remaining vertebral body heights are maintained. There is no evidence of fracture The inter vertebral disc spaces are preserved. The paraspinal soft tissues unremarkable. There is no signifi cant narrowing of the thoracic thecal sac or neural foramina. The following levels are positive on axial images: T5-6: There is a 1-2 mm posterior disc/osteophyte complex. The thecal sac and neural foramina are patent. T6-7: There is a 1-2 mm posterior disc/osteophyte complex. The thecal sac and neural foramina are patent. T7-8: There is a 1-2 mm posterior disc/osteophyte complex. The thecal sac and neural foramina are patent. T9-10: There is a 1-2 mm posterior disc/osteophyte complex. The thecal sac and neural foramina are patent. T10-11: There is a 1-2 mm posterior disc/osteophyte complex. The thecal sac and neural foramina ar e patent. IMPRESSION: 1. No significant interval change compared to 03/17/2017. Stable appearance of 30% anterior compre ssion deformity of the T7 vertebral body without retropulsion of fracture fragment. 2. Diffuse mild osteopenia with preservation of the remaining intervertebral bodies. 3. Multilevel mild spondylosis in the mid thoracic spine without significant narrowing of the thora cic thecal sac or neural foramina. RPTAT: HGAS .Luis Sheikh MD, MD Date Time Electronically viewed and signed by .Luis Sheikh MD, MD on 05/30/2017 21:05 .S/
--- NOTE | 2017-05-30 21:19 | ERD ---
ER Documentation Chief Complaint Date/Time DATE: 05/30/17 TIME: 21:17 Chief Complaint DIZZY AND WEAK HPI This is a 71-year-old female who presents to the emergency room for evaluation of back pain. The patient states that she fell out of her bathtub onto the ground. She denies head injury. She does say she has a previous back injury. She states that is hurting in the middle of her back with no radiation. The patient denies any other trauma and came to the ER for evaluation. ROS All systems reviewed and are negative except as per history of present illness. Medications Home Meds Reported Medications Alprazolam* (Alprazolam*) 0.5 Mg Tablet, 0.5 MG PO QHS Y for ANXIETY, TAB 05/30/17 Zolpidem Tartrate* (Zolpidem Tartrate*) 5 Mg Tablet, 5 MG PO QHS Y for INSOMNIA , #30 TAB 05/30/17 Hydrochlorothiazide* (Hydrochlorothiazide*) 25 Mg Tab, 25 MG PO DAILY, #30 TAB 05/30/17 Levothyroxine Sodium* (Levothyroxine Sodium*) 50 Mcg Tablet, 50 MCG PO BEFORE BREAKFAST, #30 TAB 05/30/17 Amlodipine Besylate* (Amlodipine Besylate*) 10 Mg Tablet, 10 MG PO DAILY, #30 TAB 05/30/17 Gabapentin* (Gabapentin*) 100 Mg Capsule, 100 MG PO TID, #90 CAP 05/12/17 Baclofen* (Baclofen*) 10 Mg Tablet, 10 MG PO DAILY, TAB 05/12/17 Discontinued Reported Medications Lorazepam* (Lorazepam*) 0.5 Mg Tablet, 0.5 MG PO Q8 Y for ANXIETY, TAB 05/12/17 Olanzapine* (Zyprexa*) 2.5 Mg Tablet, 2.5 MG PO QHS, #30 TAB 05/12/17 Hydrocodone/Acetaminophen (Moore 5-325 Tablet) 1 Each Tablet, 1 EACH PO Q6H Y for PRN, TAB 05/12/17 Amlodipine Besylate* (Norvasc*) 5 Mg Tablet, 5 MG PO DAILY, TAB HOLD IF SBP<110 OR HR<60 05/12/17 Discontinued Scripts Meclizine Hcl* (Meclizine Hcl*) 25 Mg Tablet, 25 MG PO Q8H Y for DIZZINESS, #14 TAB Prov:GREEN,EDGAR DO 05/12/17 Methocarbamol* (Robaxin*) 750 Mg Tablet, 750 MG PO TID, #14 TAB Prov:EDAGR RUFFIN DO 05/12/17 Oxycodone HCl/Acetaminophen (Percocet 5-325 mg Tablet) 1 Each Tablet, 1 EACH PO Q6, #20 TAB Prov:EDGAR RUFFIN DO 05/12/17 Allergies Allergies: Coded Allergies: ibuprofen (Verified Allergy, Unknown, 05/30/17) PMhx/Soc History of Surgery: Yes (HIP SX) Anesthesia Reaction: No Hx 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 Disorder: No Hx Respiratory Disorders: No Hx Miscellaneous Medical Probl: Yes (fall, bipolar d/o, severe anxiety) Hx Alcohol Use: No Hx Substance Use: No Hx Tobacco Use: Yes (MARIJUANA) Smoking Status: Current some day smoker Physical Exam Vitals Vital Signs Date Time Temp Pulse Resp B/P Pulse Ox O2 Delivery O2 Flow Rate FiO2 05/30/17 17:36 98.6 99 18 137/88 96 Physical Exam INITIAL VITAL SIGNS: Reviewed by me GENERAL: The patient is well developed and appropriate for usual state of health in no apparent distress HEENT: Pupils equal, round, and reactive to light. EOMI. There is no scleral icterus. NECK: C-spine is soft and supple, there is no meningismus. There is no cervical lymphadenopathy. LUNGS: Clear to auscultation bilaterally. There are no rales, wheezes or rhonchi. HEART: Regular rate and rhythm, no murmurs, clicks, rubs or gallops. ABDOMEN: Soft, non-tender, non-distended. There are bowel sounds in all four quadrants. No rebound or guarding. EXTREMITIES: There is no peripheral cyanosis or edema. No focal swelling or erythema. NEUROLOGICAL: The patient moves all four extremities with 5/5 strength. Cranial nerves II - XII are intact. Normal gait. Alert and oriented SKIN: There is no apparent rash or petechiae Musculoskeletal: Tender to palpation in the mid thoracic region with no gross step-offs HEME/LYMPHATIC: There is no evidence of excessive bruising or lymphedema. PSYCHIATRIC: The patient does not appear anxious or depressed. Result Diagram: 05/30/171999 Results 24 hrs Laboratory Tests Test 05/30/17 20:00 05/30/17 20:01 White Blood Count 10.910^3/ul Red Blood Count 4.7710^6/ul Hemoglobin 15.2g/dl Hematocrit 44.6% Mean Corpuscular Volume 93.5fl Mean Corpuscular Hemoglobin 31.9pg Mean Corpuscular Hemoglobin Concent 34.1g/dl Red Cell Distribution Width 12.8% Platelet Count 63900^3/UL Mean Platelet Volume 11.7fl Neutrophils % 73.4% Lymphocytes % 19.9% Monocytes % 5.7% Eosinophils % 0.5% Basophils % 0.3% Nucleated Red Blood Cells % 0.0/100WBC Neutrophils # 8.010^3/ul Lymphocytes # 2.210^3/ul Monocytes # 0.610^3/ul Eosinophils # 0.110^3/ul Basophils # 0.010^3/ul Nucleated Red Blood Cells # 0.010^3/ul Urine Color YELLOW Urine Clarity CLEAR Urine pH 6.0 [address] [place] 1.013 Urine Ketones 1+mg/dL Urine Nitrite NEGATIVEmg/dL Urine Bilirubin NEGATIVEmg/dL Urine Urobilinogen NEGATIVEmg/dL Urine Leukocyte Esterase 3+Trever/ul Urine Microscopic RBC 11/HPF Urine Microscopic WBC 12/HPF Urine Bacteria FEW/HPF Urine Hemoglobin 2+mg/dL Urine Glucose NEGATIVEmg/dL Urine Total Protein 1+mg/dl Current Medications Medications (Trade) Dose Ordered Sig/Micha Route PRN Reason Start Time Stop Time Status Last Admin Dose Admin Sodium Chloride (NS) 500 ml @ 500 mls/hr Q1H STAT IV 05/30/17 19:42 05/30/17 20:41 DC 05/30/17 20:03 Morphine Sulfate (morphine) 2 mg ONCE STAT IV 05/30/17 19:42 05/30/17 19:43 DC 05/30/17 20:04 Diazepam 5 mg 5 mg ONCE ONCE IV 05/30/17 20:00 05/30/17 20:01 DC 05/30/17 20:04 Ceftriaxone Sodium (Rocephin) 50 ml @ 100 mls/hr ONCE ONCE IVPB 05/30/17 21:00 05/30/17 21:29 Procedures/MDM CT thoracic spine: 1. No significant interval change compared to 03/17/2017. Stable appearance of 30% anterior compression deformity of the T7 vertebral body without retropulsion of fracture fragment. 2. Diffuse mild osteopenia with preservation of the remaining intervertebral bodies. 3. Multilevel mild spondylosis in the mid thoracic spine without significant narrowing of the thoracic thecal sac or neural foramina. This 71-year-old female presents to the ER for evaluation of back pain after ground-level fall. The patient does have a previous compression fracture. CT was obtained which does not demonstrate any new fractures. The patient was given Valium and morphine. When I reevaluated this patient she was feeling much better and it was in no acute distress. The patient was found to have a small urinary tract infection and the patient was given Rocephin. The patient will be discharged at this time with a prescription for Motrin, and Valium to take at night before she goes to bed. She will also be given a prescription for Macrobid Departure Diagnosis: Primary Impression: Back contusion Additional Impressions: Acute cystitis Fall from ground level Condition: Stable EYAD HURT DO May 30, 2017 21:19
[2017-05-30] MEDS ORDERED: ACET325T33 PO (21:20)
[2017-05-30] MEDS ORDERED: DIAZ-90 PO (21:20)
[2017-05-30 22:05] LABS: ALBUMIN 4.7 g/dl (3.3-4.9); ALBUMIN/GLOBULIN RATIO 1.56; BILIRUBIN,INDIRECT 0.6 mg/dl (0-1.1); BILIRUBIN,TOTAL 0.6 mg/dl (0.2-1.3); CALCIUM 9.6 mg/dl (8.4-10.2); CREATININE 0.71 mg/dl (0.44-1.00); POTASSIUM 3.4 mmol/L (3.5-5.1); TOTAL PROTEIN 7.7 g/dl (6.1-8.1)
[2017-05-30 22:13] VITALS: BP 149/84; PULSE 87; RESP 20
== END 2017-05-30 22:13 | disposition home or self-care (01) ==
LOC: E/R 17:28
DX: S20.229A Contusion of unspecified back wall of thorax, initial encounter (principal); N30.00 Acute cystitis without hematuria; F17.210 Nicotine dependence, cigarettes, uncomplicated; R40.2142 Coma scale, eyes open, spontaneous, at arrival to emergency department; R40.2252 Coma scale, best verbal response, oriented, at arrival to emergency department; R40.2362 Coma scale, best motor response, obeys commands, at arrival to emergency department; W18.2XXA Fall in (into) shower or empty bathtub, initial encounter; Y92.9 Unspecified place or not applicable
CPT/HCPCS: 36415; 72128; 80053; 81001; 85025; 96374; 96375; 99285; J0696; J2270; J3360; J7040

== ENCOUNTER 2017-06-29 17:15 | Emergency (ER) | payer MEDICARE, OTHER ==
[~2017-06-29] VITALS: Ht 157.5 cm; Wt 57.0 kg
[~2017-06-29 17:15] MED LIST changes: +ACET325T33 PO; +ALPR0.5T6 PO; +AMLO-147 PO; -AMLO5TAB4 PO; +DIAZ-90 PO; +HYD25 PO; -HYDR-906 PO; +LEVO50TA74 PO; -LORA0.5T PO; -MECL-77 PO; -METH750T93 PO; -OLAN2.5T4 PO; -OXYC-279 PO; +ZOLP5TAB7 PO
[2017-06-29 17:23] VITALS: Ht 157.5 cm; Wt 57.0 kg
[2017-06-29] MEDS ORDERED: HYDROmorphONE 1 MG/ML SYG IV STA (20:50)
[2017-06-29] MEDS ORDERED: ONDANSETRON 4 MG INJ IV STA (20:50)
[2017-06-29] MEDS ORDERED: SOD CHLORIDE 0.9% 1,000 ML IV STA (20:50)
--- NOTE | 2017-06-29 20:55 | ERD ---
ER Documentation Chief Complaint Date/Time DATE: 06/29/17 TIME: 20:52 Chief Complaint BACK PAIN , MOUTH SORES , DIARRHEA HPI This is a 71-year-old female because she is frustrated with the care she is receiving from her primary care doctor. She says she is being shuffled back and forth between him in the ER. She said she just finished nystatin for oral thrush and she still having pain in her tongue. She is also complaining of not being able to eat much over the past 2 days because she is not hungry. No nausea vomiting but says she has had 2 loose stools that are nonbloody. No abdominal pain no cough no dysuria no sore throat no fever. The patient also states she received some bad news from her daughter in [place] last night. She said that the daughter is undergoing chemotherapy and she is hiding this from her mother. ROS All systems reviewed and are negative except as per history of present illness. Medications Home Meds Active Scripts Nystatin (Nystatin) 100,000 Unit/1 Ml Oral.susp, 5 ML PO QID for 7 Days, OZ Swish and swallow Prov:EMERALD LOPEZ DO 06/29/17 Ciprofloxacin Hcl* (Ciprofloxacin Hcl*) 500 Mg Tablet, 500 MG PO BID for 3 Days , TAB Prov:EMERALD LOPEZ DO 06/29/17 Acetaminophen* (Tylenol*) 325 Mg Tablet, 1 TAB PO Q6 Y for PAIN AND OR ELEVATED TEMP, #20 TAB Prov:EYAD HURT DO 05/30/17 Diazepam* (Valium*) 5 Mg Tablet, 5 MG PO Q8 Y for MUSCLE SPASMS, #7 TAB Prov:EYAD HURT DO 05/30/17 Reported Medications Alprazolam* (Alprazolam*) 0.5 Mg Tablet, 0.5 MG PO QHS Y for ANXIETY, TAB 05/30/17 Zolpidem Tartrate* (Zolpidem Tartrate*) 5 Mg Tablet, 5 MG PO QHS Y for INSOMNIA , #30 TAB 05/30/17 Hydrochlorothiazide* (Hydrochlorothiazide*) 25 Mg Tab, 25 MG PO DAILY, #30 TAB 05/30/17 Levothyroxine Sodium* (Levothyroxine Sodium*) 50 Mcg Tablet, 50 MCG PO BEFORE BREAKFAST, #30 TAB 05/30/17 Amlodipine Besylate* (Amlodipine Besylate*) 10 Mg Tablet, 10 MG PO DAILY, #30 TAB 05/30/17 Gabapentin* (Gabapentin*) 100 Mg Capsule, 100 MG PO TID, #90 CAP 05/12/17 Baclofen* (Baclofen*) 10 Mg Tablet, 10 MG PO DAILY, TAB 05/12/17 Allergies Allergies: Coded Allergies: ibuprofen (Verified Allergy, Unknown, 05/30/17) PMhx/Soc History of Surgery: Yes (HIP SX) Anesthesia Reaction: No Hx 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 Disorder: No Hx Respiratory Disorders: No Hx Miscellaneous Medical Probl: Yes (fall, bipolar d/o, severe anxiety) Hx Alcohol Use: No Hx Substance Use: No Hx Tobacco Use: Yes (MARIJUANA) FmHx Family History: No coronary disease Physical Exam Vitals Vital Signs Date Time Temp Pulse Resp B/P Pulse Ox O2 Delivery O2 Flow Rate FiO2 06/29/17 20:51 98.2 73 20 132/92 100 Room Air 06/29/17 17:23 98.2 112 18 134/90 97 Physical Exam Const: Well-developed, well-nourished Head: Atraumatic, normocephalic Eyes: Normal Conjunctiva, PERRLA, EOMI, normal sclera, no nystagmus ENT: Normal External Ears, slight oral thrush to the tongue nose and Mouth, moist mucus membranes. Neck: Full range of motion. No meningismus, no lymphadenopathy. Resp: Clear to auscultation bilaterally, no wheezing, rhonchi, rales Cardio: Regular rate and rhythm, no murmurs, S1 S2 present Abd: Soft, non tender x 4, non distended. Normal bowel sounds, no guarding or rebound, no pulsitile abdominal masses or bruits Skin: No petechiae or rashes, no ecchymosis , no maculopapular rash Back: No midline or flank tenderness Ext: No cyanosis, or edema, FROM x 4, normal inspection, neurovascularly intact x 4 Neur: Awake and alert, STR 5/5 x 4, sensation intact x 4, no focal findings, cerebellum intact Psych: Normal Mood and Affect Result Diagram: 06/29/17210906/29/172109 Results 24 hrs Laboratory Tests Test 06/29/17 21:10 White Blood Count 10.610^3/ul Red Blood Count 5.0710^6/ul Hemoglobin 15.4g/dl Hematocrit 48.6% Mean Corpuscular Volume 95.9fl Mean Corpuscular Hemoglobin 30.4pg Mean Corpuscular Hemoglobin Concent 31.7g/dl Red Cell Distribution Width 13.3% Platelet Count 86396^3/UL Mean Platelet Volume 11.5fl Neutrophils % 68.9% Lymphocytes % 22.9% Monocytes % 6.6% Eosinophils % 0.9% Basophils % 0.4% Nucleated Red Blood Cells % 0.0/100WBC Neutrophils # (Manual) 7.310^3/ul Lymphocytes # 2.410^3/ul Monocytes # 0.710^3/ul Eosinophils # 0.110^3/ul Basophils # 0.010^3/ul Nucleated Red Blood Cells # 0.010^3/ul Urine Color JAN Urine Clarity SLIGHTLY CLOUDY Urine pH 6.0 Urine Specific [place] 1.031 Urine Ketones TRACEmg/dL Urine Nitrite NEGATIVEmg/dL Urine Bilirubin NEGATIVEmg/dL Urine Urobilinogen NEGATIVEmg/dL Urine Leukocyte Esterase TRACELeu/ul Urine Microscopic RBC 9/HPF Urine Microscopic WBC 4/HPF Urine Squamous Epithelial Cells FEW/HPF Urine Bacteria FEW/HPF Urine Mucus MANY/HPF Urine Hemoglobin 2+mg/dL Urine Glucose NEGATIVEmg/dL Urine Total Protein 2+mg/dl Sodium Level 148mmol/L Potassium Level 4.1mmol/L Chloride Level 110mmol/L Carbon Dioxide Level 25mmol/L Anion Gap 17 Blood Urea Nitrogen 29mg/dl Creatinine 0.84mg/dl Glucose Level 95mg/dl Calcium Level 10.7mg/dl Current Medications Medications (Trade) Dose Ordered Sig/Micha Route PRN Reason Start Time Stop Time Status Last Admin Dose Admin Sodium Chloride (NS) 1,000 ml @ 1,000 mls/hr Q1H STAT IV 06/29/17 20:50 06/29/17 21:49 DC 06/29/17 20:55 Hydromorphone HCl (Dilaudid) 1 mg ONCE STAT IV 06/29/17 20:50 06/29/17 20:52 DC 06/29/17 20:56 Ondansetron HCl (Zofran Inj) 4 mg ONCE STAT IV 06/29/17 20:50 06/29/17 20:52 DC 06/29/17 20:55 Procedures/MDM Her labs are relatively unremarkable having some mild prerenal azotemia signifying some volume depletion. She is feeling better after fluids. I will cover her with Cipro for possible infectious diarrhea. We will cover with some oral nystatin for her mouth. Departure Diagnosis: Primary Impression: Volume depletion Additional Impressions: Diarrhea Diarrhea type: unspecified type Qualified Code: R19.7 - Diarrhea, unspecified type Oral thrush Condition: EMERALD Rutledge DO Jun 29, 2017 20:55
[2017-06-29 21:18] LABS: BASOPHILS % 0.4 % (0.0-2.0); EOSINOPHILS # 0.1 10^3/ul (0.0-0.5); EOSINOPHILS % 0.9 % (0.0-7.0); HEMATOCRIT 48.6 % (37.0-47.0); HEMOGLOBIN 15.4 g/dl (12.0-16.0); LYMPHOCYTES # 2.4 10^3/ul (0.8-2.9); LYMPHOCYTES % 22.9 % (15.0-51.0); MEAN CORPUSCULAR HEMOGLOBIN 30.4 pg (29.0-33.0); MEAN CORPUSCULAR HGB CONC 31.7 g/dl (32.0-37.0); MEAN CORPUSCULAR VOLUME 95.9 fl (82.0-101.0); MEAN PLATELET VOLUME 11.5 fl (7.4-10.4); MONOCYTE # 0.7 10^3/ul (0.3-0.9); MONOCYTES % 6.6 % (0.0-11.0); NEUTROPHILS % 68.9 % (39.0-77.0); PLATELET COUNT 190 10^3/UL (140-415); RED BLOOD COUNT 5.07 10^6/ul (4.20-5.40); RED CELL DISTRIBUTION WIDTH 13.3 % (11.5-14.5); WHITE BLOOD COUNT 10.6 10^3/ul (4.8-10.8)
[2017-06-29 21:33] LABS: ADD UMIC YES; UR ASCORBIC ACID NEGATIVE (NEGATIVE); UR BACTERIA FEW /HPF (NONE SEEN); UR BILIRUBIN (Dip) NEGATIVE (NEGATIVE); UR BLOOD (Dip) 2+ mg/dL (NEGATIVE); UR CLARITY SLIGHTLY CLOUDY (CLEAR); UR COLOR AMBER (YELLOW); UR GLUCOSE (Dip) NEGATIVE (NEGATIVE); UR KETONES (Dip) TRACE mg/dL (NEGATIVE); UR LEUKOCYTE ESTERASE (Dip) TRACE Leu/ul (NEGATIVE); UR MUCUS MANY /HPF (NONE SEEN); UR NITRITE (Dip) NEGATIVE (NEGATIVE); UR RBC 9 /HPF (0-5); UR SPECIFIC GRAVITY (Dip) 1.031 (1.003-1.030); UR SQUAMOUS EPITHELIAL CELL FEW /HPF (FEW); UR TOTAL PROTEIN (Dip) 2+ mg/dl (NEGATIVE); UR UROBILINOGEN (Dip) NEGATIVE (NEGATIVE)
[2017-06-29 21:34] LABS: CALCIUM 10.7 mg/dl (8.4-10.2); CREATININE 0.84 mg/dl (0.44-1.00); POTASSIUM 4.1 mmol/L (3.5-5.1)
[2017-06-29] MEDS ORDERED: CIPR500T4 PO (23:06)
[2017-06-29] MEDS ORDERED: NYST1000 PO (23:06)
[2017-06-29 23:35] VITALS: BP 135/84; PULSE 72; RESP 14; TEMP 98.3
== END 2017-06-29 23:37 | disposition home or self-care (01) ==
LOC: E/R 17:15
DX: E86.9 Volume depletion, unspecified (principal); R19.7 Diarrhea, unspecified; B37.0 Candidal stomatitis
CPT/HCPCS: 36415; 80048; 81001; 85025; 96374; 96375; 99284; J1170; J2405; J7030

== ENCOUNTER 2017-07-27 20:33 | Emergency (ER) | payer MEDICARE, OTHER ==
[~2017-07-27] VITALS: Ht 152.4 cm; Wt 59.1 kg
[~2017-07-27 20:33] MED LIST changes: +CIPR500T4 PO; -HYD25 PO; +HYDR25TA6 PO; +NYST1000 PO
[2017-07-27 20:43] VITALS: Ht 152.4 cm; Wt 59.1 kg
[2017-07-27] MEDS ORDERED: SOD CHLORIDE 0.9% 1,000 ML IV STA (20:46)
[2017-07-27] MEDS ORDERED: ONDANSETRON 4 MG INJ IV STA (20:46)
[2017-07-27] MEDS ORDERED: ACETAMINOPHEN 500 MG TAB PO STA (21:38)
[2017-07-27] MEDS ORDERED: ACETAMINOPHEN 500 MG TAB ONE (21:40)
[2017-07-27 21:45] LABS: BASOPHILS % 0.4 % (0.0-2.0); EOSINOPHILS # 0.1 10^3/ul (0.0-0.5); EOSINOPHILS % 1.4 % (0.0-7.0); HEMATOCRIT 43.4 % (37.0-47.0); HEMOGLOBIN 13.6 g/dl (12.0-16.0); LYMPHOCYTES # 2.7 10^3/ul (0.8-2.9); LYMPHOCYTES % 27.4 % (15.0-51.0); MEAN CORPUSCULAR HEMOGLOBIN 30.4 pg (29.0-33.0); MEAN CORPUSCULAR HGB CONC 31.3 g/dl (32.0-37.0); MEAN CORPUSCULAR VOLUME 96.9 fl (82.0-101.0); MEAN PLATELET VOLUME 11.5 fl (7.4-10.4); MONOCYTE # 0.7 10^3/ul (0.3-0.9); MONOCYTES % 7.2 % (0.0-11.0); NEUTROPHIL # 6.3 10^3/ul (1.6-7.5); NEUTROPHILS % 63.3 % (39.0-77.0); PLATELET COUNT 194 10^3/UL (140-415); RED BLOOD COUNT 4.48 10^6/ul (4.20-5.40); RED CELL DISTRIBUTION WIDTH 12.9 % (11.5-14.5)
[2017-07-27 21:58] LABS: ALBUMIN 4.1 g/dl (3.3-4.9); ALBUMIN/GLOBULIN RATIO 1.28; BILIRUBIN,INDIRECT 0.3 mg/dl (0-1.1); BILIRUBIN,TOTAL 0.3 mg/dl (0.2-1.3); CALCIUM 9.8 mg/dl (8.4-10.2); CREATININE 0.73 mg/dl (0.44-1.00); POTASSIUM 4.1 mmol/L (3.5-5.1); TOTAL PROTEIN 7.3 g/dl (6.1-8.1)
[2017-07-27] MEDS ORDERED: MECLIZINE 12.5 MG TAB PO ONE (22:30)
[2017-07-27 22:43] LABS: URINE BLOOD (Dip) POC Trace-intact (NEGATIVE)
--- NOTE | 2017-07-27 22:54 | RADRPT ---
PROCEDURE: XR Chest. CLINICAL INDICATION: Dizziness. TECHNIQUE: Single frontal view of the chest was obtained. COMPARISON: Chest x-ray 05/12/2017 08:04 p.m. FINDINGS: Monitoring electrodes project across the chest. Degenerative osteophytes are noted in the thoracic spine. The heart, cardiomediastinal silhouette and hilar structures are normal. The pulmonary vascu lature is normal. There are calcified breast implants. There are vascular calcifications in the aor tic arch. The lungs are clear. The costophrenic angles are normal. IMPRESSION: 1. There is no evidence of active cardiopulmonary disease. 2. Atherosclerosis of the aortic arch. 3. Calcified bilateral breast implants appear unchanged. RPTAT:AAJJ Physician Boris Date Time Electronically viewed and signed by Delio Jacob Physician on 07/27/2017 22:54 SARAHI/
[2017-07-27] MEDS ORDERED: MECL-77 PO (23:05)
--- NOTE | 2017-07-27 23:05 | ERD ---
ER Documentation Chief Complaint Date/Time DATE: 07/27/17 TIME: 23:02 Chief Complaint dizziness with headache HPI This is a 71-year-old female who presents to the emergency room for evaluation of dizziness. This patient states that her dizziness as a room spinning sensation worse with rapid change in position. She states that she has been feeling weak and has a slight headache. The patient states that she is not having any chest pain or shortness of breath or palpitations associated with this and came to the emergency room for evaluation of her symptoms. ROS All systems reviewed and are negative except as per history of present illness. Medications Home Meds Active Scripts Nystatin (Nystatin) 100,000 Unit/1 Ml Oral.susp, 5 ML PO QID for 7 Days, OZ Swish and swallow Prov:EMERALD LOPEZ DO 06/29/17 Ciprofloxacin Hcl* (Ciprofloxacin Hcl*) 500 Mg Tablet, 500 MG PO BID for 3 Days , TAB Prov:SUSY LOPEZSTLYUDMILA A. DO 06/29/17 Acetaminophen* (Tylenol*) 325 Mg Tablet, 1 TAB PO Q6 Y for PAIN AND OR ELEVATED TEMP, #20 TAB Prov:EYAD HURT DO 05/30/17 Diazepam* (Valium*) 5 Mg Tablet, 5 MG PO Q8 Y for MUSCLE SPASMS, #7 TAB Prov:EYAD HURT DO 05/30/17 Reported Medications Alprazolam* (Alprazolam*) 0.5 Mg Tablet, 0.5 MG PO QHS Y for ANXIETY, TAB 05/30/17 Zolpidem Tartrate* (Zolpidem Tartrate*) 5 Mg Tablet, 5 MG PO QHS Y for INSOMNIA , #30 TAB 05/30/17 Hydrochlorothiazide* (Hydrochlorothiazide*) 25 Mg Tab, 25 MG PO DAILY, #30 TAB 05/30/17 Levothyroxine Sodium* (Levothyroxine Sodium*) 50 Mcg Tablet, 50 MCG PO BEFORE BREAKFAST, #30 TAB 05/30/17 Amlodipine Besylate* (Amlodipine Besylate*) 10 Mg Tablet, 10 MG PO DAILY, #30 TAB 05/30/17 Gabapentin* (Gabapentin*) 100 Mg Capsule, 100 MG PO TID, #90 CAP 05/12/17 Baclofen* (Baclofen*) 10 Mg Tablet, 10 MG PO DAILY, TAB 05/12/17 Allergies Allergies: Coded Allergies: ibuprofen (Verified Allergy, Unknown, 05/30/17) PMhx/Soc Anesthesia Reaction: No Hx 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 Disorder: No Hx Respiratory Disorders: No Hx Cardiac Disorders: Yes (HTN) Hx Miscellaneous Medical Probl: Yes (fall, bipolar d/o, severe anxiety) Hx Alcohol Use: No Hx Substance Use: No Hx Tobacco Use: Yes Smoking Status: Never smoker Physical Exam Vitals Vital Signs Date Time Temp Pulse Resp B/P Pulse Ox O2 Delivery O2 Flow Rate FiO2 07/27/17 20:43 98.4 82 25 179/98 97 Physical Exam Const: No acute distress Head: Atraumatic Eyes: Normal Conjunctiva ENT: Normal External Ears, Nose and Mouth. Neck: Full range of motion..~ No meningismus. Resp: Clear to auscultation bilaterally Cardio: Regular rate and rhythm, no murmurs Abd: Soft, non tender, non distended. Normal bowel sounds Skin: No petechiae or rashes Back: No midline or flank tenderness Ext: No cyanosis, or edema Neur: Awake and alert Psych: Normal Mood and Affect Result Diagram: 07/27/17205607/27/172056 Results 24 hrs Laboratory Tests Test 07/27/17 20:57 07/27/17 22:51 White Blood Count 10.010^3/ul Red Blood Count 4.4810^6/ul Hemoglobin 13.6g/dl Hematocrit 43.4% Mean Corpuscular Volume 96.9fl Mean Corpuscular Hemoglobin 30.4pg Mean Corpuscular Hemoglobin Concent 31.3g/dl Red Cell Distribution Width 12.9% Platelet Count 36005^3/UL Mean Platelet Volume 11.5fl Neutrophils % 63.3% Lymphocytes % 27.4% Monocytes % 7.2% Eosinophils % 1.4% Basophils % 0.4% Nucleated Red Blood Cells % 0.0/100WBC Neutrophils # 6.310^3/ul Lymphocytes # 2.710^3/ul Monocytes # 0.710^3/ul Eosinophils # 0.110^3/ul Basophils # 0.010^3/ul Nucleated Red Blood Cells # 0.010^3/ul Sodium Level 142mmol/L Potassium Level 4.1mmol/L Chloride Level 107mmol/L Carbon Dioxide Level 29mmol/L Anion Gap 10 Blood Urea Nitrogen 16mg/dl Creatinine 0.73mg/dl Glucose Level 84mg/dl Calcium Level 9.8mg/dl Total Bilirubin 0.3mg/dl Direct Bilirubin 0.00mg/dl Indirect Bilirubin 0.3mg/dl Aspartate Amino Transf (AST/SGOT) 21IU/L Alanine Aminotransferase (ALT/SGPT) 30IU/L Alkaline Phosphatase 66IU/L Total Protein 7.3g/dl Albumin 4.1g/dl Globulin 3.20g/dl Albumin/Globulin Ratio 1.28 Lipase 46U/L Bedside Urine pH (LAB) 6.5 Bedside Urine Protein (LAB) Negative Bedside Urine Glucose (UA) Negative Bedside Urine Ketones (LAB) Negative Bedside Urine Blood Trace-intact Bedside Urine Nitrite (LAB) Negative Bedside Urine Leukocyte Esterase (L Negative Current Medications Medications (Trade) Dose Ordered Sig/Micha Route PRN Reason Start Time Stop Time Status Last Admin Dose Admin Sodium Chloride (NS) 1,000 ml @ 1,000 mls/hr Q1H STAT IV 07/27/17 20:46 07/27/17 21:45 DC 07/27/17 21:02 Ondansetron HCl (Zofran Inj) 4 mg ONCE STAT IV 07/27/17 20:46 07/27/17 20:47 DC 07/27/17 21:01 Acetaminophen (Tylenol Tab) 1,000 mg ONCE STAT PO 07/27/17 21:38 07/27/17 21:52 DC 07/27/17 21:38 Acetaminophen (Tylenol Tab) 500 mg STK-MED ONCE .ROUTE 07/27/17 21:40 07/27/17 21:41 DC Meclizine HCl (Antivert) 25 mg ONCE ONCE PO 07/27/17 22:30 07/27/17 22:31 DC Procedures/MDM Chest X-ray 1V Interpreted by me: Soft Tissue: No acute abnormalities Bones: No acute abnormalities Mediastinum/Cardiac Silhouette/Lungs: [No acute abnormalities] EKG: Rate/Rhythm: [Normal Sinus Rhythm] QRS, ST, T-waves: [No changes consistent w/ acute ischemia] Impression: [No evidence of ischemia or arrhythmia] This 71-year-old female presents to the ER for evaluation of dizziness and feeling weak. She describes dizziness as room spinning sensation. The patient had no focal neurological deficits on my examination. Lab work is within normal limits at this time including a urinalysis. Her EKG is nonischemic and troponin is negative. Her chest x-ray is clear. The patient was given meclizine in the ER and will be discharged home with a prescription for meclizine for BPPV. Advised her she can return to the emergency room at any point for reevaluation if her symptoms were to worsen she verbalized understanding and is okay with her plan of care with discharge at this time. Departure Diagnosis: Primary Impression: Dizziness Condition: Stable EYAD HURT DO Jul 27, 2017 23:04
[2017-07-28 09:42] VITALS: BP 123/65; PULSE 70; RESP 16; TEMP 97.9
== END 2017-07-28 10:22 | disposition home or self-care (01) ==
LOC: E/R 20:33
DX: R42 Dizziness and giddiness (principal); R40.2252 Coma scale, best verbal response, oriented, at arrival to emergency department; I10 Essential (primary) hypertension; R40.2142 Coma scale, eyes open, spontaneous, at arrival to emergency department; R40.2362 Coma scale, best motor response, obeys commands, at arrival to emergency department; Z87.891 Personal history of nicotine dependence
CPT/HCPCS: 71010; 80053; 81003; 83690; 85025; 93005; 96374; 99285; J2405; J7030

== ENCOUNTER 2017-09-04 10:24 | Emergency (ER) | END 2017-09-04 13:36 | disposition home or self-care (01) | DX: F41.9 Anxiety disorder, unspecified (principal); I10 Essential (primary) hypertension; E03.9 Hypothyroidism, unspecified; R00.2 Palpitations; R40.2142 Coma scale, eyes open, spontaneous, at arrival to emergency department; R40.2252 Coma scale, best verbal response, oriented, at arrival to emergency department; R40.2362 Coma scale, best motor response, obeys commands, at arrival to emergency department; Z96.641 Presence of right artificial hip joint ==

== ENCOUNTER 2017-12-10 22:06 | Emergency (ER) | END 2017-12-11 04:37 | disposition left against medical advice (07) ==

== ENCOUNTER 2017-12-14 09:47 | Emergency (ER) | END 2017-12-14 19:41 | disposition home or self-care (01) ==

== ENCOUNTER 2018-03-25 11:20 | Emergency (ER) | END 2018-03-25 14:16 | disposition home or self-care (01) ==

== ENCOUNTER 2018-04-18 07:26 | Emergency (ER) | END 2018-04-18 13:56 | disposition home or self-care (01) ==

== ENCOUNTER 2018-05-01 22:15 | Emergency (ER) | END 2018-05-02 04:00 | disposition home or self-care (01) ==

== ENCOUNTER 2018-06-01 20:27 | Observation (INO) | END 2018-06-02 12:45 | disposition home or self-care (01) ==

== ENCOUNTER 2018-07-03 14:07 | Emergency (ER) | END 2018-07-03 18:28 | disposition home or self-care (01) ==